=== PATIENT | male | born 1960 | race African-American/Black ===

== ENCOUNTER 2018-08-15 14:20 | Outpatient (RCR) | payer MEDICARE, OTHER ==
[~2018-08-15 14:20] MED LIST: ALLOPURINOL100 M1 ORAL; CLINDAMYCIN HC300 MG ORAL; DOXYCYCLINE HY100 M2 ORAL; FUROSEMIDE40 MG ORAL; LANTUS5 UNITS SUBQ; LASIX40 MG ORAL; LEVEMIR FL100 UNIT/1 SUBQ; METFORMIN HCL1000 M1 ORAL; Potassium Chloride ORAL; VASOTEC10 MG ORAL; XARELTO10 MG ORAL; ZAROXOLYN2.5 MG ORAL
== END 2018-08-31 | disposition home or self-care (01) ==
LOC: WCC 14:20
DX: I89.0 Lymphedema, not elsewhere classified (principal); I87.2 Venous insufficiency (chronic) (peripheral); L97.811 Non-pressure chronic ulcer of other part of right lower leg limited to breakdown of skin; E11.22 Type 2 diabetes mellitus with diabetic chronic kidney disease; Z79.899 Other long term (current) drug therapy; Z79.01 Long term (current) use of anticoagulants; Z95.0 Presence of cardiac pacemaker; E66.01 Morbid (severe) obesity due to excess calories; I13.0 Hypertensive heart and chronic kidney disease with heart failure and stage 1 through stage 4 chronic kidney disease, or unspecified chronic kidney disease; N18.9 Chronic kidney disease, unspecified; I50.9 Heart failure, unspecified; Z87.891 Personal history of nicotine dependence; Z91.018 Allergy to other foods
CPT/HCPCS: 29581; G0463

== ENCOUNTER 2018-08-20 10:49 | Outpatient (CLI) | payer MEDICARE, OTHER ==
--- NOTE | 2018-08-30 19:48 | Diagnostic Imaging Report ---
APPROVED REPORT CPT Code: 96840 Symptoms Comments: Right leg ulcer Edema Limited study due to patient status, body habitus (mid superficial and calf veins). BILATERAL LEG: Common femoral artery waveform analysis is within normal limits at rest. Color flow duplex sonography reveals calcification throughout the superficial femoral and popliteal arteries. There is no evidence of significant stenosis or occlusion within these segments. Doppler tibial artery waveform analysis is monophasic and vasodilated compatible with minimal ischemia at rest. Ankle-brachial indices were attempted, but unobtainable.
--- NOTE | 2018-08-30 19:49 | Diagnostic Imaging Report ---
APPROVED REPORT CPT Code: 28287 Present Symptoms Lower Extremity Edema: Bilateral Limited study due to patient status, body habitus (mid superficial and calf veins). BILATERAL: Imaging reveals a patent deep venous system bilaterally. There is no evidence of thrombus within the common femoral, superficial femoral, popliteal veins. The greater saphenous veins are within normal limits. Doppler indicates normal spontaneous flow within these segments. Venous reflux study: There is an evidence of venous reflux within the greater saphenous venous system. The reflux was lasted longer than 0.5 seconds in the both legs greater saphenous veins at the above thigh, knee, and calf area.
== END 2018-08-20 12:49 | disposition home or self-care (01) ==
LOC: VAS 10:49
DX: L97.919 Non-pressure chronic ulcer of unspecified part of right lower leg with unspecified severity (principal)
CPT/HCPCS: 93925; 93970; G0463

== ENCOUNTER 2018-09-03 08:45 | Outpatient (RCR) | payer MEDICARE, OTHER | END 2018-09-30 | disposition home or self-care (01) | LOC: WCC 08:45 | DX: L97.522 Non-pressure chronic ulcer of other part of left foot with fat layer exposed (principal); E11.621 Type 2 diabetes mellitus with foot ulcer; I89.0 Lymphedema, not elsewhere classified; Q82.0 Hereditary lymphedema; Z91.018 Allergy to other foods | CPT/HCPCS: 15275; 29580; G0463; Q4131 ==

== ENCOUNTER 2018-10-01 12:55 | Outpatient (RCR) | payer MEDICARE, OTHER | END 2018-10-31 | disposition home or self-care (01) | LOC: WCC 12:55 | DX: L97.522 Non-pressure chronic ulcer of other part of left foot with fat layer exposed (principal); E11.621 Type 2 diabetes mellitus with foot ulcer; Z87.891 Personal history of nicotine dependence; Z95.0 Presence of cardiac pacemaker | CPT/HCPCS: 15275; 29580; 82962; Q4131 ==

== ENCOUNTER → 2018-10-15 | Outpatient (CLI) | payer MEDICARE, OTHER ==
--- NOTE | 2018-10-17 18:42 | Diagnostic Imaging Report ---
APPROVED REPORT CPT Code: 74529 Present Symptoms Comments: Swelling Comments Hx of Bilateral leg venous reflux disease BILATERAL: Imaging reveals a patent deep venous system bilaterally. There is no evidence of thrombus within the common femoral, superficial femoral, popliteal or tibial segments. Doppler indicates normal spontaneous flow within these segments. VENOUS INSUFFICIENCY: SUPERFICIAL VENOUS SYSTEM: Imaging reveals venous insufficiency in the greater saphenous vein at the right and left proximal thigh, knee, and calf level. Reflux lasted longer than 0.5 seconds, bilaterally. Note: The proximal superficial femoral to distal superficial femoral and mid calf veins were not visualized, due to body habitus.
== END | disposition home or self-care (01) ==
LOC: VAS 09:30
DX: L97.329 Non-pressure chronic ulcer of left ankle with unspecified severity (principal)
CPT/HCPCS: 93922; 93970

== ENCOUNTER 2018-11-05 10:30 | Outpatient (RCR) | payer MEDICARE, OTHER | END 2018-12-01 | disposition home or self-care (01) | LOC: WCC 10:30 | DX: L97.522 Non-pressure chronic ulcer of other part of left foot with fat layer exposed (principal); E11.621 Type 2 diabetes mellitus with foot ulcer; E11.9 Type 2 diabetes mellitus without complications; I11.9 Hypertensive heart disease without heart failure; Z95.0 Presence of cardiac pacemaker | CPT/HCPCS: 29580; G0463 ==

== ENCOUNTER 2019-04-29 10:46 | Outpatient (RCR) | payer MEDICARE, OTHER | END 2019-05-03 | disposition home or self-care (01) | LOC: WCC 10:46 | DX: L97.812 Non-pressure chronic ulcer of other part of right lower leg with fat layer exposed (principal); I87.311 Chronic venous hypertension (idiopathic) with ulcer of right lower extremity; E11.9 Type 2 diabetes mellitus without complications; I11.9 Hypertensive heart disease without heart failure; E66.01 Morbid (severe) obesity due to excess calories; Z95.5 Presence of coronary angioplasty implant and graft; Z85.72 Personal history of non-Hodgkin lymphomas | CPT/HCPCS: 11042; 29580 ==

== ENCOUNTER 2019-05-06 08:48 | Outpatient (RCR) | payer MEDICARE, OTHER | END 2019-06-01 | disposition home or self-care (01) | LOC: WCC 08:48 | DX: L97.812 Non-pressure chronic ulcer of other part of right lower leg with fat layer exposed (principal); I87.311 Chronic venous hypertension (idiopathic) with ulcer of right lower extremity; Z95.0 Presence of cardiac pacemaker; E11.9 Type 2 diabetes mellitus without complications; I11.9 Hypertensive heart disease without heart failure; I25.10 Atherosclerotic heart disease of native coronary artery without angina pectoris | CPT/HCPCS: 11042; 11045; 29580; G0463 ==

== ENCOUNTER 2019-11-04 14:29 | Outpatient (RCR) | payer MEDICARE, OTHER | END 2019-12-02 | disposition home or self-care (01) | LOC: WCC 14:29 | DX: L97.811 Non-pressure chronic ulcer of other part of right lower leg limited to breakdown of skin (principal); I87.331 Chronic venous hypertension (idiopathic) with ulcer and inflammation of right lower extremity; Z79.01 Long term (current) use of anticoagulants; Z79.899 Other long term (current) drug therapy | CPT/HCPCS: 29580; G0463 ==

== ENCOUNTER 2020-01-06 12:42 | Outpatient (RCR) | payer MEDICARE, OTHER | END 2020-02-01 | disposition home or self-care (01) | LOC: WCC 12:42 | DX: L97.812 Non-pressure chronic ulcer of other part of right lower leg with fat layer exposed (principal); I89.0 Lymphedema, not elsewhere classified; L97.822 Non-pressure chronic ulcer of other part of left lower leg with fat layer exposed; Z95.0 Presence of cardiac pacemaker; I25.10 Atherosclerotic heart disease of native coronary artery without angina pectoris; I11.9 Hypertensive heart disease without heart failure; E11.9 Type 2 diabetes mellitus without complications | CPT/HCPCS: 11042; 11043; 29580; G0463 ==

== ENCOUNTER 2020-04-13 11:58 | Outpatient (RCR) | payer MEDICARE, OTHER | END 2020-05-03 | disposition home or self-care (01) | LOC: WCC 11:58 | DX: I87.2 Venous insufficiency (chronic) (peripheral) (principal); L97.811 Non-pressure chronic ulcer of other part of right lower leg limited to breakdown of skin; Z95.0 Presence of cardiac pacemaker; I11.9 Hypertensive heart disease without heart failure; I25.10 Atherosclerotic heart disease of native coronary artery without angina pectoris; E11.9 Type 2 diabetes mellitus without complications | CPT/HCPCS: 29580; 87070; 87181; 87205 ==

== ENCOUNTER 2020-05-08 13:29 | Outpatient (RCR) | payer MEDICARE, OTHER | END 2020-05-26 | disposition home or self-care (01) | LOC: WCC 13:29 | DX: I87.2 Venous insufficiency (chronic) (peripheral) (principal); L97.811 Non-pressure chronic ulcer of other part of right lower leg limited to breakdown of skin; Z95.0 Presence of cardiac pacemaker; I11.9 Hypertensive heart disease without heart failure; I25.10 Atherosclerotic heart disease of native coronary artery without angina pectoris; E11.9 Type 2 diabetes mellitus without complications | CPT/HCPCS: G0463 ==

== ENCOUNTER 2020-05-15 22:19 | Inpatient (IN) | payer MEDICARE, OTHER ==
[~2020-05-15] VITALS: Ht 180.3 cm; Wt 188.2 kg
[2020-05-15 22:45] VITALS: BP 103/62
--- NOTE | 2020-05-15 22:58 | Emergency Room Report ---
History of Present Illness General Chief Complaint: Generalized Weakness Source: EMS Present Illness HPI Disclaimer: Please note that this report is being documented using [employer] technology. This can lead to erroneous entry secondary to incorrect interpretation by the dictating instrument. HPI: 60-year-old male history of morbid obesity, hypertension, hyperlipidemia, diabetes, CHF presents for evaluation generalized weakness. Patient unable to provide significant history. He is falling asleep during exam and appears somewhat confused. EMS states they picked him up from home after a neighbor stated he was unable to move over the past 2 days. Is reportedly unusual for the patient. Also EMS reported that the patient desaturated to the mid 80s on room air on route. Improved with nasal oxygen. No reports of recent fever cough or URI symptoms. Reportedly he had a negative Covid test recently per EMS. PMH: Obesity, hypertension, hyperlipidemia, diabetes, CHF PSH: Unable to obtain from patient Allergies: Penicillin listed in chart Social Hx: Unable to obtain from patient Allergies: Coded Allergies: [place] (Verified Allergy, Mild, Rash, 10/29/14) per patient P[place] (Unverified Allergy, Unknown, 11/28/13) COVID-19 Screening Contact w/high risk pt: No Experienced COVID-19 symptoms?: No COVID-19 Testing performed HEAD OF GEOGRAPHY: No Nursing Documentation-PMH Hx Cardiac Problems: Yes - Pacemaker Hx Hypertension: Yes Hx Pacemaker: Yes Hx COPD: Yes - sleep apnea Hx Diabetes: Yes Hx Cancer: No Hx Gastrointestinal Problems: No Hx Neurological Problems: No Review of Systems All Other Systems: limited - Unable to obtain from patient due to clinical condition Physical Exam Vital Signs Date Time Temp Pulse Resp B/P (MAP) Pulse Ox O2 Delivery O2 Flow Rate FiO2 05/15/20 22:26 98.1 90 20 89/59 (69) 98 Room Air General: Somnolent, falling asleep during exam. Seems confused. HEENT: NC/AT. EOMI. Cardiovascular: RRR. S1 and S2 normal. No murmur appreciated Resp: 4 L nasal cannula. Breath sounds are distant but present bilaterally. Cannot make out obvious wheezing or crackles Abdomen: Abdomen is morbidly obese. Skin: Intact. Venous stasis changes lower extremities MSK: Normal tone and bulk. Moving all extremities. No obvious deformity. Neuro: Somnolent. Confused. Moving all extremities. Procedures Critical Care Time Critical Care Time Total critical care time: Approximately 45 minutes Due to a high probability of clinically significant, life threatening deterioration, the patient required the highest level of preparedness to intervene emergently and I personally spent this critical care time directly and personally managing the patient. This critical care time included obtaining a history, examining the patient, pulse oximetry, ordering and reviewing studies, ordering treatments, evaluating response to treatment and updating management plan as needed, frequent reassessment and discussion with other providers as well as arranging for ultimate disposition. This critical to care time was performed to assess and manage the high probability of life-threatening deterioration that could result in multiorgan failure. This critical care time is separate from the separately billable procedures and treating other patients. Medical Decision Making Diagnostic Impression: Primary Impression: Morbid obesity Additional Impressions: Acidosis Hyperkalemia Acute kidney failure Pacemaker UTI (urinary tract infection) ER Course 52-year-old male presents for evaluation of weakness. He is confused on arrival. Differential includes is not limited to DKA, sepsis, dehydration, generalized weakness, viral syndrome, pneumonia, COVID-19, ACS among others. EKG on arrival shows atrial fibrillation mild tachycardia. Patient has a history of atrial fibrillation. CT head does not show acute injury. Labs concerning for elevated potassium in the setting of renal failure. BUN and creatinine significantly elevated. Lactate within normal limits. Patient shows an acidosis on blood gas with retained CO2 but normal saturations. BiPAP ordered. Potassium treated with IV calcium, insulin/dextrose, Kayexalate, bicarbonate. Patient unable to go through scanner for CT scan of the chest/abdomen/pelvis because of the large size of his abdomen. Aaron in place approximately 50 cc output. D-dimer and troponin elevated. Patient's previous meds show he is on Xarelto. Unable to perform CTA. Urinalysis shows bacteria. Patient received ceftriaxone. Patient admitted in critical condition to Dr. Fan who is panel physician today Laboratory Tests Test 05/15/20 22:45 05/15/20 23:41 White Blood Count 9.9 K/UL (4.8-10.8) Red Blood Count 3.30 M/UL (4.70-6.10) L Hemoglobin 9.1 G/DL (14.2-18.0) L Hematocrit 30.8 % (42.0-52.0) L Mean Corpuscular Volume 93 FL (80-99) Mean Corpuscular Hemoglobin 27.6 PG (27.0-31.0) Mean Corpuscular Hemoglobin Concent 29.6 G/DL (32.0-36.0) L Red Cell Distribution Width 16.7 % (11.6-14.8) H Platelet Count 203 K/UL (150-450) Mean Platelet Volume 8.3 FL (6.5-10.1) Neutrophils (%) (Auto) 80.2 % (45.0-75.0) H Lymphocytes (%) (Auto) 11.0 % (20.0-45.0) L Monocytes (%) (Auto) 7.4 % (1.0-10.0) Eosinophils (%) (Auto) 0.2 % (0.0-3.0) Basophils (%) (Auto) 1.2 % (0.0-2.0) Prothrombin Time 12.6 SEC (9.30-11.50) H Prothrombin Time INR 1.2 (0.9-1.1) H Activated Partial Thromboplast Time 33 SEC (23-33) D-Dimer 2.87 mg/L FEU (0.00-0.49) H Sodium Level 145 MMOL/L (136-145) Potassium Level 7.9 MMOL/L (3.5-5.1) *H Chloride Level 111 MMOL/L (98-107) H Carbon Dioxide Level 19 MMOL/L (21-32) L Anion Gap 13 mmol/L (5-15) Blood Urea Nitrogen 115 mg/dL (7-18) H Creatinine 8.7 MG/DL (0.55-1.30) H Estimated Glomerular Filtration Rate 7.6 mL/min (>60) Glucose Level 100 MG/DL (74-106) Lactic Acid Level 1.30 mmol/L (0.4-2.0) Calcium Level 8.3 MG/DL (8.5-10.1) L Phosphorus Level 7.9 MG/DL (2.5-4.9) H Magnesium Level 2.1 MG/DL (1.8-2.4) Ferritin 268 NG/ML (8-388) Total Bilirubin 0.5 MG/DL (0.2-1.0) Aspartate Amino Transferase (AST) 41 U/L (15-37) H Alanine Aminotransferase (ALT) 45 U/L (12-78) Alkaline Phosphatase 109 U/L (46-116) Lactate Dehydrogenase 322 U/L (81-234) H Total Creatine Kinase 655 U/L (26-308) H Creatine Kinase MB 16.5 NG/ML (0.0-3.6) H Creatine Kinase MB Relative Index 2.5 Troponin I 0.146 ng/mL (0.000-0.056) C-Reactive Protein, Quantitative 5.0 mg/dL (0.00-0.90) H Pro-B-Type Natriuretic Peptide 84131 pg/mL (0-125) H Total Protein 9.1 G/DL (6.4-8.2) H Albumin 3.0 G/DL (3.4-5.0) L Globulin 6.1 g/dL Albumin/Globulin Ratio 0.5 (1.0-2.7) L Lipase 138 U/L (73-393) Acetone Level Positive-small (NEGATIVE) Arterial Blood pH 7.004 (7.350-7.450) Arterial Blood Partial Pressure CO2 64.0 mmHg (35.0-45.0) *H Arterial Blood Partial Pressure O2 107.4 mmHg (75.0-100.0) H Arterial Blood HCO3 15.6 mmol/L (22.0-26.0) *L Arterial Blood Oxygen Saturation 95.5 % (95-100) Arterial Blood Base Excess -15.4 (-2-2) *L Dany Test Positive EKG Diagnostic Results Troponin ordered: Yes When was troponin ordered?: May 15, 2020 EKG Time: 22:42 Rate: tachycardiac Other Impression Irregularly irregular rhythm consistent with atrial fibrillation rate 117 Rhythm Strip Diag. Results Rhythm Strip Time: 22:42 EP Interpretation: yes Rate: 117 Rhythm: other - Irregularly irregular rhythm Chest X-Ray Diagnostic Results Chest X-Ray Diagnostic Results : Chest X-Ray Ordered: Yes # of Views/Limited/Complete: 1 View Indication: Other - Weakness Interpretation: no pneumothorax, other - Bilateral pulmonary congestion. Cannot exclude infiltrates. Pacemaker wires appear in place Impression: Other - Bilateral pulmonary edema Electronically Signed by: Electronically signed by Dr. Victor Manuel Marc MD Last Vital Signs Date Time Temp Pulse Resp B/P (MAP) Pulse Ox O2 Delivery O2 Flow Rate FiO2 05/15/20 22:26 98.1 90 20 89/59 (69) 98 Room Air Disposition: ADMITTED INPATIENT Condition: Critical Referrals: NOT CHOSEN IPA/,REFERRING (PCP) Victor Manuel Marc MD May 15, 2020 22:58
[2020-05-15 23:21] LABS: BASOPHILS % (AUTO) 1.2 % (0.0-2.0); EOSINOPHILS % (AUTO) 0.2 % (0.0-3.0); HEMATOCRIT 30.8 % (42.0-52.0); HEMOGLOBIN 9.1 G/DL (14.2-18.0); MEAN CORPUSCULAR VOLUME 93 FL (80-99); MONOCYTES % (AUTO) 7.4 % (1.0-10.0); NEUTROPHILS % (AUTO) 80.2 % (45.0-75.0); PLATELET COUNT 203 K/UL (150-450); RED CELL DISTRIBUTION WIDTH 16.7 % (11.6-14.8); WHITE BLOOD COUNT 9.9 K/UL (4.8-10.8)
[2020-05-15 23:47] LABS: ALBUMIN/GLOBULIN RATIO 0.5 (1.0-2.7); BILIRUBIN,TOTAL 0.5 MG/DL (0.2-1.0); CALCIUM 8.3 MG/DL (8.5-10.1); CREATININE 8.7 MG/DL (0.55-1.30); PHOSPHORUS 7.9 MG/DL (2.5-4.9)
[2020-05-15 23:50] LABS: POTASSIUM 7.9 MMOL/L (3.5-5.1)
[2020-05-15 23:52] LABS: INR 1.2 (0.9-1.1)
[2020-05-16] VITALS (22 sets, daily range): BP systolic 96–127; BP diastolic 45–76
[2020-05-16] MEDS ORDERED: Insulin Human Regular 100units/ml 3ml IV ONE
[2020-05-16] MEDS ORDERED: Calcium Gluconate 1gm/10ml vial IVP ONE
[2020-05-16] MEDS ORDERED: Sodium Polystyrene Sulfonate 15gm Powder ORAL ONE
[2020-05-16] MEDS ORDERED: Sodium Bicarbonate 50ml Carp IV ONE
[2020-05-16] MEDS ORDERED: cefTRIAXone 1 GM in NS 55 ML IVPB ONE ×2
[2020-05-16 00:04] LABS: CKMB 16.5 NG/ML (0.0-3.6)
--- NOTE | 2020-05-16 00:09 | Diagnostic Imaging Report ---
EXAM: XR Chest, 1 View CLINICAL HISTORY: WEAK TECHNIQUE: Frontal view of the chest. COMPARISON: 10/29/2014 IMPRESSION: Increased interstitial opacities in the mid to lower lobes bilaterally. Correlate with edema. Cardiomegaly.
--- NOTE | 2020-05-16 00:42 | Diagnostic Imaging Report ---
EXAM: CT Head Without Intravenous Contrast CLINICAL HISTORY: AMS TECHNIQUE: Axial computed tomography images of the head/brain without intravenous contrast. CTDI is 53.4 mGy and DLP is 1179.1 mGy-cm. One or more of the following dose reduction techniques were used: automated exposure control, adjustment of the mA and/or kV according to patient size, use of iterative reconstruction technique. COMPARISON: No relevant prior studies available. FINDINGS: Brain: No hemorrhage or mass effect. Ventricles: No hydrocephalus. Bones/joints: Unremarkable. Soft tissues: Unremarkable. Sinuses: Unremarkable. Mastoid air cells: Clear. IMPRESSION: No acute hemorrhage, hydrocephalus, or mass effect.
[2020-05-16 01:00] LABS: APPEARANCE,URINE SLIGHTLY CLOUDY; BILIRUBIN, URINE NEGATIVE (NEGATIVE); GLUCOSE, URINE (UA) NEGATIVE (NEGATIVE); KETONES,URINE 1+ (NEGATIVE); LEUKOCYTE ESTERASE ,URINE 1+ (NEGATIVE); NITRITE,URINE NEGATIVE (NEGATIVE); PH,URINE 5 (4.5-8.0); PROTEIN,URINE 4+ (NEGATIVE); UROBILINOGEN,URINE NORMAL MG/DL (0.0-1.0)
[2020-05-16 01:03] LABS: COLOR,URINE PALE YELLOW
[2020-05-16 08:13] LABS: BASOPHILS % (AUTO) 1.4 % (0.0-2.0); EOSINOPHILS % (AUTO) 0.3 % (0.0-3.0); HEMATOCRIT 31.9 % (42.0-52.0); HEMOGLOBIN 9.1 G/DL (14.2-18.0); MEAN CORPUSCULAR VOLUME 96 FL (80-99); MONOCYTES % (AUTO) 8.3 % (1.0-10.0); PLATELET COUNT 200 K/UL (150-450); RED BLOOD COUNT 3.32 M/UL (4.70-6.10); RED CELL DISTRIBUTION WIDTH 17.1 % (11.6-14.8)
[2020-05-16 08:44] LABS: ALBUMIN 2.7 G/DL (3.4-5.0); ALBUMIN/GLOBULIN RATIO 0.5 (1.0-2.7); BILIRUBIN,TOTAL 0.4 MG/DL (0.2-1.0); CALCIUM 8.3 MG/DL (8.5-10.1); CREATININE 8.9 MG/DL (0.55-1.30)
[2020-05-16 08:55] LABS: POTASSIUM 7.9 MMOL/L (3.5-5.1)
--- NOTE | 2020-05-16 09:05 | Diagnostic Imaging Report ---
EXAM: US Duplex Bilateral Lower Extremities Veins CLINICAL HISTORY: WEAK TECHNIQUE: Real-time duplex ultrasound scan of the bilateral lower extremity veins integrating B-mode two-dimensional vascular structure, Doppler spectral analysis, color flow Doppler imaging and compression. COMPARISON: No relevant prior studies available. FINDINGS: Right deep veins: Unremarkable. No DVT in the right common femoral, femoral, proximal deep femoral or popliteal veins. The veins demonstrate normal color flow, are normally compressible, with normal phasic flow and/or augmentation response. Right superficial veins: Unremarkable. No thrombus in the visualized right great saphenous vein. Left deep veins: Unremarkable. No DVT in the left common femoral, femoral, proximal deep femoral or popliteal veins. The veins demonstrate normal color flow, are normally compressible, with normal phasic flow and/or augmentation response. Left superficial veins: Unremarkable. No thrombus in the visualized left great saphenous vein. Soft tissues: Moderate subcutaneous edema bilaterally. No popliteal cyst. IMPRESSION: No evidence of deep vein thrombosis in either lower extremity..
--- NOTE | 2020-05-16 09:46 | Diagnostic Imaging Report ---
EXAM: US Retroperitoneal Limited, Renal CLINICAL HISTORY: WEAK TECHNIQUE: Real-time limited ultrasound of the retroperitoneum with image documentation. COMPARISON: No relevant prior studies available. FINDINGS: Limitations: Study is limited due to patient body habitus. Right kidney: The right kidney measures 11.2 cm in length. There is increased echogenicity of the renal cortex consistent with medical renal disease. No hydronephrosis or mass identified. No stones. Left kidney: The left kidney is not visualized. Bladder: The bladder is decompressed with a Aaron catheter in place. IMPRESSION: The study due to patient body habitus. There is nonvisualization of the left kidney. The right kidney demonstrates increase echogenicity consistent with medical renal disease.
[2020-05-16] MEDS ORDERED: Sodium Bicarbonate 50ml Carp IV SCH (10:30)
[2020-05-16] MEDS ORDERED: Sodium Polystyrene Sulfonate 15gm Powder NG SCH (10:30)
[2020-05-16] MEDS: Dextrose 10% 1,000 ML IV SCH (11:06)
--- NOTE | 2020-05-16 11:15 | Consultation ---
Consult Note Consult Note I am asked to evaluate the patient at the request of Dr. Cates for renal failure and hyperkalemia Chief Complaint: Generalized Weakness HPI: 60-year-old male history of morbid obesity, hypertension, hyperlipidemia, diabetes, CHF presents for evaluation generalized weakness. Patient unable to provide significant history. He is falling asleep during exam and appears somewhat confused. EMS states they picked him up from home after a neighbor stated he was unable to move over the past 2 days. Is reportedly unusual for the patient. Also EMS reported that the patient desaturated to the mid 80s on room air on route. Improved with nasal oxygen. No reports of recent fever cough or URI symptoms. Reportedly he had a negative Covid test recently per EMS. PMH: Obesity, hypertension, hyperlipidemia, diabetes, CHF PSH: Unable to obtain from patient Allergies: Penicillin listed in chart Social Hx: Unable to obtain from patient Allergies: [place] (Verified Allergy, Mild, Rash, 10/29/14) per patient PENIC[place] (Unverified Allergy, Unknown, 11/28/13) COVID-19 Screening Contact w/high risk pt: No Experienced COVID-19 symptoms?: No COVID-19 Testing performed PARK GUARD: No Hx Cardiac Problems: Yes - Pacemaker Hx Hypertension: Yes Hx Pacemaker: Yes Hx COPD: Yes - sleep apnea Hx Diabetes: Yes Vital Signs Date Time Temp Pulse Resp B/P (MAP) Pulse Ox O2 Delivery O2 Flow Rate FiO2 05/15/20 22:26 98.1 90 20 89/59 (69) 98 Room Air PHYSICAL EXAMINATION: VITAL SIGNS: Show blood pressure 96/58, pulse is 120 in atrial fib, respirations 20, and temperature is 98. HEAD AND NECK: Shows positive JVD. LUNGS: Decreased breath sounds. CARDIOVASCULAR: Shows irregularly irregular S1 and S2 and tachycardic. ABDOMEN: Soft and morbidly obese. EXTREMITIES: A 2+ pitting edema. LABORATORY AND DIAGNOSTIC DATA: Labs show white count of 9, hemoglobin of 9.1, hematocrit of 32, and platelet count is 200,000. Sodium is 147, potassium initially was 7.9 and now is 4.2, BUN of 74, and creatinine of 5.8. Initial BUN was 121 and creatinine was 8.9. Troponin 0.109. BNP is 15,000. CK is 655. LDH 322. His D-dimer is 2.8. . Assessment/Plan Imp: Acute on chronic renal failure Hyperkalemia Metabolic acidosis Pacemaker UTI Morbid obesity Sugg: Stat ABG, stat kidney ultrasound: Results noted IV bicarb NG tube, Kayexalate Urgent dialysis Discussed with DANIEL Oliva Patient cannot give consent for insertion of dialysis catheter. Dialysis at this point is a lifesaving procedure in my opinion. Adria Gautam MD May 16, 2020 11:15
--- NOTE | 2020-05-16 11:58 | Operative Note - PDOC ---
Operative Note Operative Note Date of Operation/Procedure: May 16, 2020 Pre-op Diagnosis: Hyperkalemia, acute renal insufficiency, Covid positive person under interest pending labs micro Procedure: Right femoral temporary hemodialysis catheter insertion Post-op Diagnosis: same as pre-op Surgeon: Abhay Mccray MD Anesthesia: local Specimen: none Complications: none Condition: unstable Estimated Blood Loss: minimal Implant(s) used?: No Indications for Procedure 60-year-old male presents [facility] and acute renal insufficiency hyperkalemia emergency urgent hemodialysis indicated recommended as per nephrology and medical teams. Patient does not have dialysis access currently. Patient is unresponsive. Emergency dialysis catheter insertion performed at bedside with plans for urgent hemodialysis given patient's hemodynamic condition. Description of Procedure Patient was made comfortable the bedside in the supine position. The right groin is prepped and draped in the same surgical fashion. Local anesthetic was infiltrated. Anatomic landmarks identified. The right femoral vein was cannulated without complication. Good venous flow identified. Guidewire placed over needle needle removed. Small skin incision made around the guidewire. Dilators were used and the tract was dilated. Following this a temporary hemodialysis catheter was inserted over the guidewire guidewire was removed and discarded. Line was sutured in place all ports flushed and aspirated venous blood appropriately without complication. Dressings were applied patient to have dialysis urgently Abhay Mccray May 16, 2020 11:58
--- NOTE | 2020-05-16 12:25 | Cardiology Report ---
APPROVED REPORT EKG Measurement Heart [id number] <Conclusion> Suspect unspecified pacemaker failure Atrial fibrillation with rapid ventricular response with premature ventricular or aberrantly conducted complexes Left axis deviation Low voltage QRS Right bundle branch block Possible Anterolateral infarct, age undetermined Abnormal ECG
--- NOTE | 2020-05-16 12:49 | Cardiology Report ---
APPROVED REPORT EXAM: Two-dimensional and M-mode echocardiogram with Doppler and color Doppler. INDICATION Congestive Heart Failure M-Mode DIMENSIONS IVSd1.0 (0.7-1.1cm)Left Atrium (MM)3.6 (1.6-4.0cm) LVDd4.8 (3.5-5.6cm)Aortic Root3.6 (2.0-3.7cm) PWd1.0 (0.7-1.1cm)Aortic Cusp Exc.2.4 (1.5-2.0cm) IVSs1.7 cmEPSS0.5 (>1.0cm) LVDs3.0 (2.5-4.0cm) PWs1.7 cm Other Information Technically limited study due to body habitus. <Conclusion> Technically difficult study due to poor acoustical windows and patient body habitus. Normal left ventricular chamber size, systolic function to extent visualized. Left ventricular ejection fraction estimated to be 60-65 %. Study quality precludes accurate assessment of regional wall motion. Mild left ventricular hypertrophy. Anterior Echo-free space, may be due to pericardial fat or effusion. Left atrial size is within normal limits. Mild right atrial enlargement. Right ventricular chamber sizes is within normal limits. Focal aortic valve sclerosis with adequate cusp excursion. Thickened mitral valve leaflets with normal excursion. Mitral annulus and aortic root calcification. Normal pulmonic valve structure. Normal tricuspid valve structure. IVC view is not obtainable due to huge belly. Pacemaker wire present in the right side chambers. A color flow and spectral Doppler study was performed and revealed: Mild aortic regurgitation. Moderate mitral regurgitation. Can not determine left ventricular diastolic function by mitral diastolic velocities due to atrial fibrillation. Moderate to severe tricuspid regurgitation. Tricuspid systolic velocities suggests peak right ventricular systolic pressure of 51 mmHg, consistent with moderate pulmonary hypertension. Pulmonic regurgitation present.
--- NOTE | 2020-05-16 12:54 | Diagnostic Imaging Report ---
EXAM: XR Abdomen, 1 View CLINICAL HISTORY: NGT TECHNIQUE: Frontal supine view of the abdomen/pelvis. COMPARISON: No relevant prior studies available. FINDINGS: Gastrointestinal tract: Nonspecific bowel gas pattern Bones/joints: No acute fracture. Tubes, lines and devices: Enteric tube coiled in the esophagus. Right femoral vascular line. IMPRESSION: Enteric tube coiled in the esophagus. Remove. <MYCVCSECTION> Communications: 05/16/20 13:04 Verify Receipt with Nurse Verified receipt with 2 hilary Blount, given to Nurse Jones on 05/16 13:04 (-08:00)
--- NOTE | 2020-05-16 13:03 | Consultation ---
Consult Note Consult Note DATE OF CONSULTATION: 05/16/2020 CONSULTING PHYSICIAN: Juanito Amador MD. ATTENDING PHYSICIAN: Dr. Fan REASON FOR CONSULTATION: Hypoxemia, respiratory distress HISTORY OF PRESENT ILLNESS: This is a 60-year-old male with past medical history of morbid obesity, hypertension, hyperlipidemia, diabetes mellitus, and CHF, who presented to the ED for evaluation of generalized weakness. Patient was brought in by EMS from home after a neighbor stated he was unable to move over the past 2 days. Patient was unable to provide significant history on arrival as he was somewhat confused. Patient was hypoxic on room air in the mid 90s and is now on BiPAP. Patient is seen in SDU. COVID-19 swab was sent. EKG on arrival showed atrial fibrillation with mild tachycardia. Patient does have a history of atrial fibrillation. CT of head did not show any acute injury. Initial laboratory studies were notable for elevated potassium in the setting of renal failure, significantly elevated BUN and creatinine. Patient was acidotic on blood gas with retaining CO2. Patient was put on BiPAP. The ABG is notable for pH of 7.06, PCO2 of 53.9, PO2 of 111.9, bicarb of 15.0. Patient was given bicarb. Patient was also given NG tube for administration of medications including Kayexalate. Patient received right femoral temporary hemodialysis catheter and is undergoing hemodialysis at the moment. PAST MEDICAL HISTORY: Hypertension, morbid obesity, hyperlipidemia, diabetes mellitus, CHF, pacemaker implant, sleep apnea MEDICATIONS: Insulin, Xarelto, allopurinol, enalapril, furosemide, metolazone ALLERGIES: Yeoman, penicillin FAMILY HISTORY: Unknown PERSONAL/SOCIAL HISTORY: Patient is from home REVIEW OF SYSTEMS: Unreliable PHYSICAL EXAMINATION: VITAL SIGNS: Blood pressure 107/45, heart rate 111, respiratory rate 18, weight 188 kg, height 180 cm. General: Patient in bed with moderate respiratory distress on BiPAP HEENT: Head exam reveals that the head is normocephalic, atraumatic without deformity or unusual swelling. Pupils are PERRLA. CHEST AND LUNGS: No obvious wheezing or crackles, breath sounds are distant but present bilaterally CARDIOVASCULAR: Reveals normal S1, S2 without murmurs, rubs, or clicks. ABDOMEN: Morbidly obese RECTAL: Deferred. MUSCULOSKELETAL: There is no tenderness to palpation. Range of motion is normal. NEUROLOGICAL: Somnolent, confused LABORATORY DATA: Laboratory testing shows hemoglobin 9.1, otherwise unremarkable. Chemistries show potassium 7.9, chloride 114, carbon dioxide 19, BUN 121, creatinine 8.9, calcium 8.3, LDH 322, CK 655, CK-MB 16.5, troponin 0.109, albumin 2.7 Urinalysis shows 4+ protein, 1+ ketones, 1+ blood, 1+ leuk esterase, urine bacteria Assessment/Plan 1. Hx Sleep apnea - Pt unable to articulate whether he uses CPAP at home - Continue BiPAP for now 2. Acute on chronic renal failure; hyperkalemia - s/p Kayexalate - s/p Right femoral catheter for dialysis (05/15) -Undergoing urgent dialysis (05/15) 3. Bacteriuria - s/p Rocephin in ER - f/u UCx 4. Hypoxemic respiratory distress -Continue BiPAP -Check ABG 5. Elevated inflammatory markers -Venous duplex ultrasound of lower extremities negative for DVT -On SCD for DVT prophylaxis 6. pneumonia -Chest x-ray shows interstitial opacities bilaterally -COVID-19 PCR sent -Observe off antibiotics given no leukocytosis or fever -Continue isolation till COVID-19 test result available The care for this patient was discussed with my supervising physician. Time spent for this case was approximately 31 minutes. Juan Dunlap May 16, 2020 13:03
[2020-05-16 14:46] LABS: CALCIUM 7.5 MG/DL (8.5-10.1); CREATININE 5.8 MG/DL (0.55-1.30); POTASSIUM 4.2 MMOL/L (3.5-5.1)
[2020-05-16 14:49] LABS: ALBUMIN 2.5 G/DL (3.4-5.0); ALBUMIN/GLOBULIN RATIO 0.5 (1.0-2.7); BILIRUBIN,TOTAL 0.5 MG/DL (0.2-1.0)
--- NOTE | 2020-05-16 16:37 | Cardiac Electrophysiology PN ---
Subjective Subjective [id number] Objective Last 24 Hour Vital Signs Date Time Temp Pulse Resp B/P (MAP) Pulse Ox O2 Delivery O2 Flow Rate FiO2 05/16/20 16:00 60 05/16/20 16:00 Bi-pap 05/16/20 16:00 97.9 112 14 96/58 (71) 97 97 05/16/20 12:00 Bi-pap 05/16/20 12:00 111 05/16/20 12:00 60 05/16/20 12:00 97.2 99 18 107/45 (65) 97 100 05/16/20 10:55 106 19 99 60 05/16/20 08:27 102 05/16/20 08:01 60 05/16/20 08:00 97.1 101 17 107/63 (78) 97 101 05/16/20 07:48 Bi-pap 05/16/20 07:01 104 20 98 60 05/16/20 04:00 97.4 96 22 106/74 (85) 97 05/16/20 04:00 Bi-pap 60.0 05/16/20 03:54 95 05/16/20 02:32 60 05/16/20 02:10 112 16 100 60 05/16/20 02:10 112 16 100 Bi-Pap 60 05/16/20 01:56 97.2 110 26 116/63 (80) 95 05/16/20 01:55 Simple Mask 10.0 05/16/20 01:44 109 05/16/20 01:30 98.3 102 12 123/65 98 Simple Mask 10.0 05/15/20 22:45 124 20 Simple Mask 10.0 05/15/20 22:45 98.1 124 20 103/62 98 Simple Mask 10.0 05/15/20 22:26 98.1 90 20 89/59 (69) 98 Room Air Intake and Output 05/15/20 05/16/20 19:00 07:00 Intake Total 1115 ml Output Total 75 ml Balance 1040 ml Intake Oral 60 ml IV Total 1055 ml Output Urine Total 75 ml Laboratory Tests Test 05/15/20 22:45 05/15/20 23:41 05/16/20 00:51 05/16/20 07:02 White Blood Count 9.9 K/UL (4.8-10.8) 9.0 K/UL (4.8-10.8) Red Blood Count 3.30 M/UL (4.70-6.10) L 3.32 M/UL (4.70-6.10) L Hemoglobin 9.1 G/DL (14.2-18.0) L 9.1 G/DL (14.2-18.0) L Hematocrit 30.8 % (42.0-52.0) L 31.9 % (42.0-52.0) L Mean Corpuscular Volume 93 FL (80-99) 96 FL (80-99) Mean Corpuscular Hemoglobin 27.6 PG (27.0-31.0) 27.3 PG (27.0-31.0) Mean Corpuscular Hemoglobin Concent 29.6 G/DL (32.0-36.0) L 28.4 G/DL (32.0-36.0) L Red Cell Distribution Width 16.7 % (11.6-14.8) H 17.1 % (11.6-14.8) H Platelet Count 203 K/UL (150-450) 200 K/UL (150-450) Mean Platelet Volume 8.3 FL (6.5-10.1) 7.8 FL (6.5-10.1) Neutrophils (%) (Auto) 80.2 % (45.0-75.0) H 80.0 % (45.0-75.0) H Lymphocytes (%) (Auto) 11.0 % (20.0-45.0) L 10.0 % (20.0-45.0) L Monocytes (%) (Auto) 7.4 % (1.0-10.0) 8.3 % (1.0-10.0) Eosinophils (%) (Auto) 0.2 % (0.0-3.0) 0.3 % (0.0-3.0) Basophils (%) (Auto) 1.2 % (0.0-2.0) 1.4 % (0.0-2.0) Prothrombin Time 12.6 SEC (9.30-11.50) H Prothromb Time International Ratio 1.2 (0.9-1.1) H Activated Partial Thromboplast Time 33 SEC (23-33) D-Dimer 2.87 mg/L FEU (0.00-0.49) H Sodium Level 145 MMOL/L (136-145) 144 MMOL/L (136-145) Potassium Level 7.9 MMOL/L (3.5-5.1) *H 7.9 MMOL/L (3.5-5.1) *H Chloride Level 111 MMOL/L (98-107) H 114 MMOL/L (98-107) H Carbon Dioxide Level 19 MMOL/L (21-32) L 19 MMOL/L (21-32) L Anion Gap 13 mmol/L (5-15) 10 mmol/L (5-15) Blood Urea Nitrogen 115 mg/dL (7-18) H 121 mg/dL (7-18) H Creatinine 8.7 MG/DL (0.55-1.30) H 8.9 MG/DL (0.55-1.30) H Estimat Glomerular Filtration Rate 7.6 mL/min (>60) 7.5 mL/min (>60) Glucose Level 100 MG/DL (74-106) 88 MG/DL (74-106) Lactic Acid Level 1.30 mmol/L (0.4-2.0) Calcium Level 8.3 MG/DL (8.5-10.1) L 8.3 MG/DL (8.5-10.1) L Phosphorus Level 7.9 MG/DL (2.5-4.9) H Magnesium Level 2.1 MG/DL (1.8-2.4) Ferritin 268 NG/ML (8-388) Total Bilirubin 0.5 MG/DL (0.2-1.0) 0.4 MG/DL (0.2-1.0) Aspartate Amino Transf (AST/SGOT) 41 U/L (15-37) H 37 U/L (15-37) Alanine Aminotransferase (ALT/SGPT) 45 U/L (12-78) 39 U/L (12-78) Alkaline Phosphatase 109 U/L (46-116) 98 U/L (46-116) Lactate Dehydrogenase 322 U/L (81-234) H Total Creatine Kinase 655 U/L (26-308) H Creatine Kinase MB 16.5 NG/ML (0.0-3.6) H Creatine Kinase MB Relative Index 2.5 Troponin I 0.146 ng/mL (0.000-0.056) 0.109 ng/mL (0.000-0.056) C-Reactive Protein, Quantitative 5.0 mg/dL (0.00-0.90) H Pro-B-Type Natriuretic Peptide 21530 pg/mL (0-125) H Total Protein 9.1 G/DL (6.4-8.2) H 8.3 G/DL (6.4-8.2) H Albumin 3.0 G/DL (3.4-5.0) L 2.7 G/DL (3.4-5.0) L Globulin 6.1 g/dL 5.6 g/dL Albumin/Globulin Ratio 0.5 (1.0-2.7) L 0.5 (1.0-2.7) L Lipase 138 U/L (73-393) Acetone Level Positive-small (NEGATIVE) Arterial Blood pH 7.004 (7.350-7.450) Arterial Blood Partial Pressure CO2 64.0 mmHg (35.0-45.0) *H Arterial Blood Partial Pressure O2 107.4 mmHg (75.0-100.0) H Arterial Blood HCO3 15.6 mmol/L (22.0-26.0) *L Arterial Blood Oxygen Saturation 95.5 % (95-100) Arterial Blood Base Excess -15.4 (-2-2) *L Dany Test Positive Urine Color Pale yellow Urine Appearance Slightly cloudy Urine pH 5 (4.5-8.0) Urine Specific Nelson 1.025 (1.005-1.035) Urine Protein 4+ (NEGATIVE) H Urine Glucose (UA) Negative (NEGATIVE) Urine Ketones 1+ (NEGATIVE) H Urine Blood 1+ (NEGATIVE) H Urine Nitrite Negative (NEGATIVE) Urine Bilirubin Negative (NEGATIVE) Urine Urobilinogen Normal MG/DL (0.0-1.0) Urine Leukocyte Esterase 1+ (NEGATIVE) H Urine RBC 5-10 /HPF (0 - 0) H Urine WBC 10-15 /HPF (0 - 0) H Urine Squamous Epithelial Cells Few /LPF (NONE/OCC) Urine Amorphous Sediment Moderate /LPF (NONE) H Urine Bacteria Moderate /HPF (NONE) H Urine Other Casts 0-2 /LPF (NONE) H Urine Random Sodium 20 mmol/L (20-110) Urine Random Chloride 42 mmol/L (55-125) L Urine Potassium Timed 49 mmol/L (12-62) Test 05/16/20 10:01 05/16/20 14:10 Arterial Blood pH 7.063 (7.350-7.450) Arterial Blood Partial Pressure CO2 53.9 mmHg (35.0-45.0) H Arterial Blood Partial Pressure O2 111.9 mmHg (75.0-100.0) H Arterial Blood HCO3 15.0 mmol/L (22.0-26.0) *L Arterial Blood Oxygen Saturation 96.8 % (95-100) Arterial Blood Base Excess -14.7 (-2-2) *L Dany Test Positive Sodium Level 147 MMOL/L (136-145) H Potassium Level 4.2 MMOL/L (3.5-5.1) Chloride Level 112 MMOL/L (98-107) H Carbon Dioxide Level 26 MMOL/L (21-32) Anion Gap 9 mmol/L (5-15) Blood Urea Nitrogen 74 mg/dL (7-18) H Creatinine 5.8 MG/DL (0.55-1.30) H Estimat Glomerular Filtration Rate 12.2 mL/min (>60) Glucose Level 95 MG/DL (74-106) Calcium Level 7.5 MG/DL (8.5-10.1) L Total Bilirubin 0.5 MG/DL (0.2-1.0) Aspartate Amino Transf (AST/SGOT) 28 U/L (15-37) Alanine Aminotransferase (ALT/SGPT) 32 U/L (12-78) Alkaline Phosphatase 87 U/L (46-116) Total Protein 7.2 G/DL (6.4-8.2) Albumin 2.5 G/DL (3.4-5.0) L Globulin 4.7 g/dL Albumin/Globulin Ratio 0.5 (1.0-2.7) L Shai Champion MD May 16, 2020 16:37
[2020-05-16] MEDS ORDERED: Digoxin 0.5mg/2ml Inj IVP SCH (17:00)
[2020-05-16] MEDS: Norepinephrine 4mg/NS Premix 250 ML IV SCH (20:26)
[2020-05-16] MEDS: dilTIAZem Premix 125mg/125ml 125 ML IVPB SCH (20:27)
--- NOTE | 2020-05-16 20:44 | History and Physical Report ---
DATE OF ADMISSION: 05/15/2020 HISTORY OF PRESENT ILLNESS: The patient is on BiPAP. He came in initially with generalized weakness complaint only. The patient is morbidly obese, was found to have potassium of 7.9, is also being admitted for acute renal failure and hyperkalemia. The patient is also on BiPAP. The patient also has a history of hypertension. Chest x-ray shows possible edema. The patient also has some elevation in pCO2. Again, the patient is admitted for respiratory insufficiency, acute renal failure, hyperkalemia, and hypertension. Does have exertional shortness of breath. Denies cough. Denies headache. Denies nausea, vomiting, or diarrhea. PAST MEDICAL HISTORY: Significant for history of morbid obesity, leg edema, history of NIDDM, history of atrial flutter, history of congestive heart failure, morbid obesity, and arrhythmia. PAST SURGICAL HISTORY: Denies. FAMILY HISTORY: Noncontributory. SOCIAL HISTORY: Has history of alcohol abuse. Does have history of drug abuse. Does have history of smoking. ALLERGIES: Almonds and penicillin. MEDICATIONS: Vasotec, Lasix, insulin, and Xarelto. REVIEW OF SYSTEMS: HEENT: Denies headaches. RESPIRATORY: Reports shortness of breath. Denies cough. CARDIOVASCULAR: Denies chest pain. Denies orthopnea. GASTROINTESTINAL: Denies nausea, vomiting, or diarrhea. Denies abdominal pain. EXTREMITIES: Has leg edema. 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 PHYSICAL EXAMINATION: VITAL SIGNS: Temperature 97.1, pulse is 101, and blood pressure is 107/63. HEENT: PERRLA. CHEST: Bibasilar rhonchi. The patient has BiPAP. CARDIOVASCULAR: Irregularly irregular. GASTROINTESTINAL: Soft, distended. Positive bowel sounds. Abdomen is soft. No organomegaly. EXTREMITIES: 2+ edema. NEUROLOGIC: Generalized weakness. Reflexes on both sides. Oriented x2. LABORATORY DATA: WBC of 9.9, hemoglobin of 9.1, and platelets of 203. Sodium 144, potassium of 7.9, BUN of 121, creatinine of 8.5, glucose of 88, and troponin was 0.109. ASSESSMENT AND PLAN: 1. Acute renal failure. 2. Hyperkalemia. 3. BiPAP. 4. History of hypertension. 5. History of CHF and arrhythmia. 6. The patient is also being admitted for possible CHF exacerbation as well as renal failure, hyperkalemia, respiratory insufficiency, and hypertension. The patient is on BiPAP. Chest x-ray shows edema. I have consulted Dr. Champion, Dr. Gautam, Dr. Juanito Amador, Dr. Corona, Dr. Oswaldo Toro, Dr. Santiago to help with the management of this complex patient with management of the above-mentioned symptoms and above-mentioned abnormal imaging as well as abnormal labs. Antibiotics if any per Dr. Oswaldo Toro. We need to also rule out obstructive uropathy. Dr. Corona has been consulted to help with the management to rule out obstructive uropathy, and Dr. Santiago is also consulted to help with the management of the distended abdomen. Montserrat Fan M.D. DR: Trevin JOB#: [id number] CC:
--- NOTE | 2020-05-16 20:59 | Consultation ---
DATE OF CONSULTATION: 05/16/2020 CARDIOLOGY CONSULTATION CONSULTING PHYSICIAN: Shai Champion M.D. REFERRING PHYSICIAN: Montserrat Fan MD REASON FOR CONSULTATION: Atrial fibrillation, rapid ventricular response, as well as elevated troponin. HISTORY OF PRESENT ILLNESS: The patient is a 60-year-old morbidly obese gentleman with hypertension, diabetes, hyperlipidemia, and congestive heart failure, presented to hospital with generalized weakness. The patient is not able to provide any meaningful information and currently is on BiPAP and is confused. The patient was picked up from home after neighbor stated that he was unable to move over the last 2 days. Per paramedics, the patient's saturation was in the mid 80s en route. The patient reported he had a negative COVID test by paramedics. The patient was noted to have a potassium of 7.9 and underwent emergency hemodialysis catheter placement by Dr. Mccray and underwent hemodialysis today. At the time of my evaluation, the patient is still on BiPAP, was in atrial fibrillation with rapid ventricular response with heart rate of 120s. REVIEW OF SYSTEMS: Cannot be obtained. PAST MEDICAL HISTORY: As mentioned above. FAMILY HISTORY: Noncontributory. SOCIAL HISTORY: He lives at home. No further information is available. PHYSICAL EXAMINATION: VITAL SIGNS: Show blood pressure 96/58, pulse is 120 in atrial fib, respirations 20, and temperature is 98. HEAD AND NECK: Shows positive JVD. LUNGS: Decreased breath sounds. CARDIOVASCULAR: Shows irregularly irregular S1 and S2 and tachycardic. ABDOMEN: Soft and morbidly obese. EXTREMITIES: A 2+ pitting edema. LABORATORY AND DIAGNOSTIC DATA: Labs show white count of 9, hemoglobin of 9.1, hematocrit of 32, and platelet count is 200,000. Sodium is 147, potassium initially was 7.9 and now is 4.2, BUN of 74, and creatinine of 5.8. Initial BUN was 121 and creatinine was 8.9. Troponin 0.109. BNP is 15,000. CK is 655. LDH 322. His D-dimer is 2.8. ASSESSMENT AND PLAN: 1. Elevated troponin, likely due to the patient's renal failure and of respiratory failure, currently on BiPAP. We will repeat cardiac enzymes. His echocardiogram showed ejection fraction of 60%. His EKG showed atrial fibrillation with rapid ventricular response and nonspecific ST-T wave abnormalities. 2. Atrial fibrillation with rapid ventricular response with heart rate in 130s. The patient needs to be transferred to intensive care unit to be started on Cardizem drip. The patient however also is in need of Levophed as his blood pressure is low. The patient had single dose of 0.25 mg of IV digoxin. 3. Respiratory failure, currently on BiPAP, may need to be intubated. 4. Hyperkalemia due to renal failure. Potassium is now 4.2. The patient has already received dialysis by Dr. Gautam. 5. Morbid obesity. 6. Diabetes. 7. Also of note, the patient's chest x-ray show cardiomegaly with vascular congestion and right and left-sided pacemaker. Thank you very much for allowing me to participate in the care of this patient. Please do not hesitate to contact me for any questions regarding my evaluation. Shai Champion M.D. DR: NOEL JOB#: [id number] CC:
[2020-05-16] MEDS ORDERED: Dyna-Hex 2% Top Sol 2oz TOPIC SCH (21:00)
[2020-05-17] VITALS (86 sets, daily range): BP systolic 86–129; BP diastolic 47–90
[2020-05-17] MEDS: dilTIAZem Premix 125mg/125ml 125 ML IVPB SCH ×2 (04:56→18:56)
[2020-05-17] MEDS: Dextrose 10% 1,000 ML IV SCH (06:43)
[2020-05-17 07:01] LABS: BASOPHILS % (AUTO) 1.2 % (0.0-2.0); EOSINOPHILS % (AUTO) 0.3 % (0.0-3.0); HEMATOCRIT 27.5 % (42.0-52.0); HEMOGLOBIN 8.1 G/DL (14.2-18.0); MEAN CORPUSCULAR VOLUME 92 FL (80-99); MONOCYTES % (AUTO) 7.9 % (1.0-10.0); NEUTROPHILS % (AUTO) 81.6 % (45.0-75.0); PLATELET COUNT 193 K/UL (150-450); RED BLOOD COUNT 2.98 M/UL (4.70-6.10); RED CELL DISTRIBUTION WIDTH 16.5 % (11.6-14.8); WHITE BLOOD COUNT 9.1 K/UL (4.8-10.8)
[2020-05-17 07:36] LABS: CREATINE KINASE 298 U/L (26-140)
[2020-05-17 07:40] LABS: % IRON SATURATION 25 % (15-50); IRON 32 ug/dL (50-175); TOTAL IRON BINDING CAPACITY 126 ug/dL (250-450)
[2020-05-17 07:56] LABS: ALANINE AMINOTRANSFERASE 31 U/L (12-78); ALBUMIN 2.5 G/DL (3.4-5.0); ALBUMIN/GLOBULIN RATIO 0.6 (1.0-2.7); ALKALINE PHOSPHATASE 87 U/L (46-116); ANION GAP 12 mmol/L (5-15); ASPARTATE AMINO TRANSFERASE 28 U/L (15-37); BILIRUBIN,TOTAL 0.5 MG/DL (0.2-1.0); BLOOD UREA NITROGEN 84 mg/dL (7-18); CALCIUM 7.7 MG/DL (8.5-10.1); CARBON DIOXIDE 22 MMOL/L (21-32); CHLORIDE 112 MMOL/L (98-107); CHOLESTEROL 92 MG/DL (< 200); FERRITIN 228 NG/ML (8-388); GAMMA GLUTAMYL TRANSPEPTIDASE 55 U/L (5-85); HDL CHOLESTEROL 44 MG/DL (40-60); PHOSPHORUS 6.5 MG/DL (2.5-4.9); POTASSIUM 5.6 MMOL/L (3.5-5.1); SODIUM 146 MMOL/L (136-145); TRIGLYCERIDES 64 MG/DL (30-150)
--- NOTE | 2020-05-17 09:35 | Pulmonology Progress Note ---
Subjective ROS Limited/Unobtainable: Yes Interval Events: now seen in ICU Constitutional: Reports: no symptoms HEENT: Repors: no symptoms Respiratory: Reports: shortness of breath Cardiovascular: Reports: no symptoms Gastrointestinal/Abdominal: Reports: no symptoms Allergies: Coded Allergies: [place] (Verified Allergy, Mild, Rash, 10/29/14) per patient PENICILLINS (Unverified Allergy, Unknown, 11/28/13) Objective Last 24 Hour Vital Signs Date Time Temp Pulse Resp B/P (MAP) Pulse Ox O2 Delivery O2 Flow Rate FiO2 05/17/20 08:45 90 19 124/61 (82) 100 05/17/20 08:30 92 17 119/63 (81) 05/17/20 08:15 92 16 127/60 (82) 100 05/17/20 08:00 83 05/17/20 08:00 93 21 105/50 (68) 100 05/17/20 08:00 90 17 127/58 (81) 05/17/20 08:00 Bi-pap 60.0 05/17/20 08:00 50 05/17/20 07:45 88 17 129/60 (83) 05/17/20 07:30 88 16 126/62 (83) 98 05/17/20 07:17 90 19 98 40 05/17/20 07:15 91 19 123/65 (84) 100 05/17/20 07:00 90 17 127/58 (81) 05/17/20 07:00 90 17 127/58 (81) 05/17/20 06:45 88 15 124/57 (79) 93 05/17/20 06:30 90 19 121/57 (78) 98 05/17/20 06:15 89 15 118/57 (77) 99 05/17/20 06:15 89 15 118/57 (77) 99 05/17/20 06:00 87 17 125/54 (77) 94 05/17/20 05:45 87 17 122/56 (78) 99 05/17/20 05:30 87 19 122/57 (78) 98 05/17/20 05:15 88 17 121/90 (100) 99 05/17/20 05:00 85 17 120/54 (76) 98 05/17/20 04:45 88 18 116/62 (80) 99 05/17/20 04:30 91 19 112/55 (74) 100 05/17/20 04:15 90 18 104/64 (77) 99 05/17/20 04:15 90 18 104/64 (77) 99 05/17/20 04:00 83 05/17/20 04:00 60 05/17/20 04:00 Bi-pap 60.0 05/17/20 04:00 90 18 111/55 (73) 97 05/17/20 03:45 87 18 115/61 (79) 05/17/20 03:30 93 19 107/56 (73) 97 05/17/20 03:19 94 16 100 40 05/17/20 03:15 88 17 117/52 (73) 99 05/17/20 03:15 88 17 117/52 (73) 99 05/17/20 03:00 95 18 116/58 (77) 100 05/17/20 02:30 90 16 128/58 (81) 05/17/20 02:15 93 17 109/56 (73) 100 05/17/20 02:00 95 17 111/55 (73) 100 05/17/20 01:45 93 14 120/59 (79) 95 05/17/20 01:30 92 17 115/61 (79) 98 05/17/20 01:15 93 17 122/55 (77) 98 05/17/20 01:00 93 17 122/53 (76) 100 05/17/20 00:45 95 15 117/60 (79) 98 05/17/20 00:30 94 15 121/55 (77) 05/17/20 00:15 97.6 95 16 117/63 (81) 99 05/17/20 00:00 93 17 116/53 (74) 100 05/17/20 00:00 60 05/17/20 00:00 Bi-pap 60.0 05/17/20 00:00 103 05/16/20 23:45 97.7 101 17 111/62 (78) 99 05/16/20 23:30 99 15 114/55 (74) 05/16/20 23:15 96 15 127/66 (86) 94 05/16/20 23:14 94 18 100 50 05/16/20 23:00 102 15 108/59 (75) 99 2/13/21 22:45 100 17 127/59 (81) 100 05/16/20 22:30 101 17 114/66 (82) 95 05/16/20 22:15 100 17 118/56 (76) 99 05/16/20 22:00 105 15 113/59 (77) 100 05/16/20 22:00 105 15 113/59 (77) 100 05/16/20 21:45 103 17 126/64 (84) 99 05/16/20 21:30 105 18 122/63 (82) 96 05/16/20 21:15 104 17 122/64 (83) 100 05/16/20 21:00 106 15 126/63 (84) 97 05/16/20 20:30 108 17 116/70 (85) 100 05/16/20 20:26 99/62 05/16/20 20:19 111 15 99/62 (74) 100 05/16/20 20:16 111 15 111/61 (78) 100 05/16/20 20:15 114 17 100 05/16/20 20:00 114 18 97/59 (72) 05/16/20 20:00 Bi-pap 60.0 05/16/20 20:00 114 05/16/20 20:00 60 05/16/20 19:45 114 16 05/16/20 19:30 118 18 93 05/16/20 19:22 122 21 100 60 05/16/20 17:40 125 15 115/76 (89) 98 125 05/16/20 17:34 123 05/16/20 16:00 60 05/16/20 16:00 Bi-pap 05/16/20 16:00 97.9 112 14 96/58 (71) 97 97 05/16/20 16:00 128 05/16/20 15:15 122 21 100 45 05/16/20 12:00 Bi-pap 05/16/20 12:00 111 05/16/20 12:00 60 05/16/20 12:00 97.2 99 18 107/45 (65) 97 100 05/16/20 10:55 106 19 99 60 Intake and Output 05/16/20 05/17/20 19:00 07:00 Intake Total 737.3 ml Output Total 100 ml 550 ml Balance -100 ml 187.3 ml IV Total 737.3 ml Output Urine Total 100 ml 550 ml Hemodialysis UF 0 ml General Appearance: other Respiratory: chest wall non-tender, normal breath sounds Cardiovascular: normal rate, regular rhythm Abdomen: other - morbid obesity Laboratory Tests 05/16/20 10:01: Arterial Blood pH 7.063*L, Arterial Blood Partial Pressure CO2 53.9H, Arterial Blood Partial Pressure O2 111.9H, Arterial Blood HCO3 15.0*L, Arterial Blood Oxygen Saturation 96.8, Arterial Blood Base Excess -14.7*L, Dany Test Positive 05/16/20 14:10: Sodium Level 147H, Potassium Level 4.2, Chloride Level 112H, Carbon Dioxide Level 26, Anion Gap 9, Blood Urea Nitrogen 74H, Creatinine 5.8H, Estimat Glomerular Filtration Rate 12.2, Glucose Level 95, Calcium Level 7.5L, Total Bi lirubin 0.5, Aspartate Amino Transf (AST/SGOT) 28, Alanine Aminotransferase (ALT/SGPT) 32, Alkaline Phosphatase 87, Total Protein 7.2, Albumin 2.5L, Globulin 4.7, Albumin/Globulin Ratio 0.5L 05/17/20 05:00: Sodium Level 146H, Potassium Level 5.6H, Chloride Level 112H, Carbon Dioxide Level 22, Anion Gap 12, Blood Urea Nitrogen 84H, Creatinine 7.0H, Estimat Glomerular Filtration Rate 9.8, Glucose Level 133H, Calcium Level 7.7L, Total Bilirubin 0.5, Aspartate Amino Transf (AST/SGOT) 28, Alanine Aminotransferase (ALT/SGPT) 31, Alkaline Phosphatase 87, Total Protein 6.9, Albumin 2.5L, Globulin 4.4, Albumin/Globulin Ratio 0.6L, White Blood Count 9.1, Red Blood Count 2.98L, Hemoglobin 8.1L, Hematocrit 27.5L, Mean Corpuscular Volume 92, Mean Corpuscular Hemoglobin 27.3, Mean Corpuscular Hemoglobin Concent 29.5L, Red Cell Distribution Width 16.5H, Platelet Count 193, Mean Platelet Volume 7.7, Neutrophils (%) (Auto) 81.6H, Lymphocytes (%) (Auto) 9.0L, Monocytes (%) (Auto) 7.9, Eosinophils (%) (Auto) 0.3, Basophils (%) (Auto) 1.2, Hemoglobin A1c 5.7, Uric Acid 5.8, Phosphorus Level 6.5H, Magnesium Level 1.7L, Iron Level 32L, Total Iron Binding Capacity 126L, Percent Iron Saturation 25, Unsaturated Iron B inding 94L, Ferritin 228, Gamma Glutamyl Transpeptidase 55, Total Creatine Kinase 298H, Troponin I 0.131H, C-Reactive Protein, Quantitative 5.2H, Pro-B-Type Natriuretic Peptide [id number], Triglycerides Level 64, Cholesterol Level 92, LDL Cholesterol 34, HDL Cholesterol 44, Cholesterol/HDL Ratio 2.1L, Lipase 134, Vitamin B12 Level 1248H, Vitamin D 25-Hydroxy [Pending], 25-Hydroxy Vitamin D2 [Pending], 25-Hydroxy Vitamin D3 [Pending], Folate 4.0L, Thyroid Stimulating Hormone (TSH) 1.365, Free Thyroxine 1.05, Digoxin Level 1.8 05/17/20 08:01: Arterial Blood pH 7.280L, Arterial Blood Partial Pressure CO2 46.6H, Arterial Blood Partial Pressure O2 67.6L, Arterial Blood HCO3 21.4L, Arterial Blood Oxygen Saturation 91.4L, Arterial Blood Base Excess -5.1L, Dany Test Positive Current Medications Medications (Trade) Dose Ordered Sig/Albert Route PRN Reason Start Time Stop Time Status Last Admin Dose Admin Chlorhexidine Gluconate (Isamar-Hex 2%) 1 applic DAILY@2000 TOPIC 05/17/20 20:00 08/15/20 19:59 Dextrose 1,000 ml @ 50 mls/hr Q20H IV 05/16/20 11:00 06/15/20 10:59 05/17/20 06:43 Dextrose (Dextrose 50%) 25 ml Q30M PRN IV Hypoglycemia 05/16/20 03:45 08/14/20 03:44 05/16/20 06:23 Dextrose (Dextrose 50%) 50 ml Q30M PRN IV Hypoglycemia 05/16/20 03:45 08/14/20 03:44 Diltiazem HCl 125 ml @ 10 mls/hr Q24H IVPB 05/16/20 20:00 05/17/20 19:59 05/17/20 04:56 Norepinephrine Bitartrate 250 ml @ 37.5 mls/hr Q24H IV 05/16/20 20:00 05/19/20 19:59 05/16/20 20:26 Assessment/Plan Assessment/Plan 1. Hx Sleep apnea - Pt unable to articulate whether he uses CPAP at home - Continue BiPAP for now 2. Acute on chronic renal failure; hyperkalemia - s/p Kayexalate - s/p Right femoral catheter for dialysis (05/15) -Undergoing urgent dialysis (05/15) 3. Bacteriuria - s/p Rocephin in ER - f/u UCx 4. Hypoxemic respiratory distress -Continue BiPAP -> now saturating at 100% at 50% FiO2 -ABG better this AM 5. Elevated inflammatory markers -Venous duplex ultrasound of lower extremities negative for DVT -On SCD for DVT prophylaxis 6. pneumonia -Chest x-ray shows interstitial opacities bilaterally -COVID-19 PCR sent -Observe off antibiotics given no leukocytosis or fever -Continue isolation till COVID-19 test result available 7. A-fib with rvr - seen by cardio - now in ICU receiving Cardizem drip The care for this patient was discussed with my supervising physician. Time spent for this case was approximately 31 minutes. Juan Dunlap May 17, 2020 09:35
--- NOTE | 2020-05-17 11:02 | Consultation ---
History of Present Illness General Date patient seen: May 17, 2020 Reason for Hospitalization: Generalized Weakness Present Illness HPI 60-year-old male recently admitted renal insufficiency on 213 a right femoral dialysis catheter was placed during dialysis patient was hypotensive ill and critical transferred to intensive care unit abdominal distention surgery called to evaluate as potential abdominal source. Patient seen patient by chart reviewed. Patient states he feels better. He is more awake alert and responsive today. States he is doing well. ABG noted on BiPAP. Pulmonology input appreciated. Abdominal exam stable as compared to yesterday but today the patient is awake and alert and able to respond and denies any discomfort. States no abdominal pain. No nausea vomiting. Labs reviewed imaging reviewed Allergies: Coded Allergies: [place] (Verified Allergy, Mild, Rash, 10/29/14) per patient PENICILLINS (Unverified Allergy, Unknown, 11/28/13) COVID-19 Screening Contact w/high risk pt: Yes Experienced COVID-19 symptoms?: Yes Coronavirus symptoms experienc: Fatigue, Shortness of Breath Medication History Scheduled Allopurinol* (Allopurinol*), 300 MG ORAL DAILY Doxycycline Hyclate (Doxycycline Hyclate), 100 MG ORAL EVERY 12 HOURS Enalapril Maleate* (Vasotec*), 20 MG ORAL EVERY 12 HOURS Furosemide* (Lasix*), 80 MG ORAL TWICE A DAY Insulin Detemir (Levemir Flexpen), 60 SUBQ Q12HR, (Reported) Insulin Detemir (Levemir Flexpen), 60 SUBQ Q12HR, (Reported) Metolazone (Metolazone), 5 MG ORAL BID@0830,1730 Rivaroxaban (Xarelto*), 20 MG ORAL DAILY [Potassium Chloride], 20 MEQ ORAL TWICE A DAY Patient History History Provided By: Patient, Medical Record, PMD Healthcare decision maker Resuscitation status Advanced Directive on File Past Medical/Surgical History Past Medical/Surgical History: (1) Hyperglycemia (2) Hyponatremia (3) Dental abscess (4) Hyperglycemia (5) DM circ dis type I, uncontrolled (6) Atrial flutter (7) Infected traumatic leg ulcer (8) Chronic kidney disease (9) Proteinuria (10) Poorly controlled diabetes mellitus (11) Cellulitis of leg, left (12) 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, uncontrolled (13) Nephritis NOS in other disease (14) Sleep apnea (15) Sepsis (16) Chronic systolic heart failure (17) Morbid obesity (18) Pacemaker (19) Acute kidney failure (20) Hyperkalemia (21) Acidosis (22) UTI (urinary tract infection) Review of Systems Review of Symptoms General ROS: no weight loss or fever Psychological ROS: no depression or mood changes, no memory loss Ophthalmic ROS: no visual changes or eye irritation ENT ROS: no nasal congestion, hearing loss, dizziness Allergy and Immunology ROS: no allergic symptoms or urticaria Hematological and Lymphatic ROS: no swollen glands, unusual bleeding or bruising Endocrine ROS: no polyuria, polydipsia, weight changes, temperature intolerance Respiratory ROS: no cough, shortness of breath, or wheezing Cardiovascular ROS: no chest pain or dyspnea on exertion Gastrointestinal ROS: denies abdominal pain, bright red blood in stool. Musculoskeletal ROS: no myalgias or arthralgias Neurological ROS: no TIA or stroke symptoms Dermatological ROS: no new or changing skin lesions, rashes or pruritis Physical Exam Physical Exam General appearance: alert, cooperative, no distress, appears stated age Head: Normocephalic, without obvious abnormality, atraumatic Eyes: conjunctivae/corneas clear. PERRL, EOM's intact. Fundi benign Throat: Lips, mucosa, and tongue normal. Teeth and gums normal Neck: supple, symmetrical, trachea midline, no adenopathy, thyroid: not enlarged, symmetric, no tenderness/mass/nodules, no carotid bruit and no JVD Lungs: dec on bipap to auscultation bilaterally Heart: regular rate and rhythm, S1, S2 normal, no murmur, click, rub or gallop Abdomen: soft, non-tender. Bowel sounds decreased, distended No masses, no organomegaly Extremities: extremities normal, atraumatic, no cyanosis or edema Pulses: 2+ and symmetric Skin: Skin color, texture, turgor normal. No rashes or lesions Neurologic: Grossly normal Last 24 Hour Vital Signs Date Time Temp Pulse Resp B/P (MAP) Pulse Ox O2 Delivery O2 Flow Rate FiO2 05/17/20 08:45 90 19 124/61 (82) 100 05/17/20 08:30 92 17 119/63 (81) 05/17/20 08:15 92 16 127/60 (82) 100 05/17/20 08:00 83 05/17/20 08:00 93 21 105/50 (68) 100 05/17/20 08:00 90 17 127/58 (81) 05/17/20 08:00 Bi-pap 60.0 05/17/20 08:00 50 05/17/20 07:45 88 17 129/60 (83) 05/17/20 07:30 88 16 126/62 (83) 98 05/17/20 07:17 90 19 98 40 05/17/20 07:15 91 19 123/65 (84) 100 05/17/20 07:00 90 17 127/58 (81) 05/17/20 07:00 90 17 127/58 (81) 05/17/20 06:45 88 15 124/57 (79) 93 05/17/20 06:30 90 19 121/57 (78) 98 05/17/20 06:15 89 15 118/57 (77) 99 05/17/20 06:15 89 15 118/57 (77) 99 05/17/20 06:00 87 17 125/54 (77) 94 05/17/20 05:45 87 17 122/56 (78) 99 05/17/20 05:30 87 19 122/57 (78) 98 05/17/20 05:15 88 17 121/90 (100) 99 05/17/20 05:00 85 17 120/54 (76) 98 05/17/20 04:45 88 18 116/62 (80) 99 05/17/20 04:30 91 19 112/55 (74) 100 05/17/20 04:15 90 18 104/64 (77) 99 05/17/20 04:15 90 18 104/64 (77) 99 05/17/20 04:00 83 05/17/20 04:00 60 05/17/20 04:00 Bi-pap 60.0 05/17/20 04:00 90 18 111/55 (73) 97 05/17/20 03:45 87 18 115/61 (79) 05/17/20 03:30 93 19 107/56 (73) 97 05/17/20 03:19 94 16 100 40 05/17/20 03:15 88 17 117/52 (73) 99 05/17/20 03:15 88 17 117/52 (73) 99 05/17/20 03:00 95 18 116/58 (77) 100 05/17/20 02:30 90 16 128/58 (81) 05/17/20 02:15 93 17 109/56 (73) 100 05/17/20 02:00 95 17 111/55 (73) 100 05/17/20 01:45 93 14 120/59 (79) 95 05/17/20 01:30 92 17 115/61 (79) 98 05/17/20 01:15 93 17 122/55 (77) 98 05/17/20 01:00 93 17 122/53 (76) 100 05/17/20 00:45 95 15 117/60 (79) 98 05/17/20 00:30 94 15 121/55 (77) 05/17/20 00:15 97.6 95 16 117/63 (81) 99 05/17/20 00:00 93 17 116/53 (74) 100 05/17/20 00:00 60 05/17/20 00:00 Bi-pap 60.0 05/17/20 00:00 103 05/16/20 23:45 97.7 101 17 111/62 (78) 99 05/16/20 23:30 99 15 114/55 (74) 05/16/20 23:15 96 15 127/66 (86) 94 05/16/20 23:14 94 18 100 50 05/16/20 23:00 102 15 108/59 (75) 99 05/16/20 22:45 100 17 127/59 (81) 100 05/16/20 22:30 101 17 114/66 (82) 95 05/16/20 22:15 100 17 118/56 (76) 99 05/16/20 22:00 105 15 113/59 (77) 100 05/16/20 22:00 105 15 113/59 (77) 100 05/16/20 21:45 103 17 126/64 (84) 99 05/16/20 21:30 105 18 122/63 (82) 96 05/16/20 21:15 104 17 122/64 (83) 100 05/16/20 21:00 106 15 126/63 (84) 97 05/16/20 20:30 108 17 116/70 (85) 100 05/16/20 20:26 99/62 05/16/20 20:19 111 15 99/62 (74) 100 05/16/20 20:16 111 15 111/61 (78) 100 05/16/20 20:15 114 17 100 05/16/20 20:00 114 18 97/59 (72) 05/16/20 20:00 Bi-pap 60.0 05/16/20 20:00 114 05/16/20 20:00 60 05/16/20 19:45 114 16 05/16/20 19:30 118 18 93 05/16/20 19:22 122 21 100 60 05/16/20 17:40 125 15 115/76 (89) 98 125 05/16/20 17:34 123 05/16/20 16:00 60 05/16/20 16:00 Bi-pap 05/16/20 16:00 97.9 112 14 96/58 (71) 97 97 05/16/20 16:00 128 05/16/20 15:15 122 21 100 45 05/16/20 12:00 Bi-pap 05/16/20 12:00 111 05/16/20 12:00 60 05/16/20 12:00 97.2 99 18 107/45 (65) 97 100 Intake and Output 05/16/20 05/17/20 19:00 07:00 Intake Total 737.3 ml Output Total 100 ml 550 ml Balance -100 ml 187.3 ml IV Total 737.3 ml Output Urine Total 100 ml 550 ml Hemodialysis UF 0 ml Laboratory Tests Test 05/16/20 14:10 05/17/20 05:00 05/17/20 08:01 Sodium Level 147 MMOL/L (136-145) H 146 MMOL/L (136-145) H Potassium Level 4.2 MMOL/L (3.5-5.1) 5.6 MMOL/L (3.5-5.1) H Chloride Level 112 MMOL/L (98-107) H 112 MMOL/L (98-107) H Carbon Dioxide Level 26 MMOL/L (21-32) 22 MMOL/L (21-32) Anion Gap 9 mmol/L (5-15) 12 mmol/L (5-15) Blood Urea Nitrogen 74 mg/dL (7-18) H 84 mg/dL (7-18) H Creatinine 5.8 MG/DL (0.55-1.30) H 7.0 MG/DL (0.55-1.30) H Estimat Glomerular Filtration Rate 12.2 mL/min (>60) 9.8 mL/min (>60) Glucose Level 95 MG/DL (74-106) 133 MG/DL (74-106) H Calcium Level 7.5 MG/DL (8.5-10.1) L 7.7 MG/DL (8.5-10.1) L Total Bilirubin 0.5 MG/DL (0.2-1.0) 0.5 MG/DL (0.2-1.0) Aspartate Amino Transf (AST/SGOT) 28 U/L (15-37) 28 U/L (15-37) Alanine Aminotransferase (ALT/SGPT) 32 U/L (12-78) 31 U/L (12-78) Alkaline Phosphatase 87 U/L (46-116) 87 U/L (46-116) Total Protein 7.2 G/DL (6.4-8.2) 6.9 G/DL (6.4-8.2) Albumin 2.5 G/DL (3.4-5.0) L 2.5 G/DL (3.4-5.0) L Globulin 4.7 g/dL 4.4 g/dL Albumin/Globulin Ratio 0.5 (1.0-2.7) L 0.6 (1.0-2.7) L White Blood Count 9.1 K/UL (4.8-10.8) Red Blood Count 2.98 M/UL (4.70-6.10) L Hemoglobin 8.1 G/DL (14.2-18.0) L Hematocrit 27.5 % (42.0-52.0) L Mean Corpuscular Volume 92 FL (80-99) Mean Corpuscular Hemoglobin 27.3 PG (27.0-31.0) Mean Corpuscular Hemoglobin Concent 29.5 G/DL (32.0-36.0) L Red Cell Distribution Width 16.5 % (11.6-14.8) H Platelet Count 193 K/UL (150-450) Mean Platelet Volume 7.7 FL (6.5-10.1) Neutrophils (%) (Auto) 81.6 % (45.0-75.0) H Lymphocytes (%) (Auto) 9.0 % (20.0-45.0) L Monocytes (%) (Auto) 7.9 % (1.0-10.0) Eosinophils (%) (Auto) 0.3 % (0.0-3.0) Basophils (%) (Auto) 1.2 % (0.0-2.0) Hemoglobin A1c 5.7 % (4.3-6.0) Uric Acid 5.8 MG/DL (2.6-7.2) Phosphorus Level 6.5 MG/DL (2.5-4.9) H Magnesium Level 1.7 MG/DL (1.8-2.4) L Iron Level 32 ug/dL (50-175) L Total Iron Binding Capacity 126 ug/dL (250-450) L Percent Iron Saturation 25 % (15-50) Unsaturated Iron Binding 94 ug/dL (112-346) L Ferritin 228 NG/ML (8-388) Gamma Glutamyl Transpeptidase 55 U/L (5-85) Total Creatine Kinase 298 U/L (26-140) H Troponin I 0.131 ng/mL (0.000-0.056) C-Reactive Protein, Quantitative 5.2 mg/dL (0.00-0.90) H Pro-B-Type Natriuretic Peptide 98978 pg/mL (0-125) H Triglycerides Level 64 MG/DL (30-150) Cholesterol Level 92 MG/DL (< 200) LDL Cholesterol 34 mg/dL (<100) HDL Cholesterol 44 MG/DL (40-60) Cholesterol/HDL Ratio 2.1 (3.3-4.4) L Lipase 134 U/L (73-393) Vitamin B12 Level 1248 PG/ML (193-986) H Vitamin D 25-Hydroxy Pending 25-Hydroxy Vitamin D2 Pending 25-Hydroxy Vitamin D3 Pending Folate 4.0 NG/ML (8.6-58.9) L Thyroid Stimulating Hormone (TSH) 1.365 uiU/mL (0.358-3.740) Free Thyroxine 1.05 NG/DL (0.76-1.46) Digoxin Level 1.8 NG/ML (0.5-2.0) Arterial Blood pH 7.280 (7.350-7.450) Arterial Blood Partial Pressure CO2 46.6 mmHg (35.0-45.0) H Arterial Blood Partial Pressure O2 67.6 mmHg (75.0-100.0) L Arterial Blood HCO3 21.4 mmol/L (22.0-26.0) L Arterial Blood Oxygen Saturation 91.4 % (95-100) L Arterial Blood Base Excess -5.1 (-2-2) L Dany Test Positive Height (Feet): 5 Height (Inches): 11.00 Weight (Pounds): 415 Medications Current Medications Medications (Trade) Dose Ordered Sig/Albert Route PRN Reason Start Time Stop Time Status Last Admin Dose Admin Ceftriaxone Sodium 1 gm/ Dextrose 55 ml @ 110 mls/hr Q24H IVPB 05/17/20 21:00 05/24/20 20:59 Chlorhexidine Gluconate (Isamar-Hex 2%) 1 applic DAILY@2000 TOPIC 05/17/20 20:00 08/15/20 19:59 Dextrose 1,000 ml @ 50 mls/hr Q20H IV 05/16/20 11:00 06/15/20 10:59 05/17/20 06:43 Dextrose (Dextrose 50%) 25 ml Q30M PRN IV Hypoglycemia 05/16/20 03:45 08/14/20 03:44 05/16/20 06:23 Dextrose (Dextrose 50%) 50 ml Q30M PRN IV Hypoglycemia 05/16/20 03:45 08/14/20 03:44 Diltiazem HCl 125 ml @ 10 mls/hr Q24H IVPB 05/16/20 20:00 05/17/20 19:59 05/17/20 04:56 Norepinephrine Bitartrate 250 ml @ 37.5 mls/hr Q24H IV 05/16/20 20:00 05/19/20 19:59 05/16/20 20:26 Assessment/Plan Problem List: (1) Morbid obesity ICD Codes: E66.01 - Morbid (severe) obesity due to excess calories SNOMED: 420262578 (2) Pacemaker ICD Codes: Z95.0 - Pacemaker SNOMED: 058521969 (3) Nephritis NOS in other disease ICD Codes: N05.8 - Nephritis NOS in other disease SNOMED: 81222454 (4) DM circ dis type I, uncontrolled ICD Codes: E10.59 - DM circ dis type I, uncontrolled SNOMED: 84832936 (5) Atrial flutter ICD Codes: I48.92 - Atrial flutter SNOMED: 1803720 (6) Dental abscess ICD Codes: K04.7 - Periapical abscess without sinus SNOMED: 112728985 (7) Hyperkalemia ICD Codes: E87.5 - Hyperkalemia SNOMED: 32522325 (8) Acidosis ICD Codes: E87.2 - Acidosis SNOMED: 23012552 (9) Hyperglycemia ICD Codes: R73.9 - Hyperglycemia, unspecified SNOMED: 46214876 (10) Hyperglycemia ICD Codes: R73.9 - Hyperglycemia, unspecified SNOMED: 96971494 (11) Hyponatremia ICD Codes: E87.1 - Hypo-osmolality and hyponatremia SNOMED: 34627230 (12) Acute kidney failure Assessment & Plan: Status post hd catheter insertion right femoral. Temporary use. Line functional. Recent dialysis noted. 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, uncontrolled SNOMED: 311935550 (17) Sleep apnea ICD Codes: G47.30 - Sleep apnea SNOMED: 11891576 (18) Chronic systolic heart failure ICD Codes: I50.9 - Chronic systolic heart failure SNOMED: 486001458 (19) Chronic kidney disease ICD Codes: N18.9 - Chronic kidney disease, unspecified SNOMED: 996037662 (20) Poorly controlled diabetes mellitus ICD Codes: E11.65 - Type 2 diabetesmellitus with hyperglycemia SNOMED: 523617153 (21) Cellulitis of leg, left ICD Codes: L03.116 - Cellulitis of left lower limb SNOMED: 657803612 (22) Infected traumatic leg ulcer ICD Codes: L97.909 - Non-prs chronic ulc unsp prtof unsp low leg w unsp severity; L08.9 - Local infection of the skin and subcutaneoustissue, unspecified SNOMED: 003844518 (23) Abdominal distention Assessment & Plan: Patient is morbidly obese. His abdominal distention is his baseline large pannus. Skin folds and abnormalities in pannus identified from chronic distention. His KUB noted bowel gas pattern unremarkable. NG tube has been her removed since. No nausea vomiting fever chills. Labs noted. Improving with dialysis. Hyperkalemia improved. Mentation improved. Abdominal exam is fairly benign and consistent with what would be anticipated with the patient with a BMI of 57 with chronic condition. No acute abdominal source or etiology identified. Hypotension likely relative to patient's treatment renal and will monitor with dialysis. Okay for diet once stabilized but currently keep n.p.o. given his high BiPAP requirement. Thank you for letting participate patient's care will follow with recommendations ICD Codes: R14.0 - Abdominal distension (gaseous) SNOMED: 20089967 Abhay Mccray May 17, 2020 11:02
--- NOTE | 2020-05-17 13:55 | Nephrology Progress Note ---
Assessment/Plan Problem List: (1) MICHEAL (acute kidney injury) (2) Renal failure (ARF), acute on chronic (3) Morbid obesity (4) Pacemaker (5) Hyperkalemia (6) Acidosis Assessment Acute on chronic renal failure Hyperkalemia Metabolic acidosis Pacemaker UTI Morbid obesity Plan May 17: Patient seen in ICU. Full code. On BiPAP. Discussed with DANIEL Ponce. Labs reviewed. Renal parameters improved after patient was dialyzed yesterday. Patient off pressors. Will attempt dialysis again today for hyperkalemia. Continue per consultants. Oral folic acid ordered. Protonix IV ordered. Previously: Stat ABG, stat kidney ultrasound: Results noted IV bicarb NG tube, Kayexalate Urgent dialysis Discussed with DANIEL Oliva Patient cannot give consent for insertion of dialysis catheter. Dialysis at this point is a lifesaving procedure in my opinion. Subjective ROS Limited/Unobtainable: Yes Objective Objective Last 24 Hour Vital Signs Date Time Temp Pulse Resp B/P (MAP) Pulse Ox O2 Delivery O2 Flow Rate FiO2 05/17/20 12:30 90 16 104/56 (72) 100 05/17/20 12:15 90 16 112/56 (74) 05/17/20 12:00 50 05/17/20 12:00 Bi-pap 60.0 05/17/20 12:00 90 17 109/57 (74) 100 05/17/20 12:00 88 05/17/20 11:45 87 13 119/57 (77) 100 05/17/20 11:30 89 19 104/57 (73) 99 05/17/20 11:15 90 18 102/53 (69) 98 05/17/20 11:15 90 18 102/53 (69) 98 05/17/20 11:02 91 17 100 50 05/17/20 11:00 89 18 103/53 (70) 99 05/17/20 11:00 89 18 103/53 (70) 99 05/17/20 10:45 88 17 107/52 (70) 99 05/17/20 10:30 91 18 107/52 (70) 05/17/20 10:15 91 18 97/49 (65) 100 05/17/20 10:00 91 19 99/50 (66) 05/17/20 08:45 90 19 124/61 (82) 100 05/17/20 08:30 92 17 119/63 (81) 05/17/20 08:15 92 16 127/60 (82) 100 05/17/20 08:05 50 05/17/20 08:00 83 05/17/20 08:00 93 21 105/50 (68) 100 05/17/20 08:00 90 17 127/58 (81) 05/17/20 08:00 Bi-pap 60.0 05/17/20 08:00 50 05/17/20 07:45 88 17 129/60 (83) 05/17/20 07:30 88 16 126/62 (83) 98 05/17/20 07:17 90 19 98 40 05/17/20 07:15 91 19 123/65 (84) 100 05/17/20 07:00 90 17 127/58 (81) 05/17/20 07:00 90 17 127/58 (81) 05/17/20 06:45 88 15 124/57 (79) 93 05/17/20 06:30 90 19 121/57 (78) 98 05/17/20 06:15 89 15 118/57 (77) 99 05/17/20 06:15 89 15 118/57 (77) 99 05/17/20 06:00 87 17 125/54 (77) 94 05/17/20 05:45 87 17 122/56 (78) 99 05/17/20 05:30 87 19 122/57 (78) 98 05/17/20 05:15 88 17 121/90 (100) 99 05/17/20 05:00 85 17 120/54 (76) 98 05/17/20 04:45 88 18 116/62 (80) 99 05/17/20 04:30 91 19 112/55 (74) 100 05/17/20 04:15 90 18 104/64 (77) 99 05/17/20 04:15 90 18 104/64 (77) 99 05/17/20 04:00 83 05/17/20 04:00 60 05/17/20 04:00 Bi-pap 60.0 05/17/20 04:00 90 18 111/55 (73) 97 05/17/20 03:45 87 18 115/61 (79) 05/17/20 03:30 93 19 107/56 (73) 97 05/17/20 03:19 94 16 100 40 05/17/20 03:15 88 17 117/52 (73) 99 05/17/20 03:15 88 17 117/52 (73) 99 05/17/20 03:00 95 18 116/58 (77) 100 05/17/20 02:30 90 16 128/58 (81) 05/17/20 02:15 93 17 109/56 (73) 100 05/17/20 02:00 95 17 111/55 (73) 100 05/17/20 01:45 93 14 120/59 (79) 95 05/17/20 01:30 92 17 115/61 (79) 98 05/17/20 01:15 93 17 122/55 (77) 98 05/17/20 01:00 93 17 122/53 (76) 100 05/17/20 00:45 95 15 117/60 (79) 98 05/17/20 00:30 94 15 121/55 (77) 05/17/20 00:15 97.6 95 16 117/63 (81) 99 05/17/20 00:00 93 17 116/53 (74) 100 05/17/20 00:00 60 05/17/20 00:00 Bi-pap 60.0 05/17/20 00:00 103 05/16/20 23:45 97.7 101 17 111/62 (78) 99 05/16/20 23:30 99 15 114/55 (74) 05/16/20 23:15 96 15 127/66 (86) 94 05/16/20 23:14 94 18 100 50 05/16/20 23:00 102 15 108/59 (75) 99 05/16/20 22:45 100 17 127/59 (81) 100 05/16/20 22:30 101 17 114/66 (82) 95 05/16/20 22:15 100 17 118/56 (76) 99 05/16/20 22:00 105 15 113/59 (77) 100 05/16/20 22:00 105 15 113/59 (77) 100 05/16/20 21:45 103 17 126/64 (84) 99 05/16/20 21:30 105 18 122/63 (82) 96 05/16/20 21:15 104 17 122/64 (83) 100 05/16/20 21:00 106 15 126/63 (84) 97 05/16/20 20:30 108 17 116/70 (85) 100 05/16/20 20:26 99/62 05/16/20 20:19 111 15 99/62 (74) 100 05/16/20 20:16 111 15 111/61 (78) 100 05/16/20 20:15 114 17 100 05/16/20 20:00 114 18 97/59 (72) 05/16/20 20:00 Bi-pap 60.0 05/16/20 20:00 114 05/16/20 20:00 60 05/16/20 19:45 114 16 05/16/20 19:30 118 18 93 05/16/20 19:22 122 21 100 60 05/16/20 17:40 125 15 115/76 (89) 98 125 05/16/20 17:34 123 05/16/20 16:00 60 05/16/20 16:00 Bi-pap 05/16/20 16:00 97.9 112 14 96/58 (71) 97 97 05/16/20 16:00 128 05/16/20 15:15 122 21 100 45 Intake and Output 05/16/20 05/17/20 19:00 07:00 Intake Total 737.3 ml Output Total 100 ml 550 ml Balance -100 ml 187.3 ml IV Total 737.3 ml Output Urine Total 100 ml 550 ml Hemodialysis UF 0 ml Current Medications Medications (Trade) Dose Ordered Sig/Albert Route PRN Reason Start Time Stop Time Status Last Admin Dose Admin Ceftriaxone Sodium 1 gm/ Dextrose 55 ml @ 110 mls/hr Q24H IVPB 05/17/20 21:00 05/24/20 20:59 Chlorhexidine Gluconate (Isamar-Hex 2%) 1 applic DAILY@2000 TOPIC 05/17/20 20:00 08/15/20 19:59 Dextrose 1,000 ml @ 50 mls/hr Q20H IV 05/16/20 11:00 06/15/20 10:59 05/17/20 06:43 Dextrose (Dextrose 50%) 25 ml Q30M PRN IV Hypoglycemia 05/16/20 03:45 08/14/20 03:44 05/16/20 06:23 Dextrose (Dextrose 50%) 50 ml Q30M PRN IV Hypoglycemia 05/16/20 03:45 08/14/20 03:44 Diltiazem HCl 125 ml @ 10 mls/hr Q24H IVPB 05/16/20 20:00 05/17/20 19:59 05/17/20 04:56 Norepinephrine Bitartrate 250 ml @ 37.5 mls/hr Q24H IV 05/16/20 20:00 05/19/20 19:59 05/16/20 20:26 Laboratory Tests 05/16/20 14:10: Sodium Level 147H, Potassium Level 4.2, Chloride Level 112H, Carbon Dioxide Level 26, Anion Gap 9, Blood Urea Nitrogen 74H, Creatinine 5.8H, Estimat Odalys merular Filtration Rate 12.2, Glucose Level 95, Calcium Level 7.5L, Total Bilirubin 0.5, Aspartate Amino Transf (AST/SGOT) 28, Alanine Aminotransferase (ALT/SGPT) 32, Alkaline Phosphatase 87, Total Protein 7.2, Albumin 2.5L, Globulin 4.7, Albumin/Globulin Ratio 0.5L 05/17/20 05:00: Sodium Level 146H, Potassium Level 5.6H, Chloride Level 112H, Carbon Dioxide Level 22, Anion Gap 12, Blood Urea Nitrogen 84H, Creatinine 7.0H, Estimat Glomerular Filtration Rate 9.8, Glucose Level 133H, Calcium Level 7.7L, Total Bilirubin 0.5, Aspartate Amino Transf (AST/SGOT) 28, Alanine Aminotransferase (ALT/SGPT) 31, Alkaline Phosphatase 87, Total Protein 6.9, Albumin 2.5L, Globulin 4.4, Albumin/Globulin Ratio 0.6L, White Blood Count 9.1, Red Blood Count 2.98L, Hemoglobin 8.1L, Hematocrit 27.5L, Mean Corpuscular Volume 92, Mean Corpuscular Hemoglobin 27.3, Mean Corpuscular Hemoglobin Concent 29.5L, Red Cell Distribution Width 16.5H, Platelet Count 193, Mean Platelet Volume 7.7, Neutrophils (%) (Auto) 81.6H, Lymphocytes (%) (Auto) 9.0L, Monocytes (%) (Auto) 7.9, Eosinophils (%) (Auto) 0.3, Basophils (%) (Auto) 1.2, Hemoglobin A1c 5.7, Uric Acid 5.8, Phosphorus Level 6.5H, Magnesium Level 1.7L, Iron Level 32L, Tota l Iron Binding Capacity 126L, Percent Iron Saturation 25, Unsaturated Iron Binding 94L, Ferritin 228, Gamma Glutamyl Transpeptidase 55, Total Creatine Kinase 298H, Troponin I 0.131H, C-Reactive Protein, Quantitative 5.2H, Pro-B-Type Natriuretic Peptide 98214Q, Triglycerides Level 64, Cholesterol Level 92, LDL Cholesterol 34, HDL Cholesterol 44, Cholesterol/HDL Ratio 2.1L, Lipase 134, Vitamin B12 Level 1248H, Vitamin D 25-Hydroxy [Pending], 25-Hydroxy Vitamin D2 [Pending], 25-Hydroxy Vitamin D3 [Pending], Folate 4.0L, Thyroid Stimulating Hormone (TSH) 1.365, Free Thyroxine 1.05, Digoxin Level 1.8 05/17/20 08:01: Arterial Blood pH 7.280L, Arterial Blood Partial Pressure CO2 46.6H, Arterial Blood Partial Pressure O2 67.6L, Arterial Blood HCO3 21.4L, Arterial Blood Oxygen Saturation 91.4L, Arterial Blood Base Excess -5.1L, Dany Test Positive Height (Feet): 5 Height (Inches): 11.00 Weight (Pounds): 415 General Appearance: mild distress EENT: other - On BiPAP Cardiovascular: tachycardia, arrhythmia Respiratory/Chest: decreased breath sounds Abdomen: distended Adria Gautam MD May 17, 2020 13:55
[2020-05-17] MEDS: Pantoprazole Inj IVP SCH ×2 (14:00→20:53)
--- NOTE | 2020-05-17 15:33 | Cardiac Electrophysiology PN ---
Assessment/Plan Assessment/Plan 1. Elevated troponin, likely due to the patient's renal failure and respiratory failure, currently on BiPAP. His echocardiogram showed ejection fraction of 60%. His EKG showed atrial fibrillation with rapid ventricular response and nonspecific ST-T wave abnormalities. 2. Atrial fibrillation with rapid ventricular response with heart rate in 130s. On Cardizem drip 10 mg/hr. Dig 1.8 today 3. Respiratory failure, currently on BiPAP 4. Hyperkalemia due to renal failure. Potassium is now 4.2. The patient has already received dialysis by Dr. Gautam. 5. Morbid obesity. 6. Diabetes. 7. S/P left-sided pacemaker.WIll try to find the brand to interrogate Subjective Subjective Transferred to ICU for atrial fib with RVR. On Cardizem drip and BIPAP.Off Levophed Objective Last 24 Hour Vital Signs Date Time Temp Pulse Resp B/P (MAP) Pulse Ox O2 Delivery O2 Flow Rate FiO2 05/17/20 12:30 90 16 104/56 (72) 100 05/17/20 12:15 90 16 112/56 (74) 05/17/20 12:00 50 05/17/20 12:00 Bi-pap 60.0 05/17/20 12:00 90 17 109/57 (74) 100 05/17/20 12:00 88 05/17/20 11:45 87 13 119/57 (77) 100 05/17/20 11:30 89 19 104/57 (73) 99 05/17/20 11:15 90 18 102/53 (69) 98 05/17/20 11:15 90 18 102/53 (69) 98 05/17/20 11:02 91 17 100 50 05/17/20 11:00 89 18 103/53 (70) 99 05/17/20 11:00 89 18 103/53 (70) 99 05/17/20 10:45 88 17 107/52 (70) 99 05/17/20 10:30 91 18 107/52 (70) 05/17/20 10:15 91 18 97/49 (65) 100 05/17/20 10:00 91 19 99/50 (66) 05/17/20 08:45 90 19 124/61 (82) 100 05/17/20 08:30 92 17 119/63 (81) 05/17/20 08:15 92 16 127/60 (82) 100 05/17/20 08:05 50 05/17/20 08:00 83 05/17/20 08:00 93 21 105/50 (68) 100 05/17/20 08:00 90 17 127/58 (81) 05/17/20 08:00 Bi-pap 60.0 05/17/20 08:00 50 05/17/20 07:45 88 17 129/60 (83) 05/17/20 07:30 88 16 126/62 (83) 98 05/17/20 07:17 90 19 98 40 05/17/20 07:15 91 19 123/65 (84) 100 05/17/20 07:00 90 17 127/58 (81) 05/17/20 07:00 90 17 127/58 (81) 05/17/20 06:45 88 15 124/57 (79) 93 05/17/20 06:30 90 19 121/57 (78) 98 05/17/20 06:15 89 15 118/57 (77) 99 05/17/20 06:15 89 15 118/57 (77) 99 05/17/20 06:00 87 17 125/54 (77) 94 05/17/20 05:45 87 17 122/56 (78) 99 05/17/20 05:30 87 19 122/57 (78) 98 05/17/20 05:15 88 17 121/90 (100) 99 05/17/20 05:00 85 17 120/54 (76) 98 05/17/20 04:45 88 18 116/62 (80) 99 05/17/20 04:30 91 19 112/55 (74) 100 05/17/20 04:15 90 18 104/64 (77) 99 05/17/20 04:15 90 18 104/64 (77) 99 05/17/20 04:00 83 05/17/20 04:00 60 05/17/20 04:00 Bi-pap 60.0 05/17/20 04:00 90 18 111/55 (73) 97 05/17/20 03:45 87 18 115/61 (79) 05/17/20 03:30 93 19 107/56 (73) 97 05/17/20 03:19 94 16 100 40 05/17/20 03:15 88 17 117/52 (73) 99 05/17/20 03:15 88 17 117/52 (73) 99 05/17/20 03:00 95 18 116/58 (77) 100 05/17/20 02:30 90 16 128/58 (81) 05/17/20 02:15 93 17 109/56 (73) 100 05/17/20 02:00 95 17 111/55 (73) 100 05/17/20 01:45 93 14 120/59 (79) 95 05/17/20 01:30 92 17 115/61 (79) 98 05/17/20 01:15 93 17 122/55 (77) 98 05/17/20 01:00 93 17 122/53 (76) 100 05/17/20 00:45 95 15 117/60 (79) 98 05/17/20 00:30 94 15 121/55 (77) 05/17/20 00:15 97.6 95 16 117/63 (81) 99 05/17/20 00:00 93 17 116/53 (74) 100 05/17/20 00:00 60 05/17/20 00:00 Bi-pap 60.0 05/17/20 00:00 103 05/16/20 23:45 97.7 101 17 111/62 (78) 99 05/16/20 23:30 99 15 114/55 (74) 05/16/20 23:15 96 15 127/66 (86) 94 05/16/20 23:14 94 18 100 50 05/16/20 23:00 102 15 108/59 (75) 99 05/16/20 22:45 100 17 127/59 (81) 100 05/16/20 22:30 101 17 114/66 (82) 95 05/16/20 22:15 100 17 118/56 (76) 99 05/16/20 22:00 105 15 113/59 (77) 100 05/16/20 22:00 105 15 113/59 (77) 100 05/16/20 21:45 103 17 126/64 (84) 99 05/16/20 21:30 105 18 122/63 (82) 96 05/16/20 21:15 104 17 122/64 (83) 100 05/16/20 21:00 106 15 126/63 (84) 97 2/13/21 20:30 108 17 116/70 (85) 100 05/16/20 20:26 99/62 05/16/20 20:19 111 15 99/62 (74) 100 05/16/20 20:16 111 15 111/61 (78) 100 05/16/20 20:15 114 17 100 05/16/20 20:00 114 18 97/59 (72) 05/16/20 20:00 Bi-pap 60.0 05/16/20 20:00 114 05/16/20 20:00 60 05/16/20 19:45 114 16 05/16/20 19:30 118 18 93 05/16/20 19:22 122 21 100 60 05/16/20 17:40 125 15 115/76 (89) 98 125 05/16/20 17:34 123 05/16/20 16:00 60 05/16/20 16:00 Bi-pap 05/16/20 16:00 97.9 112 14 96/58 (71) 97 97 05/16/20 16:00 128 Intake and Output 05/16/20 05/17/20 19:00 07:00 Intake Total 737.3 ml Output Total 100 ml 550 ml Balance -100 ml 187.3 ml IV Total 737.3 ml Output Urine Total 100 ml 550 ml Hemodialysis UF 0 ml Laboratory Tests Test 05/17/20 05:00 05/17/20 08:01 White Blood Count 9.1 K/UL (4.8-10.8) Red Blood Count 2.98 M/UL (4.70-6.10) L Hemoglobin 8.1 G/DL (14.2-18.0) L Hematocrit 27.5 % (42.0-52.0) L Mean Corpuscular Volume 92 FL (80-99) Mean Corpuscular Hemoglobin 27.3 PG (27.0-31.0) Mean Corpuscular Hemoglobin Concent 29.5 G/DL (32.0-36.0) L Red Cell Distribution Width 16.5 % (11.6-14.8) H Platelet Count 193 K/UL (150-450) Mean Platelet Volume 7.7 FL (6.5-10.1) Neutrophils (%) (Auto) 81.6 % (45.0-75.0) H Lymphocytes (%) (Auto) 9.0 % (20.0-45.0) L Monocytes (%) (Auto) 7.9 % (1.0-10.0) Eosinophils (%) (Auto) 0.3 % (0.0-3.0) Basophils (%) (Auto) 1.2 % (0.0-2.0) Sodium Level 146 MMOL/L (136-145) H Potassium Level 5.6 MMOL/L (3.5-5.1) H Chloride Level 112 MMOL/L (98-107) H Carbon Dioxide Level 22 MMOL/L (21-32) Anion Gap 12 mmol/L (5-15) Blood Urea Nitrogen 84 mg/dL (7-18) H Creatinine 7.0 MG/DL (0.55-1.30) H Estimat Glomerular Filtration Rate 9.8 mL/min (>60) Glucose Level 133 MG/DL (74-106) H Hemoglobin A1c 5.7 % (4.3-6.0) Uric Acid 5.8 MG/DL (2.6-7.2) Calcium Level 7.7 MG/DL (8.5-10.1) L Phosphorus Level 6.5 MG/DL (2.5-4.9) H Magnesium Level 1.7 MG/DL (1.8-2.4) L Iron Level 32 ug/dL (50-175) L Total Iron Binding Capacity 126 ug/dL (250-450) L Percent Iron Saturation 25 % (15-50) Unsaturated Iron Binding 94 ug/dL (112-346) L Ferritin 228 NG/ML (8-388) Total Bilirubin 0.5 MG/DL (0.2-1.0) Gamma Glutamyl Transpeptidase 55 U/L (5-85) Aspartate Amino Transf (AST/SGOT) 28 U/L (15-37) Alanine Aminotransferase (ALT/SGPT) 31 U/L (12-78) Alkaline Phosphatase 87 U/L (46-116) Total Creatine Kinase 298 U/L (26-140) H Troponin I 0.131 ng/mL (0.000-0.056) C-Reactive Protein, Quantitative 5.2 mg/dL (0.00-0.90) H Pro-B-Type Natriuretic Peptide 38386 pg/mL (0-125) H Total Protein 6.9 G/DL (6.4-8.2) Albumin 2.5 G/DL (3.4-5.0) L Globulin 4.4 g/dL Albumin/Globulin Ratio 0.6 (1.0-2.7) L Triglycerides Level 64 MG/DL (30-150) Cholesterol Level 92 MG/DL (< 200) LDL Cholesterol 34 mg/dL (<100) HDL Cholesterol 44 MG/DL (40-60) Cholesterol/HDL Ratio 2.1 (3.3-4.4) L Lipase 134 U/L (73-393) Vitamin B12 Level 1248 PG/ML (193-986) H Vitamin D 25-Hydroxy Pending 25-Hydroxy Vitamin D2 Pending 25-Hydroxy Vitamin D3 Pending Folate 4.0 NG/ML (8.6-58.9) L Thyroid Stimulating Hormone (TSH) 1.365 uiU/mL (0.358-3.740) Free Thyroxine 1.05 NG/DL (0.76-1.46) Digoxin Level 1.8 NG/ML (0.5-2.0) Arterial Blood pH 7.280 (7.350-7.450) Arterial Blood Partial Pressure CO2 46.6 mmHg (35.0-45.0) H Arterial Blood Partial Pressure O2 67.6 mmHg (75.0-100.0) L Arterial Blood HCO3 21.4 mmol/L (22.0-26.0) L Arterial Blood Oxygen Saturation 91.4 % (95-100) L Arterial Blood Base Excess -5.1 (-2-2) L Dany Test Positive Objective HEAD AND NECK: Shows positive JVD.On BIPAP LUNGS: Decreased breath sounds. CARDIOVASCULAR: Shows irregularly irregular S1 and S2 ABDOMEN: Soft and morbidly obese. EXTREMITIES: A 2+ pitting edema. Shai Champion MD May 17, 2020 15:33
[2020-05-17] MEDS: Norepinephrine 4mg/NS Premix 250 ML IV SCH (19:42)
[2020-05-17] MEDS: Dyna-Hex 2% Top Sol 2oz TOPIC SCH (20:14)
--- NOTE | 2020-05-17 20:44 | Consultation ---
DATE OF CONSULTATION: 05/17/2020 GASTROENTEROLOGY CONSULTATION CHIEF COMPLAINT: I was asked to see this patient by Dr. Montserrat Fan today for evaluation of large abdomen. HISTORY OF PRESENT ILLNESS: Patient is a 60-year-old man with history of morbid obesity, hypertension, congestive heart failure, who comes into the hospital due to generalized weakness. He was brought into the hospital by paramedics since he was unable to move for the past few days. He appeared somewhat confused and hypoxic on admission. He is now on a BiPAP mask because of hypoxia. COVID-19 test has been obtained, but the result is not back yet. He does have a history of cardiac arrhythmias. The patient denies any abdominal pain or nausea or vomiting and in fact wants to eat; however, he is on a BiPAP mask at this time. PAST MEDICAL HISTORY: History of hypertension, morbid obesity, hyperlipidemia, diabetes, congestive heart failure status post pacemaker placement, obstructive sleep apnea. MEDICATIONS: As outpatient include insulin, Xarelto, allopurinol, enalapril, furosemide, metolazone. FAMILY HISTORY: Noncontributory. SOCIAL HISTORY: The patient lives at home. ALLERGIES: [place] and penicillin. REVIEW OF SYSTEMS: Otherwise negative. PHYSICAL EXAMINATION: GENERAL: Morbidly obese man, seen in the ICU with BiPAP mask. HEENT: Normocephalic and atraumatic. NECK: Supple. CHEST: Revealed coarse breath sounds. CARDIOVASCULAR: Regular rate. ABDOMEN: Markedly obese and firm. However, there is no tenderness. Evaluation for masses was difficult due to extensive obesity. There was also truncal edema and chronic venous stasis changes in the legs with leg edema. LABORATORY DATA: Reviewed. The patient does have anemia. He also has renal failure with a creatinine of 7.0. ASSESSMENT: This patient has multiple medical problems including morbid obesity and obstructive sleep apnea and edema and anasarca. I suspect his abdominal girth is mainly due to obesity, but a component of ascites cannot be ruled out. I will order an abdominal ultrasound to evaluate for this possibility. In addition, the patient has anasarca and should undergo slow diuresis. His swallow function is likely intact, but at this time he is not safe to feed given his respiratory compromise and BiPAP mask use. Once the oxygen saturation improves, then the patient is able to get off the mask and oral diet can be considered. In addition, the patient has anemia and he should undergo endoscopy and colonoscopy. RECOMMENDATIONS: Per above discussion and per orders written in the chart. Thank you for asking me to participate in the care of this patient. Steve Santiago M.D. DR: CORY JOB#: [id number] CC: ISIAH
[2020-05-17] MEDS ORDERED: cefTRIAXone 1 GM in D5W 55 ML IVPB SCH (21:00)
--- NOTE | 2020-05-17 23:33 | General Progress Note ---
Subjective ROS Limited/Unobtainable: Yes Allergies: Coded Allergies: [place] (Verified Allergy, Mild, Rash, 10/29/14) per patient PENICILLINS (Unverified Allergy, Unknown, 11/28/13) Objective Last 24 Hour Vital Signs Date Time Temp Pulse Resp B/P (MAP) Pulse Ox O2 Delivery O2 Flow Rate FiO2 05/17/20 21:45 90 19 102/49 (66) 93 05/17/20 21:30 88 18 105/55 (72) 93 05/17/20 21:15 93 24 96/58 (71) 95 05/17/20 21:00 89 20 92/49 (63) 93 05/17/20 20:45 91 20 102/54 (70) 93 05/17/20 20:30 91 20 117/59 (78) 93 05/17/20 20:15 93 22 116/58 (77) 94 05/17/20 20:00 92 19 104/53 (70) 94 05/17/20 20:00 92 19 104/53 (70) 94 05/17/20 20:00 Bi-pap 60.0 05/17/20 20:00 50 05/17/20 19:45 94 20 101/53 (69) 94 05/17/20 19:42 112/57 05/17/20 19:30 90 19 112/57 (75) 96 05/17/20 19:15 94 19 97/61 (73) 94 05/17/20 19:00 92 19 117/47 (70) 96 05/17/20 18:45 101 21 117/62 (80) 93 05/17/20 18:45 101 21 117/62 (80) 93 05/17/20 18:30 92 21 106/56 (73) 95 05/17/20 18:15 94 20 118/58 (78) 94 05/17/20 18:00 92 19 104/60 (75) 94 05/17/20 17:45 95 21 113/60 (77) 92 05/17/20 17:15 90 16 108/51 (70) 05/17/20 17:00 89 17 101/51 (68) 05/17/20 16:00 50 05/17/20 16:00 Bi-pap 60.0 05/17/20 16:00 88 2/14/21 15:45 92 18 107/48 (67) 05/17/20 15:30 93 16 109/61 (77) 05/17/20 15:15 92 17 111/62 (78) 05/17/20 15:00 93 17 108/55 (72) 05/17/20 14:45 93 16 112/65 (81) 05/17/20 14:30 94 18 98/51 (67) 05/17/20 14:15 101/51 (68) 100 05/17/20 14:00 90 17 102/83 (89) 05/17/20 13:45 88 19 108/56 (73) 100 05/17/20 13:30 93 18 115/49 (71) 100 05/17/20 13:15 95 16 115/60 (78) 100 05/17/20 13:00 89 18 109/62 (78) 100 05/17/20 12:45 88 15 109/57 (74) 100 05/17/20 12:30 90 16 104/56 (72) 100 05/17/20 12:30 90 16 104/56 (72) 100 05/17/20 12:15 90 16 112/56 (74) 05/17/20 12:15 90 16 112/56 (74) 05/17/20 12:00 50 05/17/20 12:00 Bi-pap 60.0 05/17/20 12:00 90 17 109/57 (74) 100 05/17/20 12:00 88 05/17/20 12:00 90 17 109/57 (74) 100 05/17/20 11:45 87 13 119/57 (77) 100 05/17/20 11:30 89 19 104/57 (73) 99 05/17/20 11:15 90 18 102/53 (69) 98 05/17/20 11:15 90 18 102/53 (69) 98 05/17/20 11:02 91 17 100 50 05/17/20 11:00 89 18 103/53 (70) 99 05/17/20 11:00 89 18 103/53 (70) 99 05/17/20 10:45 88 17 107/52 (70) 99 05/17/20 10:30 91 18 107/52 (70) 05/17/20 10:15 91 18 97/49 (65) 100 05/17/20 10:00 91 19 99/50 (66) 05/17/20 08:45 90 19 124/61 (82) 100 05/17/20 08:30 92 17 119/63 (81) 05/17/20 08:15 92 16 127/60 (82) 100 05/17/20 08:05 50 05/17/20 08:00 83 05/17/20 08:00 93 21 105/50 (68) 100 05/17/20 08:00 90 17 127/58 (81) 05/17/20 08:00 Bi-pap 60.0 05/17/20 08:00 50 05/17/20 07:45 88 17 129/60 (83) 05/17/20 07:30 88 16 126/62 (83) 98 05/17/20 07:17 90 19 98 40 05/17/20 07:15 91 19 123/65 (84) 100 05/17/20 07:00 90 17 127/58 (81) 05/17/20 07:00 90 17 127/58 (81) 05/17/20 06:45 88 15 124/57 (79) 93 05/17/20 06:30 90 19 121/57 (78) 98 05/17/20 06:15 89 15 118/57 (77) 99 05/17/20 06:15 89 15 118/57 (77) 99 05/17/20 06:00 87 17 125/54 (77) 94 05/17/20 05:45 87 17 122/56 (78) 99 05/17/20 05:30 87 19 122/57 (78) 98 05/17/20 05:15 88 17 121/90 (100) 99 05/17/20 05:00 85 17 120/54 (76) 98 05/17/20 04:45 88 18 116/62 (80) 99 05/17/20 04:30 91 19 112/55 (74) 100 05/17/20 04:15 90 18 104/64 (77) 99 05/17/20 04:15 90 18 104/64 (77) 99 05/17/20 04:00 83 05/17/20 04:00 60 05/17/20 04:00 Bi-pap 60.0 05/17/20 04:00 90 18 111/55 (73) 97 05/17/20 03:45 87 18 115/61 (79) 05/17/20 03:30 93 19 107/56 (73) 97 05/17/20 03:19 94 16 100 40 05/17/20 03:15 88 17 117/52 (73) 99 05/17/20 03:15 88 17 117/52 (73) 99 05/17/20 03:00 95 18 116/58 (77) 100 05/17/20 02:30 90 16 128/58 (81) 05/17/20 02:15 93 17 109/56 (73) 100 05/17/20 02:00 95 17 111/55 (73) 100 05/17/20 01:45 93 14 120/59 (79) 95 05/17/20 01:30 92 17 115/61 (79) 98 05/17/20 01:15 93 17 122/55 (77) 98 05/17/20 01:00 93 17 122/53 (76) 100 05/17/20 00:45 95 15 117/60 (79) 98 05/17/20 00:30 94 15 121/55 (77) 05/17/20 00:15 97.6 95 16 117/63 (81) 99 05/17/20 00:00 93 17 116/53 (74) 100 05/17/20 00:00 60 05/17/20 00:00 Bi-pap 60.0 05/17/20 00:00 103 05/16/20 23:45 97.7 101 17 111/62 (78) 99 Intake and Output 05/16/20 05/17/20 19:00 07:00 Intake Total 737.3 ml Output Total 100 ml 550 ml Balance -100 ml 187.3 ml IV Total 737.3 ml Output Urine Total 100 ml 550 ml Hemodialysis UF 0 ml Laboratory Tests 05/17/20 05:00: White Blood Count 9.1, Red Blood Count 2.98L, Hemoglobin 8.1L, Hematocrit 27.5L, Mean Corpuscular Volume 92, Mean Corpuscular Hemoglobin 27.3, Mean Corpuscular Hemoglobin Concent 29.5L, Red Cell Distribution Width 16.5H, Platelet Count 193, Mean Platelet Volume 7.7, Neutrophils (%) (Auto) 81.6H, Lymphocytes (%) (Auto) 9.0L, Monocytes (%) (Auto) 7.9, Eosinophils (%) (Auto) 0.3, Basophils (%) (Auto) 1.2, Sodium Level 146H, Potassium Level 5.6H, Chloride Level 112H, Carbon Dioxide Level 22, Anion Gap 12, Blood Urea Nitrogen 84H, Creatinine 7.0H, Estimat Glomerular Filtration Rate 9.8, Glucose Level 133H, Hemoglobin A1c 5.7, Uric Acid 5.8, Calcium Level 7.7L, Phosphorus Level 6.5H, Magnesium Level 1.7L, Iron Level 32L, Total Iron Binding Capacity 126L, Percent Iron Saturation 25, Unsaturated Iron Binding 94L, Ferritin 228, Total Bilirubin 0.5, Gamma Glutamyl Transpeptidase 55, Aspartate Amino Transf (AST/SGOT) 28, Alanine Aminotransferase (ALT/SGPT) 31, Alkaline Phosphatase 87, Total Creatine Kinase 298H, Troponin I 0.131H, C-Reactive Protein, Quantitative 5.2H, Pro-B-Type Natriuretic Peptide 97393F, Total Protein 6.9, Albumin 2.5L, Globulin 4.4, Albumin/Globulin Ratio 0.6L, Triglycerides Level 64, Cholesterol Level 92, LDL Cholesterol 34, HDL Cholesterol 44, Cholesterol/HDL Ratio 2.1L, Lipase 134, Vitamin B12 Level 1248H, Vitamin D 25-Hydroxy [Pending], 25-Hydroxy Vitamin D2 [Pending], 25-Hydroxy Vitamin D3 [Pending], Folate 4.0L, Thyroid Stimulating Hormone (TSH) 1.365, Free Thyroxine 1.05, Digoxin Level 1.8 05/17/20 08:01: Arterial Blood pH 7.280L, Arterial Blood Partial Pressure CO2 46.6H, Arterial Blood Partial Pressure O2 67.6L, Arterial Blood HCO3 21.4L, Arterial Blood Oxygen Saturation 91.4L, Arterial Blood Base Excess -5.1L, Dany Test Positive Height (Feet): 5 Height (Inches): 11.00 Weight (Pounds): 415 Assessment/Plan Problem List: (1) Hyperkalemia ICD Codes: E87.5 - Hyperkalemia SNOMED: 16962714 (2) Acidosis ICD Codes: E87.2 - Acidosis SNOMED: 77079337 (3) Hyperglycemia ICD Codes: R73.9 - Hyperglycemia, unspecified SNOMED: 34481060 (4) Acute kidney failure ICD Codes: N17.9 - Acute kidney failure, unspecified SNOMED: 37519065 (5) Sepsis ICD Codes: A41.9 - Sepsis SNOMED: 53089703 (6) UTI (urinary tract infection) ICD Codes: N39.0 - Urinary tract infection, site not specified SNOMED: 87711734 (7) Chronic systolic heart failure ICD Codes: I50.9 - Chronic systolic heart failure SNOMED: 086583502 (8) Morbid obesity ICD Codes: E66.01 - Morbid (severe) obesity due to excess calories SNOMED: 712811690 (9) Pacemaker ICD Codes: Z95.0 - Pacemaker SNOMED: 924668146 (10) DM circ dis type I, uncontrolled ICD Codes: E10.59 - DM circ dis type I, uncontrolled SNOMED: 38909247 (11) Atrial flutter ICD Codes: I48.92 - Atrial flutter SNOMED: 1173240 (12) Abdominal distention ICD Codes: R14.0 - Abdominal distension (gaseous) SNOMED: 03322767 (13) Renal failure (ARF), acute on chronic ICD Codes: N17.9 - Acute kidney failure, unspecified; N18.9 - Chronic kidney disease, unspecified SNOMED: 143900747 Assessment/Plan: a fib w rvr morbid obesity afebrile bipap distented abdomin pacemmaker chf resp insuff Montserrat Fan MD May 17, 2020 23:33
[2020-05-18] VITALS (81 sets, daily range): BP systolic 86–151; BP diastolic 43–107
[2020-05-18] MEDS: Dextrose 10% 1,000 ML IV SCH (01:41)
[2020-05-18] MEDS ORDERED: dilTIAZem Premix 125mg/125ml 125 ML IVPB SCH (01:45)
[2020-05-18] MEDS: Norepinephrine 4mg/NS Premix 250 ML IV SCH (02:00)
[2020-05-18 07:03] LABS: HEMATOCRIT 26.1 % (42.0-52.0); HEMOGLOBIN 7.8 G/DL (14.2-18.0); MEAN CORPUSCULAR VOLUME 90 FL (80-99); PLATELET COUNT 180 K/UL (150-450); RED BLOOD COUNT 2.89 M/UL (4.70-6.10); RED CELL DISTRIBUTION WIDTH 16.5 % (11.6-14.8); WHITE BLOOD COUNT 9.4 K/UL (4.8-10.8)
[2020-05-18 07:29] LABS: CREATINE KINASE 227 U/L (26-308)
[2020-05-18 07:31] LABS: ALBUMIN 2.2 G/DL (3.4-5.0); ALBUMIN/GLOBULIN RATIO 0.5 (1.0-2.7); BILIRUBIN,TOTAL 0.5 MG/DL (0.2-1.0); CALCIUM 7.1 MG/DL (8.5-10.1); CREATININE 7.6 MG/DL (0.55-1.30); POTASSIUM 4.9 MMOL/L (3.5-5.1)
[2020-05-18] MEDS: Pantoprazole Inj IVP SCH ×2 (09:00→20:58)
--- NOTE | 2020-05-18 10:48 | Pulmonology Progress Note ---
Subjective ROS Limited/Unobtainable: Yes Interval Events: now seen in ICU Constitutional: Reports: no symptoms HEENT: Repors: no symptoms Respiratory: Reports: shortness of breath Cardiovascular: Reports: no symptoms Gastrointestinal/Abdominal: Reports: no symptoms Allergies: Coded Allergies: [place] (Verified Allergy, Mild, Rash, 10/29/14) per patient PENICILLINS (Unverified Allergy, Unknown, 11/28/13) Objective Last 24 Hour Vital Signs Date Time Temp Pulse Resp B/P (MAP) Pulse Ox O2 Delivery O2 Flow Rate FiO2 05/18/20 10:00 97 18 127/64 (85) 93 05/18/20 09:45 98 18 151/65 (93) 95 05/18/20 09:30 96 22 147/65 (92) 94 05/18/20 09:15 96 17 132/66 (88) 94 05/18/20 09:00 92 18 135/69 (91) 94 05/18/20 08:45 94 18 134/70 (91) 94 05/18/20 08:30 93 18 130/70 (90) 95 05/18/20 08:15 93 18 151/60 (90) 95 05/18/20 08:15 93 18 151/60 (90) 95 05/18/20 08:00 96 05/18/20 08:00 91 20 125/67 (86) 96 05/18/20 08:00 Bi-pap 60.0 05/18/20 08:00 91 20 125/67 (86) 96 05/18/20 08:00 14.0 05/18/20 07:45 89 19 144/66 (92) 96 05/18/20 07:30 88 20 137/71 (93) 96 05/18/20 07:20 96 Venturi Mask 14.0 55 05/18/20 07:20 94 20 96 14.0 55 05/18/20 07:15 86 20 118/62 (80) 96 05/18/20 07:00 89 18 103/59 (74) 94 05/18/20 07:00 89 18 103/59 (74) 94 05/18/20 06:45 88 20 105/60 (75) 93 05/18/20 06:30 90 19 115/58 (77) 94 05/18/20 06:15 87 18 118/56 (76) 93 05/18/20 06:00 85 19 111/56 (74) 94 05/18/20 06:00 85 19 111/56 (74) 94 05/18/20 06:00 85 19 94 05/18/20 05:45 88 19 93/53 (66) 95 05/18/20 05:30 87 18 104/59 (74) 93 05/18/20 05:15 93 19 104/53 (70) 95 05/18/20 05:00 89 19 113/53 (73) 93 05/18/20 04:59 89 19 105/58 (74) 93 05/18/20 04:56 86 19 103/59 (74) 94 05/18/20 04:45 89 19 93/54 (67) 93 05/18/20 04:30 84 20 95/51 (66) 93 05/18/20 04:15 90 20 97/50 (66) 94 05/18/20 04:00 14.0 05/18/20 04:00 96 05/18/20 04:00 87 19 93/53 (66) 93 05/18/20 04:00 Bi-pap 60.0 05/18/20 03:45 88 19 95/52 (66) 93 05/18/20 03:30 88 19 107/51 (69) 93 05/18/20 03:15 89 20 90/51 (64) 94 05/18/20 03:00 88 19 99/59 (72) 93 05/18/20 02:45 90 21 99/51 (67) 92 05/18/20 02:30 91 22 108/58 (75) 92 05/18/20 02:15 87 17 101/54 (70) 93 05/18/20 02:00 86 18 105/56 (72) 94 05/18/20 02:00 88/53 05/18/20 01:45 88 19 92/51 (65) 95 05/18/20 01:30 88 19 97/50 (66) 94 05/18/20 01:15 91 19 97/53 (68) 94 05/18/20 01:00 93 19 88/50 (63) 92 05/18/20 00:45 88 17 89/56 (67) 92 05/18/20 00:30 89 19 90/52 (65) 92 05/18/20 00:15 87 20 91/48 (62) 93 05/18/20 00:00 92 05/18/20 00:00 Bi-pap 60.0 05/18/20 00:00 50 05/18/20 00:00 88 20 93/50 (64) 93 05/17/20 23:45 87 19 95/50 (65) 93 05/17/20 23:30 89 21 95/48 (64) 93 05/17/20 23:15 89 20 86/52 (63) 93 05/17/20 23:00 88 21 90/50 (63) 93 05/17/20 22:45 88 19 90/51 (64) 93 05/17/20 22:30 92 19 99/49 (66) 93 05/17/20 22:15 89 19 101/49 (66) 94 05/17/20 22:00 87 19 92/53 (66) 94 05/17/20 21:45 90 19 102/49 (66) 93 05/17/20 21:30 88 18 105/55 (72) 93 05/17/20 21:15 93 24 96/58 (71) 95 05/17/20 21:00 89 20 92/49 (63) 93 05/17/20 20:45 91 20 102/54 (70) 93 05/17/20 20:30 91 20 117/59 (78) 93 05/17/20 20:15 93 22 116/58 (77) 94 05/17/20 20:00 92 19 104/53 (70) 94 05/17/20 20:00 92 19 104/53 (70) 94 05/17/20 20:00 Bi-pap 60.0 05/17/20 20:00 50 05/17/20 20:00 94 05/17/20 19:45 94 20 101/53 (69) 94 05/17/20 19:42 112/57 05/17/20 19:30 90 19 112/57 (75) 96 05/17/20 19:15 94 19 97/61 (73) 94 05/17/20 19:00 92 19 117/47 (70) 96 05/17/20 18:45 101 21 117/62 (80) 93 05/17/20 18:45 101 21 117/62 (80) 93 05/17/20 18:30 92 21 106/56 (73) 95 05/17/20 18:15 94 20 118/58 (78) 94 05/17/20 18:00 92 19 104/60 (75) 94 05/17/20 17:45 95 21 113/60 (77) 92 05/17/20 17:15 90 16 108/51 (70) 05/17/20 17:00 89 17 101/51 (68) 05/17/20 16:00 50 05/17/20 16:00 Bi-pap 60.0 05/17/20 16:00 88 05/17/20 15:45 92 18 107/48 (67) 05/17/20 15:30 93 16 109/61 (77) 05/17/20 15:15 92 17 111/62 (78) 05/17/20 15:00 93 17 108/55 (72) 05/17/20 14:45 93 16 112/65 (81) 05/17/20 14:30 94 18 98/51 (67) 05/17/20 14:15 101/51 (68) 100 05/17/20 14:00 90 17 102/83 (89) 05/17/20 13:45 88 19 108/56 (73) 100 05/17/20 13:30 93 18 115/49 (71) 100 05/17/20 13:15 95 16 115/60 (78) 100 05/17/20 13:00 89 18 109/62 (78) 100 05/17/20 12:45 88 15 109/57 (74) 100 05/17/20 12:30 90 16 104/56 (72) 100 05/17/20 12:30 90 16 104/56 (72) 100 05/17/20 12:15 90 16 112/56 (74) 05/17/20 12:15 90 16 112/56 (74) 05/17/20 12:00 50 05/17/20 12:00 Bi-pap 60.0 05/17/20 12:00 90 17 109/57 (74) 100 05/17/20 12:00 88 05/17/20 12:00 90 17 109/57 (74) 100 05/17/20 11:45 87 13 119/57 (77) 100 05/17/20 11:30 89 19 104/57 (73) 99 05/17/20 11:15 90 18 102/53 (69) 98 05/17/20 11:15 90 18 102/53 (69) 98 05/17/20 11:02 91 17 100 50 05/17/20 11:00 89 18 103/53 (70) 99 05/17/20 11:00 89 18 103/53 (70) 99 Intake and Output 05/17/20 05/18/20 19:00 07:00 Intake Total 695.0 ml 378.75 ml Output Total 550 ml 300 ml Balance 145.0 ml 78.75 ml Intake Oral 260 ml IV Total 695.0 ml 118.75 ml Output Urine Total 550 ml 300 ml General Appearance: no acute distress, other Respiratory: chest wall non-tender, normal breath sounds Cardiovascular: normal rate, regular rhythm Abdomen: other - morbid obesity Microbiology Date/Time Source Procedure Growth Status 05/16/20 00:51 Urine,Clean Catch Urine Culture - Final NO GROWTH AFTER 48 HOURS Complete 05/15/20 22:45 Blood Blood Culture - Preliminary NO GROWTH AFTER 48 HOURS Resulted 05/15/20 22:36 Blood Blood Culture - Preliminary NO GROWTH AFTER 48 HOURS Resulted Laboratory Tests 05/18/20 06:00: White Blood Count 9.4, Red Blood Count 2.89L, Hemoglobin 7.8L, Hematocrit 26.1L, Mean Corpuscular Volume 90, Mean Corpuscular Hemoglobin 26.9L, Mean Corpuscular Hemoglobin Concent 29.7L, Red Cell Distribution Width 16.5H, Platelet Count 180, Mean Platelet Volume 7.9, Neutrophils (%) (Auto) , Lymphocytes (%) (Auto) , Monocytes (%) (Auto) , Eosinophils (%) (Auto) , Basophils (%) (Auto) , Di fferential Total Cells Counted 100, Neutrophils % (Manual) 77H, Lymphocytes % (Manual) 16L, Monocytes % (Manual) 7, Eosinophils % (Manual) 0, Basophils % (Manual) 0, Band Neutrophils 0, Platelet Estimate Adequate, Platelet Morphology Normal, Polychromasia 1+, Hypochromasia 2+, Anisocytosis 1+, Target Cells Occasional, Sodium Level 143, Potassium Level 4.9, Chloride Level 110H, Carbon Dioxide Level 24, Anion Gap 9, Blood Urea Nitrogen 84H, Creatinine 7.6H, Estimat Glomerular Filtration Rate 9.0, Glucose Level 158H, Uric Acid 5.9, Calcium Level 7.1L, Phosphorus Level 6.0H, Magnesium Level 1.8, Total Bilirubin 0.5, Aspartate Amino Transf (AST/SGOT) 21, Alanine Aminotransferase (ALT/SGPT) 25, Alkaline Phosphatase 75, Ammonia 40H, Total Creatine Kinase 227, Troponin I 0.094H, C- Reactive Protein, Quantitative 7.2H, Pro-B-Type Natriuretic Peptide 76471C, Total Protein 6.9, Albumin 2.2L, Globulin 4.7, Albumin/Globulin Ratio 0.5L 05/18/20 09:32: Arterial Blood pH 7.327L, Arterial Blood Partial Pressure CO2 52.0H, Arterial Blood Partial Pressure O2 68.7L, Arterial Blood HCO3 26.6H, Arterial Blood Oxygen Saturation 92.4L, Arterial Blood Base Excess 0.3, Dany Test Positive Current Medications Medications (Trade) Dose Ordered Sig/Albert Route PRN Reason Start Time Stop Time Status Last Admin Dose Admin Ceftriaxone Sodium 1 gm/ Dextrose 55 ml @ 110 mls/hr Q24H IVPB 05/17/20 21:00 05/24/20 20:59 05/17/20 20:53 Chlorhexidine Gluconate (Isamar-Hex 2%) 1 applic DAILY@2000 TOPIC 05/17/20 20:00 08/15/20 19:59 05/17/20 20:14 Dextrose 1,000 ml @ 30 mls/hr Q24H IV 05/16/20 11:00 06/15/20 10:59 05/18/20 01:41 Dextrose (Dextrose 50%) 25 ml Q30M PRN IV Hypoglycemia 05/16/20 03:45 08/14/20 03:44 05/16/20 06:23 Dextrose (Dextrose 50%) 50 ml Q30M PRN IV Hypoglycemia 05/16/20 03:45 08/14/20 03:44 Diltiazem HCl 125 ml @ 0 mls/hr Q24H IVPB 05/18/20 01:45 05/19/20 01:44 05/18/20 01:59 Folic Acid (Folate) 5 mg DAILY ORAL 05/17/20 14:00 06/16/20 13:59 05/18/20 09:00 Norepinephrine Bitartrate 250 ml @ 37.5 mls/hr Q24H IV 05/16/20 20:00 05/19/20 19:59 05/18/20 02:00 Pantoprazole (Protonix) 40 mg EVERY 12 HOURS IVP 05/17/20 14:00 06/16/20 13:59 05/18/20 09:00 Assessment/Plan Assessment/Plan 1. Hx Sleep apnea - Currently not on CPAP 2. Acute on chronic renal failure; hyperkalemia - s/p Kayexalate - s/p Right femoral catheter for dialysis (05/15) S/p dialysis 3. Bacteriuria - s/p Rocephin in ER - f/u UCx 4. Hypoxemic respiratory distress -Continue supplemental O2 -> now saturating at 100% on Ventimask 5. Elevated inflammatory markers -Venous duplex ultrasound of lower extremities negative for DVT -On SCD for DVT prophylaxis 6. pneumonia -Chest x-ray shows interstitial opacities bilaterally -COVID-19 PCR sent; results pending 7. A-fib with rvr - seen by cardio - now in ICU Juanito Amador MD May 18, 2020 10:48
--- NOTE | 2020-05-18 11:47 | Nephrology Progress Note ---
Assessment/Plan Problem List: (1) MICHEAL (acute kidney injury) (2) Renal failure (ARF), acute on chronic (3) Morbid obesity (4) Pacemaker (5) Hyperkalemia (6) Acidosis Assessment Acute on chronic renal failure Hyperkalemia Metabolic acidosis Pacemaker UTI Morbid obesity Plan May 18: Patient seen in ICU. Currently on dialysis. Dialysis orders yesterday was not carried out apparently due to lack of personal. Patient clinically doing better. Breathing easier. Continue per consultants. Medication list reviewed. Off pressors. Continue to dialyze as needed. May 17: Patient seen in ICU. Full code. On BiPAP. Discussed with DANIEL Ponce. Labs reviewed. Renal parameters improved after patient was dialyzed yesterday. Patient off pressors. Will attempt dialysis again today for hyperkalemia. Continue per consultants. Oral folic acid ordered. Protonix IV ordered. Previously: Stat ABG, stat kidney ultrasound: Results noted IV bicarb NG tube, Kayexalate Urgent dialysis Discussed with DANIEL Oliva Patient cannot give consent for insertion of dialysis catheter. Dialysis at this point is a lifesaving procedure in my opinion. Subjective ROS Limited/Unobtainable: Yes Objective Objective Last 24 Hour Vital Signs Date Time Temp Pulse Resp B/P (MAP) Pulse Ox O2 Delivery O2 Flow Rate FiO2 05/18/20 10:00 97 18 127/64 (85) 93 05/18/20 09:45 98 18 151/65 (93) 95 05/18/20 09:30 96 22 147/65 (92) 94 05/18/20 09:15 96 17 132/66 (88) 94 05/18/20 09:00 92 18 135/69 (91) 94 05/18/20 08:45 94 18 134/70 (91) 94 05/18/20 08:30 93 18 130/70 (90) 95 05/18/20 08:15 93 18 151/60 (90) 95 05/18/20 08:15 93 18 151/60 (90) 95 05/18/20 08:00 96 05/18/20 08:00 91 20 125/67 (86) 96 05/18/20 08:00 Bi-pap 60.0 05/18/20 08:00 91 20 125/67 (86) 96 05/18/20 08:00 14.0 05/18/20 07:45 89 19 144/66 (92) 96 05/18/20 07:30 88 20 137/71 (93) 96 05/18/20 07:20 96 Venturi Mask 14.0 55 05/18/20 07:20 94 20 96 14.0 55 05/18/20 07:15 86 20 118/62 (80) 96 05/18/20 07:00 89 18 103/59 (74) 94 05/18/20 07:00 89 18 103/59 (74) 94 05/18/20 06:45 88 20 105/60 (75) 93 05/18/20 06:30 90 19 115/58 (77) 94 05/18/20 06:15 87 18 118/56 (76) 93 05/18/20 06:00 85 19 111/56 (74) 94 05/18/20 06:00 85 19 111/56 (74) 94 05/18/20 06:00 85 19 94 05/18/20 05:45 88 19 93/53 (66) 95 05/18/20 05:30 87 18 104/59 (74) 93 05/18/20 05:15 93 19 104/53 (70) 95 05/18/20 05:00 89 19 113/53 (73) 93 05/18/20 04:59 89 19 105/58 (74) 93 05/18/20 04:56 86 19 103/59 (74) 94 05/18/20 04:45 89 19 93/54 (67) 93 05/18/20 04:30 84 20 95/51 (66) 93 05/18/20 04:15 90 20 97/50 (66) 94 05/18/20 04:00 14.0 05/18/20 04:00 96 05/18/20 04:00 87 19 93/53 (66) 93 05/18/20 04:00 Bi-pap 60.0 05/18/20 03:45 88 19 95/52 (66) 93 05/18/20 03:30 88 19 107/51 (69) 93 05/18/20 03:15 89 20 90/51 (64) 94 05/18/20 03:00 88 19 99/59 (72) 93 05/18/20 02:45 90 21 99/51 (67) 92 05/18/20 02:30 91 22 108/58 (75) 92 05/18/20 02:15 87 17 101/54 (70) 93 05/18/20 02:00 86 18 105/56 (72) 94 05/18/20 02:00 88/53 05/18/20 01:45 88 19 92/51 (65) 95 05/18/20 01:30 88 19 97/50 (66) 94 05/18/20 01:15 91 19 97/53 (68) 94 05/18/20 01:00 93 19 88/50 (63) 92 05/18/20 00:45 88 17 89/56 (67) 92 05/18/20 00:30 89 19 90/52 (65) 92 05/18/20 00:15 87 20 91/48 (62) 93 05/18/20 00:00 92 05/18/20 00:00 Bi-pap 60.0 05/18/20 00:00 50 05/18/20 00:00 88 20 93/50 (64) 93 05/17/20 23:45 87 19 95/50 (65) 93 05/17/20 23:30 89 21 95/48 (64) 93 05/17/20 23:15 89 20 86/52 (63) 93 05/17/20 23:00 88 21 90/50 (63) 93 05/17/20 22:45 88 19 90/51 (64) 93 05/17/20 22:30 92 19 99/49 (66) 93 05/17/20 22:15 89 19 101/49 (66) 94 05/17/20 22:00 87 19 92/53 (66) 94 05/17/20 21:45 90 19 102/49 (66) 93 05/17/20 21:30 88 18 105/55 (72) 93 05/17/20 21:15 93 24 96/58 (71) 95 05/17/20 21:00 89 20 92/49 (63) 93 05/17/20 20:45 91 20 102/54 (70) 93 05/17/20 20:30 91 20 117/59 (78) 93 05/17/20 20:15 93 22 116/58 (77) 94 05/17/20 20:00 92 19 104/53 (70) 94 05/17/20 20:00 92 19 104/53 (70) 94 05/17/20 20:00 Bi-pap 60.0 05/17/20 20:00 50 05/17/20 20:00 94 05/17/20 19:45 94 20 101/53 (69) 94 05/17/20 19:42 112/57 05/17/20 19:30 90 19 112/57 (75) 96 05/17/20 19:15 94 19 97/61 (73) 94 05/17/20 19:00 92 19 117/47 (70) 96 05/17/20 18:45 101 21 117/62 (80) 93 05/17/20 18:45 101 21 117/62 (80) 93 05/17/20 18:30 92 21 106/56 (73) 95 05/17/20 18:15 94 20 118/58 (78) 94 05/17/20 18:00 92 19 104/60 (75) 94 05/17/20 17:45 95 21 113/60 (77) 92 05/17/20 17:15 90 16 108/51 (70) 05/17/20 17:00 89 17 101/51 (68) 05/17/20 16:00 50 05/17/20 16:00 Bi-pap 60.0 05/17/20 16:00 88 05/17/20 15:45 92 18 107/48 (67) 05/17/20 15:30 93 16 109/61 (77) 05/17/20 15:15 92 17 111/62 (78) 05/17/20 15:00 93 17 108/55 (72) 05/17/20 14:45 93 16 112/65 (81) 05/17/20 14:30 94 18 98/51 (67) 05/17/20 14:15 101/51 (68) 100 05/17/20 14:00 90 17 102/83 (89) 05/17/20 13:45 88 19 108/56 (73) 100 05/17/20 13:30 93 18 115/49 (71) 100 05/17/20 13:15 95 16 115/60 (78) 100 05/17/20 13:00 89 18 109/62 (78) 100 05/17/20 12:45 88 15 109/57 (74) 100 05/17/20 12:30 90 16 104/56 (72) 100 05/17/20 12:30 90 16 104/56 (72) 100 05/17/20 12:15 90 16 112/56 (74) 05/17/20 12:15 90 16 112/56 (74) 05/17/20 12:00 50 05/17/20 12:00 Bi-pap 60.0 05/17/20 12:00 90 17 109/57 (74) 100 05/17/20 12:00 88 05/17/20 12:00 90 17 109/57 (74) 100 Intake and Output 05/17/20 05/18/20 19:00 07:00 Intake Total 695.0 ml 378.75 ml Output Total 550 ml 300 ml Balance 145.0 ml 78.75 ml Intake Oral 260 ml IV Total 695.0 ml 118.75 ml Output Urine Total 550 ml 300 ml Current Medications Medications (Trade) Dose Ordered Sig/Albert Route PRN Reason Start Time Stop Time Status Last Admin Dose Admin Ceftriaxone Sodium 1 gm/ Dextrose 55 ml @ 110 mls/hr Q24H IVPB 05/17/20 21:00 05/24/20 20:59 05/17/20 20:53 Chlorhexidine Gluconate (Isamar-Hex 2%) 1 applic DAILY@2000 TOPIC 05/17/20 20:00 08/15/20 19:59 05/17/20 20:14 Dextrose 1,000 ml @ 30 mls/hr Q24H IV 05/16/20 11:00 06/15/20 10:59 05/18/20 01:41 Dextrose (Dextrose 50%) 25 ml Q30M PRN IV Hypoglycemia 05/16/20 03:45 08/14/20 03:44 05/16/20 06:23 Dextrose (Dextrose 50%) 50 ml Q30M PRN IV Hypoglycemia 05/16/20 03:45 08/14/20 03:44 Diltiazem HCl 125 ml @ 0 mls/hr Q24H IVPB 05/18/20 01:45 05/19/20 01:44 05/18/20 01:59 Folic Acid (Folate) 5 mg DAILY ORAL 05/17/20 14:00 06/16/20 13:59 05/18/20 09:00 Norepinephrine Bitartrate 250 ml @ 37.5 mls/hr Q24H IV 05/16/20 20:00 05/19/20 19:59 05/18/20 02:00 Pantoprazole (Protonix) 40 mg EVERY 12 HOURS IVP 05/17/20 14:00 06/16/20 13:59 05/18/20 09:00 Laboratory Tests 05/18/20 06:00: White Blood Count 9.4, Red Blood Count 2.89L, Hemoglobin 7.8L, Hematocrit 26.1L, Mean Corpuscular Volume 90, Mean Corpuscular Hemoglobin 26.9L, Mean Corpuscular Hemoglobin Concent 29.7L, Red Cell Distribution Width 16.5H, Platelet Count 180, Mean Platelet Volume 7.9, Neutrophils (%) (Auto) , Lymphocytes (%) (Auto) , Monocytes (%) (Auto) , Eosinophils (%) (Auto) , Basophils (%) (Auto) , Differential Total Cells Counted 100, Neutrophils % (Manual) 77H, Lymphocytes % (Manual) 16L, Monocytes % (Manual) 7, Eosinophils % (Manual) 0, Basophils % (Manual) 0, Band Neutrophils 0, Platelet Estimate Adequate, Platelet Morphology Normal, Polychromasia 1+, Hypochromasia 2+, Anisocytosis 1+, Target Cells Occasional, Sodium Level 143, Potassium Level 4.9, Chloride Level 110H, Carbon Dioxide Level 24, Anion Gap 9, Blood Urea Nitrogen 84H, Creatinine 7.6H, Estimat Glomerular Filtration Rate 9.0, Glucose Level 158H, Uric Acid 5.9, Calcium Level 7.1L, Phosphorus Level 6.0H, Magnesium Level 1.8, Total Bilirubin 0.5, Aspartate Amino Transf (AST/SGOT) 21, Alanine Aminotransferase (ALT/SGPT) 25, Alkaline Phosphatase 75, Ammonia 40H, Total Creatine Kinase 227, Troponin I 0.094H, C- Reactive Protein, Quantitative 7.2H, Pro-B-Type Natriuretic Peptide 28953F, Total Protein 6.9, Albumin 2.2L, Globulin 4.7, Albumin/Globulin Ratio 0.5L 05/18/20 09:32: Arterial Blood pH 7.327L, Arterial Blood Partial Pressure CO2 52.0H, Arterial Blood Partial Pressure O2 68.7L, Arterial Blood HCO3 26.6H, Arterial Blood Oxygen Saturation 92.4L, Arterial Blood Base Excess 0.3, Dany Test Positive Height (Feet): 5 Height (Inches): 11.00 Weight (Pounds): 415 General Appearance: no apparent distress Cardiovascular: tachycardia Respiratory/Chest: decreased breath sounds Abdomen: distended Adria Gautam MD May 18, 2020 11:47
--- NOTE | 2020-05-18 12:29 | Consultation ---
DATE OF CONSULTATION: 05/18/2020 INFECTIOUS DISEASES CONSULTATION This consultation has been done on behalf of Dr. Oswadlo Toro. CONSULTING PHYSICIAN: Golden Rees MD. REFERRING PHYSICIAN: Montserrat Fan MD. REASON FOR CONSULTATION: Pneumonia. HISTORY OF PRESENT ILLNESS: This is a 60-year-old gentleman with history of obesity, diabetes, atrial flutter, congestive heart failure who comes in with a potassium of 7.9 and acute renal failure. He has been placed on a BiPAP. There was a concern for pneumonia and an Infectious Diseases consultation has been obtained for antibiotics. PAST MEDICAL HISTORY: 1. History of diabetes. 2. Obesity. 3. Hypertension. 4. Atrial flutter. 5. Congestive heart failure. SOCIAL HISTORY: He has a history of smoking, alcohol use, and drug use. FAMILY HISTORY: Unknown. REVIEW OF SYSTEMS: Unable to obtain currently. MEDICATIONS: As an inpatient, he is on docusate, diltiazem, ceftriaxone, chlorhexidine gluconate, Protonix, folic acid, Levophed. ALLERGIES: To penicillin and almond noted. PHYSICAL EXAMINATION: VITAL SIGNS: Temperature 97.6, T-max of 98.3, pulse of 97, respiratory rate 18, blood pressure 127/64, O2 saturation of 93% on 55% FiO2. Examination deferred due to possibility of COVID-19. LABORATORY AND DIAGNOSTIC DATA: White count 9.4, hemoglobin 7.8, hematocrit 26.1, MCV 90, platelet count 180 with neutrophils of 77%. Sodium 143, potassium 4.9, chloride 110, bicarb 24, BUN 84, creatinine 7.6, glucose of 158, calcium of 7.1. His potassium on admission was 7.9, total bilirubin 0.5, AST 21, ALT 25, alkaline phosphatase 75, ammonia of 40. CK of 227. Troponin 0.09. C-reactive protein 7.2. Beta-natriuretic peptide 42209. Total protein 6.9, albumin 2.2. UA is showing moderate bacteria. Urine cultures are negative. Blood cultures are negative. Chest x-ray is showing increased interstitial opacities in the mid to lower lobes bilaterally, edema noted. CT head showing no acute hemorrhage, hydrocephalus or mass effect. Ultrasound of legs showed no evidence of DVT. Renal ultrasound showing right kidney increased echogenicity consistent with medical renal disease. A 2D echo showing mild aortic regurgitation, moderate mitral regurgitation, moderate to severe tricuspid regurgitation. ASSESSMENT: This is a 60-year-old gentleman with history of diabetes, obesity, hypertension, congestive heart failure, who comes in with. 1. Possible pneumonia. 2. Hypertension. 3. Diabetes. 4. Congestive heart failure. 5. Obesity. 6. Respiratory failure. PLAN: 1. Discontinue ceftriaxone. 2. We will start the patient on cefepime. 3. We will follow up cultures and adjust antibiotics accordingly. 4. We will order COVID-19 test. I would like to thank, Dr. Fan, for this consultation. Golden Rees M.D. DR: Keke JOB#: [id number] CC: Montserrat Fan M.D.; Fax#: [phone]
[2020-05-18] MEDS ORDERED: Cefepime HCl 1 GM in D5W 55 ML IVPB ONE (13:00)
--- NOTE | 2020-05-18 13:18 | Surgery Progress Note ---
Surgery Progress Note Subjective Procedure Performed Right femoral temporary hemodialysis catheter insertion Symptoms: improved Additional Comments tolerated HD off pressors off bipap doing much better tolerating diet great nursing care! Objective Last 24 Hour Vital Signs Date Time Temp Pulse Resp B/P (MAP) Pulse Ox O2 Delivery O2 Flow Rate FiO2 05/18/20 12:15 95 20 110/50 (70) 92 05/18/20 12:00 95 19 117/53 (74) 91 05/18/20 12:00 96 05/18/20 12:00 Bi-pap 60.0 05/18/20 12:00 14.0 55 05/18/20 11:45 96 21 133/66 (88) 94 05/18/20 11:30 95 21 137/66 (89) 95 05/18/20 11:15 96 20 127/64 (85) 94 05/18/20 11:00 97 24 133/107 (116) 95 05/18/20 10:45 96 18 136/65 (88) 95 05/18/20 10:30 96 19 133/59 (83) 94 05/18/20 10:15 97 19 139/62 (87) 93 05/18/20 10:00 97 18 127/64 (85) 93 05/18/20 10:00 97 18 127/64 (85) 93 05/18/20 09:45 98 18 151/65 (93) 95 05/18/20 09:30 96 22 147/65 (92) 94 05/18/20 09:15 96 17 132/66 (88) 94 05/18/20 09:00 92 18 135/69 (91) 94 05/18/20 08:45 94 18 134/70 (91) 94 05/18/20 08:30 93 18 130/70 (90) 95 05/18/20 08:15 93 18 151/60 (90) 95 05/18/20 08:15 93 18 151/60 (90) 95 05/18/20 08:00 96 05/18/20 08:00 91 20 125/67 (86) 96 05/18/20 08:00 Bi-pap 60.0 05/18/20 08:00 91 20 125/67 (86) 96 05/18/20 08:00 14.0 05/18/20 07:45 89 19 144/66 (92) 96 05/18/20 07:30 88 20 137/71 (93) 96 05/18/20 07:20 96 Venturi Mask 14.0 55 05/18/20 07:20 94 20 96 14.0 55 05/18/20 07:15 86 20 118/62 (80) 96 05/18/20 07:00 89 18 103/59 (74) 94 05/18/20 07:00 89 18 103/59 (74) 94 05/18/20 06:45 88 20 105/60 (75) 93 05/18/20 06:30 90 19 115/58 (77) 94 05/18/20 06:15 87 18 118/56 (76) 93 05/18/20 06:00 85 19 111/56 (74) 94 05/18/20 06:00 85 19 111/56 (74) 94 05/18/20 06:00 85 19 94 05/18/20 05:45 88 19 93/53 (66) 95 05/18/20 05:30 87 18 104/59 (74) 93 05/18/20 05:15 93 19 104/53 (70) 95 05/18/20 05:00 89 19 113/53 (73) 93 05/18/20 04:59 89 19 105/58 (74) 93 05/18/20 04:56 86 19 103/59 (74) 94 05/18/20 04:45 89 19 93/54 (67) 93 05/18/20 04:30 84 20 95/51 (66) 93 05/18/20 04:15 90 20 97/50 (66) 94 05/18/20 04:00 14.0 05/18/20 04:00 96 05/18/20 04:00 87 19 93/53 (66) 93 05/18/20 04:00 Bi-pap 60.0 05/18/20 03:45 88 19 95/52 (66) 93 05/18/20 03:30 88 19 107/51 (69) 93 05/18/20 03:15 89 20 90/51 (64) 94 05/18/20 03:00 88 19 99/59 (72) 93 05/18/20 02:45 90 21 99/51 (67) 92 05/18/20 02:30 91 22 108/58 (75) 92 05/18/20 02:15 87 17 101/54 (70) 93 05/18/20 02:00 86 18 105/56 (72) 94 05/18/20 02:00 88/53 05/18/20 01:45 88 19 92/51 (65) 95 05/18/20 01:30 88 19 97/50 (66) 94 05/18/20 01:15 91 19 97/53 (68) 94 05/18/20 01:00 93 19 88/50 (63) 92 05/18/20 00:45 88 17 89/56 (67) 92 05/18/20 00:30 89 19 90/52 (65) 92 05/18/20 00:15 87 20 91/48 (62) 93 05/18/20 00:00 92 05/18/20 00:00 Bi-pap 60.0 05/18/20 00:00 50 05/18/20 00:00 88 20 93/50 (64) 93 05/17/20 23:45 87 19 95/50 (65) 93 05/17/20 23:30 89 21 95/48 (64) 93 05/17/20 23:15 89 20 86/52 (63) 93 05/17/20 23:00 88 21 90/50 (63) 93 05/17/20 22:45 88 19 90/51 (64) 93 05/17/20 22:30 92 19 99/49 (66) 93 05/17/20 22:15 89 19 101/49 (66) 94 05/17/20 22:00 87 19 92/53 (66) 94 05/17/20 21:45 90 19 102/49 (66) 93 05/17/20 21:30 88 18 105/55 (72) 93 05/17/20 21:15 93 24 96/58 (71) 95 05/17/20 21:00 89 20 92/49 (63) 93 05/17/20 20:45 91 20 102/54 (70) 93 05/17/20 20:30 91 20 117/59 (78) 93 05/17/20 20:15 93 22 116/58 (77) 94 05/17/20 20:00 92 19 104/53 (70) 94 05/17/20 20:00 92 19 104/53 (70) 94 05/17/20 20:00 Bi-pap 60.0 05/17/20 20:00 50 05/17/20 20:00 94 05/17/20 19:45 94 20 101/53 (69) 94 05/17/20 19:42 112/57 05/17/20 19:30 90 19 112/57 (75) 96 05/17/20 19:15 94 19 97/61 (73) 94 05/17/20 19:00 92 19 117/47 (70) 96 05/17/20 18:45 101 21 117/62 (80) 93 05/17/20 18:45 101 21 117/62 (80) 93 05/17/20 18:30 92 21 106/56 (73) 95 05/17/20 18:15 94 20 118/58 (78) 94 05/17/20 18:00 92 19 104/60 (75) 94 05/17/20 17:45 95 21 113/60 (77) 92 05/17/20 17:15 90 16 108/51 (70) 05/17/20 17:00 89 17 101/51 (68) 05/17/20 16:00 50 05/17/20 16:00 Bi-pap 60.0 05/17/20 16:00 88 05/17/20 15:45 92 18 107/48 (67) 05/17/20 15:30 93 16 109/61 (77) 05/17/20 15:15 92 17 111/62 (78) 05/17/20 15:00 93 17 108/55 (72) 05/17/20 14:45 93 16 112/65 (81) 05/17/20 14:30 94 18 98/51 (67) 05/17/20 14:15 101/51 (68) 100 05/17/20 14:00 90 17 102/83 (89) 05/17/20 13:45 88 19 108/56 (73) 100 05/17/20 13:30 93 18 115/49 (71) 100 I&O Intake and Output 05/17/20 05/18/20 19:00 07:00 Intake Total 695.0 ml 378.75 ml Output Total 550 ml 300 ml Balance 145.0 ml 78.75 ml Intake Oral 260 ml IV Total 695.0 ml 118.75 ml Output Urine Total 550 ml 300 ml Cardiovascular: RSR Respiratory: clear, decreased breath sounds Abdomen: soft, non-tender, present bowel sounds, non-distended Extremities: edema, no tenderness, no cyanosis Laboratory Tests Test 05/18/20 06:00 05/18/20 09:32 White Blood Count 9.4 K/UL (4.8-10.8) Red Blood Count 2.89 M/UL (4.70-6.10) L Hemoglobin 7.8 G/DL (14.2-18.0) L Hematocrit 26.1 % (42.0-52.0) L Mean Corpuscular Volume 90 FL (80-99) Mean Corpuscular Hemoglobin 26.9 PG (27.0-31.0) L Mean Corpuscular Hemoglobin Concent 29.7 G/DL (32.0-36.0) L Red Cell Distribution Width 16.5 % (11.6-14.8) H Platelet Count 180 K/UL (150-450) Mean Platelet Volume 7.9 FL (6.5-10.1) Neutrophils (%) (Auto) % (45.0-75.0) Lymphocytes (%) (Auto) % (20.0-45.0) Monocytes (%) (Auto) % (1.0-10.0) Eosinophils (%) (Auto) % (0.0-3.0) Basophils (%) (Auto) % (0.0-2.0) Differential Total Cells Counted 100 Neutrophils % (Manual) 77 % (45-75) H Lymphocytes % (Manual) 16 % (20-45) L Monocytes % (Manual) 7 % (1-10) Eosinophils % (Manual) 0 % (0-3) Basophils % (Manual) 0 % (0-2) Band Neutrophils 0 % (0-8) Platelet Estimate Adequate Platelet Morphology Normal Polychromasia 1+ Hypochromasia 2+ Anisocytosis 1+ Target Cells Occasional Sodium Level 143 MMOL/L (136-145) Potassium Level 4.9 MMOL/L (3.5-5.1) Chloride Level 110 MMOL/L (98-107) H Carbon Dioxide Level 24 MMOL/L (21-32) Anion Gap 9 mmol/L (5-15) Blood Urea Nitrogen 84 mg/dL (7-18) H Creatinine 7.6 MG/DL (0.55-1.30) H Estimat Glomerular Filtration Rate 9.0 mL/min (>60) Glucose Level 158 MG/DL (74-106) H Uric Acid 5.9 MG/DL (2.6-7.2) Calcium Level 7.1 MG/DL (8.5-10.1) L Phosphorus Level 6.0 MG/DL (2.5-4.9) H Magnesium Level 1.8 MG/DL (1.8-2.4) Total Bilirubin 0.5 MG/DL (0.2-1.0) Aspartate Amino Transf (AST/SGOT) 21 U/L (15-37) Alanine Aminotransferase (ALT/SGPT) 25 U/L (12-78) Alkaline Phosphatase 75 U/L (46-116) Ammonia 40 umol/L (11-32) H Total Creatine Kinase 227 U/L (26-308) Troponin I 0.094 ng/mL (0.000-0.056) C-Reactive Protein, Quantitative 7.2 mg/dL (0.00-0.90) H Pro-B-Type Natriuretic Peptide 40043 pg/mL (0-125) H Total Protein 6.9 G/DL (6.4-8.2) Albumin 2.2 G/DL (3.4-5.0) L Globulin 4.7 g/dL Albumin/Globulin Ratio 0.5 (1.0-2.7) L Arterial Blood pH 7.327 (7.350-7.450) Arterial Blood Partial Pressure CO2 52.0 mmHg (35.0-45.0) H Arterial Blood Partial Pressure O2 68.7 mmHg (75.0-100.0) L Arterial Blood HCO3 26.6 mmol/L (22.0-26.0) H Arterial Blood Oxygen Saturation 92.4 % (95-100) L Arterial Blood Base Excess 0.3 (-2-2) Dany Test Positive Plan Problems: (1) Morbid obesity (2) Pacemaker (3) 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 Temporary use. Line functional. Recent dialysis noted. 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 His abdominal distention is his baseline large pannus. Skin folds and abnormalities in pannus identified from chronic distention. His KUB noted bowel gas pattern unremarkable. NG tube has been her removed since. No nausea vomiting fever chills. Labs noted. Improving with dialysis. Hyperkalemia improved. Mentation improved. Abdominal exam is fairly benign and consistent with what would be anticipated with the patient with a BMI of 57 with chronic condition. No acute abdominal source or etiology identified. Hypotension likely relative to patient's treatment renal and will monitor with dialysis. Okay for diet once stabilized but currently keep n.p.o. given his high BiPAP requirement. Thank you for letting participate patient's care will follow with recommendations Abhay Mccray May 18, 2020 13:18
--- NOTE | 2020-05-18 13:22 | General Progress Note ---
Subjective ROS Limited/Unobtainable: Yes Allergies: Coded Allergies: Devers (Verified Allergy, Mild, Rash, 10/29/14) per patient PENICILLINS (Unverified Allergy, Unknown, 11/28/13) Objective Last 24 Hour Vital Signs Date Time Temp Pulse Resp B/P (MAP) Pulse Ox O2 Delivery O2 Flow Rate FiO2 05/18/20 12:15 95 20 110/50 (70) 92 05/18/20 12:00 95 19 117/53 (74) 91 05/18/20 12:00 96 05/18/20 12:00 Bi-pap 60.0 05/18/20 12:00 14.0 55 05/18/20 11:45 96 21 133/66 (88) 94 05/18/20 11:30 95 21 137/66 (89) 95 05/18/20 11:15 96 20 127/64 (85) 94 05/18/20 11:00 97 24 133/107 (116) 95 05/18/20 10:45 96 18 136/65 (88) 95 05/18/20 10:30 96 19 133/59 (83) 94 05/18/20 10:15 97 19 139/62 (87) 93 05/18/20 10:00 97 18 127/64 (85) 93 05/18/20 10:00 97 18 127/64 (85) 93 05/18/20 09:45 98 18 151/65 (93) 95 05/18/20 09:30 96 22 147/65 (92) 94 05/18/20 09:15 96 17 132/66 (88) 94 05/18/20 09:00 92 18 135/69 (91) 94 05/18/20 08:45 94 18 134/70 (91) 94 05/18/20 08:30 93 18 130/70 (90) 95 05/18/20 08:15 93 18 151/60 (90) 95 05/18/20 08:15 93 18 151/60 (90) 95 05/18/20 08:00 96 05/18/20 08:00 91 20 125/67 (86) 96 05/18/20 08:00 Bi-pap 60.0 05/18/20 08:00 91 20 125/67 (86) 96 05/18/20 08:00 14.0 05/18/20 07:45 89 19 144/66 (92) 96 05/18/20 07:30 88 20 137/71 (93) 96 05/18/20 07:20 96 Venturi Mask 14.0 55 05/18/20 07:20 94 20 96 14.0 55 05/18/20 07:15 86 20 118/62 (80) 96 05/18/20 07:00 89 18 103/59 (74) 94 05/18/20 07:00 89 18 103/59 (74) 94 05/18/20 06:45 88 20 105/60 (75) 93 05/18/20 06:30 90 19 115/58 (77) 94 05/18/20 06:15 87 18 118/56 (76) 93 05/18/20 06:00 85 19 111/56 (74) 94 05/18/20 06:00 85 19 111/56 (74) 94 05/18/20 06:00 85 19 94 05/18/20 05:45 88 19 93/53 (66) 95 05/18/20 05:30 87 18 104/59 (74) 93 05/18/20 05:15 93 19 104/53 (70) 95 05/18/20 05:00 89 19 113/53 (73) 93 05/18/20 04:59 89 19 105/58 (74) 93 05/18/20 04:56 86 19 103/59 (74) 94 05/18/20 04:45 89 19 93/54 (67) 93 05/18/20 04:30 84 20 95/51 (66) 93 05/18/20 04:15 90 20 97/50 (66) 94 05/18/20 04:00 14.0 05/18/20 04:00 96 05/18/20 04:00 87 19 93/53 (66) 93 05/18/20 04:00 Bi-pap 60.0 05/18/20 03:45 88 19 95/52 (66) 93 05/18/20 03:30 88 19 107/51 (69) 93 05/18/20 03:15 89 20 90/51 (64) 94 05/18/20 03:00 88 19 99/59 (72) 93 05/18/20 02:45 90 21 99/51 (67) 92 05/18/20 02:30 91 22 108/58 (75) 92 05/18/20 02:15 87 17 101/54 (70) 93 05/18/20 02:00 86 18 105/56 (72) 94 05/18/20 02:00 88/53 05/18/20 01:45 88 19 92/51 (65) 95 05/18/20 01:30 88 19 97/50 (66) 94 05/18/20 01:15 91 19 97/53 (68) 94 05/18/20 01:00 93 19 88/50 (63) 92 05/18/20 00:45 88 17 89/56 (67) 92 05/18/20 00:30 89 19 90/52 (65) 92 05/18/20 00:15 87 20 91/48 (62) 93 05/18/20 00:00 92 05/18/20 00:00 Bi-pap 60.0 05/18/20 00:00 50 05/18/20 00:00 88 20 93/50 (64) 93 05/17/20 23:45 87 19 95/50 (65) 93 05/17/20 23:30 89 21 95/48 (64) 93 05/17/20 23:15 89 20 86/52 (63) 93 05/17/20 23:00 88 21 90/50 (63) 93 05/17/20 22:45 88 19 90/51 (64) 93 05/17/20 22:30 92 19 99/49 (66) 93 05/17/20 22:15 89 19 101/49 (66) 94 05/17/20 22:00 87 19 92/53 (66) 94 05/17/20 21:45 90 19 102/49 (66) 93 05/17/20 21:30 88 18 105/55 (72) 93 05/17/20 21:15 93 24 96/58 (71) 95 05/17/20 21:00 89 20 92/49 (63) 93 05/17/20 20:45 91 20 102/54 (70) 93 05/17/20 20:30 91 20 117/59 (78) 93 05/17/20 20:15 93 22 116/58 (77) 94 05/17/20 20:00 92 19 104/53 (70) 94 05/17/20 20:00 92 19 104/53 (70) 94 05/17/20 20:00 Bi-pap 60.0 05/17/20 20:00 50 05/17/20 20:00 94 05/17/20 19:45 94 20 101/53 (69) 94 05/17/20 19:42 112/57 05/17/20 19:30 90 19 112/57 (75) 96 05/17/20 19:15 94 19 97/61 (73) 94 05/17/20 19:00 92 19 117/47 (70) 96 05/17/20 18:45 101 21 117/62 (80) 93 05/17/20 18:45 101 21 117/62 (80) 93 05/17/20 18:30 92 21 106/56 (73) 95 05/17/20 18:15 94 20 118/58 (78) 94 05/17/20 18:00 92 19 104/60 (75) 94 05/17/20 17:45 95 21 113/60 (77) 92 05/17/20 17:15 90 16 108/51 (70) 05/17/20 17:00 89 17 101/51 (68) 05/17/20 16:00 50 05/17/20 16:00 Bi-pap 60.0 05/17/20 16:00 88 05/17/20 15:45 92 18 107/48 (67) 05/17/20 15:30 93 16 109/61 (77) 05/17/20 15:15 92 17 111/62 (78) 05/17/20 15:00 93 17 108/55 (72) 05/17/20 14:45 93 16 112/65 (81) 05/17/20 14:30 94 18 98/51 (67) 05/17/20 14:15 101/51 (68) 100 05/17/20 14:00 90 17 102/83 (89) 05/17/20 13:45 88 19 108/56 (73) 100 05/17/20 13:30 93 18 115/49 (71) 100 05/17/20 13:15 95 16 115/60 (78) 100 Intake and Output 05/17/20 05/18/20 18:59 06:59 Intake Total 695.0 ml 378.75 ml Output Total 550 ml 300 ml Balance 145.0 ml 78.75 ml Intake Oral 260 ml IV Total 695.0 ml 118.75 ml Output Urine Total 550 ml 300 ml Laboratory Tests 05/18/20 06:00: White Blood Count 9.4, Red Blood Count 2.89L, Hemoglobin 7.8L, Hematocrit 26.1L, Mean Corpuscular Volume 90, Mean Corpuscular Hemoglobin 26.9L, Mean Corpuscular Hemoglobin Concent 29.7L, Red Cell Distribution Width 16.5H, Platelet Count 180, Mean Platelet Volume 7.9, Neutrophils (%) (Auto) , Lymphocytes (%) (Auto) , Monocytes (%) (Auto) , Eosinophils (%) (Auto) , Basophils (%) (Auto) , Differential Total Cells Counted 100, Neutrophils % (Manual) 77H, Lymphocytes % (Manual) 16L, Monocytes % (Manual) 7, Eosinophils % (Manual) 0, Basophils % (Manual) 0, Band Neutrophils 0, Platelet Estimate Adequate, Platelet Morphology Normal, Polychromasia 1+, Hypochromasia 2+, Anisocytosis 1+, Target Cells Occasional, Sodium Level 143, Potassium Level 4.9, Chloride Level 110H, Carbon Dioxide Level 24, Anion Gap 9, Blood Urea Nitrogen 84H, Creatinine 7.6H, Estimat Glomerular Filtration Rate 9.0, Glucose Level 158H, Uric Acid 5.9, Calcium Level 7.1L, Phosphorus Level 6.0H, Magnesium Level 1.8, Total Bilirubin 0.5, Aspartate Amino Transf (AST/SGOT) 21, Alanine Aminotransferase (ALT/SGPT) 25, Alkaline Phosphatase 75, Ammonia 40H, Total Creatine Kinase 227, Troponin I 0.094H, C- Reactive Protein, Quantitative 7.2H, Pro-B-Type Natriuretic Peptide 97190B, Total Protein 6.9, Albumin 2.2L, Globulin 4.7, Albumin/Globulin Ratio 0.5L 05/18/20 09:32: Arterial Blood pH 7.327L, Arterial Blood Partial Pressure CO2 52.0H, Arterial Blood Partial Pressure O2 68.7L, Arterial Blood HCO3 26.6H, Arterial Blood Oxygen Saturation 92.4L, Arterial Blood Base Excess 0.3, Dany Test Positive Height (Feet): 5 Height (Inches): 11.00 Weight (Pounds): 415 Assessment/Plan Problem List: (1) Hyperkalemia ICD Codes: E87.5 - Hyperkalemia SNOMED: 15886908 (2) Acidosis ICD Codes: E87.2 - Acidosis SNOMED: 15311244 (3) Hyperglycemia ICD Codes: R73.9 - Hyperglycemia, unspecified SNOMED: 56367044 (4) Acute kidney failure ICD Codes: N17.9 - Acute kidney failure, unspecified SNOMED: 26688066 (5) Sepsis ICD Codes: A41.9 - Sepsis SNOMED: 60381913 (6) UTI (urinary tract infection) ICD Codes: N39.0 - Urinary tract infection, site not specified SNOMED: 11449914 (7) Chronic systolic heart failure ICD Codes: I50.9 - Chronic systolic heart failure SNOMED: 394207507 (8) Morbid obesity ICD Codes: E66.01 - Morbid (severe) obesity due to excess calories SNOMED: 379674184 (9) Pacemaker ICD Codes: Z95.0 - Pacemaker SNOMED: 341805198 (10) DM circ dis type I, uncontrolled ICD Codes: E10.59 - DM circ dis type I, uncontrolled SNOMED: 34707045 (11) Atrial flutter ICD Codes: I48.92 - Atrial flutter SNOMED: 4730812 (12) Abdominal distention ICD Codes: R14.0 - Abdominal distension (gaseous) SNOMED: 94440124 (13) Renal failure (ARF), acute on chronic ICD Codes: N17.9 - Acute kidney failure, unspecified; N18.9 - Chronic kidney disease, unspecified SNOMED: 374287657 Assessment/Plan: a fib w rvr morbid obesity respiratory failure getting HD worsening hb of renal failure very critical condition distented abdomin pacemmaker chf dm Montserrat Fan MD May 18, 2020 13:21
[2020-05-18] MEDS ORDERED: dilTIAZem HCl 30mg tab ORAL SCH (14:15)
--- NOTE | 2020-05-18 14:51 | Cardiology Report ---
APPROVED REPORT EKG Measurement Heart [id number] <Conclusion> Atrial fibrillation with occasional ventricular-paced complexes Low voltage QRS Left anterior fascicular block Abnormal QRS-T angle, consider primary T wave abnormality Abnormal ECG
--- NOTE | 2020-05-18 15:15 | Cardiac Electrophysiology PN ---
Assessment/Plan Assessment/Plan 1. Elevated troponin due to renal failure and respiratory failure His echocardiogram showed ejection fraction of 60%. His EKG showed atrial fibrillation with rapid ventricular response and nonspecific ST-T wave abnormalities. 2. Atrial fibrillation with rapid ventricular response with heart rate in 130s. Taper off Cardizem drip and start Cardizem 90 po q 6 hr Already got iv Dig and level was 1.8 yesterday Repeat Dig level in am 3. Respiratory failure, currently off BiPAP 4. Hyperkalemia due to renal failure. Potassium is now 4.2. Patient has already received dialysis by Dr. Gautam. 5. Morbid obesity. 6. Diabetes. 7. S/P left-sided pacemaker. Will try to find the brand to interrogate DW RN and Mother Subjective Subjective In ICU for atrial fib with RVR. On Cardizem drip and now off BIPAP Back on 1 mcg Levophed Objective Last 24 Hour Vital Signs Date Time Temp Pulse Resp B/P (MAP) Pulse Ox O2 Delivery O2 Flow Rate FiO2 05/18/20 14:35 89 103/48 05/18/20 12:15 95 20 110/50 (70) 92 05/18/20 12:00 95 19 117/53 (74) 91 05/18/20 12:00 96 05/18/20 12:00 Bi-pap 60.0 05/18/20 12:00 14.0 55 05/18/20 11:45 96 21 133/66 (88) 94 05/18/20 11:30 95 21 137/66 (89) 95 05/18/20 11:15 96 20 127/64 (85) 94 05/18/20 11:00 97 24 133/107 (116) 95 05/18/20 10:45 96 18 136/65 (88) 95 05/18/20 10:30 96 19 133/59 (83) 94 05/18/20 10:15 97 19 139/62 (87) 93 05/18/20 10:00 97 18 127/64 (85) 93 05/18/20 10:00 97 18 127/64 (85) 93 05/18/20 09:45 98 18 151/65 (93) 95 05/18/20 09:30 96 22 147/65 (92) 94 05/18/20 09:15 96 17 132/66 (88) 94 05/18/20 09:00 92 18 135/69 (91) 94 05/18/20 08:45 94 18 134/70 (91) 94 05/18/20 08:30 93 18 130/70 (90) 95 05/18/20 08:15 93 18 151/60 (90) 95 05/18/20 08:15 93 18 151/60 (90) 95 05/18/20 08:00 96 05/18/20 08:00 91 20 125/67 (86) 96 05/18/20 08:00 Bi-pap 60.0 05/18/20 08:00 91 20 125/67 (86) 96 05/18/20 08:00 14.0 05/18/20 07:45 89 19 144/66 (92) 96 05/18/20 07:30 88 20 137/71 (93) 96 05/18/20 07:20 96 Venturi Mask 14.0 55 05/18/20 07:20 94 20 96 14.0 55 05/18/20 07:15 86 20 118/62 (80) 96 05/18/20 07:00 89 18 103/59 (74) 94 05/18/20 07:00 89 18 103/59 (74) 94 05/18/20 06:45 88 20 105/60 (75) 93 05/18/20 06:30 90 19 115/58 (77) 94 05/18/20 06:15 87 18 118/56 (76) 93 05/18/20 06:00 85 19 111/56 (74) 94 05/18/20 06:00 85 19 111/56 (74) 94 05/18/20 06:00 85 19 94 05/18/20 05:45 88 19 93/53 (66) 95 05/18/20 05:30 87 18 104/59 (74) 93 05/18/20 05:15 93 19 104/53 (70) 95 05/18/20 05:00 89 19 113/53 (73) 93 05/18/20 04:59 89 19 105/58 (74) 93 05/18/20 04:56 86 19 103/59 (74) 94 05/18/20 04:45 89 19 93/54 (67) 93 05/18/20 04:30 84 20 95/51 (66) 93 05/18/20 04:15 90 20 97/50 (66) 94 05/18/20 04:00 14.0 05/18/20 04:00 96 05/18/20 04:00 87 19 93/53 (66) 93 05/18/20 04:00 Bi-pap 60.0 05/18/20 03:45 88 19 95/52 (66) 93 05/18/20 03:30 88 19 107/51 (69) 93 05/18/20 03:15 89 20 90/51 (64) 94 05/18/20 03:00 88 19 99/59 (72) 93 05/18/20 02:45 90 21 99/51 (67) 92 05/18/20 02:30 91 22 108/58 (75) 92 05/18/20 02:15 87 17 101/54 (70) 93 05/18/20 02:00 86 18 105/56 (72) 94 05/18/20 02:00 88/53 05/18/20 01:45 88 19 92/51 (65) 95 05/18/20 01:30 88 19 97/50 (66) 94 05/18/20 01:15 91 19 97/53 (68) 94 05/18/20 01:00 93 19 88/50 (63) 92 05/18/20 00:45 88 17 89/56 (67) 92 05/18/20 00:30 89 19 90/52 (65) 92 05/18/20 00:15 87 20 91/48 (62) 93 05/18/20 00:00 92 05/18/20 00:00 Bi-pap 60.0 05/18/20 00:00 50 05/18/20 00:00 88 20 93/50 (64) 93 05/17/20 23:45 87 19 95/50 (65) 93 05/17/20 23:30 89 21 95/48 (64) 93 05/17/20 23:15 89 20 86/52 (63) 93 05/17/20 23:00 88 21 90/50 (63) 93 05/17/20 22:45 88 19 90/51 (64) 93 05/17/20 22:30 92 19 99/49 (66) 93 05/17/20 22:15 89 19 101/49 (66) 94 05/17/20 22:00 87 19 92/53 (66) 94 05/17/20 21:45 90 19 102/49 (66) 93 05/17/20 21:30 88 18 105/55 (72) 93 05/17/20 21:15 93 24 96/58 (71) 95 05/17/20 21:00 89 20 92/49 (63) 93 05/17/20 20:45 91 20 102/54 (70) 93 05/17/20 20:30 91 20 117/59 (78) 93 05/17/20 20:15 93 22 116/58 (77) 94 05/17/20 20:00 92 19 104/53 (70) 94 05/17/20 20:00 92 19 104/53 (70) 94 05/17/20 20:00 Bi-pap 60.0 05/17/20 20:00 50 05/17/20 20:00 94 05/17/20 19:45 94 20 101/53 (69) 94 05/17/20 19:42 112/57 05/17/20 19:30 90 19 112/57 (75) 96 05/17/20 19:15 94 19 97/61 (73) 94 05/17/20 19:00 92 19 117/47 (70) 96 05/17/20 18:45 101 21 117/62 (80) 93 05/17/20 18:45 101 21 117/62 (80) 93 05/17/20 18:30 92 21 106/56 (73) 95 05/17/20 18:15 94 20 118/58 (78) 94 05/17/20 18:00 92 19 104/60 (75) 94 05/17/20 17:45 95 21 113/60 (77) 92 05/17/20 17:15 90 16 108/51 (70) 05/17/20 17:00 89 17 101/51 (68) 05/17/20 16:00 50 05/17/20 16:00 Bi-pap 60.0 05/17/20 16:00 88 05/17/20 15:45 92 18 107/48 (67) 05/17/20 15:30 93 16 109/61 (77) 05/17/20 15:15 92 17 111/62 (78) Intake and Output 05/17/20 05/18/20 19:00 07:00 Intake Total 695.0 ml 378.75 ml Output Total 550 ml 300 ml Balance 145.0 ml 78.75 ml Intake Oral 260 ml IV Total 695.0 ml 118.75 ml Output Urine Total 550 ml 300 ml Laboratory Tests Test 05/18/20 06:00 05/18/20 09:32 White Blood Count 9.4 K/UL (4.8-10.8) Red Blood Count 2.89 M/UL (4.70-6.10) L Hemoglobin 7.8 G/DL (14.2-18.0) L Hematocrit 26.1 % (42.0-52.0) L Mean Corpuscular Volume 90 FL (80-99) Mean Corpuscular Hemoglobin 26.9 PG (27.0-31.0) L Mean Corpuscular Hemoglobin Concent 29.7 G/DL (32.0-36.0) L Red Cell Distribution Width 16.5 % (11.6-14.8) H Platelet Count 180 K/UL (150-450) Mean Platelet Volume 7.9 FL (6.5-10.1) Neutrophils (%) (Auto) % (45.0-75.0) Lymphocytes (%) (Auto) % (20.0-45.0) Monocytes (%) (Auto) % (1.0-10.0) Eosinophils (%) (Auto) % (0.0-3.0) Basophils (%) (Auto) % (0.0-2.0) Differential Total Cells Counted 100 Neutrophils % (Manual) 77 % (45-75) H Lymphocytes % (Manual) 16 % (20-45) L Monocytes % (Manual) 7 % (1-10) Eosinophils % (Manual) 0 % (0-3) Basophils % (Manual) 0 % (0-2) Band Neutrophils 0 % (0-8) Platelet Estimate Adequate Platelet Morphology Normal Polychromasia 1+ Hypochromasia 2+ Anisocytosis 1+ Target Cells Occasional Sodium Level 143 MMOL/L (136-145) Potassium Level 4.9 MMOL/L (3.5-5.1) Chloride Level 110 MMOL/L (98-107) H Carbon Dioxide Level 24 MMOL/L (21-32) Anion Gap 9 mmol/L (5-15) Blood Urea Nitrogen 84 mg/dL (7-18) H Creatinine 7.6 MG/DL (0.55-1.30) H Estimat Glomerular Filtration Rate 9.0 mL/min (>60) Glucose Level 158 MG/DL (74-106) H Uric Acid 5.9 MG/DL (2.6-7.2) Calcium Level 7.1 MG/DL (8.5-10.1) L Phosphorus Level 6.0 MG/DL (2.5-4.9) H Magnesium Level 1.8 MG/DL (1.8-2.4) Total Bilirubin 0.5 MG/DL (0.2-1.0) Aspartate Amino Transf (AST/SGOT) 21 U/L (15-37) Alanine Aminotransferase (ALT/SGPT) 25 U/L (12-78) Alkaline Phosphatase 75 U/L (46-116) Ammonia 40 umol/L (11-32) H Total Creatine Kinase 227 U/L (26-308) Troponin I 0.094 ng/mL (0.000-0.056) C-Reactive Protein, Quantitative 7.2 mg/dL (0.00-0.90) H Pro-B-Type Natriuretic Peptide 54795 pg/mL (0-125) H Total Protein 6.9 G/DL (6.4-8.2) Albumin 2.2 G/DL (3.4-5.0) L Globulin 4.7 g/dL Albumin/Globulin Ratio 0.5 (1.0-2.7) L Arterial Blood pH 7.327 (7.350-7.450) Arterial Blood Partial Pressure CO2 52.0 mmHg (35.0-45.0) H Arterial Blood Partial Pressure O2 68.7 mmHg (75.0-100.0) L Arterial Blood HCO3 26.6 mmol/L (22.0-26.0) H Arterial Blood Oxygen Saturation 92.4 % (95-100) L Arterial Blood Base Excess 0.3 (-2-2) Dany Test Positive Microbiology Date/Time Source Procedure Growth Status 05/16/20 00:51 Urine,Clean Catch Urine Culture - Final NO GROWTH AFTER 48 HOURS Complete 05/15/20 22:45 Blood Blood Culture - Preliminary NO GROWTH AFTER 48 HOURS Resulted 05/15/20 22:36 Blood Blood Culture - Preliminary NO GROWTH AFTER 48 HOURS Resulted Objective HEAD AND NECK: Shows positive JVD.Off BIPAP LUNGS: Decreased breath sounds. CARDIOVASCULAR: irregularly irregular S1 and S2 ABDOMEN: Soft and morbidly obese. EXTREMITIES: 2+ pitting edema. Shai Champion MD May 18, 2020 15:15
--- NOTE | 2020-05-18 16:51 | Diagnostic Imaging Report ---
Indication: Abnormal liver function tests abnormal renal function tests abdominal distention Technique: Limited grayscale and duplex images of the right upper quadrant. Spleen and left kidney could not be imaged due to bowel gas and patient body habitus Comparison: none Findings: The liver is demonstrates enlargement. No focal abnormality. Normal echogenicity. The pancreas is unremarkable. Unremarkable inferior vena cava. There is a small right pleural effusion. Patent portal and hepatic veins. Right kidney is echogenic, measures 10.9 cm length. It demonstrates a small cyst. There is no hydronephrosis. There is a small amount of perinephric fluid. The gallbladder demonstrates wall thickening but no gallstones. Common bile duct measures 4 mm in diameter. The spleen and left kidney are obscured by bowel gas. Impression: Hepatomegaly Negative for gallstones or dilated bile ducts Right pleural effusion Echogenic right kidney, likely medical renal disease. No hydronephrosis Thick-walled gallbladder, but no stones. Negative for dilated bile ducts Incidental finding small right renal cyst
[2020-05-18] MEDS: dilTIAZem HCl 30mg tab ORAL SCH ×2 (18:00→23:48)
[2020-05-18] MEDS: Docusate 100mg cap ORAL SCH (18:00)
[2020-05-18] MEDS: Dyna-Hex 2% Top Sol 2oz TOPIC SCH (20:58)
[2020-05-19] VITALS (56 sets, daily range): BP systolic 92–171; BP diastolic 47–109
[2020-05-19 04:44] LABS: HEMOGLOBIN 7.9 G/DL (14.2-18.0); MEAN CORPUSCULAR VOLUME 92 FL (80-99); PLATELET COUNT 147 K/UL (150-450); RED BLOOD COUNT 2.92 M/UL (4.70-6.10); RED CELL DISTRIBUTION WIDTH 16.5 % (11.6-14.8); WHITE BLOOD COUNT 7.4 K/UL (4.8-10.8)
[2020-05-19 05:11] LABS: ALANINE AMINOTRANSFERASE 20 U/L (12-78); ALBUMIN 2.1 G/DL (3.4-5.0); ALBUMIN/GLOBULIN RATIO 0.4 (1.0-2.7); ALKALINE PHOSPHATASE 76 U/L (46-116); ANION GAP 5 mmol/L (5-15); ASPARTATE AMINO TRANSFERASE 31 U/L (15-37); BILIRUBIN,TOTAL 0.5 MG/DL (0.2-1.0); BLOOD UREA NITROGEN 66 mg/dL (7-18); CALCIUM 7.4 MG/DL (8.5-10.1); CARBON DIOXIDE 28 MMOL/L (21-32); CHLORIDE 108 MMOL/L (98-107); CREATINE KINASE 755 U/L (26-308); CREATININE 6.5 MG/DL (0.55-1.30); PHOSPHORUS 5.8 MG/DL (2.5-4.9); POTASSIUM 4.5 MMOL/L (3.5-5.1); SODIUM 141 MMOL/L (136-145)
[2020-05-19] MEDS: dilTIAZem HCl 30mg tab ORAL SCH ×4 (05:46→23:15)
--- NOTE | 2020-05-19 06:46 | Consultation ---
History of Present Illness General Chief Complaint: Generalized Weakness Present Illness Allergies: Coded Allergies: [place] (Verified Allergy, Mild, Rash, 10/29/14) per patient PENICILLINS (Unverified Allergy, Unknown, 11/28/13) Medication History Scheduled Allopurinol* (Allopurinol*), 300 MG ORAL DAILY Doxycycline Hyclate (Doxycycline Hyclate), 100 MG ORAL EVERY 12 HOURS Enalapril Maleate* (Vasotec*), 20 MG ORAL EVERY 12 HOURS Furosemide* (Lasix*), 80 MG ORAL TWICE A DAY Insulin Detemir (Levemir Flexpen), 60 SUBQ Q12HR, (Reported) Insulin Detemir (Levemir Flexpen), 60 SUBQ Q12HR, (Reported) Metolazone (Metolazone), 5 MG ORAL BID@0830,1730 Rivaroxaban (Xarelto*), 20 MG ORAL DAILY [Potassium Chloride], 20 MEQ ORAL TWICE A DAY Patient History Healthcare decision maker Resuscitation status Advanced Directive on File Physical Exam Last 24 Hour Vital Signs Date Time Temp Pulse Resp B/P (MAP) Pulse Ox O2 Delivery O2 Flow Rate FiO2 05/19/20 05:46 90 126/74 05/19/20 04:00 87 05/19/20 04:00 14.0 55 05/19/20 04:00 Bi-pap 60.0 05/19/20 04:00 98.3 87 18 111/79 (90) 95 05/19/20 03:00 84 18 99/53 (68) 92 05/19/20 02:00 82 16 98/53 (68) 95 05/19/20 01:00 83 18 99/54 (69) 93 05/19/20 00:00 98.0 90 17 110/55 (73) 95 05/19/20 00:00 96 05/19/20 00:00 14.0 55 05/19/20 00:00 Bi-pap 60.0 05/18/20 23:48 89 102/65 05/18/20 23:00 91 20 104/54 (71) 93 05/18/20 22:00 83 19 105/58 (74) 93 05/18/20 21:00 87 20 120/63 (82) 95 05/18/20 20:12 95 Venturi Mask 14.0 55 05/18/20 20:00 14.0 55 05/18/20 20:00 Bi-pap 60.0 05/18/20 20:00 98.6 90 18 115/60 (78) 95 05/18/20 20:00 92 05/18/20 19:00 91 20 107/59 (75) 93 05/18/20 18:00 85 17 104/50 (68) 94 05/18/20 18:00 89 101/66 05/18/20 17:45 84 19 91/53 (66) 89 05/18/20 17:30 84 18 109/54 (72) 93 05/18/20 17:15 87 19 109/54 (72) 87 05/18/20 17:00 84 19 110/54 (72) 90 05/18/20 16:45 84 21 100/47 (64) 84 05/18/20 16:30 86 21 99/50 (66) 86 05/18/20 16:30 86 21 99/50 (66) 86 05/18/20 16:15 84 18 86/58 (67) 91 05/18/20 16:15 84 18 86/58 (67) 91 05/18/20 16:00 Bi-pap 60.0 05/18/20 16:00 14.0 55 05/18/20 16:00 85 19 100/49 (66) 92 05/18/20 16:00 85 19 100/49 (66) 92 05/18/20 16:00 96 05/18/20 15:45 92 18 111/50 (70) 92 05/18/20 15:45 92 18 111/50 (70) 92 05/18/20 15:30 86 19 99/53 (68) 91 05/18/20 15:30 86 19 99/53 (68) 91 05/18/20 15:15 91 20 95/50 (65) 90 05/18/20 15:15 91 20 95/50 (65) 90 05/18/20 15:00 91 19 101/54 (70) 91 05/18/20 15:00 91 19 101/54 (70) 91 05/18/20 14:45 94 20 104/51 (68) 92 05/18/20 14:35 89 103/48 05/18/20 14:30 91 17 103/48 (66) 93 05/18/20 14:15 88 17 116/60 (78) 94 05/18/20 14:00 89 18 99/55 (70) 92 05/18/20 13:45 94 21 96/51 (66) 93 05/18/20 13:30 96 22 101/43 (62) 93 05/18/20 13:15 90 15 88/47 (61) 92 05/18/20 13:14 91 18 96/49 (65) 93 05/18/20 13:02 93 Venturi Mask 12.0 50 05/18/20 13:02 94 20 93 12.0 50 05/18/20 13:00 92 19 86/51 (63) 92 05/18/20 12:45 97 20 101/44 (63) 93 05/18/20 12:30 93 19 99/49 (66) 92 05/18/20 12:15 95 20 110/50 (70) 92 05/18/20 12:15 95 20 110/50 (70) 92 05/18/20 12:00 95 19 117/53 (74) 91 05/18/20 12:00 96 05/18/20 12:00 Bi-pap 60.0 05/18/20 12:00 14.0 55 05/18/20 12:00 95 19 117/53 (74) 91 05/18/20 11:45 96 21 133/66 (88) 94 05/18/20 11:30 95 21 137/66 (89) 95 05/18/20 11:15 96 20 127/64 (85) 94 05/18/20 11:00 97 24 133/107 (116) 95 05/18/20 10:45 96 18 136/65 (88) 95 05/18/20 10:30 96 19 133/59 (83) 94 05/18/20 10:15 97 19 139/62 (87) 93 05/18/20 10:00 97 18 127/64 (85) 93 05/18/20 10:00 97 18 127/64 (85) 93 05/18/20 09:45 98 18 151/65 (93) 95 05/18/20 09:30 96 22 147/65 (92) 94 05/18/20 09:15 96 17 132/66 (88) 94 05/18/20 09:00 92 18 135/69 (91) 94 05/18/20 08:45 94 18 134/70 (91) 94 05/18/20 08:30 93 18 130/70 (90) 95 05/18/20 08:15 93 18 151/60 (90) 95 05/18/20 08:15 93 18 151/60 (90) 95 05/18/20 08:00 96 05/18/20 08:00 91 20 125/67 (86) 96 05/18/20 08:00 Bi-pap 60.0 05/18/20 08:00 91 20 125/67 (86) 96 05/18/20 08:00 14.0 05/18/20 07:45 89 19 144/66 (92) 96 05/18/20 07:30 88 20 137/71 (93) 96 05/18/20 07:20 96 Venturi Mask 14.0 55 05/18/20 07:20 94 20 96 14.0 55 05/18/20 07:15 86 20 118/62 (80) 96 05/18/20 07:00 89 18 103/59 (74) 94 05/18/20 07:00 89 18 103/59 (74) 94 Intake and Output 05/18/20 05/19/20 19:00 07:00 Intake Total 267.50 ml Output Total 600 ml 360 ml Balance -332.50 ml -360 ml Intake Oral 200 ml IV Total 67.50 ml Output Urine Total 600 ml 360 ml Laboratory Tests Test 05/18/20 09:32 05/19/20 03:40 Arterial Blood pH 7.327 (7.350-7.450) Arterial Blood Partial Pressure CO2 52.0 mmHg (35.0-45.0) H Arterial Blood Partial Pressure O2 68.7 mmHg (75.0-100.0) L Arterial Blood HCO3 26.6 mmol/L (22.0-26.0) H Arterial Blood Oxygen Saturation 92.4 % (95-100) L Arterial Blood Base Excess 0.3 (-2-2) Dany Test Positive White Blood Count 7.4 K/UL (4.8-10.8) Red Blood Count 2.92 M/UL (4.70-6.10) L Hemoglobin 7.9 G/DL (14.2-18.0) L Hematocrit 27.0 % (42.0-52.0) L Mean Corpuscular Volume 92 FL (80-99) Mean Corpuscular Hemoglobin 27.2 PG (27.0-31.0) Mean Corpuscular Hemoglobin Concent 29.4 G/DL (32.0-36.0) L Red Cell Distribution Width 16.5 % (11.6-14.8) H Platelet Count 147 K/UL (150-450) L Mean Platelet Volume 8.4 FL (6.5-10.1) Neutrophils (%) (Auto) % (45.0-75.0) Lymphocytes (%) (Auto) % (20.0-45.0) Monocytes (%) (Auto) % (1.0-10.0) Eosinophils (%) (Auto) % (0.0-3.0) Basophils (%) (Auto) % (0.0-2.0) Neutrophils % (Manual) Pending Lymphocytes % (Manual) Pending Platelet Estimate Pending Platelet Morphology Pending Sodium Level 141 MMOL/L (136-145) Potassium Level 4.5 MMOL/L (3.5-5.1) Chloride Level 108 MMOL/L (98-107) H Carbon Dioxide Level 28 MMOL/L (21-32) Anion Gap 5 mmol/L (5-15) Blood Urea Nitrogen 66 mg/dL (7-18) H Creatinine 6.5 MG/DL (0.55-1.30) H Estimat Glomerular Filtration Rate 10.8 mL/min (>60) Glucose Level 143 MG/DL (74-106) H Uric Acid 4.9 MG/DL (2.6-7.2) Calcium Level 7.4 MG/DL (8.5-10.1) L Phosphorus Level 5.8 MG/DL (2.5-4.9) H Magnesium Level 1.7 MG/DL (1.8-2.4) L Total Bilirubin 0.5 MG/DL (0.2-1.0) Aspartate Amino Transf (AST/SGOT) 31 U/L (15-37) Alanine Aminotransferase (ALT/SGPT) 20 U/L (12-78) Alkaline Phosphatase 76 U/L (46-116) Total Creatine Kinase 755 U/L (26-308) H C-Reactive Protein, Quantitative 8.3 mg/dL (0.00-0.90) H Pro-B-Type Natriuretic Peptide 98947 pg/mL (0-125) H Total Protein 6.9 G/DL (6.4-8.2) Albumin 2.1 G/DL (3.4-5.0) L Globulin 4.8 g/dL Albumin/Globulin Ratio 0.4 (1.0-2.7) L Height (Feet): 5 Height (Inches): 11.00 Weight (Pounds): 415 Medications Current Medications Medications (Trade) Dose Ordered Sig/Albert Route PRN Reason Start Time Stop Time Status Last Admin Dose Admin Cefepime HCl 500 mg/Dextrose 55 ml @ 110 mls/hr Q24H IV 05/19/20 13:00 05/26/20 12:59 Chlorhexidine Gluconate (Isamar-Hex 2%) 1 applic DAILY@2000 TOPIC 05/17/20 20:00 08/15/20 19:59 05/18/20 20:58 Dextrose (Dextrose 50%) 25 ml Q30M PRN IV Hypoglycemia 05/16/20 03:45 08/14/20 03:44 05/16/20 06:23 Dextrose (Dextrose 50%) 50 ml Q30M PRN IV Hypoglycemia 05/16/20 03:45 08/14/20 03:44 Diltiazem HCl (Cardizem Tab) 90 mg EVERY 6 HOURS ORAL 05/18/20 18:00 06/17/20 17:59 05/19/20 05:46 Docusate Sodium (Colace) 100 mg TWICE A DAY ORAL 05/18/20 18:00 06/17/20 17:59 05/18/20 18:00 Folic Acid (Folate) 5 mg DAILY ORAL 05/17/20 14:00 06/16/20 13:59 05/18/20 09:00 Norepinephrine Bitartrate 250 ml @ 37.5 mls/hr Q24H IV 05/16/20 20:00 05/19/20 19:59 05/18/20 02:00 Pantoprazole (Protonix) 40 mg EVERY 12 HOURS IVP 05/17/20 14:00 06/16/20 13:59 05/18/20 20:58 Assessment/Plan Assessment/Plan: Hematology Consultation REQ : Montserrat Cates RFC: Anemia eval, hypercoag disorder ID 60-year-old male history of morbid obesity, hypertension, hyperlipidemia, diabetes, CHF presents for evaluation generalized weakness. Patient unable to provide significant history. He is falling asleep during exam and appears somewhat confused. EMS states they picked him up from home after a neighbor stated he was unable to move over the past 2 days. Is reportedly unusual for the patient. Also EMS reported that the patient desaturated to the mid 80s on room air on route. Improved with nasal oxygen. No reports of recent fever cough or URI symptoms. Reportedly he had a negative Covid test recently per EMS. Currently is in the icu, did get hd, to get 1 unit prbc, on levo low dose PMH: Obesity, hypertension, hyperlipidemia, diabetes, CHF PSH: Unable to obtain from patient Allergies: Penicillin listed in chart Social Hx: Unable to obtain from patient Allergies: Coded Allergies: [place] (Verified Allergy, Mild, Rash, 10/29/14) per patient PENICILLINS (Unverified Allergy, Unknown, 11/28/13) COVID-19 Screening Contact w/high risk pt: No Experienced COVID-19 symptoms?: No COVID-19 Testing performed SAL[employer] MARKETING AGENT: No Nursing Documentation-PMH Hx Cardiac Problems: Yes - Pacemaker Hx Hypertension: Yes Hx Pacemaker: Yes Hx COPD: Yes - sleep apnea Hx Diabetes: Yes Hx Cancer: No Hx Gastrointestinal Problems: No Hx Neurological Problems: No Review of Systems All Other Systems: limited - Unable to obtain from patient due to clinical condition Physical Exam General: Somnolent, falling asleep during exam. alert HEENT: NC/AT. EOMI. Cardiovascular: RRR. S1 and S2 normal. No murmur appreciated Resp: 4 L nasal cannula. Breath sounds are distant but present bilaterally. Abdomen: Abdomen is morbidly obese. Skin: Intact. Venous stasis changes lower extremities MSK: Normal tone and bulk. Moving all extremities. No obvious deformity. Neuro: Somnolent. Confused. Moving all extremities. Labs: noted Imaging: reviewed Assessment and recs # Anemia due to kidney disease, has been getting hd, as per renal -> hgb 9-->7.9 --> anemia panel has been noted --> consider use of epo --> have started on iv iron # Hypercoagulable disorder with afib/also COVID19 in iCU --> will start low dose lovenox given elevated ddimer per ISABELLA guidelines --> no evidence of bleeding currently --> trend ddimer as needed, to see if risk of emboli # MICHEAL on ckd --> per renal # Morbid obesity --> rec weight loss # Acidosis --> off bipap --> on fm # Hyperkalemia # Pacemaker # UTI (urinary tract infection --> cefepime # Dvt ppx lovenox Appreciate consultation and dw Mio Duran MD May 19, 2020 06:46
[2020-05-19] MEDS: Docusate 100mg cap ORAL SCH ×3 (08:37→18:00)
[2020-05-19] MEDS: Pantoprazole Inj IVP SCH (08:37)
[2020-05-19] MEDS: Enoxaparin 30mg Inj SUBQ SCH (08:38)
--- NOTE | 2020-05-19 09:54 | Infectious Diseases Prog Note ---
Assessment/Plan Assessment/Plan A; 1. Possible pneumonia. 2. Hypertension. 3. Diabetes. 4. Congestive heart failure. 5. Morbid Obesity. 6. Respiratory failure, off of BIPAP 7. Acute renal failure 8. Anemia PLAN: 1. continue cefepime. 2. We will follow up cultures and adjust antibiotics accordingly. 3. We will f/u COVID-19 test. Subjective ROS Limited/Unobtainable: No Constitutional: Reports: no symptoms Respiratory: Reports: no symptoms Gastrointestinal/Abdominal: Reports: no symptoms Genitourinary: Reports: no symptoms Allergies: Coded Allergies: [place] (Verified Allergy, Mild, Rash, 10/29/14) per patient PENICILLINS (Unverified Allergy, Unknown, 11/28/13) Objective Last 24 Hour Vital Signs Date Time Temp Pulse Resp B/P (MAP) Pulse Ox O2 Delivery O2 Flow Rate FiO2 05/19/20 08:00 84 18 116/58 (77) 95 05/19/20 08:00 12.0 50 05/19/20 08:00 Bi-pap 60.0 05/19/20 07:45 81 19 113/55 (74) 92 05/19/20 07:30 82 20 109/59 (76) 88 05/19/20 07:15 80 18 114/58 (76) 95 05/19/20 07:00 81 19 114/52 (72) 91 05/19/20 07:00 81 19 91 05/19/20 06:45 85 17 110/60 (77) 94 05/19/20 06:30 83 20 109/53 (71) 96 05/19/20 06:15 88 23 108/62 (77) 93 05/19/20 06:00 88 21 112/61 (78) 95 05/19/20 06:00 88 21 112/61 (78) 95 05/19/20 05:46 90 126/74 05/19/20 05:00 84 18 97/48 (64) 93 05/19/20 04:00 87 05/19/20 04:00 14.0 55 05/19/20 04:00 Bi-pap 60.0 05/19/20 04:00 98.3 87 18 111/79 (90) 95 05/19/20 03:00 84 18 99/53 (68) 92 2/16/21 02:00 82 16 98/53 (68) 95 05/19/20 01:00 83 18 99/54 (69) 93 05/19/20 00:00 98.0 90 17 110/55 (73) 95 05/19/20 00:00 96 05/19/20 00:00 14.0 55 05/19/20 00:00 Bi-pap 60.0 05/18/20 23:48 89 102/65 05/18/20 23:00 91 20 104/54 (71) 93 05/18/20 22:00 83 19 105/58 (74) 93 05/18/20 21:00 87 20 120/63 (82) 95 05/18/20 20:12 95 Venturi Mask 14.0 55 05/18/20 20:00 14.0 55 05/18/20 20:00 Bi-pap 60.0 05/18/20 20:00 98.6 90 18 115/60 (78) 95 05/18/20 20:00 92 05/18/20 19:00 91 20 107/59 (75) 93 05/18/20 18:00 85 17 104/50 (68) 94 05/18/20 18:00 89 101/66 05/18/20 17:45 84 19 91/53 (66) 89 05/18/20 17:30 84 18 109/54 (72) 93 05/18/20 17:15 87 19 109/54 (72) 87 05/18/20 17:00 84 19 110/54 (72) 90 05/18/20 16:45 84 21 100/47 (64) 84 05/18/20 16:30 86 21 99/50 (66) 86 05/18/20 16:30 86 21 99/50 (66) 86 05/18/20 16:15 84 18 86/58 (67) 91 05/18/20 16:15 84 18 86/58 (67) 91 05/18/20 16:00 Bi-pap 60.0 05/18/20 16:00 14.0 55 05/18/20 16:00 85 19 100/49 (66) 92 05/18/20 16:00 85 19 100/49 (66) 92 05/18/20 16:00 96 05/18/20 15:45 92 18 111/50 (70) 92 05/18/20 15:45 92 18 111/50 (70) 92 05/18/20 15:30 86 19 99/53 (68) 91 05/18/20 15:30 86 19 99/53 (68) 91 05/18/20 15:15 91 20 95/50 (65) 90 05/18/20 15:15 91 20 95/50 (65) 90 05/18/20 15:00 91 19 101/54 (70) 91 05/18/20 15:00 91 19 101/54 (70) 91 05/18/20 14:45 94 20 104/51 (68) 92 05/18/20 14:35 89 103/48 05/18/20 14:30 91 17 103/48 (66) 93 05/18/20 14:15 88 17 116/60 (78) 94 05/18/20 14:00 89 18 99/55 (70) 92 05/18/20 13:45 94 21 96/51 (66) 93 05/18/20 13:30 96 22 101/43 (62) 93 05/18/20 13:15 90 15 88/47 (61) 92 05/18/20 13:14 91 18 96/49 (65) 93 05/18/20 13:02 93 Venturi Mask 12.0 50 05/18/20 13:02 94 20 93 12.0 50 05/18/20 13:00 92 19 86/51 (63) 92 05/18/20 12:45 97 20 101/44 (63) 93 05/18/20 12:30 93 19 99/49 (66) 92 05/18/20 12:15 95 20 110/50 (70) 92 05/18/20 12:15 95 20 110/50 (70) 92 05/18/20 12:00 95 19 117/53 (74) 91 05/18/20 12:00 96 05/18/20 12:00 Bi-pap 60.0 05/18/20 12:00 14.0 55 05/18/20 12:00 95 19 117/53 (74) 91 05/18/20 11:45 96 21 133/66 (88) 94 05/18/20 11:30 95 21 137/66 (89) 95 05/18/20 11:15 96 20 127/64 (85) 94 05/18/20 11:00 97 24 133/107 (116) 95 05/18/20 10:45 96 18 136/65 (88) 95 05/18/20 10:30 96 19 133/59 (83) 94 05/18/20 10:15 97 19 139/62 (87) 93 05/18/20 10:00 97 18 127/64 (85) 93 05/18/20 10:00 97 18 127/64 (85) 93 Height (Feet): 5 Height (Inches): 11.00 Weight (Pounds): 415 Respiratory/Chest: decreased breath sounds, other - on venturi mask Cardiovascular: normal rate Abdomen: distended Extremities: other - generalized edema Neurologic/Psychiatric: alert, oriented x 3, responsive Laboratory Tests Test 05/19/20 03:40 White Blood Count 7.4 K/UL (4.8-10.8) Red Blood Count 2.92 M/UL (4.70-6.10) L Hemoglobin 7.9 G/DL (14.2-18.0) L Hematocrit 27.0 % (42.0-52.0) L Mean Corpuscular Volume 92 FL (80-99) Mean Corpuscular Hemoglobin 27.2 PG (27.0-31.0) Mean Corpuscular Hemoglobin Concent 29.4 G/DL (32.0-36.0) L Red Cell Distribution Width 16.5 % (11.6-14.8) H Platelet Count 147 K/UL (150-450) L Mean Platelet Volume 8.4 FL (6.5-10.1) Neutrophils (%) (Auto) % (45.0-75.0) Lymphocytes (%) (Auto) % (20.0-45.0) Monocytes (%) (Auto) % (1.0-10.0) Eosinophils (%) (Auto) % (0.0-3.0) Basophils (%) (Auto) % (0.0-2.0) Differential Total Cells Counted 100 Neutrophils % (Manual) 78 % (45-75) H Lymphocytes % (Manual) 16 % (20-45) L Monocytes % (Manual) 5 % (1-10) Eosinophils % (Manual) 1 % (0-3) Basophils % (Manual) 0 % (0-2) Band Neutrophils 0 % (0-8) Platelet Estimate Decreased L Platelet Morphology Normal Hypochromasia 1+ Anisocytosis 1+ Sodium Level 141 MMOL/L (136-145) Potassium Level 4.5 MMOL/L (3.5-5.1) Chloride Level 108 MMOL/L (98-107) H Carbon Dioxide Level 28 MMOL/L (21-32) Anion Gap 5 mmol/L (5-15) Blood Urea Nitrogen 66 mg/dL (7-18) H Creatinine 6.5 MG/DL (0.55-1.30) H Estimat Glomerular Filtration Rate 10.8 mL/min (>60) Glucose Level 143 MG/DL (74-106) H Uric Acid 4.9 MG/DL (2.6-7.2) Calcium Level 7.4 MG/DL (8.5-10.1) L Phosphorus Level 5.8 MG/DL (2.5-4.9) H Magnesium Level 1.7 MG/DL (1.8-2.4) L Total Bilirubin 0.5 MG/DL (0.2-1.0) Aspartate Amino Transf (AST/SGOT) 31 U/L (15-37) Alanine Aminotransferase (ALT/SGPT) 20 U/L (12-78) Alkaline Phosphatase 76 U/L (46-116) Total Creatine Kinase 755 U/L (26-308) H C-Reactive Protein, Quantitative 8.3 mg/dL (0.00-0.90) H Pro-B-Type Natriuretic Peptide 56275 pg/mL (0-125) H Total Protein 6.9 G/DL (6.4-8.2) Albumin 2.1 G/DL (3.4-5.0) L Globulin 4.8 g/dL Albumin/Globulin Ratio 0.4 (1.0-2.7) L Current Medications Medications (Trade) Dose Ordered Sig/Albert Route PRN Reason Start Time Stop Time Status Last Admin Dose Admin Cefepime HCl 500 mg/Dextrose 55 ml @ 110 mls/hr Q24H IV 05/19/20 13:00 05/26/20 12:59 Chlorhexidine Gluconate (Isamar-Hex 2%) 1 applic DAILY@2000 TOPIC 05/17/20 20:00 08/15/20 19:59 05/18/20 20:58 Dextrose (Dextrose 50%) 25 ml Q30M PRN IV Hypoglycemia 05/16/20 03:45 08/14/20 03:44 05/16/20 06:23 Dextrose (Dextrose 50%) 50 ml Q30M PRN IV Hypoglycemia 05/16/20 03:45 08/14/20 03:44 Diltiazem HCl (Cardizem Tab) 90 mg EVERY 6 HOURS ORAL 05/18/20 18:00 06/17/20 17:59 05/19/20 05:46 Docusate Sodium (Colace) 100 mg TWICE A DAY ORAL 05/18/20 18:00 06/17/20 17:59 05/19/20 08:37 Enoxaparin Sodium (Lovenox) 30 mg DAILY SUBQ 05/19/20 09:00 08/17/20 08:59 05/19/20 08:38 Epoetin Vivek (Epoetin Vivek(ESRD on dialysis)) 10,000 unit MON- SUBQ 05/20/20 21:00 08/18/20 20:59 Folic Acid (Folate) 5 mg DAILY ORAL 05/17/20 14:00 06/16/20 13:59 05/19/20 08:37 Iron Sucrose 100 mg/Sodium Chloride 60 ml @ 240 mls/hr BEDTIME IVPB 05/19/20 21:00 05/23/20 21:14 Norepinephrine Bitartrate 250 ml @ 37.5 mls/hr Q24H IV 05/16/20 20:00 05/19/20 19:59 05/18/20 02:00 Pantoprazole (Protonix) 40 mg EVERY 12 HOURS IVP 05/17/20 14:00 06/16/20 13:59 05/19/20 08:37 Oswaldo Toro MD May 19, 2020 09:54
--- NOTE | 2020-05-19 10:17 | Nephrology Progress Note ---
Assessment/Plan Problem List: (1) MICHEAL (acute kidney injury) (2) Renal failure (ARF), acute on chronic (3) Morbid obesity (4) Pacemaker (5) Hyperkalemia (6) Acidosis Assessment Acute on chronic renal failure Hyperkalemia Metabolic acidosis Pacemaker UTI Morbid obesity Plan May 19: Seen in ICU. Awake alert responsive. Last dialyzed yesterday. Next dialysis tomorrow. Medication list reviewed. Hepatitis panel ordered. Patient requires long-term dialysis. Epogen added for anemia May 18: Patient seen in ICU. Currently on dialysis. Dialysis orders yesterday was not carried out apparently due to lack of personal. Patient clinically doing better. Breathing easier. Continue per consultants. Medication list reviewed. Off pressors. Continue to dialyze as needed. May 17: Patient seen in ICU. Full code. On BiPAP. Discussed with DANIEL Ponce. Labs reviewed. Renal parameters improved after patient was dialyzed yesterday. Patient off pressors. Will attempt dialysis again today for hyperkalemia. Continue per consultants. Oral folic acid ordered. Protonix IV ordered. Previously: Stat ABG, stat kidney ultrasound: Results noted IV bicarb NG tube, Kayexalate Urgent dialysis Discussed with DANIEL Oliva Patient cannot give consent for insertion of dialysis catheter. Dialysis at this point is a lifesaving procedure in my opinion. Subjective ROS Limited/Unobtainable: No Constitutional: Reports: malaise Objective Objective Last 24 Hour Vital Signs Date Time Temp Pulse Resp B/P (MAP) Pulse Ox O2 Delivery O2 Flow Rate FiO2 05/19/20 10:00 87 18 130/59 (82) 96 05/19/20 09:45 89 20 123/62 (82) 93 05/19/20 09:30 88 21 100/49 (66) 90 05/19/20 09:30 88 21 100/49 (66) 90 05/19/20 09:15 85 18 109/53 (71) 94 05/19/20 09:15 85 18 109/53 (71) 94 05/19/20 09:00 85 20 107/50 (69) 82 05/19/20 09:00 85 20 107/50 (69) 82 05/19/20 09:00 85 20 82 05/19/20 08:45 83 20 106/59 (75) 93 05/19/20 08:45 83 20 106/59 (75) 93 05/19/20 08:30 82 19 110/54 (72) 94 05/19/20 08:30 82 19 110/54 (72) 94 05/19/20 08:15 84 19 100/53 (69) 94 05/19/20 08:15 84 19 100/53 (69) 94 05/19/20 08:00 84 18 116/58 (77) 95 05/19/20 08:00 84 18 116/58 (77) 95 05/19/20 08:00 84 18 116/58 (77) 95 05/19/20 08:00 12.0 50 05/19/20 08:00 87 05/19/20 08:00 Bi-pap 60.0 05/19/20 07:45 81 19 113/55 (74) 92 05/19/20 07:45 81 19 113/55 (74) 92 05/19/20 07:45 81 19 113/55 (74) 92 05/19/20 07:30 82 20 109/59 (76) 88 05/19/20 07:30 82 20 109/59 (76) 88 05/19/20 07:30 82 20 109/59 (76) 88 05/19/20 07:15 80 18 114/58 (76) 95 05/19/20 07:15 80 18 114/58 (76) 95 05/19/20 07:15 80 18 114/58 (76) 95 05/19/20 07:00 81 19 114/52 (72) 91 05/19/20 07:00 81 19 114/52 (72) 91 05/19/20 07:00 81 19 114/52 (72) 91 05/19/20 07:00 81 19 91 05/19/20 06:45 85 17 110/60 (77) 94 05/19/20 06:30 83 20 109/53 (71) 96 05/19/20 06:15 88 23 108/62 (77) 93 05/19/20 06:00 88 21 112/61 (78) 95 05/19/20 06:00 88 21 112/61 (78) 95 05/19/20 05:46 90 126/74 05/19/20 05:00 84 18 97/48 (64) 93 05/19/20 04:00 87 05/19/20 04:00 14.0 55 05/19/20 04:00 Bi-pap 60.0 05/19/20 04:00 98.3 87 18 111/79 (90) 95 05/19/20 03:00 84 18 99/53 (68) 92 05/19/20 02:00 82 16 98/53 (68) 95 05/19/20 01:00 83 18 99/54 (69) 93 05/19/20 00:00 98.0 90 17 110/55 (73) 95 05/19/20 00:00 96 05/19/20 00:00 14.0 55 05/19/20 00:00 Bi-pap 60.0 05/18/20 23:48 89 102/65 05/18/20 23:00 91 20 104/54 (71) 93 05/18/20 22:00 83 19 105/58 (74) 93 05/18/20 21:00 87 20 120/63 (82) 95 05/18/20 20:12 95 Venturi Mask 14.0 55 05/18/20 20:00 14.0 55 05/18/20 20:00 Bi-pap 60.0 05/18/20 20:00 98.6 90 18 115/60 (78) 95 05/18/20 20:00 92 05/18/20 19:00 91 20 107/59 (75) 93 05/18/20 18:00 85 17 104/50 (68) 94 05/18/20 18:00 89 101/66 05/18/20 17:45 84 19 91/53 (66) 89 05/18/20 17:30 84 18 109/54 (72) 93 05/18/20 17:15 87 19 109/54 (72) 87 05/18/20 17:00 84 19 110/54 (72) 90 05/18/20 16:45 84 21 100/47 (64) 84 05/18/20 16:30 86 21 99/50 (66) 86 05/18/20 16:30 86 21 99/50 (66) 86 05/18/20 16:15 84 18 86/58 (67) 91 05/18/20 16:15 84 18 86/58 (67) 91 05/18/20 16:00 Bi-pap 60.0 05/18/20 16:00 14.0 55 05/18/20 16:00 85 19 100/49 (66) 92 05/18/20 16:00 85 19 100/49 (66) 92 05/18/20 16:00 96 05/18/20 15:45 92 18 111/50 (70) 92 05/18/20 15:45 92 18 111/50 (70) 92 05/18/20 15:30 86 19 99/53 (68) 91 05/18/20 15:30 86 19 99/53 (68) 91 05/18/20 15:15 91 20 95/50 (65) 90 05/18/20 15:15 91 20 95/50 (65) 90 05/18/20 15:00 91 19 101/54 (70) 91 05/18/20 15:00 91 19 101/54 (70) 91 05/18/20 14:45 94 20 104/51 (68) 92 05/18/20 14:35 89 103/48 05/18/20 14:30 91 17 103/48 (66) 93 05/18/20 14:15 88 17 116/60 (78) 94 05/18/20 14:00 89 18 99/55 (70) 92 05/18/20 13:45 94 21 96/51 (66) 93 05/18/20 13:30 96 22 101/43 (62) 93 05/18/20 13:15 90 15 88/47 (61) 92 05/18/20 13:14 91 18 96/49 (65) 93 05/18/20 13:02 93 Venturi Mask 12.0 50 05/18/20 13:02 94 20 93 12.0 50 05/18/20 13:00 92 19 86/51 (63) 92 05/18/20 12:45 97 20 101/44 (63) 93 05/18/20 12:30 93 19 99/49 (66) 92 05/18/20 12:15 95 20 110/50 (70) 92 05/18/20 12:15 95 20 110/50 (70) 92 05/18/20 12:00 95 19 117/53 (74) 91 05/18/20 12:00 96 05/18/20 12:00 Bi-pap 60.0 05/18/20 12:00 14.0 55 05/18/20 12:00 95 19 117/53 (74) 91 05/18/20 11:45 96 21 133/66 (88) 94 05/18/20 11:30 95 21 137/66 (89) 95 05/18/20 11:15 96 20 127/64 (85) 94 05/18/20 11:00 97 24 133/107 (116) 95 05/18/20 10:45 96 18 136/65 (88) 95 05/18/20 10:30 96 19 133/59 (83) 94 Intake and Output 05/18/20 05/19/20 19:00 07:00 Intake Total 267.50 ml Output Total 600 ml 480 ml Balance -332.50 ml -480 ml Intake Oral 200 ml IV Total 67.50 ml Output Urine Total 600 ml 480 ml Current Medications Medications (Trade) Dose Ordered Sig/Albert Route PRN Reason Start Time Stop Time Status Last Admin Dose Admin Cefepime HCl 500 mg/Dextrose 55 ml @ 110 mls/hr Q24H IV 05/19/20 13:00 05/26/20 12:59 Chlorhexidine Gluconate (Isamar-Hex 2%) 1 applic DAILY@2000 TOPIC 05/17/20 20:00 08/15/20 19:59 05/18/20 20:58 Dextrose (Dextrose 50%) 25 ml Q30M PRN IV Hypoglycemia 05/16/20 03:45 08/14/20 03:44 05/16/20 06:23 Dextrose (Dextrose 50%) 50 ml Q30M PRN IV Hypoglycemia 05/16/20 03:45 08/14/20 03:44 Diltiazem HCl (Cardizem Tab) 90 mg EVERY 6 HOURS ORAL 05/18/20 18:00 06/17/20 17:59 05/19/20 05:46 Docusate Sodium (Colace) 100 mg TWICE A DAY ORAL 05/18/20 18:00 06/17/20 17:59 05/19/20 08:37 Enoxaparin Sodium (Lovenox) 30 mg DAILY SUBQ 05/19/20 09:00 08/17/20 08:59 05/19/20 08:38 Epoetin Vivek (Epoetin Vivek(ESRD on dialysis)) 10,000 unit MON-MON-MON SUBQ 05/20/20 21:00 08/18/20 20:59 Folic Acid (Folate) 5 mg DAILY ORAL 05/17/20 14:00 06/16/20 13:59 05/19/20 08:37 Iron Sucrose 100 mg/Sodium Chloride 60 ml @ 240 mls/hr BEDTIME IVPB 05/19/20 21:00 05/23/20 21:14 Norepinephrine Bitartrate 250 ml @ 37.5 mls/hr Q24H IV 05/16/20 20:00 05/19/20 19:59 05/18/20 02:00 Pantoprazole (Protonix) 40 mg EVERY 12 HOURS IVP 05/17/20 14:00 06/16/20 13:59 05/19/20 08:37 Laboratory Tests 05/19/20 03:40: White Blood Count 7.4, Red Blood Count 2.92L, Hemoglobin 7.9L, Hematocrit 27.0L, Mean Corpuscular Volume 92, Mean Corpuscular Hemoglobin 27.2, Mean Corpuscular Hemoglobin Concent 29.4L, Red Cell Distribution Width 16.5H, Platelet Count 147L , Mean Platelet Volume 8.4, Neutrophils (%) (Auto) , Lymphocytes (%) (Auto) , Monocytes (%) (Auto) , Eosinophils (%) (Auto) , Basophils (%) (Auto) , Differential Total Cells Counted 100, Neutrophils % (Manual) 78H, Lymphocytes % (Manual) 16L, Monocytes % (Manual) 5, Eosinophils % (Manual) 1, Basophils % (Manual) 0, Band Neutrophils 0, Platelet Estimate DecreasedL, Platelet Morphology Normal, Hypochromasia 1+, Anisocytosis 1+, Sodium Level 141, Potassium Level 4.5, Chloride Level 108H, Carbon Dioxide Level 28, Anion Gap 5, Blood Urea Nitrogen 66H, Creatinine 6.5H, Estimat Glomerular Filtration Rate 10.8, Glucose Level 143H, Uric Acid 4.9, Calcium Level 7.4L, Phosphorus Level 5.8H, Magnesium Level 1.7L, Total Bilirubin 0.5, Aspartate Amino Transf (AST/SGOT) 31, Alanine Aminotransferase (ALT/SGPT) 20, Alkaline Phosphatase 76, Total Creatine Kinase 755H, C-Reactive Protein, Quantitative 8.3H, Pro-B-Type Natriuretic Peptide 25921C, Total Protein 6.9, Albumin 2.1L, Globulin 4.8, A lbumin/Globulin Ratio 0.4L, Digoxin Level 1.5, Hepatitis B Surface Antigen [Pending], Hepatitis B Surface Antibody, Quant [Pending], Hepatitis C Antibody [Pending] Height (Feet): 5 Height (Inches): 11.00 Weight (Pounds): 415 General Appearance: mild distress EENT: other - On BiPAP Cardiovascular: normal rate Respiratory/Chest: decreased breath sounds Abdomen: distended Adria Gautam MD May 19, 2020 10:17
--- NOTE | 2020-05-19 10:31 | Cardiac Electrophysiology PN ---
Assessment/Plan Assessment/Plan 1. Elevated troponin due to renal failure and respiratory failure His echocardiogram showed ejection fraction of 60%. His EKG showed atrial fibrillation with rapid ventricular response and nonspecific ST-T wave abnormalities. 2. Atrial fibrillation with rapid ventricular response with heart rate in 130s. Tapered off Cardizem drip and on Cardizem 90 po q 6 hr Already got iv Dig and level was 1.8 yesterday and 1.5 today Start Dig 0.125 po MWF 3. Respiratory failure, currently off BiPAP 4. Hyperkalemia due to renal failure. Potassium is now 4.2. On dialysis by Dr. Gautam. 5. Morbid obesity. 6. Diabetes. 7. S/P left-sided pacemaker. Will try to find the brand to interrogate 8. Anemia, Getting PRBC today DW RN, Dr Gautam and Mother Subjective Subjective In ICU for atrial fib with RVR. HR better on Cardizem 90 po q 6hr and Dig level today is 1.5 Objective Last 24 Hour Vital Signs Date Time Temp Pulse Resp B/P (MAP) Pulse Ox O2 Delivery O2 Flow Rate FiO2 05/19/20 10:00 87 18 130/59 (82) 96 05/19/20 09:45 89 20 123/62 (82) 93 05/19/20 09:30 88 21 100/49 (66) 90 05/19/20 09:30 88 21 100/49 (66) 90 05/19/20 09:15 85 18 109/53 (71) 94 05/19/20 09:15 85 18 109/53 (71) 94 05/19/20 09:00 85 20 107/50 (69) 82 05/19/20 09:00 85 20 107/50 (69) 82 05/19/20 09:00 85 20 82 05/19/20 08:45 83 20 106/59 (75) 93 05/19/20 08:45 83 20 106/59 (75) 93 05/19/20 08:30 82 19 110/54 (72) 94 05/19/20 08:30 82 19 110/54 (72) 94 05/19/20 08:15 84 19 100/53 (69) 94 05/19/20 08:15 84 19 100/53 (69) 94 05/19/20 08:00 84 18 116/58 (77) 95 05/19/20 08:00 84 18 116/58 (77) 95 05/19/20 08:00 84 18 116/58 (77) 95 05/19/20 08:00 12.0 50 05/19/20 08:00 87 05/19/20 08:00 Bi-pap 60.0 05/19/20 07:45 81 19 113/55 (74) 92 05/19/20 07:45 81 19 113/55 (74) 92 05/19/20 07:45 81 19 113/55 (74) 92 05/19/20 07:30 82 20 109/59 (76) 88 05/19/20 07:30 82 20 109/59 (76) 88 05/19/20 07:30 82 20 109/59 (76) 88 05/19/20 07:15 80 18 114/58 (76) 95 05/19/20 07:15 80 18 114/58 (76) 95 05/19/20 07:15 80 18 114/58 (76) 95 05/19/20 07:00 81 19 114/52 (72) 91 05/19/20 07:00 81 19 114/52 (72) 91 05/19/20 07:00 81 19 114/52 (72) 91 05/19/20 07:00 81 19 91 05/19/20 06:45 85 17 110/60 (77) 94 05/19/20 06:30 83 20 109/53 (71) 96 05/19/20 06:15 88 23 108/62 (77) 93 05/19/20 06:00 88 21 112/61 (78) 95 05/19/20 06:00 88 21 112/61 (78) 95 05/19/20 05:46 90 126/74 05/19/20 05:00 84 18 97/48 (64) 93 05/19/20 04:00 87 05/19/20 04:00 14.0 55 05/19/20 04:00 Bi-pap 60.0 05/19/20 04:00 98.3 87 18 111/79 (90) 95 05/19/20 03:00 84 18 99/53 (68) 92 05/19/20 02:00 82 16 98/53 (68) 95 05/19/20 01:00 83 18 99/54 (69) 93 05/19/20 00:00 98.0 90 17 110/55 (73) 95 05/19/20 00:00 96 05/19/20 00:00 14.0 55 05/19/20 00:00 Bi-pap 60.0 05/18/20 23:48 89 102/65 05/18/20 23:00 91 20 104/54 (71) 93 05/18/20 22:00 83 19 105/58 (74) 93 05/18/20 21:00 87 20 120/63 (82) 95 05/18/20 20:12 95 Venturi Mask 14.0 55 05/18/20 20:00 14.0 55 05/18/20 20:00 Bi-pap 60.0 05/18/20 20:00 98.6 90 18 115/60 (78) 95 05/18/20 20:00 92 05/18/20 19:00 91 20 107/59 (75) 93 05/18/20 18:00 85 17 104/50 (68) 94 05/18/20 18:00 89 101/66 05/18/20 17:45 84 19 91/53 (66) 89 05/18/20 17:30 84 18 109/54 (72) 93 05/18/20 17:15 87 19 109/54 (72) 87 05/18/20 17:00 84 19 110/54 (72) 90 05/18/20 16:45 84 21 100/47 (64) 84 05/18/20 16:30 86 21 99/50 (66) 86 05/18/20 16:30 86 21 99/50 (66) 86 05/18/20 16:15 84 18 86/58 (67) 91 05/18/20 16:15 84 18 86/58 (67) 91 05/18/20 16:00 Bi-pap 60.0 05/18/20 16:00 14.0 55 05/18/20 16:00 85 19 100/49 (66) 92 05/18/20 16:00 85 19 100/49 (66) 92 05/18/20 16:00 96 05/18/20 15:45 92 18 111/50 (70) 92 05/18/20 15:45 92 18 111/50 (70) 92 05/18/20 15:30 86 19 99/53 (68) 91 05/18/20 15:30 86 19 99/53 (68) 91 05/18/20 15:15 91 20 95/50 (65) 90 05/18/20 15:15 91 20 95/50 (65) 90 05/18/20 15:00 91 19 101/54 (70) 91 05/18/20 15:00 91 19 101/54 (70) 91 05/18/20 14:45 94 20 104/51 (68) 92 05/18/20 14:35 89 103/48 05/18/20 14:30 91 17 103/48 (66) 93 05/18/20 14:15 88 17 116/60 (78) 94 05/18/20 14:00 89 18 99/55 (70) 92 05/18/20 13:45 94 21 96/51 (66) 93 05/18/20 13:30 96 22 101/43 (62) 93 05/18/20 13:15 90 15 88/47 (61) 92 05/18/20 13:14 91 18 96/49 (65) 93 05/18/20 13:02 93 Venturi Mask 12.0 50 05/18/20 13:02 94 20 93 12.0 50 05/18/20 13:00 92 19 86/51 (63) 92 05/18/20 12:45 97 20 101/44 (63) 93 05/18/20 12:30 93 19 99/49 (66) 92 05/18/20 12:15 95 20 110/50 (70) 92 05/18/20 12:15 95 20 110/50 (70) 92 05/18/20 12:00 95 19 117/53 (74) 91 05/18/20 12:00 96 05/18/20 12:00 Bi-pap 60.0 05/18/20 12:00 14.0 55 05/18/20 12:00 95 19 117/53 (74) 91 05/18/20 11:45 96 21 133/66 (88) 94 05/18/20 11:30 95 21 137/66 (89) 95 05/18/20 11:15 96 20 127/64 (85) 94 05/18/20 11:00 97 24 133/107 (116) 95 05/18/20 10:45 96 18 136/65 (88) 95 05/18/20 10:30 96 19 133/59 (83) 94 Intake and Output 05/18/20 05/19/20 19:00 07:00 Intake Total 267.50 ml Output Total 600 ml 480 ml Balance -332.50 ml -480 ml Intake Oral 200 ml IV Total 67.50 ml Output Urine Total 600 ml 480 ml Laboratory Tests Test 05/19/20 03:40 White Blood Count 7.4 K/UL (4.8-10.8) Red Blood Count 2.92 M/UL (4.70-6.10) L Hemoglobin 7.9 G/DL (14.2-18.0) L Hematocrit 27.0 % (42.0-52.0) L Mean Corpuscular Volume 92 FL (80-99) Mean Corpuscular Hemoglobin 27.2 PG (27.0-31.0) Mean Corpuscular Hemoglobin Concent 29.4 G/DL (32.0-36.0) L Red Cell Distribution Width 16.5 % (11.6-14.8) H Platelet Count 147 K/UL (150-450) L Mean Platelet Volume 8.4 FL (6.5-10.1) Neutrophils (%) (Auto) % (45.0-75.0) Lymphocytes (%) (Auto) % (20.0-45.0) Monocytes (%) (Auto) % (1.0-10.0) Eosinophils (%) (Auto) % (0.0-3.0) Basophils (%) (Auto) % (0.0-2.0) Differential Total Cells Counted 100 Neutrophils % (Manual) 78 % (45-75) H Lymphocytes % (Manual) 16 % (20-45) L Monocytes % (Manual) 5 % (1-10) Eosinophils % (Manual) 1 % (0-3) Basophils % (Manual) 0 % (0-2) Band Neutrophils 0 % (0-8) Platelet Estimate Decreased L Platelet Morphology Normal Hypochromasia 1+ Anisocytosis 1+ Sodium Level 141 MMOL/L (136-145) Potassium Level 4.5 MMOL/L (3.5-5.1) Chloride Level 108 MMOL/L (98-107) H Carbon Dioxide Level 28 MMOL/L (21-32) Anion Gap 5 mmol/L (5-15) Blood Urea Nitrogen 66 mg/dL (7-18) H Creatinine 6.5 MG/DL (0.55-1.30) H Estimat Glomerular Filtration Rate 10.8 mL/min (>60) Glucose Level 143 MG/DL (74-106) H Uric Acid 4.9 MG/DL (2.6-7.2) Calcium Level 7.4 MG/DL (8.5-10.1) L Phosphorus Level 5.8 MG/DL (2.5-4.9) H Magnesium Level 1.7 MG/DL (1.8-2.4) L Total Bilirubin 0.5 MG/DL (0.2-1.0) Aspartate Amino Transf (AST/SGOT) 31 U/L (15-37) Alanine Aminotransferase (ALT/SGPT) 20 U/L (12-78) Alkaline Phosphatase 76 U/L (46-116) Total Creatine Kinase 755 U/L (26-308) H C-Reactive Protein, Quantitative 8.3 mg/dL (0.00-0.90) H Pro-B-Type Natriuretic Peptide 18778 pg/mL (0-125) H Total Protein 6.9 G/DL (6.4-8.2) Albumin 2.1 G/DL (3.4-5.0) L Globulin 4.8 g/dL Albumin/Globulin Ratio 0.4 (1.0-2.7) L Digoxin Level 1.5 NG/ML (0.5-2.0) Hepatitis B Surface Antigen Pending Hepatitis B Surface Antibody, Quant Pending Hepatitis C Antibody Pending Objective HEAD AND NECK: Shows positive JVD.Off BIPAP LUNGS: Decreased breath sounds. CARDIOVASCULAR: irregularly irregular S1 and S2 ABDOMEN: Soft and morbidly obese. EXTREMITIES: 2+ pitting edema. Shai Champion MD May 19, 2020 10:31
--- NOTE | 2020-05-19 11:36 | Pulmonology Progress Note ---
Subjective ROS Limited/Unobtainable: No Interval Events: seen in ICU Constitutional: Reports: no symptoms HEENT: Repors: no symptoms Respiratory: Reports: shortness of breath Cardiovascular: Reports: no symptoms Gastrointestinal/Abdominal: Reports: no symptoms Allergies: Coded Allergies: [place] (Verified Allergy, Mild, Rash, 10/29/14) per patient PENICILLINS (Unverified Allergy, Unknown, 11/28/13) Objective Last 24 Hour Vital Signs Date Time Temp Pulse Resp B/P (MAP) Pulse Ox O2 Delivery O2 Flow Rate FiO2 05/19/20 11:15 87 102/52 (69) 95 05/19/20 11:00 87 18 130/59 (82) 96 05/19/20 11:00 95 104/62 (76) 85 05/19/20 10:45 90 13 107/56 (73) 96 05/19/20 10:30 87 19 113/57 (75) 97 05/19/20 10:15 87 20 114/60 (78) 96 05/19/20 10:00 87 18 130/59 (82) 96 05/19/20 10:00 87 18 130/59 (82) 96 05/19/20 09:45 89 20 123/62 (82) 93 05/19/20 09:30 88 21 100/49 (66) 90 05/19/20 09:30 88 21 100/49 (66) 90 05/19/20 09:15 85 18 109/53 (71) 94 05/19/20 09:15 85 18 109/53 (71) 94 05/19/20 09:00 85 20 107/50 (69) 82 05/19/20 09:00 85 20 107/50 (69) 82 05/19/20 09:00 85 20 82 05/19/20 08:45 83 20 106/59 (75) 93 05/19/20 08:45 83 20 106/59 (75) 93 05/19/20 08:30 82 19 110/54 (72) 94 05/19/20 08:30 82 19 110/54 (72) 94 05/19/20 08:15 84 19 100/53 (69) 94 05/19/20 08:15 84 19 100/53 (69) 94 05/19/20 08:00 84 18 116/58 (77) 95 05/19/20 08:00 84 18 116/58 (77) 95 05/19/20 08:00 84 18 116/58 (77) 95 05/19/20 08:00 12.0 50 05/19/20 08:00 87 05/19/20 08:00 Bi-pap 60.0 05/19/20 07:45 81 19 113/55 (74) 92 05/19/20 07:45 81 19 113/55 (74) 92 05/19/20 07:45 81 19 113/55 (74) 92 05/19/20 07:30 82 20 109/59 (76) 88 05/19/20 07:30 82 20 109/59 (76) 88 05/19/20 07:30 82 20 109/59 (76) 88 05/19/20 07:15 80 18 114/58 (76) 95 05/19/20 07:15 80 18 114/58 (76) 95 05/19/20 07:15 80 18 114/58 (76) 95 05/19/20 07:00 81 19 114/52 (72) 91 05/19/20 07:00 81 19 114/52 (72) 91 05/19/20 07:00 81 19 114/52 (72) 91 05/19/20 07:00 81 19 91 05/19/20 06:45 85 17 110/60 (77) 94 05/19/20 06:30 83 20 109/53 (71) 96 05/19/20 06:15 88 23 108/62 (77) 93 05/19/20 06:00 88 21 112/61 (78) 95 05/19/20 06:00 88 21 112/61 (78) 95 05/19/20 05:46 90 126/74 05/19/20 05:00 84 18 97/48 (64) 93 05/19/20 04:00 87 05/19/20 04:00 14.0 55 05/19/20 04:00 Bi-pap 60.0 05/19/20 04:00 98.3 87 18 111/79 (90) 95 05/19/20 03:00 84 18 99/53 (68) 92 05/19/20 02:00 82 16 98/53 (68) 95 05/19/20 01:00 83 18 99/54 (69) 93 05/19/20 00:00 98.0 90 17 110/55 (73) 95 05/19/20 00:00 96 05/19/20 00:00 14.0 55 05/19/20 00:00 Bi-pap 60.0 05/18/20 23:48 89 102/65 05/18/20 23:00 91 20 104/54 (71) 93 05/18/20 22:00 83 19 105/58 (74) 93 05/18/20 21:00 87 20 120/63 (82) 95 05/18/20 20:12 95 Venturi Mask 14.0 55 05/18/20 20:00 14.0 55 05/18/20 20:00 Bi-pap 60.0 05/18/20 20:00 98.6 90 18 115/60 (78) 95 05/18/20 20:00 92 05/18/20 19:00 91 20 107/59 (75) 93 05/18/20 18:00 85 17 104/50 (68) 94 05/18/20 18:00 89 101/66 05/18/20 17:45 84 19 91/53 (66) 89 05/18/20 17:30 84 18 109/54 (72) 93 05/18/20 17:15 87 19 109/54 (72) 87 05/18/20 17:00 84 19 110/54 (72) 90 05/18/20 16:45 84 21 100/47 (64) 84 05/18/20 16:30 86 21 99/50 (66) 86 05/18/20 16:30 86 21 99/50 (66) 86 05/18/20 16:15 84 18 86/58 (67) 91 05/18/20 16:15 84 18 86/58 (67) 91 05/18/20 16:00 Bi-pap 60.0 05/18/20 16:00 14.0 55 05/18/20 16:00 85 19 100/49 (66) 92 05/18/20 16:00 85 19 100/49 (66) 92 05/18/20 16:00 96 05/18/20 15:45 92 18 111/50 (70) 92 05/18/20 15:45 92 18 111/50 (70) 92 2/15/21 15:30 86 19 99/53 (68) 91 05/18/20 15:30 86 19 99/53 (68) 91 05/18/20 15:15 91 20 95/50 (65) 90 05/18/20 15:15 91 20 95/50 (65) 90 05/18/20 15:00 91 19 101/54 (70) 91 05/18/20 15:00 91 19 101/54 (70) 91 05/18/20 14:45 94 20 104/51 (68) 92 05/18/20 14:35 89 103/48 05/18/20 14:30 91 17 103/48 (66) 93 05/18/20 14:15 88 17 116/60 (78) 94 05/18/20 14:00 89 18 99/55 (70) 92 05/18/20 13:45 94 21 96/51 (66) 93 05/18/20 13:30 96 22 101/43 (62) 93 05/18/20 13:15 90 15 88/47 (61) 92 05/18/20 13:14 91 18 96/49 (65) 93 05/18/20 13:02 93 Venturi Mask 12.0 50 05/18/20 13:02 94 20 93 12.0 50 05/18/20 13:00 92 19 86/51 (63) 92 05/18/20 12:45 97 20 101/44 (63) 93 05/18/20 12:30 93 19 99/49 (66) 92 05/18/20 12:15 95 20 110/50 (70) 92 05/18/20 12:15 95 20 110/50 (70) 92 05/18/20 12:00 95 19 117/53 (74) 91 05/18/20 12:00 96 05/18/20 12:00 Bi-pap 60.0 05/18/20 12:00 14.0 55 05/18/20 12:00 95 19 117/53 (74) 91 05/18/20 11:45 96 21 133/66 (88) 94 Intake and Output0 05/18/20 05/19/20 19:00 07:00 Intake Total 267.50 ml Output Total 600 ml 480 ml Balance -332.50 ml -480 ml Intake Oral 200 ml IV Total 67.50 ml Output Urine Total 600 ml 480 ml General Appearance: no acute distress, other Respiratory: chest wall non-tender, normal breath sounds Cardiovascular: normal rate, regular rhythm Abdomen: other - morbid obesity Laboratory Tests 05/19/20 03:40: White Blood Count 7.4, Red Blood Count 2.92L, Hemoglobin 7.9L, Hematocrit 27.0L, Mean Corpuscular Volume 92, Mean Corpuscular Hemoglobin 27.2, Mean Corpuscular Hemoglobin Concent 29.4L, Red Cell Distribution Width 16.5H, Platelet Count 147L , Mean Platelet Volume 8.4, Neutrophils (%) (Auto) , Lymphocytes (%) (Auto) , Monocytes (%) (Auto) , Eosinophils (%) (Auto) , Basophils (%) (Auto) , Differential Total Cells Counted 100, Neutrophils % (Manual) 78H, Lymphocytes % (Manual) 16L, Monocytes % (Manual) 5, Eosinophils % (Manual) 1, Basophils % (Manual) 0, Band Neutrophils 0, Platelet Estimate DecreasedL, Platelet Morphology Normal, Hypochromasia 1+, Anisocytosis 1+, Sodium Level 141, Potassium Level 4.5, Chloride Level 108H, Carbon Dioxide Level 28, Anion Gap 5, Blood Urea Nitrogen 66H, Creatinine 6.5H, Estimat Glomerular Filtration Rate 10.8, Glucose Level 143H, Uric Acid 4.9, Calcium Level 7.4L, Phosphorus Level 5.8H, Magnesium Level 1.7L, Total Bilirubin 0.5, Aspartate Amino Transf (AST/SGOT) 31, Alanine Aminotransferase (ALT/SGPT) 20, Alkaline Phosphatase 76, Total Creatine Kinase 755H, C-Reactive Protein, Quantitative 8.3H, Pro-B-Type Natriuretic Peptide 99737L, Total Protein 6.9, Albumin 2.1L, Globulin 4.8, Albumin/Globulin Ratio 0.4L, Digoxin Level 1.5, Hepatitis B Surface Antigen [Pending], Hepatitis B Surface Antibody, Quant [Pending], Hepatitis C Antibody [Pending] Current Medications Medications (Trade) Dose Ordered Sig/Albert Route PRN Reason Start Time Stop Time Status Last Admin Dose Admin Cefepime HCl 500 mg/Dextrose 55 ml @ 110 mls/hr Q24H IV 05/19/20 13:00 05/26/20 12:59 Chlorhexidine Gluconate (Isamar-Hex 2%) 1 applic DAILY@2000 TOPIC 05/17/20 20:00 08/15/20 19:59 05/18/20 20:58 Dextrose (Dextrose 50%) 25 ml Q30M PRN IV Hypoglycemia 05/16/20 03:45 08/14/20 03:44 05/16/20 06:23 Dextrose (Dextrose 50%) 50 ml Q30M PRN IV Hypoglycemia 05/16/20 03:45 08/14/20 03:44 Diltiazem HCl (Cardizem Tab) 90 mg EVERY 6 HOURS ORAL 05/18/20 18:00 06/17/20 17:59 05/19/20 05:46 Docusate Sodium (Colace) 100 mg THREE TIMES A DAY ORAL 05/19/20 13:00 06/18/20 12:59 Enoxaparin Sodium (Lovenox) 30 mg DAILY SUBQ 05/19/20 09:00 08/17/20 08:59 05/19/20 08:38 Epoetin Vivek (Epoetin Vivek(ESRD on dialysis)) 10,000 unit SUBQ 05/20/20 21:00 08/18/20 20:59 Folic Acid (Folate) 5 mg DAILY ORAL 05/17/20 14:00 06/16/20 13:59 05/19/20 08:37 Iron Sucrose 100 mg/Sodium Chloride 60 ml @ 240 mls/hr BEDTIME IVPB 05/19/20 21:00 05/23/20 21:14 Norepinephrine Bitartrate 250 ml @ 37.5 mls/hr Q24H IV 05/16/20 20:00 05/19/20 19:59 05/18/20 02:00 Pantoprazole (Protonix) 40 mg EVERY 12 HOURS ORAL 05/19/20 21:00 06/18/20 20:59 Assessment/Plan Assessment/Plan 1. Hx Sleep apnea - Currently not on CPAP 2. Acute on chronic renal failure; hyperkalemia - s/p Kayexalate - s/p Right femoral catheter for dialysis (05/15) S/p dialysis 3. Bacteriuria - s/p Rocephin in ER - f/u UCx 4. Hypoxemic respiratory distress -Continue supplemental O2 -> now saturating at 100% on Ventimask 5. Elevated inflammatory markers -Venous duplex ultrasound of lower extremities negative for DVT -On SCD for DVT prophylaxis 6. pneumonia -Chest x-ray shows interstitial opacities bilaterally -COVID-19 PCR sent; results pending 7. A-fib with rvr - seen by cardio - now in ICU - stable to transfer out of ICU Juanito Amador MD May 19, 2020 11:36
--- NOTE | 2020-05-19 17:21 | Surgery Progress Note ---
Surgery Progress Note Subjective Procedure Performed Right femoral temporary hemodialysis catheter insertion Symptoms: improved, tolerating diet, passing flatus Additional Comments off bipap removes face mask Objective Last 24 Hour Vital Signs Date Time Temp Pulse Resp B/P (MAP) Pulse Ox O2 Delivery O2 Flow Rate FiO2 05/19/20 16:00 100 05/19/20 16:00 89 18 151/71 (97) 81 05/19/20 15:00 84 17 137/95 (109) 93 05/19/20 14:00 84 18 111/56 (74) 93 05/19/20 13:00 97.5 91 106/50 (68) 89 05/19/20 12:32 93 92/48 (63) 93 05/19/20 12:15 97 95/50 (65) 93 05/19/20 12:00 Bi-pap 60.0 05/19/20 12:00 12.0 50 05/19/20 12:00 98 05/19/20 12:00 89 97/47 (64) 94 05/19/20 12:00 87 102/52 (69) 95 05/19/20 11:45 95/51 (66) 96 05/19/20 11:30 90 105/53 (70) 94 05/19/20 11:15 87 102/52 (69) 95 05/19/20 11:15 87 102/52 (69) 95 05/19/20 11:00 95 104/62 (76) 85 05/19/20 11:00 87 18 130/59 (82) 96 05/19/20 11:00 95 104/62 (76) 85 05/19/20 10:45 90 13 107/56 (73) 96 05/19/20 10:30 87 19 113/57 (75) 97 05/19/20 10:15 87 20 114/60 (78) 96 05/19/20 10:00 87 18 130/59 (82) 96 05/19/20 10:00 87 18 130/59 (82) 96 05/19/20 09:45 89 20 123/62 (82) 93 05/19/20 09:30 88 21 100/49 (66) 90 05/19/20 09:30 88 21 100/49 (66) 90 05/19/20 09:15 85 18 109/53 (71) 94 05/19/20 09:15 85 18 109/53 (71) 94 05/19/20 09:00 85 20 107/50 (69) 82 05/19/20 09:00 85 20 107/50 (69) 82 05/19/20 09:00 85 20 82 05/19/20 08:45 83 20 106/59 (75) 93 05/19/20 08:45 83 20 106/59 (75) 93 05/19/20 08:30 82 19 110/54 (72) 94 05/19/20 08:30 82 19 110/54 (72) 94 05/19/20 08:15 84 19 100/53 (69) 94 05/19/20 08:15 84 19 100/53 (69) 94 05/19/20 08:00 84 18 116/58 (77) 95 05/19/20 08:00 84 18 116/58 (77) 95 05/19/20 08:00 84 18 116/58 (77) 95 05/19/20 08:00 12.0 50 05/19/20 08:00 87 05/19/20 08:00 Bi-pap 60.0 05/19/20 07:56 95 Venturi Mask 12.0 50 05/19/20 07:45 81 19 113/55 (74) 92 05/19/20 07:45 81 19 113/55 (74) 92 05/19/20 07:45 81 19 113/55 (74) 92 05/19/20 07:30 82 20 109/59 (76) 88 05/19/20 07:30 82 20 109/59 (76) 88 05/19/20 07:30 82 20 109/59 (76) 88 05/19/20 07:15 80 18 114/58 (76) 95 05/19/20 07:15 80 18 114/58 (76) 95 05/19/20 07:15 80 18 114/58 (76) 95 05/19/20 07:00 81 19 114/52 (72) 91 05/19/20 07:00 81 19 114/52 (72) 91 05/19/20 07:00 81 19 114/52 (72) 91 05/19/20 07:00 81 19 91 05/19/20 06:45 85 17 110/60 (77) 94 05/19/20 06:30 83 20 109/53 (71) 96 05/19/20 06:15 88 23 108/62 (77) 93 05/19/20 06:00 88 21 112/61 (78) 95 05/19/20 06:00 88 21 112/61 (78) 95 05/19/20 05:46 90 126/74 05/19/20 05:00 84 18 97/48 (64) 93 05/19/20 04:00 87 05/19/20 04:00 14.0 55 05/19/20 04:00 Bi-pap 60.0 05/19/20 04:00 98.3 87 18 111/79 (90) 95 05/19/20 03:00 84 18 99/53 (68) 92 05/19/20 02:00 82 16 98/53 (68) 95 05/19/20 01:00 83 18 99/54 (69) 93 05/19/20 00:00 98.0 90 17 110/55 (73) 95 05/19/20 00:00 96 05/19/20 00:00 14.0 55 05/19/20 00:00 Bi-pap 60.0 05/18/20 23:48 89 102/65 05/18/20 23:00 91 20 104/54 (71) 93 05/18/20 22:00 83 19 105/58 (74) 93 05/18/20 21:00 87 20 120/63 (82) 95 05/18/20 20:12 95 Venturi Mask 14.0 55 05/18/20 20:00 14.0 55 05/18/20 20:00 Bi-pap 60.0 05/18/20 20:00 98.6 90 18 115/60 (78) 95 05/18/20 20:00 92 05/18/20 19:00 91 20 107/59 (75) 93 05/18/20 18:00 85 17 104/50 (68) 94 05/18/20 18:00 89 101/66 05/18/20 17:45 84 19 91/53 (66) 89 05/18/20 17:30 84 18 109/54 (72) 93 I&O Intake and Output0 05/18/20 05/19/20 19:00 07:00 Intake Total 267.50 ml Output Total 600 ml 480 ml Balance -332.50 ml -480 ml Intake Oral 200 ml IV Total 67.50 ml Output Urine Total 600 ml 480 ml Dressing: saturated Cardiovascular: RSR Respiratory: clear, decreased breath sounds Abdomen: soft, non-tender, present bowel sounds Extremities: edema, no tenderness, no cyanosis Laboratory Tests Test 05/19/20 03:40 White Blood Count 7.4 K/UL (4.8-10.8) Red Blood Count 2.92 M/UL (4.70-6.10) L Hemoglobin 7.9 G/DL (14.2-18.0) L Hematocrit 27.0 % (42.0-52.0) L Mean Corpuscular Volume 92 FL (80-99) Mean Corpuscular Hemoglobin 27.2 PG (27.0-31.0) Mean Corpuscular Hemoglobin Concent 29.4 G/DL (32.0-36.0) L Red Cell Distribution Width 16.5 % (11.6-14.8) H Platelet Count 147 K/UL (150-450) L Mean Platelet Volume 8.4 FL (6.5-10.1) Neutrophils (%) (Auto) % (45.0-75.0) Lymphocytes (%) (Auto) % (20.0-45.0) Monocytes (%) (Auto) % (1.0-10.0) Eosinophils (%) (Auto) % (0.0-3.0) Basophils (%) (Auto) % (0.0-2.0) Differential Total Cells Counted 100 Neutrophils % (Manual) 78 % (45-75) H Lymphocytes % (Manual) 16 % (20-45) L Monocytes % (Manual) 5 % (1-10) Eosinophils % (Manual) 1 % (0-3) Basophils % (Manual) 0 % (0-2) Band Neutrophils 0 % (0-8) Platelet Estimate Decreased L Platelet Morphology Normal Hypochromasia 1+ Anisocytosis 1+ Sodium Level 141 MMOL/L (136-145) Potassium Level 4.5 MMOL/L (3.5-5.1) Chloride Level 108 MMOL/L (98-107) H Carbon Dioxide Level 28 MMOL/L (21-32) Anion Gap 5 mmol/L (5-15) Blood Urea Nitrogen 66 mg/dL (7-18) H Creatinine 6.5 MG/DL (0.55-1.30) H Estimat Glomerular Filtration Rate 10.8 mL/min (>60) Glucose Level 143 MG/DL (74-106) H Uric Acid 4.9 MG/DL (2.6-7.2) Calcium Level 7.4 MG/DL (8.5-10.1) L Phosphorus Level 5.8 MG/DL (2.5-4.9) H Magnesium Level 1.7 MG/DL (1.8-2.4) L Total Bilirubin 0.5 MG/DL (0.2-1.0) Aspartate Amino Transf (AST/SGOT) 31 U/L (15-37) Alanine Aminotransferase (ALT/SGPT) 20 U/L (12-78) Alkaline Phosphatase 76 U/L (46-116) Total Creatine Kinase 755 U/L (26-308) H C-Reactive Protein, Quantitative 8.3 mg/dL (0.00-0.90) H Pro-B-Type Natriuretic Peptide 72556 pg/mL (0-125) H Total Protein 6.9 G/DL (6.4-8.2) Albumin 2.1 G/DL (3.4-5.0) L Globulin 4.8 g/dL Albumin/Globulin Ratio 0.4 (1.0-2.7) L Digoxin Level 1.5 NG/ML (0.5-2.0) Hepatitis B Surface Antigen Pending Hepatitis B Surface Antibody, Quant Pending Hepatitis C Antibody Pending Plan Problems: (1) Morbid obesity (2) Pacemaker (3) 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 Temporary use. Line functional. Recent dialysis noted. 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 His abdominal distention is his baseline large pannus. Skin folds and abnormalities in pannus identified from chronic distention. His KUB noted bowel gas pattern unremarkable. NG tube has been her removed since. No nausea vomiting fever chills. Labs noted. Improving with dialysis. Hyperkalemia improved. Mentation improved. Abdominal exam is fairly benign and consistent with what would be anticipated with the patient with a BMI of 57 with chronic condition. No acute abdominal source or etiology identified. Hypotension likely relative to patient's treatment renal and will monitor with dialysis. Okay for diet once stabilized but currently keep n.p.o. given his high BiPAP requirement. Thank you for letting participate patient's care will follow with recommendations Abhay Mccray May 19, 2020 17:21
--- NOTE | 2020-05-19 20:29 | General Progress Note ---
Subjective ROS Limited/Unobtainable: Yes Allergies: Coded Allergies: [place] (Verified Allergy, Mild, Rash, 10/29/14) per patient PENICILLINS (Unverified Allergy, Unknown, 11/28/13) Objective Last 24 Hour Vital Signs Date Time Temp Pulse Resp B/P (MAP) Pulse Ox O2 Delivery O2 Flow Rate FiO2 05/19/20 19:25 96 Venturi Mask 12.0 50 05/19/20 19:15 100 20 158/67 (97) 98 05/19/20 19:12 105 21 152/76 (101) 97 05/19/20 19:00 105 22 93 05/19/20 18:55 105 21 149/109 (122) 95 05/19/20 18:51 108 23 138/74 (95) 93 05/19/20 18:30 99 21 161/74 (103) 80 05/19/20 18:15 108 24 171/68 (102) 82 05/19/20 18:00 81 146/89 05/19/20 18:00 96 19 150/54 (86) 97 05/19/20 17:45 97 21 160/75 (103) 98 05/19/20 17:30 96 21 161/80 (107) 97 05/19/20 17:15 97 25 142/68 (92) 74 05/19/20 17:12 96 21 171/66 (101) 73 05/19/20 17:00 89 18 151/71 (97) 81 05/19/20 17:00 100 23 151/71 (97) 82 05/19/20 16:45 99 18 133/79 (97) 77 05/19/20 16:30 98 19 149/65 (93) 81 05/19/20 16:08 96 20 130/66 (87) 96 05/19/20 16:00 12.0 50 05/19/20 16:00 Bi-pap 60.0 05/19/20 16:00 100 05/19/20 16:00 97 18 95 05/19/20 16:00 89 18 151/71 (97) 81 05/19/20 15:00 84 17 137/95 (109) 93 05/19/20 14:00 84 18 111/56 (74) 93 05/19/20 13:00 97.5 91 106/50 (68) 89 05/19/20 12:32 93 92/48 (63) 93 05/19/20 12:15 97 95/50 (65) 93 05/19/20 12:00 Bi-pap 60.0 05/19/20 12:00 12.0 50 05/19/20 12:00 98 05/19/20 12:00 89 97/47 (64) 94 05/19/20 12:00 89 167/81 05/19/20 12:00 87 102/52 (69) 95 05/19/20 11:45 95/51 (66) 96 05/19/20 11:30 90 105/53 (70) 94 05/19/20 11:15 87 102/52 (69) 95 05/19/20 11:15 87 102/52 (69) 95 05/19/20 11:00 95 104/62 (76) 85 05/19/20 11:00 87 18 130/59 (82) 96 05/19/20 11:00 95 104/62 (76) 85 05/19/20 10:45 90 13 107/56 (73) 96 05/19/20 10:30 87 19 113/57 (75) 97 05/19/20 10:15 87 20 114/60 (78) 96 05/19/20 10:00 87 18 130/59 (82) 96 05/19/20 10:00 87 18 130/59 (82) 96 05/19/20 09:45 89 20 123/62 (82) 93 05/19/20 09:30 88 21 100/49 (66) 90 05/19/20 09:30 88 21 100/49 (66) 90 05/19/20 09:15 85 18 109/53 (71) 94 05/19/20 09:15 85 18 109/53 (71) 94 05/19/20 09:00 85 20 107/50 (69) 82 05/19/20 09:00 85 20 107/50 (69) 82 05/19/20 09:00 85 20 82 05/19/20 08:45 83 20 106/59 (75) 93 05/19/20 08:45 83 20 106/59 (75) 93 05/19/20 08:30 82 19 110/54 (72) 94 05/19/20 08:30 82 19 110/54 (72) 94 05/19/20 08:15 84 19 100/53 (69) 94 05/19/20 08:15 84 19 100/53 (69) 94 05/19/20 08:00 84 18 116/58 (77) 95 05/19/20 08:00 84 18 116/58 (77) 95 05/19/20 08:00 84 18 116/58 (77) 95 05/19/20 08:00 12.0 50 05/19/20 08:00 87 05/19/20 08:00 Bi-pap 60.0 05/19/20 07:56 95 Venturi Mask 12.0 50 05/19/20 07:45 81 19 113/55 (74) 92 05/19/20 07:45 81 19 113/55 (74) 92 05/19/20 07:45 81 19 113/55 (74) 92 05/19/20 07:30 82 20 109/59 (76) 88 05/19/20 07:30 82 20 109/59 (76) 88 05/19/20 07:30 82 20 109/59 (76) 88 05/19/20 07:15 80 18 114/58 (76) 95 05/19/20 07:15 80 18 114/58 (76) 95 05/19/20 07:15 80 18 114/58 (76) 95 05/19/20 07:00 81 19 114/52 (72) 91 05/19/20 07:00 81 19 114/52 (72) 91 05/19/20 07:00 81 19 114/52 (72) 91 05/19/20 07:00 81 19 91 05/19/20 06:45 85 17 110/60 (77) 94 05/19/20 06:30 83 20 109/53 (71) 96 05/19/20 06:15 88 23 108/62 (77) 93 05/19/20 06:00 88 21 112/61 (78) 95 05/19/20 06:00 88 21 112/61 (78) 95 05/19/20 05:46 90 126/74 05/19/20 05:00 84 18 97/48 (64) 93 05/19/20 04:00 87 05/19/20 04:00 14.0 55 05/19/20 04:00 Bi-pap 60.0 05/19/20 04:00 98.3 87 18 111/79 (90) 95 05/19/20 03:00 84 18 99/53 (68) 92 05/19/20 02:00 82 16 98/53 (68) 95 05/19/20 01:00 83 18 99/54 (69) 93 05/19/20 00:00 98.0 90 17 110/55 (73) 95 05/19/20 00:00 96 05/19/20 00:00 14.0 55 05/19/20 00:00 Bi-pap 60.0 05/18/20 23:48 89 102/65 05/18/20 23:00 91 20 104/54 (71) 93 05/18/20 22:00 83 19 105/58 (74) 93 05/18/20 21:00 87 20 120/63 (82) 95 Intake and Output 05/18/20 05/19/20 19:00 07:00 Intake Total 267.50 ml Output Total 600 ml 480 ml Balance -332.50 ml -480 ml Intake Oral 200 ml IV Total 67.50 ml Output Urine Total 600 ml 480 ml Laboratory Tests 05/19/20 03:40: White Blood Count 7.4, Red Blood Count 2.92L, Hemoglobin 7.9L, Hematocrit 27.0L, Mean Corpuscular Volume 92, Mean Corpuscular Hemoglobin 27.2, Mean Corpuscular Hemoglobin Concent 29.4L, Red Cell Distribution Width 16.5H, Platelet Count 147L , Mean Platelet Volume 8.4, Neutrophils (%) (Auto) , Lymphocytes (%) (Auto) , Monocytes (%) (Auto) , Eosinophils (%) (Auto) , Basophils (%) (Auto) , Differential Total Cells Counted 100, Neutrophils % (Manual) 78H, Lymphocytes % (Manual) 16L, Monocytes % (Manual) 5, Eosinophils % (Manual) 1, Basophils % (Manual) 0, Band Neutrophils 0, Platelet Estimate DecreasedL, Platelet Morphology Normal, Hypochromasia 1+, Anisocytosis 1+, Sodium Level 141, Potassium Level 4.5, Chloride Level 108H, Carbon Dioxide Level 28, Anion Gap 5, Blood Urea Nitrogen 66H, Creatinine 6.5H, Estimat Glomerular Filtration Rate 10.8, Glucose Level 143H, Uric Acid 4.9, Calcium Level 7.4L, Phosphorus Level 5.8H, Magnesium Level 1.7L, Total Bilirubin 0.5, Aspartate Amino Transf (AST/SGOT) 31, Alanine Aminotransferase (ALT/SGPT) 20, Alkaline Phosphatase 76, Total Creatine Kinase 755H, C-Reactive Protein, Quantitative 8.3H, Pro-B-Type Natriuretic Peptide [id number], Total Protein 6.9, Albumin 2.1L, Globulin 4.8, Albumin/Globulin Ratio 0.4L, Digoxin Level 1.5, Hepatitis B Surface Antigen [Pending], Hepatitis B Surface Antibody, Quant [Pending], Hepatitis C Antibody [Pending] Height (Feet): 5 Height (Inches): 11.00 Weight (Pounds): 415 Assessment/Plan Problem List: (1) Hyperkalemia ICD Codes: E87.5 - Hyperkalemia SNOMED: 29498377 (2) Acidosis ICD Codes: E87.2 - Acidosis SNOMED: 03100374 (3) Hyperglycemia ICD Codes: R73.9 - Hyperglycemia, unspecified SNOMED: 48749771 (4) Acute kidney failure ICD Codes: N17.9 - Acute kidney failure, unspecified SNOMED: 39596465 (5) Sepsis ICD Codes: A41.9 - Sepsis SNOMED: 60335342 (6) UTI (urinary tract infection) ICD Codes: N39.0 - Urinary tract infection, site not specified SNOMED: 86506220 (7) Chronic systolic heart failure ICD Codes: I50.9 - Chronic systolic heart failure SNOMED: 986498932 (8) Morbid obesity ICD Codes: E66.01 - Morbid (severe) obesity due to excess calories SNOMED: 906151363 (9) Pacemaker ICD Codes: Z95.0 - Pacemaker SNOMED: 696975186 (10) DM circ dis type I, uncontrolled ICD Codes: E10.59 - DM circ dis type I, uncontrolled SNOMED: 64200439 (11) Atrial flutter ICD Codes: I48.92 - Atrial flutter SNOMED: 7044641 (12) Abdominal distention ICD Codes: R14.0 - Abdominal distension (gaseous) SNOMED: 33766583 (13) Renal failure (ARF), acute on chronic ICD Codes: N17.9 - Acute kidney failure, unspecified; N18.9 - Chronic kidney disease, unspecified SNOMED: 854896945 Assessment/Plan: a fib w rvr morbid obesity respiratory failure getting HD worsening hb of renal failure resp insuff not improving needs support check lytes and h/h chf Montserrat Marin MD May 19, 2020 20:29
[2020-05-19] MEDS: Iron Sucrose 100 MG in NS 55 ML IVPB SCH (20:49)
[2020-05-19] MEDS: Dyna-Hex 2% Top Sol 2oz TOPIC SCH (20:49)
[2020-05-19] MEDS: Cefepime 500mg/D5W 55ml IV SCH ×2 (21:21)
[2020-05-19] MEDS ORDERED: 1/2 NS 1000ml IV ONE (21:49)
[2020-05-20] VITALS: BP 137/57
[2020-05-20 04:00] VITALS: BP 158/78
[2020-05-20 05:31] LABS: BASOPHILS % (AUTO) 1.8 % (0.0-2.0); EOSINOPHILS % (AUTO) 0.7 % (0.0-3.0); HEMATOCRIT 27.1 % (42.0-52.0); LYMPHOCYTES % (AUTO) 11.9 % (20.0-45.0); MEAN CORPUSCULAR VOLUME 92 FL (80-99); MONOCYTES % (AUTO) 9.5 % (1.0-10.0); NEUTROPHILS % (AUTO) 76.2 % (45.0-75.0); PLATELET COUNT 130 K/UL (150-450); RED BLOOD COUNT 2.95 M/UL (4.70-6.10); RED CELL DISTRIBUTION WIDTH 16.7 % (11.6-14.8); WHITE BLOOD COUNT 6.3 K/UL (4.8-10.8)
[2020-05-20 05:50] LABS: INR 1.1 (0.9-1.1)
[2020-05-20 06:05] LABS: ALBUMIN 1.9 G/DL (3.4-5.0); ALBUMIN/GLOBULIN RATIO 0.4 (1.0-2.7); BILIRUBIN,TOTAL 0.6 MG/DL (0.2-1.0); CALCIUM 7.5 MG/DL (8.5-10.1); CREATININE 7.3 MG/DL (0.55-1.30); POTASSIUM 4.7 MMOL/L (3.5-5.1)
[2020-05-20] MEDS: dilTIAZem HCl 30mg tab ORAL SCH ×4 (06:09→23:34)
--- NOTE | 2020-05-20 06:48 | Hematology/Onc Progress Note ---
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, has been getting hd, as per renal -> hgb 9-->7.9-->8 --> anemia panel has been noted --> consider use of epo --> have started on iv iron # Hypercoagulable disorder with afib/also COVID19 in iCU --> will start low dose lovenox given elevated ddimer per ISABELLA guidelines --> no evidence of bleeding currently --> trend ddimer as needed, to see if risk of emboli # Thrombocytopenia likely due to infection --> plt 130 --> smear is reviewed # MICHEAL on ckd --> per renal # Morbid obesity --> rec weight loss # Acidosis --> off bipap --> on fm # Hyperkalemia # Pacemaker # UTI (urinary tract infection --> cefepime # Dvt ppx lovenox Appreciate consultation and goyo Rn Subjective Constitutional: Denies: no symptoms, chills, fever, malaise, weakness, other HEENT: Denies: no symptoms, eye pain, blurred vision, tearing, double vision, ear pain, ear discharge, nose pain, nose congestion, throat pain, throat swelling, mouth pain, mouth swelling, other Cardiovascular: Denies: no symptoms, chest pain, edema, irregular heart rate, lightheadedness, palpitations, syncope, other Genitourinary: Denies: no symptoms, burning, discharge, frequency, flank pain, hematuria, incontinence, pain, urgency, other Neurologic/Psychiatric: Denies: no symptoms, anxiety, depressed, emotional problems, headache, numbness, paresthesia, pre-existing deficit, seizure, tingling, tremors, weakness, other Endocrine: Denies: no symptoms, excessive sweating, flushing, intolerance to cold, intolerance to heat, increased hunger, increased thirst, increased urine, unexplained weight gain, unexplained weight loss, other Hematologic/Lymphatic: Denies: no symptoms, anemia, easy bleeding, easy bruising, adenopathy, other Allergies: Coded Allergies: [place] (Verified Allergy, Mild, Rash, 10/29/14) per patient PENICILL[place] (Unverified Allergy, Unknown, 11/28/13) Subjective 05/20 transferred out of icu, doing better, hgb 8, plt 130, smear is reviewed Objective Objective Current Medications Medications (Trade) Dose Ordered Sig/Albert Route PRN Reason Start Time Stop Time Status Last Admin Dose Admin Cefepime HCl 500 mg/Dextrose 55 ml @ 110 mls/hr Q24H IV 05/19/20 13:00 05/26/20 12:59 05/19/20 21:21 Chlorhexidine Gluconate (Isamar-Hex 2%) 1 applic DAILY@2000 TOPIC 05/17/20 20:00 08/15/20 19:59 05/19/20 20:49 Dextrose (Dextrose 50%) 25 ml Q30M PRN IV Hypoglycemia 05/16/20 03:45 08/14/20 03:44 05/16/20 06:23 Dextrose (Dextrose 50%) 50 ml Q30M PRN IV Hypoglycemia 05/16/20 03:45 08/14/20 03:44 Diltiazem HCl (Cardizem Tab) 90 mg EVERY 6 HOURS ORAL 05/18/20 18:00 06/17/20 17:59 05/20/20 06:09 Docusate Sodium (Colace) 100 mg THREE TIMES A DAY ORAL 05/19/20 13:00 06/18/20 12:59 05/19/20 18:00 Enoxaparin Sodium (Lovenox) 30 mg DAILY SUBQ 05/19/20 09:00 08/17/20 08:59 05/19/20 08:38 Epoetin Vivek (Epoetin Vivek(ESRD on dialysis)) 10,000 unit MON-MON-MON SUBQ 05/20/20 21:00 08/18/20 20:59 Folic Acid (Folate) 5 mg DAILY ORAL 05/17/20 14:00 06/16/20 13:59 05/19/20 08:37 Iron Sucrose 100 mg/Sodium Chloride 60 ml @ 240 mls/hr BEDTIME IVPB 05/19/20 21:00 05/23/20 21:14 05/19/20 20:49 Pantoprazole (Protonix) 40 mg EVERY 12 HOURS ORAL 05/19/20 21:00 06/18/20 20:59 05/19/20 20:49 Last 24 Hour Vital Signs Date Time Temp Pulse Resp B/P (MAP) Pulse Ox O2 Delivery O2 Flow Rate FiO2 05/20/20 06:09 89 124/54 05/20/20 04:00 89 05/20/20 04:00 99.4 89 32 158/78 (104) 92 05/20/20 04:00 Bi-pap 60.0 05/20/20 04:00 12.0 50 05/20/20 00:00 Bi-pap 60.0 05/20/20 00:00 98.6 85 32 137/57 (83) 90 05/19/20 23:15 91 136/60 05/19/20 23:00 93 15 136/60 (85) 94 05/19/20 22:00 96 21 137/71 (93) 87 05/19/20 21:00 97 20 149/68 (95) 97 05/19/20 20:00 Bi-pap 60.0 05/19/20 20:00 12.0 50 05/19/20 20:00 97.9 97 20 141/71 (94) 97 05/19/20 20:00 98 05/19/20 19:25 96 Venturi Mask 12.0 50 05/19/20 19:15 100 20 158/67 (97) 98 05/19/20 19:12 105 21 152/76 (101) 97 05/19/20 19:00 105 22 93 05/19/20 18:55 105 21 149/109 (122) 95 05/19/20 18:51 108 23 138/74 (95) 93 05/19/20 18:30 99 21 161/74 (103) 80 05/19/20 18:15 108 24 171/68 (102) 82 05/19/20 18:00 81 146/89 05/19/20 18:00 96 19 150/54 (86) 97 05/19/20 17:45 97 21 160/75 (103) 98 05/19/20 17:30 96 21 161/80 (107) 97 05/19/20 17:15 97 25 142/68 (92) 74 05/19/20 17:12 96 21 171/66 (101) 73 05/19/20 17:00 89 18 151/71 (97) 81 05/19/20 17:00 100 23 151/71 (97) 82 05/19/20 16:45 99 18 133/79 (97) 77 05/19/20 16:30 98 19 149/65 (93) 81 05/19/20 16:08 96 20 130/66 (87) 96 2/16/21 16:00 12.0 50 05/19/20 16:00 Bi-pap 60.0 05/19/20 16:00 100 05/19/20 16:00 97 18 95 05/19/20 16:00 89 18 151/71 (97) 81 05/19/20 15:00 84 17 137/95 (109) 93 05/19/20 14:00 84 18 111/56 (74) 93 05/19/20 13:00 97.5 91 106/50 (68) 89 05/19/20 12:32 93 92/48 (63) 93 05/19/20 12:15 97 95/50 (65) 93 05/19/20 12:00 Bi-pap 60.0 05/19/20 12:00 12.0 50 05/19/20 12:00 98 05/19/20 12:00 89 97/47 (64) 94 05/19/20 12:00 89 167/81 05/19/20 12:00 87 102/52 (69) 95 05/19/20 11:45 95/51 (66) 96 05/19/20 11:30 90 105/53 (70) 94 05/19/20 11:15 87 102/52 (69) 95 05/19/20 11:15 87 102/52 (69) 95 05/19/20 11:00 95 104/62 (76) 85 05/19/20 11:00 87 18 130/59 (82) 96 05/19/20 11:00 95 104/62 (76) 85 05/19/20 10:45 90 13 107/56 (73) 96 05/19/20 10:30 87 19 113/57 (75) 97 05/19/20 10:15 87 20 114/60 (78) 96 05/19/20 10:00 87 18 130/59 (82) 96 05/19/20 10:00 87 18 130/59 (82) 96 05/19/20 09:45 89 20 123/62 (82) 93 05/19/20 09:30 88 21 100/49 (66) 90 05/19/20 09:30 88 21 100/49 (66) 90 05/19/20 09:15 85 18 109/53 (71) 94 05/19/20 09:15 85 18 109/53 (71) 94 05/19/20 09:00 85 20 107/50 (69) 82 05/19/20 09:00 85 20 107/50 (69) 82 05/19/20 09:00 85 20 82 05/19/20 08:45 83 20 106/59 (75) 93 05/19/20 08:45 83 20 106/59 (75) 93 05/19/20 08:30 82 19 110/54 (72) 94 05/19/20 08:30 82 19 110/54 (72) 94 05/19/20 08:15 84 19 100/53 (69) 94 05/19/20 08:15 84 19 100/53 (69) 94 05/19/20 08:00 84 18 116/58 (77) 95 05/19/20 08:00 84 18 116/58 (77) 95 05/19/20 08:00 84 18 116/58 (77) 95 05/19/20 08:00 12.0 50 05/19/20 08:00 87 05/19/20 08:00 Bi-pap 60.0 05/19/20 07:56 95 Venturi Mask 12.0 50 05/19/20 07:45 81 19 113/55 (74) 92 05/19/20 07:45 81 19 113/55 (74) 92 05/19/20 07:45 81 19 113/55 (74) 92 05/19/20 07:30 82 20 109/59 (76) 88 05/19/20 07:30 82 20 109/59 (76) 88 05/19/20 07:30 82 20 109/59 (76) 88 05/19/20 07:15 80 18 114/58 (76) 95 05/19/20 07:15 80 18 114/58 (76) 95 05/19/20 07:15 80 18 114/58 (76) 95 05/19/20 07:00 81 19 114/52 (72) 91 05/19/20 07:00 81 19 114/52 (72) 91 05/19/20 07:00 81 19 114/52 (72) 91 05/19/20 07:00 81 19 91 05/19/20 06:45 85 17 110/60 (77) 94 05/19/20 06:30 83 20 109/53 (71) 96 05/19/20 06:15 88 23 108/62 (77) 93 05/19/20 06:00 88 21 112/61 (78) 95 05/19/20 06:00 88 21 112/61 (78) 95 05/19/20 05:46 90 126/74 05/19/20 05:00 84 18 97/48 (64) 93 05/19/20 04:00 87 05/19/20 04:00 14.0 55 05/19/20 04:00 Bi-pap 60.0 05/19/20 04:00 98.3 87 18 111/79 (90) 95 05/19/20 03:00 84 18 99/53 (68) 92 05/19/20 02:00 82 16 98/53 (68) 95 05/19/20 01:00 83 18 99/54 (69) 93 05/19/20 00:00 98.0 90 17 110/55 (73) 95 05/19/20 00:00 96 05/19/20 00:00 14.0 55 05/19/20 00:00 Bi-pap 60.0 05/18/20 23:48 89 102/65 05/18/20 23:00 91 20 104/54 (71) 93 05/18/20 22:00 83 19 105/58 (74) 93 05/18/20 21:00 87 20 120/63 (82) 95 05/18/20 20:12 95 Venturi Mask 14.0 55 05/18/20 20:00 14.0 55 05/18/20 20:00 Bi-pap 60.0 05/18/20 20:00 98.6 90 18 115/60 (78) 95 05/18/20 20:00 92 05/18/20 19:00 91 20 107/59 (75) 93 05/18/20 18:00 85 17 104/50 (68) 94 05/18/20 18:00 89 101/66 05/18/20 17:45 84 19 91/53 (66) 89 05/18/20 17:30 84 18 109/54 (72) 93 05/18/20 17:15 87 19 109/54 (72) 87 05/18/20 17:00 84 19 110/54 (72) 90 05/18/20 16:45 84 21 100/47 (64) 84 05/18/20 16:30 86 21 99/50 (66) 86 05/18/20 16:30 86 21 99/50 (66) 86 05/18/20 16:15 84 18 86/58 (67) 91 05/18/20 16:15 84 18 86/58 (67) 91 05/18/20 16:00 Bi-pap 60.0 05/18/20 16:00 14.0 55 05/18/20 16:00 85 19 100/49 (66) 92 05/18/20 16:00 85 19 100/49 (66) 92 05/18/20 16:00 96 05/18/20 15:45 92 18 111/50 (70) 92 05/18/20 15:45 92 18 111/50 (70) 92 05/18/20 15:30 86 19 99/53 (68) 91 05/18/20 15:30 86 19 99/53 (68) 91 05/18/20 15:15 91 20 95/50 (65) 90 05/18/20 15:15 91 20 95/50 (65) 90 05/18/20 15:00 91 19 101/54 (70) 91 05/18/20 15:00 91 19 101/54 (70) 91 05/18/20 14:45 94 20 104/51 (68) 92 05/18/20 14:35 89 103/48 05/18/20 14:30 91 17 103/48 (66) 93 05/18/20 14:15 88 17 116/60 (78) 94 05/18/20 14:00 89 18 99/55 (70) 92 05/18/20 13:45 94 21 96/51 (66) 93 05/18/20 13:30 96 22 101/43 (62) 93 05/18/20 13:15 90 15 88/47 (61) 92 05/18/20 13:14 91 18 96/49 (65) 93 05/18/20 13:02 93 Venturi Mask 12.0 50 05/18/20 13:02 94 20 93 12.0 50 05/18/20 13:00 92 19 86/51 (63) 92 05/18/20 12:45 97 20 101/44 (63) 93 05/18/20 12:30 93 19 99/49 (66) 92 05/18/20 12:15 95 20 110/50 (70) 92 05/18/20 12:15 95 20 110/50 (70) 92 05/18/20 12:00 95 19 117/53 (74) 91 05/18/20 12:00 96 05/18/20 12:00 Bi-pap 60.0 05/18/20 12:00 14.0 55 05/18/20 12:00 95 19 117/53 (74) 91 05/18/20 11:45 96 21 133/66 (88) 94 05/18/20 11:30 95 21 137/66 (89) 95 05/18/20 11:15 96 20 127/64 (85) 94 05/18/20 11:00 97 24 133/107 (116) 95 05/18/20 10:45 96 18 136/65 (88) 95 05/18/20 10:30 96 19 133/59 (83) 94 05/18/20 10:15 97 19 139/62 (87) 93 05/18/20 10:00 97 18 127/64 (85) 93 05/18/20 10:00 97 18 127/64 (85) 93 05/18/20 09:45 98 18 151/65 (93) 95 05/18/20 09:30 96 22 147/65 (92) 94 05/18/20 09:15 96 17 132/66 (88) 94 05/18/20 09:00 92 18 135/69 (91) 94 05/18/20 08:45 94 18 134/70 (91) 94 05/18/20 08:30 93 18 130/70 (90) 95 05/18/20 08:15 93 18 151/60 (90) 95 05/18/20 08:15 93 18 151/60 (90) 95 05/18/20 08:00 96 05/18/20 08:00 91 20 125/67 (86) 96 05/18/20 08:00 Bi-pap 60.0 05/18/20 08:00 91 20 125/67 (86) 96 05/18/20 08:00 14.0 05/18/20 07:45 89 19 144/66 (92) 96 05/18/20 07:30 88 20 137/71 (93) 96 05/18/20 07:20 96 Venturi Mask 14.0 55 05/18/20 07:20 94 20 96 14.0 55 05/18/20 07:15 86 20 118/62 (80) 96 05/18/20 07:00 89 18 103/59 (74) 94 05/18/20 07:00 89 18 103/59 (74) 94 Intake and Output 05/19/20 05/20/20 19:00 07:00 Intake Total 355 ml Output Total 690 ml 520 ml Balance -690 ml -165 ml Intake Oral 240 ml IV Total 115 ml Output Urine Total 690 ml 520 ml # Bowel Movements 1 Labs Test 05/17/20 08:01 05/18/20 06:00 05/18/20 09:32 05/19/20 03:40 Arterial Blood pH 7.280 (7.350-7.450) 7.327 (7.350-7.450) Arterial Blood Partial Pressure CO2 46.6 mmHg (35.0-45.0) 52.0 mmHg (35.0-45.0) Arterial Blood Partial Pressure O2 67.6 mmHg (75.0-100.0) 68.7 mmHg (75.0-100.0) Arterial Blood HCO3 21.4 mmol/L (22.0-26.0) 26.6 mmol/L (22.0-26.0) Arterial Blood Oxygen Saturation 91.4 % (95-100) 92.4 % (95-100) Arterial Blood Base Excess -5.1 (-2-2) 0.3 (-2-2) Dany Test Positive Positive White Blood Count 9.4 K/UL (4.8-10.8) 7.4 K/UL (4.8-10.8) Red Blood Count 2.89 M/UL (4.70-6.10) 2.92 M/UL (4.70-6.10) Hemoglobin 7.8 G/DL (14.2-18.0) 7.9 G/DL (14.2-18.0) Hematocrit 26.1 % (42.0-52.0) 27.0 % (42.0-52.0) Mean Corpuscular Volume 90 FL (80-99) 92 FL (80-99) Mean Corpuscular Hemoglobin 26.9 PG (27.0-31.0) 27.2 PG (27.0-31.0) Mean Corpuscular Hemoglobin Concent 29.7 G/DL (32.0-36.0) 29.4 G/DL (32.0-36.0) Red Cell Distribution Width 16.5 % (11.6-14.8) 16.5 % (11.6-14.8) Platelet Count 180 K/UL (150-450) 147 K/UL (150-450) Mean Platelet Volume 7.9 FL (6.5-10.1) 8.4 FL (6.5-10.1) Neutrophils (%) (Auto) % (45.0-75.0) % (45.0-75.0) Lymphocytes (%) (Auto) % (20.0-45.0) % (20.0-45.0) Monocytes (%) (Auto) % (1.0-10.0) % (1.0-10.0) Eosinophils (%) (Auto) % (0.0-3.0) % (0.0-3.0) Basophils (%) (Auto) % (0.0-2.0) % (0.0-2.0) Differential Total Cells Counted 100 100 Neutrophils % (Manual) 77 % (45-75) 78 % (45-75) Lymphocytes % (Manual) 16 % (20-45) 16 % (20-45) Monocytes % (Manual) 7 % (1-10) 5 % (1-10) Eosinophils % (Manual) 0 % (0-3) 1 % (0-3) Basophils % (Manual) 0 % (0-2) 0 % (0-2) Band Neutrophils 0 % (0-8) 0 % (0-8) Platelet Estimate Adequate Decreased Platelet Morphology Normal Normal Polychromasia 1+ Hypochromasia 2+ 1+ Anisocytosis 1+ 1+ Target Cells Occasional Sodium Level 143 MMOL/L (136-145) 141 MMOL/L (136-145) Potassium Level 4.9 MMOL/L (3.5-5.1) 4.5 MMOL/L (3.5-5.1) Chloride Level 110 MMOL/L (98-107) 108 MMOL/L (98-107) Carbon Dioxide Level 24 MMOL/L (21-32) 28 MMOL/L (21-32) Anion Gap 9 mmol/L (5-15) 5 mmol/L (5-15) Blood Urea Nitrogen 84 mg/dL (7-18) 66 mg/dL (7-18) Creatinine 7.6 MG/DL (0.55-1.30) 6.5 MG/DL (0.55-1.30) Estimat Glomerular Filtration Rate 9.0 mL/min (>60) 10.8 mL/min (>60) Glucose Level 158 MG/DL (74-106) 143 MG/DL (74-106) Uric Acid 5.9 MG/DL (2.6-7.2) 4.9 MG/DL (2.6-7.2) Calcium Level 7.1 MG/DL (8.5-10.1) 7.4 MG/DL (8.5-10.1) Phosphorus Level 6.0 MG/DL (2.5-4.9) 5.8 MG/DL (2.5-4.9) Magnesium Level 1.8 MG/DL (1.8-2.4) 1.7 MG/DL (1.8-2.4) Total Bilirubin 0.5 MG/DL (0.2-1.0) 0.5 MG/DL (0.2-1.0) Aspartate Amino Transf (AST/SGOT) 21 U/L (15-37) 31 U/L (15-37) Alanine Aminotransferase (ALT/SGPT) 25 U/L (12-78) 20 U/L (12-78) Alkaline Phosphatase 75 U/L (46-116) 76 U/L (46-116) Ammonia 40 umol/L (11-32) Total Creatine Kinase 227 U/L (26-308) 755 U/L (26-308) Troponin I 0.094 ng/mL (0.000-0.056) C-Reactive Protein, Quantitative 7.2 mg/dL (0.00-0.90) 8.3 mg/dL (0.00-0.90) Pro-B-Type Natriuretic Peptide 60096 pg/mL (0-125) 55214 pg/mL (0-125) Total Protein 6.9 G/DL (6.4-8.2) 6.9 G/DL (6.4-8.2) Albumin 2.2 G/DL (3.4-5.0) 2.1 G/DL (3.4-5.0) Globulin 4.7 g/dL 4.8 g/dL Albumin/Globulin Ratio 0.5 (1.0-2.7) 0.4 (1.0-2.7) Digoxin Level 1.5 NG/ML (0.5-2.0) Test 05/20/20 04:50 White Blood Count 6.3 K/UL (4.8-10.8) Red Blood Count 2.95 M/UL (4.70-6.10) Hemoglobin 8.0 G/DL (14.2-18.0) Hematocrit 27.1 % (42.0-52.0) Mean Corpuscular Volume 92 FL (80-99) Mean Corpuscular Hemoglobin 27.2 PG (27.0-31.0) Mean Corpuscular Hemoglobin Concent 29.6 G/DL (32.0-36.0) Red Cell Distribution Width 16.7 % (11.6-14.8) Platelet Count 130 K/UL (150-450) Mean Platelet Volume 8.0 FL (6.5-10.1) Neutrophils (%) (Auto) 76.2 % (45.0-75.0) Lymphocytes (%) (Auto) 11.9 % (20.0-45.0) Monocytes (%) (Auto) 9.5 % (1.0-10.0) Eosinophils (%) (Auto) 0.7 % (0.0-3.0) Basophils (%) (Auto) 1.8 % (0.0-2.0) Prothrombin Time 12.3 SEC (9.30-11.50) Prothromb Time International Ratio 1.1 (0.9-1.1) Activated Partial Thromboplast Time 34 SEC (23-33) Sodium Level 143 MMOL/L (136-145) Potassium Level 4.7 MMOL/L (3.5-5.1) Chloride Level 109 MMOL/L (98-107) Carbon Dioxide Level 27 MMOL/L (21-32) Anion Gap 7 mmol/L (5-15) Blood Urea Nitrogen 69 mg/dL (7-18) Creatinine 7.3 MG/DL (0.55-1.30) Estimat Glomerular Filtration Rate 9.3 mL/min (>60) Glucose Level 115 MG/DL (74-106) Uric Acid 5.2 MG/DL (2.6-7.2) Calcium Level 7.5 MG/DL (8.5-10.1) Phosphorus Level 6.0 MG/DL (2.5-4.9) Magnesium Level 1.8 MG/DL (1.8-2.4) Total Bilirubin 0.6 MG/DL (0.2-1.0) Aspartate Amino Transf (AST/SGOT) 43 U/L (15-37) Alanine Aminotransferase (ALT/SGPT) 23 U/L (12-78) Alkaline Phosphatase 74 U/L (46-116) C-Reactive Protein, Quantitative 9.7 mg/dL (0.00-0.90) Pro-B-Type Natriuretic Peptide 24422 pg/mL (0-125) Total Protein 6.8 G/DL (6.4-8.2) Albumin 1.9 G/DL (3.4-5.0) Globulin 4.9 g/dL Albumin/Globulin Ratio 0.4 (1.0-2.7) Digoxin Level 1.4 NG/ML (0.5-2.0) Height (Feet): 5 Height (Inches): 11.00 Weight (Pounds): 415 Objective Physical Exam General: Somnolent, falling asleep during exam. alert HEENT: NC/AT. EOMI. Cardiovascular: RRR. S1 and S2 normal. No murmur appreciated Resp: 4 L nasal cannula. Breath sounds are distant but present bilaterally. Abdomen: Abdomen is morbidly obese. Skin: Intact. Venous stasis changes lower extremities MSK: Normal tone and bulk. Moving all extremities. No obvious deformity. Neuro: Somnolent. Confused. Moving all extremities. Mio Ashton MD May 20, 2020 06:47
[2020-05-20 08:00] VITALS: BP 116/63
[2020-05-20] MEDS: Enoxaparin 30mg Inj SUBQ SCH (09:00)
[2020-05-20] MEDS: Docusate 100mg cap ORAL SCH ×4 (09:00→18:15)
--- NOTE | 2020-05-20 10:19 | Cardiac Electrophysiology PN ---
Assessment/Plan Assessment/Plan 1. Elevated troponin due to renal failure and respiratory failure His echocardiogram showed ejection fraction of 60%. His EKG showed atrial fibrillation with rapid ventricular response and nonspecific ST-T wave abnormalities. 2. Atrial fibrillation with rapid ventricular response with heart rate in 130s. Tapered off Cardizem drip and on Cardizem 90 po q 6 hr Already got iv Dig and level was 1.5 yesterday Add Dig 0.125 po MWF 3. Respiratory failure, currently off BiPAP on VM 4. Hyperkalemia due to renal failure. Potassium is now 4.2. On dialysis by Dr. Gautam. 5. Morbid obesity. 6. Diabetes. 7. S/P left-sided [facility] Zhang pacemaker. Interrogated and showed Nl fx but frequent atrial fib with RVR 8. Anemia, S/P PRBC 05/19 DW RN, Dr Gautam and pharmacist Subjective Subjective Transferred out of ICU as atrial fib rate is better on Cardizem 90 po q 6hr Still Hypoxic on 12 liter VM 50% Objective Last 24 Hour Vital Signs Date Time Temp Pulse Resp B/P (MAP) Pulse Ox O2 Delivery O2 Flow Rate FiO2 05/20/20 08:00 12.0 50 05/20/20 08:00 98.2 83 23 116/63 (80) 89 05/20/20 08:00 Bi-pap 60.0 05/20/20 08:00 89 05/20/20 06:09 89 124/54 05/20/20 04:00 89 05/20/20 04:00 99.4 89 32 158/78 (104) 92 05/20/20 04:00 Bi-pap 60.0 05/20/20 04:00 12.0 50 05/20/20 00:00 Bi-pap 60.0 05/20/20 00:00 98.6 85 32 137/57 (83) 90 05/19/20 23:15 91 136/60 05/19/20 23:00 93 15 136/60 (85) 94 05/19/20 22:00 96 21 137/71 (93) 87 05/19/20 21:00 97 20 149/68 (95) 97 05/19/20 20:00 Bi-pap 60.0 05/19/20 20:00 12.0 50 05/19/20 20:00 97.9 97 20 141/71 (94) 97 05/19/20 20:00 98 05/19/20 19:25 96 Venturi Mask 12.0 50 05/19/20 19:15 100 20 158/67 (97) 98 05/19/20 19:12 105 21 152/76 (101) 97 05/19/20 19:00 105 22 93 05/19/20 18:55 105 21 149/109 (122) 95 05/19/20 18:51 108 23 138/74 (95) 93 05/19/20 18:30 99 21 161/74 (103) 80 05/19/20 18:15 108 24 171/68 (102) 82 05/19/20 18:00 81 146/89 05/19/20 18:00 96 19 150/54 (86) 97 05/19/20 17:45 97 21 160/75 (103) 98 05/19/20 17:30 96 21 161/80 (107) 97 05/19/20 17:15 97 25 142/68 (92) 74 05/19/20 17:12 96 21 171/66 (101) 73 05/19/20 17:00 89 18 151/71 (97) 81 05/19/20 17:00 100 23 151/71 (97) 82 05/19/20 16:45 99 18 133/79 (97) 77 05/19/20 16:30 98 19 149/65 (93) 81 05/19/20 16:08 96 20 130/66 (87) 96 05/19/20 16:00 12.0 50 05/19/20 16:00 Bi-pap 60.0 05/19/20 16:00 100 05/19/20 16:00 97 18 95 05/19/20 16:00 89 18 151/71 (97) 81 05/19/20 15:00 84 17 137/95 (109) 93 05/19/20 14:00 84 18 111/56 (74) 93 05/19/20 13:00 97.5 91 106/50 (68) 89 05/19/20 12:32 93 92/48 (63) 93 05/19/20 12:15 97 95/50 (65) 93 05/19/20 12:00 Bi-pap 60.0 05/19/20 12:00 12.0 50 05/19/20 12:00 98 05/19/20 12:00 89 97/47 (64) 94 05/19/20 12:00 89 167/81 05/19/20 12:00 87 102/52 (69) 95 05/19/20 11:45 95/51 (66) 96 05/19/20 11:30 90 105/53 (70) 94 05/19/20 11:15 87 102/52 (69) 95 05/19/20 11:15 87 102/52 (69) 95 05/19/20 11:00 95 104/62 (76) 85 05/19/20 11:00 87 18 130/59 (82) 96 05/19/20 11:00 95 104/62 (76) 85 05/19/20 10:45 90 13 107/56 (73) 96 05/19/20 10:30 87 19 113/57 (75) 97 05/19/20 10:15 87 20 114/60 (78) 96 Intake and Output 05/19/20 05/20/20 19:00 07:00 Intake Total 355 ml Output Total 690 ml 520 ml Balance -690 ml -165 ml Intake Oral 240 ml IV Total 115 ml Output Urine Total 690 ml 520 ml # Bowel Movements 1 Laboratory Tests Test 05/20/20 04:50 White Blood Count 6.3 K/UL (4.8-10.8) Red Blood Count 2.95 M/UL (4.70-6.10) L Hemoglobin 8.0 G/DL (14.2-18.0) L Hematocrit 27.1 % (42.0-52.0) L Mean Corpuscular Volume 92 FL (80-99) Mean Corpuscular Hemoglobin 27.2 PG (27.0-31.0) Mean Corpuscular Hemoglobin Concent 29.6 G/DL (32.0-36.0) L Red Cell Distribution Width 16.7 % (11.6-14.8) H Platelet Count 130 K/UL (150-450) L Mean Platelet Volume 8.0 FL (6.5-10.1) Neutrophils (%) (Auto) 76.2 % (45.0-75.0) H Lymphocytes (%) (Auto) 11.9 % (20.0-45.0) L Monocytes (%) (Auto) 9.5 % (1.0-10.0) Eosinophils (%) (Auto) 0.7 % (0.0-3.0) Basophils (%) (Auto) 1.8 % (0.0-2.0) Prothrombin Time 12.3 SEC (9.30-11.50) H Prothromb Time International Ratio 1.1 (0.9-1.1) Activated Partial Thromboplast Time 34 SEC (23-33) H Sodium Level 143 MMOL/L (136-145) Potassium Level 4.7 MMOL/L (3.5-5.1) Chloride Level 109 MMOL/L (98-107) H Carbon Dioxide Level 27 MMOL/L (21-32) Anion Gap 7 mmol/L (5-15) Blood Urea Nitrogen 69 mg/dL (7-18) H Creatinine 7.3 MG/DL (0.55-1.30) H Estimat Glomerular Filtration Rate 9.3 mL/min (>60) Glucose Level 115 MG/DL (74-106) H Uric Acid 5.2 MG/DL (2.6-7.2) Calcium Level 7.5 MG/DL (8.5-10.1) L Phosphorus Level 6.0 MG/DL (2.5-4.9) H Magnesium Level 1.8 MG/DL (1.8-2.4) Total Bilirubin 0.6 MG/DL (0.2-1.0) Aspartate Amino Transf (AST/SGOT) 43 U/L (15-37) H Alanine Aminotransferase (ALT/SGPT) 23 U/L (12-78) Alkaline Phosphatase 74 U/L (46-116) C-Reactive Protein, Quantitative 9.7 mg/dL (0.00-0.90) H Pro-B-Type Natriuretic Peptide 62247 pg/mL (0-125) H Total Protein 6.8 G/DL (6.4-8.2) Albumin 1.9 G/DL (3.4-5.0) L Globulin 4.9 g/dL Albumin/Globulin Ratio 0.4 (1.0-2.7) L Digoxin Level 1.4 NG/ML (0.5-2.0) Objective HEAD AND NECK: Positive JVD. On [employer] LUNGS: Decreased breath sounds. CARDIOVASCULAR: irregularly irregular S1 and S2 ABDOMEN: Soft and morbidly obese. EXTREMITIES: 2+ pitting edema. Shai Champion MD May 20, 2020 10:19
--- NOTE | 2020-05-20 10:47 | Infectious Diseases Prog Note ---
Assessment/Plan Assessment/Plan A; 1. Possible pneumonia. 2. Hypertension. 3. Diabetes. 4. Congestive heart failure. 5. Morbid Obesity. 6. Respiratory failure, off of BIPAP 7. Acute renal failure 8. Anemia 9. Atrial fibrillation PLAN: 1. continue cefepime. 2. We will follow up cultures and adjust antibiotics accordingly. 3. Negative COVID-19 test. Subjective ROS Limited/Unobtainable: Yes Allergies: Coded Allergies: [place] (Verified Allergy, Mild, Rash, 10/29/14) per patient PENICILLINS (Unverified Allergy, Unknown, 11/28/13) Objective Last 24 Hour Vital Signs Date Time Temp Pulse Resp B/P (MAP) Pulse Ox O2 Delivery O2 Flow Rate FiO2 05/20/20 08:00 12.0 50 05/20/20 08:00 98.2 83 23 116/63 (80) 89 05/20/20 08:00 Bi-pap 60.0 05/20/20 08:00 89 05/20/20 06:09 89 124/54 05/20/20 04:00 89 05/20/20 04:00 99.4 89 32 158/78 (104) 92 05/20/20 04:00 Bi-pap 60.0 05/20/20 04:00 12.0 50 05/20/20 00:00 Bi-pap 60.0 05/20/20 00:00 98.6 85 32 137/57 (83) 90 05/19/20 23:15 91 136/60 05/19/20 23:00 93 15 136/60 (85) 94 05/19/20 22:00 96 21 137/71 (93) 87 05/19/20 21:00 97 20 149/68 (95) 97 05/19/20 20:00 Bi-pap 60.0 05/19/20 20:00 12.0 50 05/19/20 20:00 97.9 97 20 141/71 (94) 97 05/19/20 20:00 98 05/19/20 19:25 96 Venturi Mask 12.0 50 05/19/20 19:15 100 20 158/67 (97) 98 05/19/20 19:12 105 21 152/76 (101) 97 05/19/20 19:00 105 22 93 05/19/20 18:55 105 21 149/109 (122) 95 05/19/20 18:51 108 23 138/74 (95) 93 05/19/20 18:30 99 21 161/74 (103) 80 05/19/20 18:15 108 24 171/68 (102) 82 05/19/20 18:00 81 146/89 05/19/20 18:00 96 19 150/54 (86) 97 05/19/20 17:45 97 21 160/75 (103) 98 05/19/20 17:30 96 21 161/80 (107) 97 05/19/20 17:15 97 25 142/68 (92) 74 05/19/20 17:12 96 21 171/66 (101) 73 05/19/20 17:00 89 18 151/71 (97) 81 05/19/20 17:00 100 23 151/71 (97) 82 05/19/20 16:45 99 18 133/79 (97) 77 05/19/20 16:30 98 19 149/65 (93) 81 05/19/20 16:08 96 20 130/66 (87) 96 05/19/20 16:00 12.0 50 05/19/20 16:00 Bi-pap 60.0 05/19/20 16:00 100 05/19/20 16:00 97 18 95 05/19/20 16:00 89 18 151/71 (97) 81 05/19/20 15:00 84 17 137/95 (109) 93 05/19/20 14:00 84 18 111/56 (74) 93 05/19/20 13:00 97.5 91 106/50 (68) 89 05/19/20 12:32 93 92/48 (63) 93 05/19/20 12:15 97 95/50 (65) 93 05/19/20 12:00 Bi-pap 60.0 05/19/20 12:00 12.0 50 05/19/20 12:00 98 05/19/20 12:00 89 97/47 (64) 94 05/19/20 12:00 89 167/81 05/19/20 12:00 87 102/52 (69) 95 05/19/20 11:45 95/51 (66) 96 05/19/20 11:30 90 105/53 (70) 94 05/19/20 11:15 87 102/52 (69) 95 05/19/20 11:15 87 102/52 (69) 95 05/19/20 11:00 95 104/62 (76) 85 05/19/20 11:00 87 18 130/59 (82) 96 05/19/20 11:00 95 104/62 (76) 85 Height (Feet): 5 Height (Inches): 11.00 Weight (Pounds): 415 HEENT: mucous membranes moist Respiratory/Chest: lungs clear, other - O2 by venturi mask Cardiovascular: normal rate Abdomen: soft, non tender Extremities: other - legs edema Neurologic/Psychiatric: other - sleeping Laboratory Tests Test 05/20/20 04:50 White Blood Count 6.3 K/UL (4.8-10.8) Red Blood Count 2.95 M/UL (4.70-6.10) L Hemoglobin 8.0 G/DL (14.2-18.0) L Hematocrit 27.1 % (42.0-52.0) L Mean Corpuscular Volume 92 FL (80-99) Mean Corpuscular Hemoglobin 27.2 PG (27.0-31.0) Mean Corpuscular Hemoglobin Concent 29.6 G/DL (32.0-36.0) L Red Cell Distribution Width 16.7 % (11.6-14.8) H Platelet Count 130 K/UL (150-450) L Mean Platelet Volume 8.0 FL (6.5-10.1) Neutrophils (%) (Auto) 76.2 % (45.0-75.0) H Lymphocytes (%) (Auto) 11.9 % (20.0-45.0) L Monocytes (%) (Auto) 9.5 % (1.0-10.0) Eosinophils (%) (Auto) 0.7 % (0.0-3.0) Basophils (%) (Auto) 1.8 % (0.0-2.0) Prothrombin Time 12.3 SEC (9.30-11.50) H Prothromb Time International Ratio 1.1 (0.9-1.1) Activated Partial Thromboplast Time 34 SEC (23-33) H Sodium Level 143 MMOL/L (136-145) Potassium Level 4.7 MMOL/L (3.5-5.1) Chloride Level 109 MMOL/L (98-107) H Carbon Dioxide Level 27 MMOL/L (21-32) Anion Gap 7 mmol/L (5-15) Blood Urea Nitrogen 69 mg/dL (7-18) H Creatinine 7.3 MG/DL (0.55-1.30) H Estimat Glomerular Filtration Rate 9.3 mL/min (>60) Glucose Level 115 MG/DL (74-106) H Uric Acid 5.2 MG/DL (2.6-7.2) Calcium Level 7.5 MG/DL (8.5-10.1) L Phosphorus Level 6.0 MG/DL (2.5-4.9) H Magnesium Level 1.8 MG/DL (1.8-2.4) Total Bilirubin 0.6 MG/DL (0.2-1.0) Aspartate Amino Transf (AST/SGOT) 43 U/L (15-37) H Alanine Aminotransferase (ALT/SGPT) 23 U/L (12-78) Alkaline Phosphatase 74 U/L (46-116) C-Reactive Protein, Quantitative 9.7 mg/dL (0.00-0.90) H Pro-B-Type Natriuretic Peptide 18924 pg/mL (0-125) H Total Protein 6.8 G/DL (6.4-8.2) Albumin 1.9 G/DL (3.4-5.0) L Globulin 4.9 g/dL Albumin/Globulin Ratio 0.4 (1.0-2.7) L Digoxin Level 1.4 NG/ML (0.5-2.0) Current Medications Medications (Trade) Dose Ordered Sig/Albert Route PRN Reason Start Time Stop Time Status Last Admin Dose Admin Cefepime HCl 500 mg/Dextrose 55 ml @ 110 mls/hr Q24H IV 05/19/20 13:00 05/26/20 12:59 05/19/20 21:21 Chlorhexidine Gluconate (Isamar-Hex 2%) 1 applic DAILY@2000 TOPIC 05/17/20 20:00 08/15/20 19:59 05/19/20 20:49 Dextrose (Dextrose 50%) 25 ml Q30M PRN IV Hypoglycemia 05/16/20 03:45 08/14/20 03:44 05/16/20 06:23 Dextrose (Dextrose 50%) 50 ml Q30M PRN IV Hypoglycemia 05/16/20 03:45 08/14/20 03:44 Digoxin (Lanoxin) 0.125 mg THREE TIMES A WEEK ORAL 05/20/20 11:00 08/18/20 10:59 Diltiazem HCl (Cardizem Tab) 90 mg EVERY 6 HOURS ORAL 05/18/20 18:00 06/17/20 17:59 05/20/20 06:09 Docusate Sodium (Colace) 100 mg THREE TIMES A DAY ORAL 05/19/20 13:00 06/18/20 12:59 05/19/20 18:00 Enoxaparin Sodium (Lovenox) 30 mg DAILY SUBQ 05/19/20 09:00 08/17/20 08:59 05/19/20 08:38 Epoetin Vivek (Epoetin Vivek(ESRD on dialysis)) 10,000 unit MON-MON-MON SUBQ 05/20/20 21:00 08/18/20 20:59 Folic Acid (Folate) 5 mg DAILY ORAL 05/17/20 14:00 06/16/20 13:59 05/19/20 08:37 Iron Sucrose 100 mg/Sodium Chloride 60 ml @ 240 mls/hr BEDTIME IVPB 05/19/20 21:00 05/23/20 21:14 05/19/20 20:49 Pantoprazole (Protonix) 40 mg EVERY 12 HOURS ORAL 05/19/20 21:00 06/18/20 20:59 05/19/20 20:49 Oswaldo Toro MD May 20, 2020 10:47
[2020-05-20] MEDS: Digoxin 0.125mg tab ORAL SCH (11:08)
[2020-05-20 12:00] VITALS: BP 104/59
--- NOTE | 2020-05-20 12:30 | Surgery Progress Note ---
Surgery Progress Note Subjective Procedure Performed Right femoral temporary hemodialysis catheter insertion Symptoms: improved, pain absent, tolerating diet, passing flatus, BM Objective Last 24 Hour Vital Signs Date Time Temp Pulse Resp B/P (MAP) Pulse Ox O2 Delivery O2 Flow Rate FiO2 05/20/20 11:08 89 05/20/20 11:00 89 116/63 05/20/20 08:00 12.0 50 05/20/20 08:00 98.2 83 23 116/63 (80) 89 05/20/20 08:00 Bi-pap 60.0 05/20/20 08:00 89 05/20/20 06:09 89 124/54 05/20/20 04:00 89 05/20/20 04:00 99.4 89 32 158/78 (104) 92 05/20/20 04:00 Bi-pap 60.0 05/20/20 04:00 12.0 50 05/20/20 00:00 Bi-pap 60.0 05/20/20 00:00 98.6 85 32 137/57 (83) 90 05/19/20 23:15 91 136/60 05/19/20 23:00 93 15 136/60 (85) 94 05/19/20 22:00 96 21 137/71 (93) 87 05/19/20 21:00 97 20 149/68 (95) 97 05/19/20 20:00 Bi-pap 60.0 05/19/20 20:00 12.0 50 05/19/20 20:00 97.9 97 20 141/71 (94) 97 05/19/20 20:00 98 05/19/20 19:25 96 Venturi Mask 12.0 50 05/19/20 19:15 100 20 158/67 (97) 98 05/19/20 19:12 105 21 152/76 (101) 97 05/19/20 19:00 105 22 93 05/19/20 18:55 105 21 149/109 (122) 95 05/19/20 18:51 108 23 138/74 (95) 93 05/19/20 18:30 99 21 161/74 (103) 80 05/19/20 18:15 108 24 171/68 (102) 82 05/19/20 18:00 81 146/89 05/19/20 18:00 96 19 150/54 (86) 97 05/19/20 17:45 97 21 160/75 (103) 98 05/19/20 17:30 96 21 161/80 (107) 97 05/19/20 17:15 97 25 142/68 (92) 74 05/19/20 17:12 96 21 171/66 (101) 73 05/19/20 17:00 89 18 151/71 (97) 81 05/19/20 17:00 100 23 151/71 (97) 82 05/19/20 16:45 99 18 133/79 (97) 77 05/19/20 16:30 98 19 149/65 (93) 81 05/19/20 16:08 96 20 130/66 (87) 96 05/19/20 16:00 12.0 50 05/19/20 16:00 Bi-pap 60.0 05/19/20 16:00 100 05/19/20 16:00 97 18 95 05/19/20 16:00 89 18 151/71 (97) 81 05/19/20 15:00 84 17 137/95 (109) 93 05/19/20 14:00 84 18 111/56 (74) 93 05/19/20 13:00 97.5 91 106/50 (68) 89 05/19/20 12:32 93 92/48 (63) 93 I&O Intake and Output 05/19/20 05/20/20 19:00 07:00 Intake Total 355 ml Output Total 690 ml 520 ml Balance -690 ml -165 ml Intake Oral 240 ml IV Total 115 ml Output Urine Total 690 ml 520 ml # Bowel Movements 1 Dressing: dry Wound: clean Cardiovascular: RSR Respiratory: clear Abdomen: soft, flat, non-tender, present bowel sounds, non-distended Extremities: edema, no tenderness, no cyanosis Laboratory Tests Test 05/20/20 04:50 White Blood Count 6.3 K/UL (4.8-10.8) Red Blood Count 2.95 M/UL (4.70-6.10) L Hemoglobin 8.0 G/DL (14.2-18.0) L Hematocrit 27.1 % (42.0-52.0) L Mean Corpuscular Volume 92 FL (80-99) Mean Corpuscular Hemoglobin 27.2 PG (27.0-31.0) Mean Corpuscular Hemoglobin Concent 29.6 G/DL (32.0-36.0) L Red Cell Distribution Width 16.7 % (11.6-14.8) H Platelet Count 130 K/UL (150-450) L Mean Platelet Volume 8.0 FL (6.5-10.1) Neutrophils (%) (Auto) 76.2 % (45.0-75.0) H Lymphocytes (%) (Auto) 11.9 % (20.0-45.0) L Monocytes (%) (Auto) 9.5 % (1.0-10.0) Eosinophils (%) (Auto) 0.7 % (0.0-3.0) Basophils (%) (Auto) 1.8 % (0.0-2.0) Prothrombin Time 12.3 SEC (9.30-11.50) H Prothromb Time International Ratio 1.1 (0.9-1.1) Activated Partial Thromboplast Time 34 SEC (23-33) H Sodium Level 143 MMOL/L (136-145) Potassium Level 4.7 MMOL/L (3.5-5.1) Chloride Level 109 MMOL/L (98-107) H Carbon Dioxide Level 27 MMOL/L (21-32) Anion Gap 7 mmol/L (5-15) Blood Urea Nitrogen 69 mg/dL (7-18) H Creatinine 7.3 MG/DL (0.55-1.30) H Estimat Glomerular Filtration Rate 9.3 mL/min (>60) Glucose Level 115 MG/DL (74-106) H Uric Acid 5.2 MG/DL (2.6-7.2) Calcium Level 7.5 MG/DL (8.5-10.1) L Phosphorus Level 6.0 MG/DL (2.5-4.9) H Magnesium Level 1.8 MG/DL (1.8-2.4) Total Bilirubin 0.6 MG/DL (0.2-1.0) Aspartate Amino Transf (AST/SGOT) 43 U/L (15-37) H Alanine Aminotransferase (ALT/SGPT) 23 U/L (12-78) Alkaline Phosphatase 74 U/L (46-116) C-Reactive Protein, Quantitative 9.7 mg/dL (0.00-0.90) H Pro-B-Type Natriuretic Peptide 74476 pg/mL (0-125) H Total Protein 6.8 G/DL (6.4-8.2) Albumin 1.9 G/DL (3.4-5.0) L Globulin 4.9 g/dL Albumin/Globulin Ratio 0.4 (1.0-2.7) L Digoxin Level 1.4 NG/ML (0.5-2.0) Plan Problems: (1) Morbid obesity (2) Pacemaker (3) 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 Temporary use. Line functional. Recent dialysis noted. 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 His abdominal distention is his baseline large pannus. Skin folds and abnormalities in pannus identified from chronic distention. His KUB noted bowel gas pattern unremarkable. NG tube has been her removed since. No nausea vomiting fever chills. Labs noted. Improving with dialysis. Hyperkalemia improved. Mentation improved. Abdominal exam is fairly benign and consistent with what would be anticipated with the patient with a BMI of 57 with chronic condition. No acute abdominal source or etiology identified. Hypotension likely relative to patient's treatment renal and will monitor with dialysis. Okay for diet once stabilized but currently keep n.p.o. given his high BiPAP requirement. Thank you for letting participate patient's care will follow with recommendations diet as tolerated Abhay Mccray May 20, 2020 12:30
[2020-05-20] MEDS ORDERED: Heparin1,000 units/500ml Premix(Conc:2 units/ml) INJ PRN (13:15)
[2020-05-20] MEDS ORDERED: Lidocaine 2% 20mg/ml/Epi 0.005mg/ml 20ml vial INJ PRN (13:15)
--- NOTE | 2020-05-20 13:38 | General Progress Note ---
Subjective ROS Limited/Unobtainable: Yes Allergies: Coded Allergies: [place] (Verified Allergy, Mild, Rash, 10/29/14) per patient PENICILLINS (Unverified Allergy, Unknown, 11/28/13) Objective Last 24 Hour Vital Signs Date Time Temp Pulse Resp B/P (MAP) Pulse Ox O2 Delivery O2 Flow Rate FiO2 05/20/20 12:00 98.1 87 24 104/59 (74) 93 05/20/20 11:51 95 05/20/20 11:08 89 05/20/20 11:00 89 116/63 05/20/20 08:00 12.0 50 05/20/20 08:00 98.2 83 23 116/63 (80) 89 05/20/20 08:00 Bi-pap 60.0 05/20/20 08:00 89 05/20/20 06:09 89 124/54 05/20/20 04:00 89 05/20/20 04:00 99.4 89 32 158/78 (104) 92 05/20/20 04:00 Bi-pap 60.0 05/20/20 04:00 12.0 50 05/20/20 00:00 Bi-pap 60.0 05/20/20 00:00 98.6 85 32 137/57 (83) 90 05/19/20 23:15 91 136/60 05/19/20 23:00 93 15 136/60 (85) 94 05/19/20 22:00 96 21 137/71 (93) 87 05/19/20 21:00 97 20 149/68 (95) 97 05/19/20 20:00 Bi-pap 60.0 05/19/20 20:00 12.0 50 05/19/20 20:00 97.9 97 20 141/71 (94) 97 05/19/20 20:00 98 05/19/20 19:25 96 Venturi Mask 12.0 50 05/19/20 19:15 100 20 158/67 (97) 98 05/19/20 19:12 105 21 152/76 (101) 97 05/19/20 19:00 105 22 93 05/19/20 18:55 105 21 149/109 (122) 95 05/19/20 18:51 108 23 138/74 (95) 93 05/19/20 18:30 99 21 161/74 (103) 80 05/19/20 18:15 108 24 171/68 (102) 82 05/19/20 18:00 81 146/89 05/19/20 18:00 96 19 150/54 (86) 97 05/19/20 17:45 97 21 160/75 (103) 98 05/19/20 17:30 96 21 161/80 (107) 97 05/19/20 17:15 97 25 142/68 (92) 74 05/19/20 17:12 96 21 171/66 (101) 73 05/19/20 17:00 89 18 151/71 (97) 81 05/19/20 17:00 100 23 151/71 (97) 82 05/19/20 16:45 99 18 133/79 (97) 77 05/19/20 16:30 98 19 149/65 (93) 81 05/19/20 16:08 96 20 130/66 (87) 96 05/19/20 16:00 12.0 50 05/19/20 16:00 Bi-pap 60.0 05/19/20 16:00 100 05/19/20 16:00 97 18 95 05/19/20 16:00 89 18 151/71 (97) 81 05/19/20 15:00 84 17 137/95 (109) 93 05/19/20 14:00 84 18 111/56 (74) 93 Intake and Output 05/19/20 05/20/20 19:00 07:00 Intake Total 355 ml Output Total 690 ml 520 ml Balance -690 ml -165 ml Intake Oral 240 ml IV Total 115 ml Output Urine Total 690 ml 520 ml # Bowel Movements 1 Laboratory Tests 05/20/20 04:50: White Blood Count 6.3, Red Blood Count 2.95L, Hemoglobin 8.0L, Hematocrit 27.1L, Mean Corpuscular Volume 92, Mean Corpuscular Hemoglobin 27.2, Mean Corpuscular Hemoglobin Concent 29.6L, Red Cell Distribution Width 16.7H, Platelet Count 130L , Mean Platelet Volume 8.0, Neutrophils (%) (Auto) 76.2H, Lymphocytes (%) (Auto) 11.9L, Monocytes (%) (Auto) 9.5, Eosinophils (%) (Auto) 0.7, Basophils (%) (Auto) 1.8, Prothrombin Time 12.3H, Prothromb Time International Ratio 1.1, Activated Partial Thromboplast Time 34H, Sodium Level 143, Potassium Level 4.7, Chloride Level 109H, Carbon Dioxide Level 27, Anion Gap 7, Blood Urea Nitrogen 69H, Creatinine 7.3H, Estimat Glomerular Filtration Rate 9.3, Glucose Level 115H , Uric Acid 5.2, Calcium Level 7.5L, Phosphorus Level 6.0H, Magnesium Level 1.8, Total Bilirubin 0.6, Aspartate Amino Transf (AST/SGOT) 43H, Alanine Aminotransferase (ALT/SGPT) 23, Alkaline Phosphatase 74, C-Reactive Protein, Quantitative 9.7H, Pro-B-Type Natriuretic Peptide 22060E, Total Protein 6.8, Albumin 1.9L, Globulin 4.9, Albumin/Globulin Ratio 0.4L, Digoxin Level 1.4 Height (Feet): 5 Height (Inches): 11.00 Weight (Pounds): 415 Assessment/Plan Problem List: (1) Hyperkalemia ICD Codes: E87.5 - Hyperkalemia SNOMED: 13755911 (2) Acidosis ICD Codes: E87.2 - Acidosis SNOMED: 61606588 (3) Hyperglycemia ICD Codes: R73.9 - Hyperglycemia, unspecified SNOMED: 97787771 (4) Acute kidney failure ICD Codes: N17.9 - Acute kidney failure, unspecified SNOMED: 39371325 (5) Sepsis ICD Codes: A41.9 - Sepsis SNOMED: 16591290 (6) UTI (urinary tract infection) ICD Codes: N39.0 - Urinary tract infection, site not specified SNOMED: 92087474 (7) Chronic systolic heart failure ICD Codes: I50.9 - Chronic systolic heart failure SNOMED: 245153305 (8) Morbid obesity ICD Codes: E66.01 - Morbid (severe) obesity due to excess calories SNOMED: 089693249 (9) Pacemaker ICD Codes: Z95.0 - Pacemaker SNOMED: 424428202 (10) DM circ dis type I, uncontrolled ICD Codes: E10.59 - DM circ dis type I, uncontrolled SNOMED: 45403070 (11) Atrial flutter ICD Codes: I48.92 - Atrial flutter SNOMED: 7518681 (12) Abdominal distention ICD Codes: R14.0 - Abdominal distension (gaseous) SNOMED: 44602837 (13) Renal failure (ARF), acute on chronic ICD Codes: N17.9 - Acute kidney failure, unspecified; N18.9 - Chronic kidney disease, unspecified SNOMED: 269841647 Assessment/Plan: a fib on bipap prn afebrile morbid obesity respiratory failure getting HD anemia of renal failure check lytes and h/h chf dm check lytes and sugar Montserrat Fan MD May 20, 2020 13:38
[2020-05-20] MEDS ORDERED: ceFAZolin 2gm/50ml Premix 50 ML IV ONE (14:00)
[2020-05-20] MEDS: Cefepime 500mg/D5W 55ml IV SCH ×2 (14:13)
--- NOTE | 2020-05-20 14:40 | Nephrology Progress Note ---
Assessment/Plan Problem List: (1) MICHEAL (acute kidney injury) (2) Renal failure (ARF), acute on chronic (3) Morbid obesity (4) Pacemaker (5) Hyperkalemia (6) Acidosis Assessment Acute on chronic renal failure Hyperkalemia Metabolic acidosis Pacemaker UTI Morbid obesity Plan May 20: Downgraded to stepdown. Due for dialysis today. Blood pressure somewhat low. Will decrease Cardizem dose. Continue to monitor renal parameters and dialyze as needed. Per orders. May 19: Seen in ICU. Awake alert responsive. Last dialyzed yesterday. Next dialysis tomorrow. Medication list reviewed. Hepatitis panel ordered. Patient requires long-term dialysis. Epogen added for anemia May 18: Patient seen in ICU. Currently on dialysis. Dialysis orders yesterday was not carried out apparently due to lack of personal. Patient clinically doing better. Breathing easier. Continue per consultants. Medication list reviewed. Off pressors. Continue to dialyze as needed. May 17: Patient seen in ICU. Full code. On BiPAP. Discussed with DANIEL Ponce. Labs reviewed. Renal parameters improved after patient was dialyzed yesterday. Patient off pressors. Will attempt dialysis again today for hyperkalemia. Continue per consultants. Oral folic acid ordered. Protonix IV ordered. Previously: Stat ABG, stat kidney ultrasound: Results noted IV bicarb NG tube, Kayexalate Urgent dialysis Discussed with DANIEL Oliva Patient cannot give consent for insertion of dialysis catheter. Dialysis at this point is a lifesaving procedure in my opinion. Subjective ROS Limited/Unobtainable: No Constitutional: Reports: malaise, weakness Objective Objective Last 24 Hour Vital Signs Date Time Temp Pulse Resp B/P (MAP) Pulse Ox O2 Delivery O2 Flow Rate FiO2 05/20/20 12:00 98.1 87 24 104/59 (74) 93 05/20/20 11:51 95 05/20/20 11:08 89 05/20/20 11:00 89 116/63 05/20/20 08:00 12.0 50 05/20/20 08:00 98.2 83 23 116/63 (80) 89 05/20/20 08:00 Bi-pap 60.0 05/20/20 08:00 89 05/20/20 06:09 89 124/54 05/20/20 04:00 89 05/20/20 04:00 99.4 89 32 158/78 (104) 92 05/20/20 04:00 Bi-pap 60.0 05/20/20 04:00 12.0 50 05/20/20 00:00 Bi-pap 60.0 05/20/20 00:00 98.6 85 32 137/57 (83) 90 05/19/20 23:15 91 136/60 05/19/20 23:00 93 15 136/60 (85) 94 05/19/20 22:00 96 21 137/71 (93) 87 05/19/20 21:00 97 20 149/68 (95) 97 05/19/20 20:00 Bi-pap 60.0 05/19/20 20:00 12.0 50 05/19/20 20:00 97.9 97 20 141/71 (94) 97 05/19/20 20:00 98 05/19/20 19:25 96 Venturi Mask 12.0 50 05/19/20 19:15 100 20 158/67 (97) 98 05/19/20 19:12 105 21 152/76 (101) 97 05/19/20 19:00 105 22 93 05/19/20 18:55 105 21 149/109 (122) 95 05/19/20 18:51 108 23 138/74 (95) 93 05/19/20 18:30 99 21 161/74 (103) 80 05/19/20 18:15 108 24 171/68 (102) 82 05/19/20 18:00 81 146/89 05/19/20 18:00 96 19 150/54 (86) 97 05/19/20 17:45 97 21 160/75 (103) 98 05/19/20 17:30 96 21 161/80 (107) 97 05/19/20 17:15 97 25 142/68 (92) 74 05/19/20 17:12 96 21 171/66 (101) 73 05/19/20 17:00 89 18 151/71 (97) 81 05/19/20 17:00 100 23 151/71 (97) 82 05/19/20 16:45 99 18 133/79 (97) 77 05/19/20 16:30 98 19 149/65 (93) 81 05/19/20 16:08 96 20 130/66 (87) 96 05/19/20 16:00 12.0 50 05/19/20 16:00 Bi-pap 60.0 05/19/20 16:00 100 05/19/20 16:00 97 18 95 05/19/20 16:00 89 18 151/71 (97) 81 05/19/20 15:00 84 17 137/95 (109) 93 Intake and Output 05/19/20 05/20/20 19:00 07:00 Intake Total 355 ml Output Total 690 ml 520 ml Balance -690 ml -165 ml Intake Oral 240 ml IV Total 115 ml Output Urine Total 690 ml 520 ml # Bowel Movements 1 Current Medications Medications (Trade) Dose Ordered Sig/Albert Route PRN Reason Start Time Stop Time Status Last Admin Dose Admin Albumin Human 50 ml @ 50 mls/hr ONCE PRN IV hypotension during HD 05/20/20 12:15 05/20/20 23:59 05/20/20 13:17 Albumin Human 200 ml @ 200 mls/hr ONCE PRN IV hypotension during HD 05/20/20 12:00 05/20/20 23:59 05/20/20 13:17 Cefepime HCl 500 mg/Dextrose 55 ml @ 110 mls/hr Q24H IV 05/19/20 13:00 05/26/20 12:59 05/20/20 14:13 Chlorhexidine Gluconate (Isamar-Hex 2%) 1 applic DAILY@2000 TOPIC 05/17/20 20:00 08/15/20 19:59 05/19/20 20:49 Dextrose (Dextrose 50%) 25 ml Q30M PRN IV Hypoglycemia 05/16/20 03:45 08/14/20 03:44 05/16/20 06:23 Dextrose (Dextrose 50%) 50 ml Q30M PRN IV Hypoglycemia 05/16/20 03:45 08/14/20 03:44 Digoxin (Lanoxin) 0.125 mg THREE TIMES A WEEK ORAL 05/20/20 11:00 08/18/20 10:59 05/20/20 11:08 Diltiazem HCl (Cardizem Tab) 90 mg EVERY 6 HOURS ORAL 05/18/20 18:00 06/17/20 17:59 05/20/20 11:00 Docusate Sodium (Colace) 100 mg THREE TIMES A DAY ORAL 05/19/20 13:00 06/18/20 12:59 05/20/20 09:00 Enoxaparin Sodium (Lovenox) 30 mg DAILY SUBQ 05/19/20 09:00 08/17/20 08:59 05/20/20 09:00 Epoetin Vivek (Epoetin Vivek(ESRD on dialysis)) 10,000 unit MON-MON-MON SUBQ 05/20/20 21:00 08/18/20 20:59 Folic Acid (Folate) 5 mg DAILY ORAL 05/17/20 14:00 06/16/20 13:59 05/20/20 09:00 Heparin Sodium/ Sodium Chloride (Heparin 1000 units/500ml Premix) 1,000 unit ONCE PRN INJ 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 05/20/20 13:15 05/22/20 13:14 Iron Sucrose 100 mg/Sodium Chloride 60 ml @ 240 mls/hr BEDTIME IVPB 05/19/20 21:00 05/23/20 21:14 05/19/20 20:49 Lidocaine/ Epinephrine (Lidocaine 2%/ Epi 20ml) 40 ml ONCE PRN INJ 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 05/20/20 13:15 05/22/20 23:59 Pantoprazole (Protonix) 40 mg EVERY 12 HOURS ORAL 05/19/20 21:00 06/18/20 20:59 05/20/20 09:00 Laboratory Tests 05/20/20 04:50: White Blood Count 6.3, Red Blood Count 2.95L, Hemoglobin 8.0L, Hematocrit 27.1L, Mean Corpuscular Volume 92, Mean Corpuscular Hemoglobin 27.2, Mean Corpuscular Hemoglobin Concent 29.6L, Red Cell Distribution Width 16.7H, Platelet Count 130L , Mean Platelet Volume 8.0, Neutrophils (%) (Auto) 76.2H, Lymphocytes (%) (Auto) 11.9L, Monocytes (%) (Auto) 9.5, Eosinophils (%) (Auto) 0.7, Basophils (%) (Auto) 1.8, Prothrombin Time 12.3H, Prothromb Time International Ratio 1.1, Activated Partial Thromboplast Time 34H, Sodium Level 143, Potassium Level 4.7, Chloride Level 109H, Carbon Dioxide Level 27, Anion Gap 7, Blood Urea Nitrogen 69H, Creatinine 7.3H, Estimat Glomerular Filtration Rate 9.3, Glucose Level 115H , Uric Acid 5.2, Calcium Level 7.5L, Phosphorus Level 6.0H, Magnesium Level 1.8, Total Bilirubin 0.6, Aspartate Amino Transf (AST/SGOT) 43H, Alanine Aminotransferase (ALT/SGPT) 23, Alkaline Phosphatase 74, C-Reactive Protein, Quantitative 9.7H, Pro-B-Type Natriuretic Peptide 30923M, Total Protein 6.8, Albumin 1.9L, Globulin 4.9, Albumin/Globulin Ratio 0.4L, Digoxin Level 1.4 Height (Feet): 5 Height (Inches): 11.00 Weight (Pounds): 415 General Appearance: no apparent distress Cardiovascular: tachycardia Respiratory/Chest: decreased breath sounds Abdomen: distended Adria Gautam MD May 20, 2020 14:40
--- NOTE | 2020-05-20 15:13 | Pulmonology Progress Note ---
Subjective ROS Limited/Unobtainable: No Interval Events: seen in SDU Constitutional: Reports: no symptoms HEENT: Repors: no symptoms Respiratory: Reports: shortness of breath Cardiovascular: Reports: no symptoms Gastrointestinal/Abdominal: Reports: no symptoms Allergies: Coded Allergies: [place] (Verified Allergy, Mild, Rash, 10/29/14) per patient PENIC[place]INS (Unverified Allergy, Unknown, 11/28/13) Objective Last 24 Hour Vital Signs Date Time Temp Pulse Resp B/P (MAP) Pulse Ox O2 Delivery O2 Flow Rate FiO2 05/20/20 12:00 98.1 87 24 104/59 (74) 93 05/20/20 11:51 95 05/20/20 11:08 89 05/20/20 11:00 89 116/63 05/20/20 08:00 12.0 50 05/20/20 08:00 98.2 83 23 116/63 (80) 89 05/20/20 08:00 Bi-pap 60.0 05/20/20 08:00 89 05/20/20 06:09 89 124/54 05/20/20 04:00 89 05/20/20 04:00 99.4 89 32 158/78 (104) 92 05/20/20 04:00 Bi-pap 60.0 05/20/20 04:00 12.0 50 05/20/20 00:00 Bi-pap 60.0 05/20/20 00:00 98.6 85 32 137/57 (83) 90 05/19/20 23:15 91 136/60 05/19/20 23:00 93 15 136/60 (85) 94 05/19/20 22:00 96 21 137/71 (93) 87 05/19/20 21:00 97 20 149/68 (95) 97 05/19/20 20:00 Bi-pap 60.0 05/19/20 20:00 12.0 50 05/19/20 20:00 97.9 97 20 141/71 (94) 97 05/19/20 20:00 98 05/19/20 19:25 96 Venturi Mask 12.0 50 05/19/20 19:15 100 20 158/67 (97) 98 05/19/20 19:12 105 21 152/76 (101) 97 05/19/20 19:00 105 22 93 05/19/20 18:55 105 21 149/109 (122) 95 05/19/20 18:51 108 23 138/74 (95) 93 05/19/20 18:30 99 21 161/74 (103) 80 05/19/20 18:15 108 24 171/68 (102) 82 05/19/20 18:00 81 146/89 05/19/20 18:00 96 19 150/54 (86) 97 05/19/20 17:45 97 21 160/75 (103) 98 05/19/20 17:30 96 21 161/80 (107) 97 05/19/20 17:15 97 25 142/68 (92) 74 05/19/20 17:12 96 21 171/66 (101) 73 05/19/20 17:00 89 18 151/71 (97) 81 05/19/20 17:00 100 23 151/71 (97) 82 05/19/20 16:45 99 18 133/79 (97) 77 05/19/20 16:30 98 19 149/65 (93) 81 05/19/20 16:08 96 20 130/66 (87) 96 05/19/20 16:00 12.0 50 05/19/20 16:00 Bi-pap 60.0 05/19/20 16:00 100 05/19/20 16:00 97 18 95 05/19/20 16:00 89 18 151/71 (97) 81 Intake and Output 05/19/20 05/20/20 19:00 07:00 Intake Total 355 ml Output Total 690 ml 520 ml Balance -690 ml -165 ml Intake Oral 240 ml IV Total 115 ml Output Urine Total 690 ml 520 ml # Bowel Movements 1 General Appearance: no acute distress Respiratory: chest wall non-tender, normal breath sounds Cardiovascular: normal rate, regular rhythm Abdomen: other - morbid obesity Laboratory Tests 05/20/20 04:50: White Blood Count 6.3, Red Blood Count 2.95L, Hemoglobin 8.0L, Hematocrit 27.1L, Mean Corpuscular Volume 92, Mean Corpuscular Hemoglobin 27.2, Mean Corpuscular Hemoglobin Concent 29.6L, Red Cell Distribution Width 16.7H, Platelet Count 130L , Mean Platelet Volume 8.0, Neutrophils (%) (Auto) 76.2H, Lymphocytes (%) (Auto) 11.9L, Monocytes (%) (Auto) 9.5, Eosinophils (%) (Auto) 0.7, Basophils (%) (Auto) 1.8, Prothrombin Time 12.3H, Prothromb Time International Ratio 1.1, Activated Partial Thromboplast Time 34H, Sodium Level 143, Potassium Level 4.7, Chloride Level 109H, Carbon Dioxide Level 27, Anion Gap 7, Blood Urea Nitrogen 69H, Creatinine 7.3H, Estimat Glomerular Filtration Rate 9.3, Glucose Level 115H , Uric Acid 5.2, Calcium Level 7.5L, Phosphorus Level 6.0H, Magnesium Level 1.8, Total Bilirubin 0.6, Aspartate Amino Transf (AST/SGOT) 43H, Alanine Aminotransferase (ALT/SGPT) 23, Alkaline Phosphatase 74, C-Reactive Protein, Quantitative 9.7H, Pro-B-Type Natriuretic Peptide 20112H, Total Protein 6.8, Albumin 1.9L, Globulin 4.9, Albumin/Globulin Ratio 0.4L, Digoxin Level 1.4 Current Medications Medications (Trade) Dose Ordered Sig/Albert Route PRN Reason Start Time Stop Time Status Last Admin Dose Admin Albumin Human 50 ml @ 50 mls/hr ONCE PRN IV hypotension during HD 05/20/20 12:15 05/20/20 23:59 05/20/20 13:17 Albumin Human 200 ml @ 200 mls/hr ONCE PRN IV hypotension during HD 05/20/20 12:00 05/20/20 23:59 05/20/20 13:17 Cefepime HCl 500 mg/Dextrose 55 ml @ 110 mls/hr Q24H IV 05/19/20 13:00 05/26/20 12:59 05/20/20 14:13 Chlorhexidine Gluconate (Isamar-Hex 2%) 1 applic DAILY@2000 TOPIC 05/17/20 20:00 08/15/20 19:59 05/19/20 20:49 Dextrose (Dextrose 50%) 25 ml Q30M PRN IV Hypoglycemia 05/16/20 03:45 08/14/20 03:44 05/16/20 06:23 Dextrose (Dextrose 50%) 50 ml Q30M PRN IV Hypoglycemia 05/16/20 03:45 08/14/20 03:44 Digoxin (Lanoxin) 0.125 mg THREE TIMES A WEEK ORAL 05/20/20 11:00 08/18/20 10:59 05/20/20 11:08 Diltiazem HCl (Cardizem Tab) 60 mg EVERY 6 HOURS ORAL 05/20/20 18:00 06/17/20 17:59 Docusate Sodium (Colace) 100 mg THREE TIMES A DAY ORAL 05/19/20 13:00 06/18/20 12:59 05/20/20 09:00 Enoxaparin Sodium (Lovenox) 30 mg DAILY SUBQ 05/19/20 09:00 08/17/20 08:59 05/20/20 09:00 Epoetin Vivek (Epoetin Vivek(ESRD on dialysis)) 10,000 unit MON-MON-MON SUBQ 05/20/20 21:00 08/18/20 20:59 Folic Acid (Folate) 5 mg DAILY ORAL 05/17/20 14:00 06/16/20 13:59 05/20/20 09:00 Heparin Sodium/ Sodium Chloride (Heparin 1000 units/500ml Premix) 1,000 unit ONCE PRN INJ data governance consultant to radiology 05/20/20 13:15 05/22/20 13:14 Iron Sucrose 100 mg/Sodium Chloride 60 ml @ 240 mls/hr BEDTIME IVPB 05/19/20 21:00 05/23/20 21:14 05/19/20 20:49 Lidocaine/ Epinephrine (Lidocaine 2%/ Epi 20ml) 40 ml ONCE PRN INJ data governance consultant to radiology 05/20/20 13:15 05/22/20 23:59 Pantoprazole (Protonix) 40 mg EVERY 12 HOURS ORAL 05/19/20 21:00 06/18/20 20:59 05/20/20 09:00 Assessment/Plan Assessment/Plan 1. Hx Sleep apnea - Currently not on CPAP 2. Acute on chronic renal failure; hyperkalemia - s/p Kayexalate - s/p dialysis (05/15) - s/p permacath 3. Bacteriuria - s/p Rocephin in ER - f/u UCx negative 4. Hypoxemic respiratory distress -Continue supplemental O2 -> now saturating at 100% on Ventimask 12L - continue to wean as tolerated 5. Elevated inflammatory markers -Venous duplex ultrasound of lower extremities negative for DVT -On SCD for DVT prophylaxis 6. pneumonia -Chest x-ray shows interstitial opacities bilaterally -COVID-19 PCR negative -Observe off antibiotics given no leukocytosis or fever 7. A-fib with rvr - seen by cardio - now out of ICU and in SDU The care for this patient was discussed with my supervising physician. Time spent for this case was approximately 31 minutes. Juan Dunlap May 20, 2020 15:13
--- NOTE | 2020-05-20 15:55 | Pre-Procedure Note/Attestation ---
Pre-Procedure Note/Attestation Complete Prior to Procedure Planned Procedure: not applicable Procedure Narrative: permacath Indications for Procedure Pre-Operative Diagnosis: renal failure Attestation I attest that I discussed the nature of the procedure; its benefits; risks and complications; and alternatives (and the risks and benefits of such alternatives), prior to the procedure, with the patient (or the patient's legal off premise service representative). I attest that, if there was a reasonable possibility of needing a blood t ransfusion, the patient (or the patient's legal off premise service representative) was given the [facility] standardized written summary, pursuant to the [place] Blood Safety Act ([place] Health and Safety Code # 1645, as amended). I attest that I re-evaluated the patient just prior to the surgery and that there has been no change in the patient's H&P, except as documented below: Paul Witt MD May 20, 2020 15:55
--- NOTE | 2020-05-20 15:56 | Brief Operative Note ---
Immediate Post Operative Note Operative Note Pre-op Diagnosis: renal failure Procedure: permacath Post-op Diagnosis: same as pre-op Surgeon: Marcio Jon Anesthesia: local Specimen: none Complications: none Fluids: none Implant(s) used?: No Paul Jon MD May 20, 2020 15:56
[2020-05-20 16:00] VITALS: BP 118/66
--- NOTE | 2020-05-20 16:50 | Diagnostic Imaging Report ---
Indications: Needs long-term dialysis access Technique: Patient already on antibiotics. Total sterile technique, including sterile probe cover and sterile gel, sterile gloves, hand hygiene, hat, mask,, sterile gown, large sterile drape, and preparation with 2% chlorhexidine utilized. Local anesthesia with 1% lidocaine. Ultrasound demonstrated patent compressible right internal jugular vein. Under real-time ultrasound guidance and with real-time visualization of the needle entering the vein lumen, puncture right internal jugular vein using 21-gauge micropuncture needle, passage 0.018 guidewire, exchange for 4 [place]ian micropuncture introducer. The guidewire was used to measure the appropriate catheter length, and was removed. The sheath was left in place. The subcutaneous tract was then anesthetized with 1% lidocaine. A chest dermatotomy was made . The tunneling device was used to pull a 14.5 [place]ian 27 cm BioFlo catheter through the subcutaneous tunnel to the neck dermatotomy. A guidewire was passed through the neck introducer into the inferior vena cava, and serial dilators were passed over it, followed by the introduction of a 14.5 [place] AirGuard peel-away sheath. The catheter was then introduced into the sheath, the peel-away sheath was removed. Digital radiograph documents satisfactory catheter tip position in the high right atrium, no kinking at the insertion site. Both catheter ports aspirated and flushed. Catheter was fixed to the skin. Patient tolerated procedure well without immediate complication. Total fluoroscopy time 83.5 minutes. Total dose area product 1.04 mGym2 Total number of images-1 Comparison: None. Findings: Completion radiograph documents satisfactory position and course of the catheter, catheter tip at the high right atrium. Impression: Successful placement of right transjugular tunneled dialysis catheter, as described above
[2020-05-20] MEDS ORDERED: Varibar Thin Liquid powder 148gm MC PRN (18:00)
[2020-05-20] MEDS ORDERED: Varibar Pudding 230ml MC PRN (18:00)
[2020-05-20] MEDS ORDERED: Varibar Nectar 240ml MC PRN (18:00)
[2020-05-20] MEDS ORDERED: Varibar Honey 250ml MC PRN (18:00)
[2020-05-20] MEDS: Acetaminophen 500mg (ES) tab ORAL PRN ×2 (18:50→23:34)
[2020-05-20 20:00] VITALS: BP 109/59
[2020-05-20] MEDS: Iron Sucrose 100 MG in NS 55 ML IVPB SCH (20:22)
[2020-05-20] MEDS: Epoetin Alfa-EPBX(ESRD on dialysis)10,000 unit/ml vial SUBQ SCH (20:22)
[2020-05-20] MEDS: Dyna-Hex 2% Top Sol 2oz TOPIC SCH (20:22)
[2020-05-21] VITALS: BP 111/62
[2020-05-21 04:00] VITALS: BP 111/62
[2020-05-21 04:17] LABS: BASOPHILS % (AUTO) 1.3 % (0.0-2.0); HEMATOCRIT 27.1 % (42.0-52.0); LYMPHOCYTES % (AUTO) 12.9 % (20.0-45.0); MEAN CORPUSCULAR VOLUME 93 FL (80-99); MONOCYTES % (AUTO) 8.4 % (1.0-10.0); NEUTROPHILS % (AUTO) 77.4 % (45.0-75.0); PLATELET COUNT 123 K/UL (150-450); RED BLOOD COUNT 2.92 M/UL (4.70-6.10); WHITE BLOOD COUNT 6.1 K/UL (4.8-10.8)
[2020-05-21 04:48] LABS: ALBUMIN/GLOBULIN RATIO 0.4 (1.0-2.7); BILIRUBIN,TOTAL 0.5 MG/DL (0.2-1.0); CALCIUM 8.4 MG/DL (8.5-10.1); CREATININE 6.4 MG/DL (0.55-1.30); PHOSPHORUS 5.7 MG/DL (2.5-4.9); POTASSIUM 4.7 MMOL/L (3.5-5.1)
[2020-05-21] MEDS: dilTIAZem HCl 30mg tab ORAL SCH ×4 (05:14→23:18)
[2020-05-21] MEDS: Acetaminophen 500mg (ES) tab ORAL PRN ×2 (05:15→09:49)
--- NOTE | 2020-05-21 06:42 | Hematology/Onc Progress Note ---
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, has been getting hd, as per renal -> hgb 9-->7.9-->8 --> anemia panel has been noted --> consider use of epo --> have started on iv iron # Hypercoagulable disorder with afib/also COVID19 in iCU --> will start low dose lovenox given elevated ddimer per ISABELLA guidelines --> no evidence of bleeding currently --> trend ddimer as needed, to see if risk of emboli # Thrombocytopenia likely due to infection --> plt 130 --> smear is reviewed # MICHEAL on ckd --> per renal # Morbid obesity --> rec weight loss # Acidosis --> off bipap --> on fm # Hyperkalemia # Pacemaker # UTI (urinary tract infection --> cefepime # Dvt ppx lovenox Appreciate consultation and goyo Rn Subjective HEENT: Denies: no symptoms, eye pain, blurred vision, tearing, double vision, ear pain, ear discharge, nose pain, nose congestion, throat pain, throat swelling, mouth pain, mouth swelling, other Cardiovascular: Denies: no symptoms, chest pain, edema, irregular heart rate, lightheadedness, palpitations, syncope, other Respiratory: Denies: no symptoms, cough, shortness of breath, SOB with exc ertion, SOB at rest, sputum, wheezing, other Gastrointestinal/Abdominal: Denies: no symptoms, abdomen distended, abdominal pain, black stools, tarry stools, blood in stool, constipated, diarrhea, difficulty swallowing, nausea, poor appetite, poor fluid intake, rectal bleeding, vomiting, other Genitourinary: Denies: no symptoms, burning, discharge, frequency, flank pain, hematuria, incontinence, pain, urgency, other Neurologic/Psychiatric: Denies: no symptoms, anxiety, depressed, emotional problems, headache, numbness, paresthesia, pre-existing deficit, seizure, tingli ng, tremors, weakness, other Endocrine: Denies: no symptoms, excessive sweating, flushing, intolerance to cold, intolerance to heat, increased hunger, increased thirst, increased urine, unexplained weight gain, unexplained weight loss, other Allergies: Coded Allergies: [place] (Verified Allergy, Mild, Rash, 10/29/14) per patient PENICILLINS (Unverified Allergy, Unknown, 11/28/13) Subjective 05/20 transferred out of icu, doing better, hgb 8, plt 130, smear is reviewed 05/21 hgb 8, plt 123, meds reviewed, with right chest permacath Objective Objective Current Medications Medications (Trade) Dose Ordered Sig/Albert Route PRN Reason Start Time Stop Time Status Last Admin Dose Admin Acetaminophen (Tylenol) 500 mg Q4H PRN ORAL Severe Pain (Pain Scale 7-10) 05/20/20 18:45 06/19/20 18:44 05/21/20 05:15 Barium Sulfate (Varibar Honey) 250 ml NOW PRN MC RAD 05/20/20 18:00 05/23/20 17:53 Barium Sulfate (Varibar [place]) 240 ml NOW PRN MC RAD 05/20/20 18:00 05/23/20 17:53 Barium Sulfate (Varibar Pudding) 230 ml NOW PRN MC RAD 05/20/20 18:00 05/23/20 17:53 Barium Sulfate (Varibar Thin Liquid powder) 148 gm NOW PRN MC RAD 05/20/20 18:00 05/23/20 17:53 Cefepime HCl 500 mg/Dextrose 55 ml @ 110 mls/hr Q24H IV 05/19/20 13:00 05/26/20 12:59 05/20/20 14:13 Chlorhexidine Gluconate (Isamar-Hex 2%) 1 applic DAILY@2000 TOPIC 05/17/20 20:00 08/15/20 19:59 05/20/20 20:22 Dextrose (Dextrose 50%) 25 ml Q30M PRN IV Hypoglycemia 05/16/20 03:45 08/14/20 03:44 05/16/20 06:23 Dextrose (Dextrose 50%) 50 ml Q30M PRN IV Hypoglycemia 05/16/20 03:45 08/14/20 03:44 Digoxin (Lanoxin) 0.125 mg THREE TIMES A WEEK ORAL 05/20/20 11:00 08/18/20 10:59 05/20/20 11:08 Diltiazem HCl (Cardizem Tab) 60 mg EVERY 6 HOURS ORAL 05/20/20 18:00 06/17/20 17:59 05/21/20 05:14 Docusate Sodium (Colace) 100 mg THREE TIMES A DAY ORAL 05/19/20 13:00 06/18/20 12:59 05/20/20 18:15 Enoxaparin Sodium (Lovenox) 30 mg DAILY SUBQ 05/19/20 09:00 08/17/20 08:59 05/20/20 09:00 Epoetin Vivek (Epoetin Vivek(ESRD on dialysis)) 10,000 unit MON-MON-MON SUBQ 05/20/20 21:00 08/18/20 20:59 05/20/20 20:22 Folic Acid (Folate) 5 mg DAILY ORAL 05/17/20 14:00 06/16/20 13:59 05/20/20 09:00 Heparin Sodium/ Sodium Chloride (Heparin 1000 units/500ml Premix) 1,000 unit ONCE PRN INJ monitor worker to radiology 05/20/20 13:15 05/22/20 13:14 Iron Sucrose 100 mg/Sodium Chloride 60 ml @ 240 mls/hr BEDTIME IVPB 05/19/20 21:00 05/23/20 21:14 05/20/20 20:22 Lidocaine/ Epinephrine (Lidocaine 2%/ Epi 20ml) 40 ml ONCE PRN INJ monitor worker to radiology 05/20/20 13:15 05/22/20 23:59 Pantoprazole (Protonix) 40 mg EVERY 12 HOURS ORAL 05/19/20 21:00 06/18/20 20:59 05/20/20 20:22 Last 24 Hour Vital Signs Date Time Temp Pulse Resp B/P (MAP) Pulse Ox O2 Delivery O2 Flow Rate FiO2 05/21/20 05:14 93 111/62 05/21/20 04:00 12.0 50 05/21/20 04:00 99.1 106 22 111/62 (78) 92 05/21/20 04:00 Venturi Mask 12.0 05/21/20 04:00 93 05/21/20 03:55 104 18 92 Venturi Mask 12.0 55 05/21/20 00:00 99.1 106 22 111/62 (78) 92 05/21/20 00:00 100 05/21/20 00:00 12.0 50 05/21/20 00:00 Venturi Mask 12.0 05/20/20 23:34 105 109/59 05/20/20 20:00 Venturi Mask 12.0 05/20/20 20:00 98.9 108 20 109/59 (76) 93 05/20/20 20:00 12.0 50 05/20/20 20:00 105 05/20/20 19:44 92 Venturi Mask 12.0 50 05/20/20 18:15 103 118/66 05/20/20 16:36 103 05/20/20 16:00 98.4 104 22 118/66 (83) 93 05/20/20 16:00 12.0 50 05/20/20 16:00 Bi-pap 50.0 05/20/20 12:00 98.1 87 24 104/59 (74) 93 05/20/20 12:00 12.0 50 05/20/20 12:00 Bi-pap 50.0 05/20/20 11:51 95 05/20/20 11:08 89 05/20/20 11:00 89 116/63 05/20/20 08:00 12.0 50 05/20/20 08:00 98.2 83 23 116/63 (80) 89 05/20/20 08:00 Bi-pap 60.0 05/20/20 08:00 89 05/20/20 06:09 89 124/54 05/20/20 04:00 89 05/20/20 04:00 99.4 89 32 158/78 (104) 92 05/20/20 04:00 Bi-pap 60.0 05/20/20 04:00 12.0 50 05/20/20 00:00 Bi-pap 60.0 05/20/20 00:00 98.6 85 32 137/57 (83) 90 05/19/20 23:15 91 136/60 05/19/20 23:00 93 15 136/60 (85) 94 05/19/20 22:00 96 21 137/71 (93) 87 05/19/20 21:00 97 20 149/68 (95) 97 05/19/20 20:00 Bi-pap 60.0 05/19/20 20:00 12.0 50 05/19/20 20:00 97.9 97 20 141/71 (94) 97 05/19/20 20:00 98 05/19/20 19:25 96 Venturi Mask 12.0 50 05/19/20 19:15 100 20 158/67 (97) 98 05/19/20 19:12 105 21 152/76 (101) 97 05/19/20 19:00 105 22 93 05/19/20 18:55 105 21 149/109 (122) 95 05/19/20 18:51 108 23 138/74 (95) 93 05/19/20 18:30 99 21 161/74 (103) 80 05/19/20 18:15 108 24 171/68 (102) 82 05/19/20 18:00 81 146/89 05/19/20 18:00 96 19 150/54 (86) 97 05/19/20 17:45 97 21 160/75 (103) 98 05/19/20 17:30 96 21 161/80 (107) 97 05/19/20 17:15 97 25 142/68 (92) 74 05/19/20 17:12 96 21 171/66 (101) 73 05/19/20 17:00 89 18 151/71 (97) 81 05/19/20 17:00 100 23 151/71 (97) 82 05/19/20 16:45 99 18 133/79 (97) 77 05/19/20 16:30 98 19 149/65 (93) 81 05/19/20 16:08 96 20 130/66 (87) 96 05/19/20 16:00 12.0 50 05/19/20 16:00 Bi-pap 60.0 05/19/20 16:00 100 05/19/20 16:00 97 18 95 05/19/20 16:00 89 18 151/71 (97) 81 05/19/20 15:00 84 17 137/95 (109) 93 05/19/20 14:00 84 18 111/56 (74) 93 05/19/20 13:00 97.5 91 106/50 (68) 89 05/19/20 12:32 93 92/48 (63) 93 05/19/20 12:15 97 95/50 (65) 93 05/19/20 12:00 Bi-pap 60.0 05/19/20 12:00 12.0 50 05/19/20 12:00 98 05/19/20 12:00 89 97/47 (64) 94 05/19/20 12:00 89 167/81 05/19/20 12:00 87 102/52 (69) 95 05/19/20 11:45 95/51 (66) 96 05/19/20 11:30 90 105/53 (70) 94 05/19/20 11:15 87 102/52 (69) 95 05/19/20 11:15 87 102/52 (69) 95 05/19/20 11:00 95 104/62 (76) 85 05/19/20 11:00 87 18 130/59 (82) 96 05/19/20 11:00 95 104/62 (76) 85 05/19/20 10:45 90 13 107/56 (73) 96 05/19/20 10:30 87 19 113/57 (75) 97 05/19/20 10:15 87 20 114/60 (78) 96 05/19/20 10:00 87 18 130/59 (82) 96 05/19/20 10:00 87 18 130/59 (82) 96 05/19/20 09:45 89 20 123/62 (82) 93 05/19/20 09:30 88 21 100/49 (66) 90 05/19/20 09:30 88 21 100/49 (66) 90 05/19/20 09:15 85 18 109/53 (71) 94 05/19/20 09:15 85 18 109/53 (71) 94 05/19/20 09:00 85 20 107/50 (69) 82 05/19/20 09:00 85 20 107/50 (69) 82 05/19/20 09:00 85 20 82 05/19/20 08:45 83 20 106/59 (75) 93 05/19/20 08:45 83 20 106/59 (75) 93 05/19/20 08:30 82 19 110/54 (72) 94 05/19/20 08:30 82 19 110/54 (72) 94 05/19/20 08:15 84 19 100/53 (69) 94 05/19/20 08:15 84 19 100/53 (69) 94 05/19/20 08:00 84 18 116/58 (77) 95 05/19/20 08:00 84 18 116/58 (77) 95 05/19/20 08:00 84 18 116/58 (77) 95 05/19/20 08:00 12.0 50 05/19/20 08:00 87 05/19/20 08:00 Bi-pap 60.0 05/19/20 07:56 95 Venturi Mask 12.0 50 05/19/20 07:45 81 19 113/55 (74) 92 05/19/20 07:45 81 19 113/55 (74) 92 05/19/20 07:45 81 19 113/55 (74) 92 05/19/20 07:30 82 20 109/59 (76) 88 05/19/20 07:30 82 20 109/59 (76) 88 05/19/20 07:30 82 20 109/59 (76) 88 05/19/20 07:15 80 18 114/58 (76) 95 05/19/20 07:15 80 18 114/58 (76) 95 05/19/20 07:15 80 18 114/58 (76) 95 05/19/20 07:00 81 19 114/52 (72) 91 05/19/20 07:00 81 19 114/52 (72) 91 05/19/20 07:00 81 19 114/52 (72) 91 05/19/20 07:00 81 19 91 05/19/20 06:45 85 17 110/60 (77) 94 Intake and Output 05/20/20 05/21/20 19:00 07:00 Intake Total 1020 ml Output Total 300 ml 450 ml Balance -300 ml 570 ml Intake Oral 1020 ml Output Urine Total 300 ml 450 ml Labs Test 05/18/20 09:32 05/19/20 03:40 05/20/20 04:50 05/21/20 03:28 Arterial Blood pH 7.327 (7.350-7.450) Arterial Blood Partial Pressure CO2 52.0 mmHg (35.0-45.0) Arterial Blood Partial Pressure O2 68.7 mmHg (75.0-100.0) Arterial Blood HCO3 26.6 mmol/L (22.0-26.0) Arterial Blood Oxygen Saturation 92.4 % (95-100) Arterial Blood Base Excess 0.3 (-2-2) Dany Test Positive White Blood Count 7.4 K/UL (4.8-10.8) 6.3 K/UL (4.8-10.8) 6.1 K/UL (4.8-10.8) Red Blood Count 2.92 M/UL (4.70-6.10) 2.95 M/UL (4.70-6.10) 2.92 M/UL (4.70-6.10) Hemoglobin 7.9 G/DL (14.2-18.0) 8.0 G/DL (14.2-18.0) 8.0 G/DL (14.2-18.0) Hematocrit 27.0 % (42.0-52.0) 27.1 % (42.0-52.0) 27.1 % (42.0-52.0) Mean Corpuscular Volume 92 FL (80-99) 92 FL (80-99) 93 FL (80-99) Mean Corpuscular Hemoglobin 27.2 PG (27.0-31.0) 27.2 PG (27.0-31.0) 27.4 PG (27.0-31.0) Mean Corpuscular Hemoglobin Concent 29.4 G/DL (32.0-36.0) 29.6 G/DL (32.0-36.0) 29.4 G/DL (32.0-36.0) Red Cell Distribution Width 16.5 % (11.6-14.8) 16.7 % (11.6-14.8) 16.0 % (11.6-14.8) Platelet Count 147 K/UL (150-450) 130 K/UL (150-450) 123 K/UL (150-450) Mean Platelet Volume 8.4 FL (6.5-10.1) 8.0 FL (6.5-10.1) 7.5 FL (6.5-10.1) Neutrophils (%) (Auto) % (45.0-75.0) 76.2 % (45.0-75.0) 77.4 % (45.0-75.0) Lymphocytes (%) (Auto) % (20.0-45.0) 11.9 % (20.0-45.0) 12.9 % (20.0-45.0) Monocytes (%) (Auto) % (1.0-10.0) 9.5 % (1.0-10.0) 8.4 % (1.0-10.0) Eosinophils (%) (Auto) % (0.0-3.0) 0.7 % (0.0-3.0) 0.0 % (0.0-3.0) Basophils (%) (Auto) % (0.0-2.0) 1.8 % (0.0-2.0) 1.3 % (0.0-2.0) Differential Total Cells Counted 100 Neutrophils % (Manual) 78 % (45-75) Lymphocytes % (Manual) 16 % (20-45) Monocytes % (Manual) 5 % (1-10) Eosinophils % (Manual) 1 % (0-3) Basophils % (Manual) 0 % (0-2) Band Neutrophils 0 % (0-8) Platelet Estimate Decreased Platelet Morphology Normal Hypochromasia 1+ Anisocytosis 1+ Sodium Level 141 MMOL/L (136-145) 143 MMOL/L (136-145) 141 MMOL/L (136-145) Potassium Level 4.5 MMOL/L (3.5-5.1) 4.7 MMOL/L (3.5-5.1) 4.7 MMOL/L (3.5-5.1) Chloride Level 108 MMOL/L (98-107) 109 MMOL/L (98-107) 107 MMOL/L (98-107) Carbon Dioxide Level 28 MMOL/L (21-32) 27 MMOL/L (21-32) 29 MMOL/L (21-32) Anion Gap 5 mmol/L (5-15) 7 mmol/L (5-15) 5 mmol/L (5-15) Blood Urea Nitrogen 66 mg/dL (7-18) 69 mg/dL (7-18) 60 mg/dL (7-18) Creatinine 6.5 MG/DL (0.55-1.30) 7.3 MG/DL (0.55-1.30) 6.4 MG/DL (0.55-1.30) Estimat Glomerular Filtration Rate 10.8 mL/min (>60) 9.3 mL/min (>60) 10.9 mL/min (>60) Glucose Level 143 MG/DL (74-106) 115 MG/DL (74-106) 117 MG/DL (74-106) Uric Acid 4.9 MG/DL (2.6-7.2) 5.2 MG/DL (2.6-7.2) 4.7 MG/DL (2.6-7.2) Calcium Level 7.4 MG/DL (8.5-10.1) 7.5 MG/DL (8.5-10.1) 8.4 MG/DL (8.5-10.1) Phosphorus Level 5.8 MG/DL (2.5-4.9) 6.0 MG/DL (2.5-4.9) 5.7 MG/DL (2.5-4.9) Magnesium Level 1.7 MG/DL (1.8-2.4) 1.8 MG/DL (1.8-2.4) 1.9 MG/DL (1.8-2.4) Total Bilirubin 0.5 MG/DL (0.2-1.0) 0.6 MG/DL (0.2-1.0) 0.5 MG/DL (0.2-1.0) Aspartate Amino Transf (AST/SGOT) 31 U/L (15-37) 43 U/L (15-37) 46 U/L (15-37) Alanine Aminotransferase (ALT/SGPT) 20 U/L (12-78) 23 U/L (12-78) 22 U/L (12-78) Alkaline Phosphatase 76 U/L (46-116) 74 U/L (46-116) 74 U/L (46-116) Total Creatine Kinase 755 U/L (26-308) C-Reactive Protein, Quantitative 8.3 mg/dL (0.00-0.90) 9.7 mg/dL (0.00-0.90) 12.9 mg/dL (0.00-0.90) Pro-B-Type Natriuretic Peptide 91702 pg/mL (0-125) 75143 pg/mL (0-125) 18985 pg/mL (0-125) Total Protein 6.9 G/DL (6.4-8.2) 6.8 G/DL (6.4-8.2) 7.1 G/DL (6.4-8.2) Albumin 2.1 G/DL (3.4-5.0) 1.9 G/DL (3.4-5.0) 2.0 G/DL (3.4-5.0) Globulin 4.8 g/dL 4.9 g/dL 5.1 g/dL Albumin/Globulin Ratio 0.4 (1.0-2.7) 0.4 (1.0-2.7) 0.4 (1.0-2.7) Digoxin Level 1.5 NG/ML (0.5-2.0) 1.4 NG/ML (0.5-2.0) Prothrombin Time 12.3 SEC (9.30-11.50) Prothromb Time International Ratio 1.1 (0.9-1.1) Activated Partial Thromboplast Time 34 SEC (23-33) Height (Feet): 5 Height (Inches): 11.00 Weight (Pounds): 415 Objective Physical Exam General: Somnolent, falling asleep during exam. alert HEENT: NC/AT. EOMI. Cardiovascular: RRR. S1 and S2 normal. No murmur appreciated Resp: 4 L nasal cannula. + right chest permacath Abdomen: Abdomen is morbidly obese. Skin: Intact. Venous stasis changes lower extremities MSK: Normal tone and bulk. Moving all extremities. No obvious deformity. Neuro: Somnolent. Confused. Moving all extremities. Mio Ashton MD May 21, 2020 06:42
[2020-05-21 08:00] VITALS: BP 110/59
--- NOTE | 2020-05-21 08:24 | Consultation ---
History of Present Illness General Date patient seen: May 21, 2020 Chief Complaint: Present Illness Allergies: Coded Allergies: [place] (Verified Allergy, Mild, Rash, 10/29/14) per patient PENICILLINS (Unverified Allergy, Unknown, 11/28/13) Medication History Scheduled Allopurinol* (Allopurinol*), 300 MG ORAL DAILY Doxycycline Hyclate (Doxycycline Hyclate), 100 MG ORAL EVERY 12 HOURS Enalapril Maleate* (Vasotec*), 20 MG ORAL EVERY 12 HOURS Furosemide* (Lasix*), 80 MG ORAL TWICE A DAY Insulin Detemir (Levemir Flexpen), 60 SUBQ Q12HR, (Reported) Insulin Detemir (Levemir Flexpen), 60 SUBQ Q12HR, (Reported) Metolazone (Metolazone), 5 MG ORAL BID@0830,1730 Rivaroxaban (Xarelto*), 20 MG ORAL DAILY [Potassium Chloride], 20 MEQ ORAL TWICE A DAY Patient History Healthcare decision maker Resuscitation status Advanced Directive on File Physical Exam Last 24 Hour Vital Signs Date Time Temp Pulse Resp B/P (MAP) Pulse Ox O2 Delivery O2 Flow Rate FiO2 05/21/20 05:14 93 111/62 05/21/20 04:00 12.0 50 05/21/20 04:00 99.1 106 22 111/62 (78) 92 05/21/20 04:00 Venturi Mask 12.0 05/21/20 04:00 93 05/21/20 03:55 104 18 92 Venturi Mask 12.0 55 05/21/20 00:00 99.1 106 22 111/62 (78) 92 05/21/20 00:00 100 05/21/20 00:00 12.0 50 05/21/20 00:00 Venturi Mask 12.0 05/20/20 23:34 105 109/59 05/20/20 20:00 Venturi Mask 12.0 05/20/20 20:00 98.9 108 20 109/59 (76) 93 05/20/20 20:00 12.0 50 05/20/20 20:00 105 05/20/20 19:44 92 Venturi Mask 12.0 50 05/20/20 18:15 103 118/66 05/20/20 16:36 103 05/20/20 16:00 98.4 104 22 118/66 (83) 93 05/20/20 16:00 12.0 50 05/20/20 16:00 Bi-pap 50.0 05/20/20 12:00 98.1 87 24 104/59 (74) 93 05/20/20 12:00 12.0 50 05/20/20 12:00 Bi-pap 50.0 05/20/20 11:51 95 05/20/20 11:08 89 05/20/20 11:00 89 116/63 Intake and Output 05/20/20 05/21/20 19:00 07:00 Intake Total 1020 ml Output Total 300 ml 450 ml Balance -300 ml 570 ml Intake Oral 1020 ml Output Urine Total 300 ml 450 ml Laboratory Tests Test 05/21/20 03:28 White Blood Count 6.1 K/UL (4.8-10.8) Red Blood Count 2.92 M/UL (4.70-6.10) L Hemoglobin 8.0 G/DL (14.2-18.0) L Hematocrit 27.1 % (42.0-52.0) L Mean Corpuscular Volume 93 FL (80-99) Mean Corpuscular Hemoglobin 27.4 PG (27.0-31.0) Mean Corpuscular Hemoglobin Concent 29.4 G/DL (32.0-36.0) L Red Cell Distribution Width 16.0 % (11.6-14.8) H Platelet Count 123 K/UL (150-450) L Mean Platelet Volume 7.5 FL (6.5-10.1) Neutrophils (%) (Auto) 77.4 % (45.0-75.0) H Lymphocytes (%) (Auto) 12.9 % (20.0-45.0) L Monocytes (%) (Auto) 8.4 % (1.0-10.0) Eosinophils (%) (Auto) 0.0 % (0.0-3.0) Basophils (%) (Auto) 1.3 % (0.0-2.0) Sodium Level 141 MMOL/L (136-145) Potassium Level 4.7 MMOL/L (3.5-5.1) Chloride Level 107 MMOL/L (98-107) Carbon Dioxide Level 29 MMOL/L (21-32) Anion Gap 5 mmol/L (5-15) Blood Urea Nitrogen 60 mg/dL (7-18) H Creatinine 6.4 MG/DL (0.55-1.30) H Estimat Glomerular Filtration Rate 10.9 mL/min (>60) Glucose Level 117 MG/DL (74-106) H Uric Acid 4.7 MG/DL (2.6-7.2) Calcium Level 8.4 MG/DL (8.5-10.1) L Phosphorus Level 5.7 MG/DL (2.5-4.9) H Magnesium Level 1.9 MG/DL (1.8-2.4) Total Bilirubin 0.5 MG/DL (0.2-1.0) Aspartate Amino Transf (AST/SGOT) 46 U/L (15-37) H Alanine Aminotransferase (ALT/SGPT) 22 U/L (12-78) Alkaline Phosphatase 74 U/L (46-116) C-Reactive Protein, Quantitative 12.9 mg/dL (0.00-0.90) H Pro-B-Type Natriuretic Peptide 33875 pg/mL (0-125) H Total Protein 7.1 G/DL (6.4-8.2) Albumin 2.0 G/DL (3.4-5.0) L Globulin 5.1 g/dL Albumin/Globulin Ratio 0.4 (1.0-2.7) L Height (Feet): 5 Height (Inches): 11.00 Weight (Pounds): 415 Medications Current Medications Medications (Trade) Dose Ordered Sig/Albert Route PRN Reason Start Time Stop Time Status Last Admin Dose Admin Acetaminophen (Tylenol) 500 mg Q4H PRN ORAL Severe Pain (Pain Scale 7-10) 05/20/20 18:45 06/19/20 18:44 05/21/20 05:15 Barium Sulfate (Varibar Honey) 250 ml NOW PRN MC RAD 05/20/20 18:00 05/23/20 17:53 Barium Sulfate (Varibar [place]) 240 ml NOW PRN MC RAD 05/20/20 18:00 05/23/20 17:53 Barium Sulfate (Varibar Pudding) 230 ml NOW PRN MC RAD 05/20/20 18:00 05/23/20 17:53 Barium Sulfate (Varibar Thin Liquid powder) 148 gm NOW PRN MC RAD 05/20/20 18:00 05/23/20 17:53 Cefepime HCl 500 mg/Dextrose 55 ml @ 110 mls/hr Q24H IV 05/19/20 13:00 05/26/20 12:59 05/20/20 14:13 Chlorhexidine Gluconate (Isamar-Hex 2%) 1 applic DAILY@2000 TOPIC 05/17/20 20:00 08/15/20 19:59 05/20/20 20:22 Dextrose (Dextrose 50%) 25 ml Q30M PRN IV Hypoglycemia 05/16/20 03:45 08/14/20 03:44 05/16/20 06:23 Dextrose (Dextrose 50%) 50 ml Q30M PRN IV Hypoglycemia 05/16/20 03:45 08/14/20 03:44 Digoxin (Lanoxin) 0.125 mg THREE TIMES A WEEK ORAL 05/20/20 11:00 08/18/20 10:59 05/20/20 11:08 Diltiazem HCl (Cardizem Tab) 60 mg EVERY 6 HOURS ORAL 05/20/20 18:00 06/17/20 17:59 05/21/20 05:14 Docusate Sodium (Colace) 100 mg THREE TIMES A DAY ORAL 05/19/20 13:00 06/18/20 12:59 05/20/20 18:15 Enoxaparin Sodium (Lovenox) 30 mg DAILY SUBQ 05/19/20 09:00 08/17/20 08:59 05/20/20 09:00 Epoetin Vivek (Epoetin Vivek(ESRD on dialysis)) 10,000 unit MON-MON-MON SUBQ 05/20/20 21:00 08/18/20 20:59 05/20/20 20:22 Folic Acid (Folate) 5 mg DAILY ORAL 05/17/20 14:00 06/16/20 13:59 05/20/20 09:00 Heparin Sodium/ Sodium Chloride (Heparin 1000 units/500ml Premix) 1,000 unit ONCE PRN INJ senior production manager 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
[2020-05-21] MEDS: Docusate 100mg cap ORAL SCH ×3 (09:50→18:07)
[2020-05-21] MEDS: Enoxaparin 30mg Inj SUBQ SCH (09:55)
--- NOTE | 2020-05-21 10:04 | Cardiac Electrophysiology PN ---
Assessment/Plan Assessment/Plan 1. Elevated troponin due to renal failure and respiratory failure His echocardiogram showed ejection fraction of 60%. His EKG showed atrial fibrillation with rapid ventricular response and nonspecific ST-T wave abnormalities. 2. Atrial fibrillation with rapid ventricular response with heart rate in 130s. Tapered off Cardizem drip and on Cardizem 60 po q 6 hr and Dig 0.125 po MWF Dig level 1.4 3. S/P left-sided [facility] [employer] pacemaker. Interrogated and showed Nl fx but frequent atrial fib with RVR 4. Hyperkalemia due to renal failure. On dialysis by Dr. Gautam. 5. Morbid obesity. 6. Diabetes. 7. Respiratory failure, currently on VM 8. Anemia, S/P PRBC 05/19 DW RN, Dr Gautam Subjective Subjective Atrial fib rate is better on Cardizem 90 po q 6hr Still Hypoxic on 12 liter VM 50%. Asking for pain meds Had HD yesterday Ruled out for Covid Objective Last 24 Hour Vital Signs Date Time Temp Pulse Resp B/P (MAP) Pulse Ox O2 Delivery O2 Flow Rate FiO2 05/21/20 05:14 93 111/62 05/21/20 04:00 12.0 50 05/21/20 04:00 99.1 106 22 111/62 (78) 92 05/21/20 04:00 Venturi Mask 12.0 05/21/20 04:00 93 05/21/20 03:55 104 18 92 Venturi Mask 12.0 55 05/21/20 00:00 99.1 106 22 111/62 (78) 92 05/21/20 00:00 100 05/21/20 00:00 12.0 50 05/21/20 00:00 Venturi Mask 12.0 05/20/20 23:34 105 109/59 05/20/20 20:00 Venturi Mask 12.0 05/20/20 20:00 98.9 108 20 109/59 (76) 93 05/20/20 20:00 12.0 50 05/20/20 20:00 105 05/20/20 19:44 92 Venturi Mask 12.0 50 05/20/20 18:15 103 118/66 05/20/20 16:36 103 05/20/20 16:00 98.4 104 22 118/66 (83) 93 05/20/20 16:00 12.0 50 05/20/20 16:00 Bi-pap 50.0 05/20/20 12:00 98.1 87 24 104/59 (74) 93 05/20/20 12:00 12.0 50 05/20/20 12:00 Bi-pap 50.0 05/20/20 11:51 95 05/20/20 11:08 89 05/20/20 11:00 89 116/63 Intake and Output 05/20/20 05/21/20 19:00 07:00 Intake Total 1020 ml Output Total 300 ml 450 ml Balance -300 ml 570 ml Intake Oral 1020 ml Output Urine Total 300 ml 450 ml Laboratory Tests Test 05/20/20 13:21 05/20/20 18:01 05/21/20 03:28 POC Whole Blood Glucose Pending 114 MG/DL (74-106) H White Blood Count 6.1 K/UL (4.8-10.8) Red Blood Count 2.92 M/UL (4.70-6.10) L Hemoglobin 8.0 G/DL (14.2-18.0) L Hematocrit 27.1 % (42.0-52.0) L Mean Corpuscular Volume 93 FL (80-99) Mean Corpuscular Hemoglobin 27.4 PG (27.0-31.0) Mean Corpuscular Hemoglobin Concent 29.4 G/DL (32.0-36.0) L Red Cell Distribution Width 16.0 % (11.6-14.8) H Platelet Count 123 K/UL (150-450) L Mean Platelet Volume 7.5 FL (6.5-10.1) Neutrophils (%) (Auto) 77.4 % (45.0-75.0) H Lymphocytes (%) (Auto) 12.9 % (20.0-45.0) L Monocytes (%) (Auto) 8.4 % (1.0-10.0) Eosinophils (%) (Auto) 0.0 % (0.0-3.0) Basophils (%) (Auto) 1.3 % (0.0-2.0) Sodium Level 141 MMOL/L (136-145) Potassium Level 4.7 MMOL/L (3.5-5.1) Chloride Level 107 MMOL/L (98-107) Carbon Dioxide Level 29 MMOL/L (21-32) Anion Gap 5 mmol/L (5-15) Blood Urea Nitrogen 60 mg/dL (7-18) H Creatinine 6.4 MG/DL (0.55-1.30) H Estimat Glomerular Filtration Rate 10.9 mL/min (>60) Glucose Level 117 MG/DL (74-106) H Uric Acid 4.7 MG/DL (2.6-7.2) Calcium Level 8.4 MG/DL (8.5-10.1) L Phosphorus Level 5.7 MG/DL (2.5-4.9) H Magnesium Level 1.9 MG/DL (1.8-2.4) Total Bilirubin 0.5 MG/DL (0.2-1.0) Aspartate Amino Transf (AST/SGOT) 46 U/L (15-37) H Alanine Aminotransferase (ALT/SGPT) 22 U/L (12-78) Alkaline Phosphatase 74 U/L (46-116) C-Reactive Protein, Quantitative 12.9 mg/dL (0.00-0.90) H Pro-B-Type Natriuretic Peptide 39969 pg/mL (0-125) H Total Protein 7.1 G/DL (6.4-8.2) Albumin 2.0 G/DL (3.4-5.0) L Globulin 5.1 g/dL Albumin/Globulin Ratio 0.4 (1.0-2.7) L Objective HEAD AND NECK: Positive JVD. On VentiMAsk LUNGS: Decreased breath sounds. CARDIOVASCULAR: irregularly irregular S1 and S2 ABDOMEN: Soft and morbidly obese. EXTREMITIES: 2+ pitting edema. Shai Champion MD May 21, 2020 10:04
--- NOTE | 2020-05-21 10:12 | Surgery Progress Note ---
Surgery Progress Note Subjective Procedure Performed Right femoral temporary hemodialysis catheter insertion Symptoms: tolerating diet, passing flatus Additional Comments Patient seen examined bedside. Doing well. Wants more pain medication. Right permacath placed yesterday will anticipate use. Once identified is functional appropriate and ready will plan to remove right femoral temporary Amor. Objective Last 24 Hour Vital Signs Date Time Temp Pulse Resp B/P (MAP) Pulse Ox O2 Delivery O2 Flow Rate FiO2 05/21/20 05:14 93 111/62 05/21/20 04:00 12.0 50 05/21/20 04:00 99.1 106 22 111/62 (78) 92 05/21/20 04:00 Venturi Mask 12.0 05/21/20 04:00 93 05/21/20 03:55 104 18 92 Venturi Mask 12.0 55 05/21/20 00:00 99.1 106 22 111/62 (78) 92 05/21/20 00:00 100 05/21/20 00:00 12.0 50 05/21/20 00:00 Venturi Mask 12.0 05/20/20 23:34 105 109/59 05/20/20 20:00 Venturi Mask 12.0 05/20/20 20:00 98.9 108 20 109/59 (76) 93 05/20/20 20:00 12.0 50 05/20/20 20:00 105 05/20/20 19:44 92 Venturi Mask 12.0 50 05/20/20 18:15 103 118/66 05/20/20 16:36 103 05/20/20 16:00 98.4 104 22 118/66 (83) 93 05/20/20 16:00 12.0 50 05/20/20 16:00 Bi-pap 50.0 05/20/20 12:00 98.1 87 24 104/59 (74) 93 05/20/20 12:00 12.0 50 05/20/20 12:00 Bi-pap 50.0 05/20/20 11:51 95 05/20/20 11:08 89 05/20/20 11:00 89 116/63 I&O Intake and Output 0 05/20/20 05/21/20 19:00 07:00 Intake Total 1020 ml Output Total 300 ml 450 ml Balance -300 ml 570 ml Intake Oral 1020 ml Output Urine Total 300 ml 450 ml Dressing: dry Wound: clean, dry Cardiovascular: RSR Respiratory: clear Abdomen: soft, non-tender, present bowel sounds, non-distended Extremities: no edema, no tenderness, no cyanosis Laboratory Tests Test 05/20/20 13:21 05/20/20 18:01 05/21/20 03:28 POC Whole Blood Glucose Pending 114 MG/DL (74-106) H White Blood Count 6.1 K/UL (4.8-10.8) Red Blood Count 2.92 M/UL (4.70-6.10) L Hemoglobin 8.0 G/DL (14.2-18.0) L Hematocrit 27.1 % (42.0-52.0) L Mean Corpuscular Volume 93 FL (80-99) Mean Corpuscular Hemoglobin 27.4 PG (27.0-31.0) Mean Corpuscular Hemoglobin Concent 29.4 G/DL (32.0-36.0) L Red Cell Distribution Width 16.0 % (11.6-14.8) H Platelet Count 123 K/UL (150-450) L Mean Platelet Volume 7.5 FL (6.5-10.1) Neutrophils (%) (Auto) 77.4 % (45.0-75.0) H Lymphocytes (%) (Auto) 12.9 % (20.0-45.0) L Monocytes (%) (Auto) 8.4 % (1.0-10.0) Eosinophils (%) (Auto) 0.0 % (0.0-3.0) Basophils (%) (Auto) 1.3 % (0.0-2.0) Sodium Level 141 MMOL/L (136-145) Potassium Level 4.7 MMOL/L (3.5-5.1) Chloride Level 107 MMOL/L (98-107) Carbon Dioxide Level 29 MMOL/L (21-32) Anion Gap 5 mmol/L (5-15) Blood Urea Nitrogen 60 mg/dL (7-18) H Creatinine 6.4 MG/DL (0.55-1.30) H Estimat Glomerular Filtration Rate 10.9 mL/min (>60) Glucose Level 117 MG/DL (74-106) H Uric Acid 4.7 MG/DL (2.6-7.2) Calcium Level 8.4 MG/DL (8.5-10.1) L Phosphorus Level 5.7 MG/DL (2.5-4.9) H Magnesium Level 1.9 MG/DL (1.8-2.4) Total Bilirubin 0.5 MG/DL (0.2-1.0) Aspartate Amino Transf (AST/SGOT) 46 U/L (15-37) H Alanine Aminotransferase (ALT/SGPT) 22 U/L (12-78) Alkaline Phosphatase 74 U/L (46-116) C-Reactive Protein, Quantitative 12.9 mg/dL (0.00-0.90) H Pro-B-Type Natriuretic Peptide 79622 pg/mL (0-125) H Total Protein 7.1 G/DL (6.4-8.2) Albumin 2.0 G/DL (3.4-5.0) L Globulin 5.1 g/dL Albumin/Globulin Ratio 0.4 (1.0-2.7) L Plan Problems: (1) Morbid obesity (2) Pacemaker (3) 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 Temporary use. Line functional. Recent dialysis noted. 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 His abdominal distention is his baseline large pannus. Skin folds and abnormalities in pannus identified from chronic distention. His KUB noted bowel gas pattern unremarkable. NG tube has been her removed since. No nausea vomiting fever chills. Labs noted. Improving with dialysis. Hyperkalemia improved. Mentation improved. Abdominal exam is fairly benign and consistent with what would be anticipated with the patient with a BMI of 57 with chronic condition. No acute abdominal source or etiology identified. Hypotension likely relative to patient's treatment renal and will monitor with dialysis. Okay for diet once stabilized but currently keep n.p.o. given his high BiPAP requirement. Thank you for letting participate patient's care will follow with recommendations diet as tolerated Abhay Mccray May 21, 2020 10:12
--- NOTE | 2020-05-21 10:52 | Pulmonology Progress Note ---
Subjective ROS Limited/Unobtainable: No Interval Events: seen in SDU Constitutional: Reports: no symptoms HEENT: Repors: no symptoms Respiratory: Reports: shortness of breath Cardiovascular: Reports: no symptoms Gastrointestinal/Abdominal: Reports: no symptoms Allergies: Coded Allergies: [place] (Verified Allergy, Mild, Rash, 10/29/14) per patient [place] (Unverified Allergy, Unknown, 11/28/13) Objective Last 24 Hour Vital Signs Date Time Temp Pulse Resp B/P (MAP) Pulse Ox O2 Delivery O2 Flow Rate FiO2 05/21/20 05:14 93 111/62 05/21/20 04:00 12.0 50 05/21/20 04:00 99.1 106 22 111/62 (78) 92 05/21/20 04:00 Venturi Mask 12.0 05/21/20 04:00 93 05/21/20 03:55 104 18 92 Venturi Mask 12.0 55 05/21/20 00:00 99.1 106 22 111/62 (78) 92 05/21/20 00:00 100 05/21/20 00:00 12.0 50 05/21/20 00:00 Venturi Mask 12.0 05/20/20 23:34 105 109/59 05/20/20 20:00 Venturi Mask 12.0 05/20/20 20:00 98.9 108 20 109/59 (76) 93 05/20/20 20:00 12.0 50 05/20/20 20:00 105 05/20/20 19:44 92 Venturi Mask 12.0 50 05/20/20 18:15 103 118/66 05/20/20 16:36 103 05/20/20 16:00 98.4 104 22 118/66 (83) 93 05/20/20 16:00 12.0 50 05/20/20 16:00 Bi-pap 50.0 05/20/20 12:00 98.1 87 24 104/59 (74) 93 05/20/20 12:00 12.0 50 05/20/20 12:00 Bi-pap 50.0 05/20/20 11:51 95 05/20/20 11:08 89 05/20/20 11:00 89 116/63 Intake and Output 05/20/20 05/21/20 19:00 07:00 Intake Total 1020 ml Output Total 300 ml 450 ml Balance -300 ml 570 ml Intake Oral 1020 ml Output Urine Total 300 ml 450 ml General Appearance: no acute distress Respiratory: chest wall non-tender, normal breath sounds Cardiovascular: normal rate, regular rhythm Abdomen: other - morbid obesity Laboratory Tests 05/20/20 13:21: POC Whole Blood Glucose [Pending] 05/20/20 18:01: POC Whole Blood Glucose 114H 05/21/20 03:28: White Blood Count 6.1, Red Blood Count 2.92L, Hemoglobin 8.0L, Hematocrit 27.1L, Mean Corpuscular Volume 93, Mean Corpuscular Hemoglobin 27.4, Mean Corpuscular Hemoglobin Concent 29.4L, Red Cell Distribution Width 16.0H, Platelet Count 123L , Mean Platelet Volume 7.5, Neutrophils (%) (Auto) 77.4H, Lymphocytes (%) (Auto) 12.9L, Monocytes (%) (Auto) 8.4, Eosinophils (%) (Auto) 0.0, Basophils (%) (Auto) 1.3, Sodium Level 141, Potassium Level 4.7, Chloride Level 107, Carbon Dioxide Level 29, Anion Gap 5, Blood Urea Nitrogen 60H, Creatinine 6.4H, Estimat Glomerular Filtration Rate 10.9, Glucose Level 117H, Uric Acid 4.7, Calcium Level 8.4L, Phosphorus Level 5.7H, Magnesium Level 1.9, Total Bilirubin 0.5, Aspartate Amino Transf (AST/SGOT) 46H, Alanine Aminotransferase (ALT/SGPT) 22, Alkaline Phosphatase 74, C-Reactive Protein, Quantitative 12.9H, Pro-B-Type Natriuretic Peptide 08683E, Total Protein 7.1, Albumin 2.0L, Globulin 5.1, Albumin/Globulin Ratio 0.4L Current Medications Medications (Trade) Dose Ordered Sig/Albert Route PRN Reason Start Time Stop Time Status Last Admin Dose Admin Acetaminophen (Tylenol) 500 mg Q4H PRN ORAL Severe Pain (Pain Scale 7-10) 05/20/20 18:45 06/19/20 18:44 05/21/20 09:49 Barium Sulfate (Varibar Honey) 250 ml NOW PRN MC RAD 05/20/20 18:00 05/23/20 17:53 Barium Sulfate (Varibar [place]) 240 ml NOW PRN MC RAD 05/20/20 18:00 05/23/20 17:53 Barium Sulfate (Varibar Pudding) 230 ml NOW PRN MC RAD 05/20/20 18:00 05/23/20 17:53 Barium Sulfate (Varibar Thin Liquid powder) 148 gm NOW PRN MC RAD 05/20/20 18:00 05/23/20 17:53 Cefepime HCl 500 mg/Dextrose 55 ml @ 110 mls/hr Q24H IV 05/19/20 13:00 05/26/20 12:59 05/20/20 14:13 Chlorhexidine Gluconate (Isamar-Hex 2%) 1 applic DAILY@2000 TOPIC 05/17/20 20:00 08/15/20 19:59 05/20/20 20:22 Dextrose (Dextrose 50%) 25 ml Q30M PRN IV Hypoglycemia 05/16/20 03:45 08/14/20 03:44 05/16/20 06:23 Dextrose (Dextrose 50%) 50 ml Q30M PRN IV Hypoglycemia 05/16/20 03:45 08/14/20 03:44 Digoxin (Lanoxin) 0.125 mg THREE TIMES A WEEK ORAL 05/20/20 11:00 08/18/20 10:59 05/20/20 11:08 Diltiazem HCl (Cardizem Tab) 60 mg EVERY 6 HOURS ORAL 05/20/20 18:00 06/17/20 17:59 05/21/20 05:14 Docusate Sodium (Colace) 100 mg THREE TIMES A DAY ORAL 05/19/20 13:00 06/18/20 12:59 05/21/20 09:50 Enoxaparin Sodium (Lovenox) 30 mg DAILY SUBQ 05/19/20 09:00 08/17/20 08:59 05/21/20 09:55 Epoetin Vivek (Epoetin Vivek(ESRD on dialysis)) 10,000 unit MON-WED-MON SUBQ 05/20/20 21:00 08/18/20 20:59 05/20/20 20:22 Folic Acid (Folate) 5 mg DAILY ORAL 05/17/20 14:00 06/16/20 13:59 05/21/20 09:50 Heparin Sodium/ Sodium Chloride (Heparin 1000 units/500ml Premix) 1,000 unit ONCE PRN INJ evp operations to radiology 05/20/20 13:15 05/22/20 13:14 Iron Sucrose 100 mg/Sodium Chloride 60 ml @ 240 mls/hr BEDTIME IVPB 05/19/20 21:00 05/23/20 21:14 05/20/20 20:22 Lidocaine/ Epinephrine (Lidocaine 2%/ Epi 20ml) 40 ml ONCE PRN INJ evp operations to radiology 05/20/20 13:15 05/22/20 23:59 Pantoprazole (Protonix) 40 mg EVERY 12 HOURS ORAL 05/19/20 21:00 06/18/20 20:59 05/21/20 09:50 Assessment/Plan Assessment/Plan 1. Hx Sleep apnea - Currently not on CPAP 2. Acute on chronic renal failure; hyperkalemia - s/p Kayexalate - s/p dialysis (05/15) - s/p permacath 3. Bacteriuria - s/p Rocephin in ER - f/u UCx negative 4. Hypoxemic respiratory distress -Continue supplemental O2 -> now saturating at 100% on Ventimask 12L - continue to wean as tolerated 5. Elevated inflammatory markers -Venous duplex ultrasound of lower extremities negative for DVT -On SCD for DVT prophylaxis 6. pneumonia -Chest x-ray shows interstitial opacities bilaterally -COVID-19 PCR negative -Observe off antibiotics given no leukocytosis or fever 7. A-fib with rvr - seen by cardio - now out of ICU and in SDU - s/p chandler whitmore The care for this patient was discussed with my supervising physician. Time spent for this case was approximately 31 minutes. Juan Dunlap May 21, 2020 10:52
[2020-05-21 12:00] VITALS: BP 130/80
--- NOTE | 2020-05-21 12:21 | Infectious Diseases Prog Note ---
Assessment/Plan Assessment/Plan A; 1. Possible pneumonia. 2. Hypertension. 3. Diabetes. 4. Congestive heart failure. 5. Morbid Obesity. 6. Respiratory failure, 7. Acute renal failure, ESRD 8. Anemia 9. Atrial fibrillation PLAN: 1. continue cefepime. 2. Negative COVID-19 test. Subjective ROS Limited/Unobtainable: No Constitutional: Reports: no symptoms Respiratory: Reports: no symptoms Gastrointestinal/Abdominal: Reports: no symptoms Genitourinary: Reports: no symptoms Allergies: Coded Allergies: [place] (Verified Allergy, Mild, Rash, 10/29/14) per patient PENICILLINS (Unverified Allergy, Unknown, 11/28/13) Objective Last 24 Hour Vital Signs Date Time Temp Pulse Resp B/P (MAP) Pulse Ox O2 Delivery O2 Flow Rate FiO2 05/21/20 05:14 93 111/62 05/21/20 04:00 12.0 50 05/21/20 04:00 99.1 106 22 111/62 (78) 92 05/21/20 04:00 Venturi Mask 12.0 05/21/20 04:00 93 05/21/20 03:55 104 18 92 Venturi Mask 12.0 55 05/21/20 00:00 99.1 106 22 111/62 (78) 92 05/21/20 00:00 100 05/21/20 00:00 12.0 50 05/21/20 00:00 Venturi Mask 12.0 05/20/20 23:34 105 109/59 05/20/20 20:00 Venturi Mask 12.0 05/20/20 20:00 98.9 108 20 109/59 (76) 93 05/20/20 20:00 12.0 50 05/20/20 20:00 105 05/20/20 19:44 92 Venturi Mask 12.0 50 05/20/20 18:15 103 118/66 05/20/20 16:36 103 05/20/20 16:00 98.4 104 22 118/66 (83) 93 05/20/20 16:00 12.0 50 05/20/20 16:00 Bi-pap 50.0 Height (Feet): 5 Height (Inches): 11.00 Weight (Pounds): 415 HEENT: mucous membranes moist Respiratory/Chest: decreased breath sounds, other - O2 by venturi mask Cardiovascular: normal rate, other - RIJ permacath, femoral HD line Abdomen: soft, non tender Extremities: other - generalized edema Neurologic/Psychiatric: alert, responsive Laboratory Tests Test 05/20/20 13:21 05/20/20 18:01 05/21/20 03:28 POC Whole Blood Glucose Pending 114 MG/DL (74-106) H White Blood Count 6.1 K/UL (4.8-10.8) Red Blood Count 2.92 M/UL (4.70-6.10) L Hemoglobin 8.0 G/DL (14.2-18.0) L Hematocrit 27.1 % (42.0-52.0) L Mean Corpuscular Volume 93 FL (80-99) Mean Corpuscular Hemoglobin 27.4 PG (27.0-31.0) Mean Corpuscular Hemoglobin Concent 29.4 G/DL (32.0-36.0) L Red Cell Distribution Width 16.0 % (11.6-14.8) H Platelet Count 123 K/UL (150-450) L Mean Platelet Volume 7.5 FL (6.5-10.1) Neutrophils (%) (Auto) 77.4 % (45.0-75.0) H Lymphocytes (%) (Auto) 12.9 % (20.0-45.0) L Monocytes (%) (Auto) 8.4 % (1.0-10.0) Eosinophils (%) (Auto) 0.0 % (0.0-3.0) Basophils (%) (Auto) 1.3 % (0.0-2.0) Sodium Level 141 MMOL/L (136-145) Potassium Level 4.7 MMOL/L (3.5-5.1) Chloride Level 107 MMOL/L (98-107) Carbon Dioxide Level 29 MMOL/L (21-32) Anion Gap 5 mmol/L (5-15) Blood Urea Nitrogen 60 mg/dL (7-18) H Creatinine 6.4 MG/DL (0.55-1.30) H Estimat Glomerular Filtration Rate 10.9 mL/min (>60) Glucose Level 117 MG/DL (74-106) H Uric Acid 4.7 MG/DL (2.6-7.2) Calcium Level 8.4 MG/DL (8.5-10.1) L Phosphorus Level 5.7 MG/DL (2.5-4.9) H Magnesium Level 1.9 MG/DL (1.8-2.4) Total Bilirubin 0.5 MG/DL (0.2-1.0) Aspartate Amino Transf (AST/SGOT) 46 U/L (15-37) H Alanine Aminotransferase (ALT/SGPT) 22 U/L (12-78) Alkaline Phosphatase 74 U/L (46-116) C-Reactive Protein, Quantitative 12.9 mg/dL (0.00-0.90) H Pro-B-Type Natriuretic Peptide 59069 pg/mL (0-125) H Total Protein 7.1 G/DL (6.4-8.2) Albumin 2.0 G/DL (3.4-5.0) L Globulin 5.1 g/dL Albumin/Globulin Ratio 0.4 (1.0-2.7) L Current Medications Medications (Trade) Dose Ordered Sig/Albert Route PRN Reason Start Time Stop Time Status Last Admin Dose Admin Acetaminophen (Tylenol) 500 mg Q4H PRN ORAL Severe Pain (Pain Scale 7-10) 05/20/20 18:45 06/19/20 18:44 05/21/20 09:49 Barium Sulfate (Varibar Honey) 250 ml NOW PRN MC RAD 05/20/20 18:00 05/23/20 17:53 Barium Sulfate (Varibar [place]) 240 ml NOW PRN MC RAD 05/20/20 18:00 05/23/20 17:53 Barium Sulfate (Varibar Pudding) 230 ml NOW PRN MC RAD 05/20/20 18:00 05/23/20 17:53 Barium Sulfate (Varibar Thin Liquid powder) 148 gm NOW PRN MC RAD 05/20/20 18:00 05/23/20 17:53 Cefepime HCl 500 mg/Dextrose 55 ml @ 110 mls/hr Q24H IV 05/19/20 13:00 05/26/20 12:59 05/20/20 14:13 Chlorhexidine Gluconate (Isamar-Hex 2%) 1 applic DAILY@2000 TOPIC 05/17/20 20:00 08/15/20 19:59 05/20/20 20:22 Dextrose (Dextrose 50%) 25 ml Q30M PRN IV Hypoglycemia 05/16/20 03:45 08/14/20 03:44 05/16/20 06:23 Dextrose (Dextrose 50%) 50 ml Q30M PRN IV Hypoglycemia 05/16/20 03:45 08/14/20 03:44 Digoxin (Lanoxin) 0.125 mg THREE TIMES A WEEK ORAL 05/20/20 11:00 08/18/20 10:59 05/20/20 11:08 Diltiazem HCl (Cardizem Tab) 60 mg EVERY 6 HOURS ORAL 05/20/20 18:00 06/17/20 17:59 05/21/20 05:14 Docusate Sodium (Colace) 100 mg THREE TIMES A DAY ORAL 05/19/20 13:00 06/18/20 12:59 05/21/20 09:50 Enoxaparin Sodium (Lovenox) 30 mg DAILY SUBQ 05/19/20 09:00 08/17/20 08:59 05/21/20 09:55 Epoetin Vivek (Epoetin Vivek(ESRD on dialysis)) 10,000 unit MON-MON-MON SUBQ 05/20/20 21:00 08/18/20 20:59 05/20/20 20:22 Folic Acid (Folate) 5 mg DAILY ORAL 05/17/20 14:00 06/16/20 13:59 05/21/20 09:50 Heparin Sodium/ Sodium Chloride (Heparin 1000 units/500ml Premix) 1,000 unit ONCE PRN INJ plumbing engineering draftsperson to radiology 05/20/20 13:15 05/22/20 13:14 Iron Sucrose 100 mg/Sodium Chloride 60 ml @ 240 mls/hr BEDTIME IVPB 05/19/20 21:00 05/23/20 21:14 05/20/20 20:22 Lidocaine/ Epinephrine (Lidocaine 2%/ Epi 20ml) 40 ml ONCE PRN INJ plumbing engineering draftsperson to radiology 05/20/20 13:15 05/22/20 23:59 Pantoprazole (Protonix) 40 mg EVERY 12 HOURS ORAL 05/19/20 21:00 06/18/20 20:59 05/21/20 09:50 Oswaldo Toro MD May 21, 2020 12:21
--- NOTE | 2020-05-21 13:32 | Nephrology Progress Note ---
Assessment/Plan Problem List: (1) MICHEAL (acute kidney injury) (2) Renal failure (ARF), acute on chronic (3) Morbid obesity (4) Pacemaker (5) Hyperkalemia (6) Acidosis Assessment Acute on chronic renal failure Hyperkalemia Metabolic acidosis Pacemaker UTI Morbid obesity Plan May 21: Dialyzed yesterday. Due for dialysis tomorrow. Low-dose Lopressor added. Check digoxin level tomorrow. Phosphorus binders ordered. Continue as is. May 20: Downgraded to stepdown. Due for dialysis today. Blood pressure somewhat low. Will decrease Cardizem dose. Continue to monitor renal parameters and dialyze as needed. Per orders. May 19: Seen in ICU. Awake alert responsive. Last dialyzed yesterday. Next dialysis tomorrow. Medication list reviewed. Hepatitis panel ordered. P atient requires long-term dialysis. Epogen added for anemia May 18: Patient seen in ICU. Currently on dialysis. Dialysis orders yesterday was not carried out apparently due to lack of personal. Patient clinically doing better. Breathing easier. Continue per consultants. Medication list reviewed. Off pressors. Continue to dialyze as needed. May 17: Patient seen in ICU. Full code. On BiPAP. Discussed with DANIEL Ponce. Labs reviewed. Renal parameters improved after patient was dialyzed y esterday. Patient off pressors. Will attempt dialysis again today for hyperkalemia. Continue per consultants. Oral folic acid ordered. Protonix IV ordered. Previously: Stat ABG, stat kidney ultrasound: Results noted IV bicarb NG tube, Kayexalate Urgent dialysis Discussed with DANIEL Oliva Patient cannot give consent for insertion of dialysis catheter. Dialysis at thi s point is a lifesaving procedure in my opinion. Subjective ROS Limited/Unobtainable: No Constitutional: Reports: malaise Objective Objective Last 24 Hour Vital Signs Date Time Temp Pulse Resp B/P (MAP) Pulse Ox O2 Delivery O2 Flow Rate FiO2 05/21/20 12:49 104 136/90 05/21/20 05:14 93 111/62 05/21/20 04:00 12.0 50 05/21/20 04:00 99.1 106 22 111/62 (78) 92 05/21/20 04:00 Venturi Mask 12.0 05/21/20 04:00 93 05/21/20 03:55 104 18 92 Venturi Mask 12.0 55 05/21/20 00:00 99.1 106 22 111/62 (78) 92 05/21/20 00:00 100 05/21/20 00:00 12.0 50 05/21/20 00:00 Venturi Mask 12.0 05/20/20 23:34 105 109/59 05/20/20 20:00 Venturi Mask 12.0 05/20/20 20:00 98.9 108 20 109/59 (76) 93 05/20/20 20:00 12.0 50 05/20/20 20:00 105 05/20/20 19:44 92 Venturi Mask 12.0 50 05/20/20 18:15 103 118/66 05/20/20 16:36 103 05/20/20 16:00 98.4 104 22 118/66 (83) 93 05/20/20 16:00 12.0 50 05/20/20 16:00 Bi-pap 50.0 Current Medications Medications (Trade) Dose Ordered Sig/Albert Route PRN Reason Start Time Stop Time Status Last Admin Dose Admin Acetaminophen (Tylenol) 500 mg Q4H PRN ORAL Severe Pain (Pain Scale 7-10) 05/20/20 18:45 06/19/20 18:44 05/21/20 09:49 Barium Sulfate (Varibar Honey) 250 ml NOW PRN MC RAD 05/20/20 18:00 05/23/20 17:53 Barium Sulfate (Varibar [place]) 240 ml NOW PRN MC RAD 05/20/20 18:00 05/23/20 17:53 Barium Sulfate (Varibar Pudding) 230 ml NOW PRN MC RAD 05/20/20 18:00 05/23/20 17:53 Barium Sulfate (Varibar Thin Liquid powder) 148 gm NOW PRN MC RAD 05/20/20 18:00 05/23/20 17:53 Cefepime HCl 500 mg/Dextrose 55 ml @ 110 mls/hr Q24H IV 05/19/20 13:00 05/26/20 12:59 05/20/20 14:13 Chlorhexidine Gluconate (Isamar-Hex 2%) 1 applic DAILY@2000 TOPIC 05/17/20 20:00 08/15/20 19:59 05/20/20 20:22 Dextrose (Dextrose 50%) 25 ml Q30M PRN IV Hypoglycemia 05/16/20 03:45 08/14/20 03:44 05/16/20 06:23 Dextrose (Dextrose 50%) 50 ml Q30M PRN IV Hypoglycemia 05/16/20 03:45 08/14/20 03:44 Digoxin (Lanoxin) 0.125 mg THREE TIMES A WEEK ORAL 05/20/20 11:00 08/18/20 10:59 05/20/20 11:08 Diltiazem HCl (Cardizem Tab) 60 mg EVERY 6 HOURS ORAL 05/20/20 18:00 06/17/20 17:59 05/21/20 12:49 Docusate Sodium (Colace) 100 mg THREE TIMES A DAY ORAL 05/19/20 13:00 06/18/20 12:59 05/21/20 09:50 Enoxaparin Sodium (Lovenox) 30 mg DAILY SUBQ 05/19/20 09:00 08/17/20 08:59 05/21/20 09:55 Epoetin Vivek (Epoetin Vivek(ESRD on dialysis)) 10,000 unit MON-MON-MON SUBQ 05/20/20 21:00 08/18/20 20:59 05/20/20 20:22 Folic Acid (Folate) 5 mg DAILY ORAL 05/17/20 14:00 06/16/20 13:59 05/21/20 09:50 Heparin Sodium/ Sodium Chloride (Heparin 1000 units/500ml Premix) 1,000 unit ONCE PRN INJ organizational effectiveness consultant to radiology 05/20/20 13:15 05/22/20 13:14 Iron Sucrose 100 mg/Sodium Chloride 60 ml @ 240 mls/hr BEDTIME IVPB 05/19/20 21:00 05/23/20 21:14 05/20/20 20:22 Lidocaine/ Epinephrine (Lidocaine 2%/ Epi 20ml) 40 ml ONCE PRN INJ organizational effectiveness consultant to radiology 05/20/20 13:15 05/22/20 23:59 Pantoprazole (Protonix) 40 mg EVERY 12 HOURS ORAL 05/19/20 21:00 06/18/20 20:59 05/21/20 09:50 Laboratory Tests Test 05/20/20 18:01 05/21/20 03:28 POC Whole Blood Glucose 114 MG/DL (74-106) H White Blood Count 6.1 K/UL (4.8-10.8) Red Blood Count 2.92 M/UL (4.70-6.10) L Hemoglobin 8.0 G/DL (14.2-18.0) L Hematocrit 27.1 % (42.0-52.0) L Mean Corpuscular Volume 93 FL (80-99) Mean Corpuscular Hemoglobin 27.4 PG (27.0-31.0) Mean Corpuscular Hemoglobin Concent 29.4 G/DL (32.0-36.0) L Red Cell Distribution Width 16.0 % (11.6-14.8) H Platelet Count 123 K/UL (150-450) L Mean Platelet Volume 7.5 FL (6.5-10.1) Neutrophils (%) (Auto) 77.4 % (45.0-75.0) H Lymphocytes (%) (Auto) 12.9 % (20.0-45.0) L Monocytes (%) (Auto) 8.4 % (1.0-10.0) Eosinophils (%) (Auto) 0.0 % (0.0-3.0) Basophils (%) (Auto) 1.3 % (0.0-2.0) Sodium Level 141 MMOL/L (136-145) Potassium Level 4.7 MMOL/L (3.5-5.1) Chloride Level 107 MMOL/L (98-107) Carbon Dioxide Level 29 MMOL/L (21-32) Anion Gap 5 mmol/L (5-15) Blood Urea Nitrogen 60 mg/dL (7-18) H Creatinine 6.4 MG/DL (0.55-1.30) H Estimat Glomerular Filtration Rate 10.9 mL/min (>60) Glucose Level 117 MG/DL (74-106) H Uric Acid 4.7 MG/DL (2.6-7.2) Calcium Level 8.4 MG/DL (8.5-10.1) L Phosphorus Level 5.7 MG/DL (2.5-4.9) H Magnesium Level 1.9 MG/DL (1.8-2.4) Total Bilirubin 0.5 MG/DL (0.2-1.0) Aspartate Amino Transf (AST/SGOT) 46 U/L (15-37) H Alanine Aminotransferase (ALT/SGPT) 22 U/L (12-78) Alkaline Phosphatase 74 U/L (46-116) C-Reactive Protein, Quantitative 12.9 mg/dL (0.00-0.90) H Pro-B-Type Natriuretic Peptide 13501 pg/mL (0-125) H Total Protein 7.1 G/DL (6.4-8.2) Albumin 2.0 G/DL (3.4-5.0) L Globulin 5.1 g/dL Albumin/Globulin Ratio 0.4 (1.0-2.7) L Intake and Output 05/20/20 05/21/20 19:00 07:00 Intake Total 1020 ml Output Total 300 ml 450 ml Balance -300 ml 570 ml Intake Oral 1020 ml Output Urine Total 300 ml 450 ml Laboratory Tests 05/20/20 18:01: POC Whole Blood Glucose 114H 05/21/20 03:28: White Blood Count 6.1, Red Blood Count 2.92L, Hemoglobin 8.0L, Hematocrit 27.1L, Mean Corpuscular Volume 93, Mean Corpuscular Hemoglobin 27.4, Mean Corpuscular Hemoglobin Concent 29.4L, Red Cell Distribution Width 16.0H, Platelet Count 123L , Mean Platelet Volume 7.5, Neutrophils (%) (Auto) 77.4H, Lymphocytes (%) (Auto) 12.9L, Monocytes (%) (Auto) 8.4, Eosinophils (%) (Auto) 0.0, Basophils (%) (Auto) 1.3, Sodium Level 141, Potassium Level 4.7, Chloride Level 107, Carbon Dioxide Level 29, Anion Gap 5, Blood Urea Nitrogen 60H, Creatinine 6.4H, Estimat Glomerular Filtration Rate 10.9, Glucose Level 117H, Uric Acid 4.7, Calcium Level 8.4L, Phosphorus Level 5.7H, Magnesium Level 1.9, Total Bilirubin 0.5, Aspartate Amino Transf (AST/SGOT) 46H, Alanine Aminotransferase (ALT/SGPT) 22, Alkaline Phosphatase 74, C-Reactive Protein, Quantitative 12.9H, Pro-B-Type Natriuretic Peptide 55151H, Total Protein 7.1, Albumin 2.0L, Globulin 5.1, Albumin/Globulin Ratio 0.4L Height (Feet): 5 Height (Inches): 11.00 Weight (Pounds): 415 Cardiovascular: tachycardia Respiratory/Chest: decreased breath sounds Abdomen: distended Adria Gautam MD May 21, 2020 13:32
[2020-05-21] MEDS: Cefepime 500mg/D5W 55ml IV SCH ×2 (13:44)
--- NOTE | 2020-05-21 13:44 | Consultation ---
DATE OF CONSULTATION: 05/21/2020 PAIN MANAGEMENT CONSULTATION CONSULTING PHYSICIAN: Abhijeet Choi MD. REFERRING PHYSICIAN: Montserrat Fan MD. PHYSICIAN BINDERY MACHINE OPERATOR: MELLO Acosta. CHIEF COMPLAINT: Neck pain. HISTORY OF PRESENT ILLNESS: This is a 60-year-old male who is being seen on the stepdown unit of [facility] for initial pain management consultation. The patient was admitted under the care of Dr. Fan due to kidney failure, hyperkalemia, and acidosis. He is morbidly obese with history of hypertension, diabetes mellitus, hyperlipidemia, CHF, underwent tunneled cath placement yesterday complaining of neck pain, was started on Tylenol 500 mg one tablet every four hours as needed for pain. The patient reports Tylenol has reduced his pain from 9 to 4/10. He is comfortable at this time. We were consulted so the patient will have adequate pain control while here in the hospital. PAST MEDICAL HISTORY: Hypertension, CHF, diabetes, and hyperlipidemia. PAST SURGICAL HISTORY: Denies. SOCIAL HISTORY: No history of smoking tobacco, drinking alcohol, and IV drug abuse. ALLERGIES: Penicillin. MEDICATIONS: Allopurinol, docusate, Vasotec, Lasix, Levemir, metolazone, and Xarelto. REVIEW OF SYSTEMS: Denies rash, fever, chills, sweating, dizziness, drowsiness, blurred vision, sore throat, or change in weight. No nausea, vomiting, diarrhea, or blood in the stool or urine. No dysuria. PHYSICAL EXAMINATION: GENERAL: Alert, awake, and oriented. VITAL SIGNS: Blood pressure 111/62, heart rate 93, oxygen saturation 98%, respiratory rate 18, and temperature 99.1 degrees Fahrenheit. HEENT: PERRLA. NECK: Range of motion is decreased due to the patient's condition. LUNGS: Decreased breath sounds bilaterally. HEART: S1 and S2, regular. ABDOMEN: Obese. BACK: Range of motion is decreased in flexion and extension. EXTREMITIES: Upper and lower extremity range of motion is decreased due to the patient' condition. No cyanosis. No clubbing. Sensory is reduced. Reflexes are not obtainable. No adenopathy. ASSESSMENT AND PLAN: This is a 60-year-old male with morbid obesity, degenerative joint disease, and neck pain, status post tunneled catheter placement. The patient will be continued on Tylenol as needed. The patient was discussed with Dr. Choi, and Dr. Choi concurred. We will follow the patient. Thank you very much for the courtesy of this consultation. bAhijeet Choi M.D. MELLO Acosta DR: Darius JOB#: [id number] CC:
[2020-05-21 16:00] VITALS: BP 115/68
[2020-05-21] MEDS ORDERED: Tubing IV Secondary IV ONE (18:32)
[2020-05-21 20:00] VITALS: BP 132/70
[2020-05-21] MEDS: Dyna-Hex 2% Top Sol 2oz TOPIC SCH (20:00)
--- NOTE | 2020-05-21 20:49 | General Progress Note ---
Subjective ROS Limited/Unobtainable: Yes Allergies: Coded Allergies: [place] (Verified Allergy, Mild, Rash, 10/29/14) per patient P[place] (Unverified Allergy, Unknown, 11/28/13) Objective Last 24 Hour Vital Signs Date Time Temp Pulse Resp B/P (MAP) Pulse Ox O2 Delivery O2 Flow Rate FiO2 05/21/20 19:54 91 Venturi Mask 12.0 50 05/21/20 18:07 83 115/68 05/21/20 16:00 Venturi Mask 14.0 05/21/20 16:00 14.0 50 05/21/20 16:00 98.1 83 20 115/68 (84) 92 05/21/20 16:00 90 05/21/20 15:36 90 05/21/20 13:47 101 130/80 05/21/20 12:49 104 136/90 05/21/20 12:00 12.0 50 05/21/20 12:00 Venturi Mask 12.0 05/21/20 12:00 98.2 101 20 130/80 (97) 90 05/21/20 11:32 104 05/21/20 08:00 98.2 85 20 110/59 (76) 90 05/21/20 08:00 12.0 50 05/21/20 08:00 Venturi Mask 12.0 05/21/20 07:25 95 05/21/20 05:14 93 111/62 05/21/20 04:00 12.0 50 05/21/20 04:00 99.1 106 22 111/62 (78) 92 05/21/20 04:00 Venturi Mask 12.0 05/21/20 04:00 93 05/21/20 03:55 104 18 92 Venturi Mask 12.0 55 05/21/20 00:00 99.1 106 22 111/62 (78) 92 05/21/20 00:00 100 05/21/20 00:00 12.0 50 05/21/20 00:00 Venturi Mask 12.0 05/20/20 23:34 105 109/59 l Intake and Output 05/20/20 05/21/20 19:00 07:00 Intake Total 1020 ml Output Total 300 ml 450 ml Balance -300 ml 570 ml Intake Oral 1020 ml Output Urine Total 300 ml 450 ml Laboratory Tests 05/21/20 03:28: White Blood Count 6.1, Red Blood Count 2.92L, Hemoglobin 8.0L, Hematocrit 27.1L, Mean Corpuscular Volume 93, Mean Corpuscular Hemoglobin 27.4, Mean Corpuscular H emoglobin Concent 29.4L, Red Cell Distribution Width 16.0H, Platelet Count 123L, Mean Platelet Volume 7.5, Neutrophils (%) (Auto) 77.4H, Lymphocytes (%) (Auto) 12.9L, Monocytes (%) (Auto) 8.4, Eosinophils (%) (Auto) 0.0, Basophils (%) (Auto) 1.3, Sodium Level 141, Potassium Level 4.7, Chloride Level 107, Carbon Dioxide Level 29, Anion Gap 5, Blood Urea Nitrogen 60H, Creatinine 6.4H, Estimat Glomerular Filtration Rate 10.9, Glucose Level 117H, Uric Acid 4.7, Calcium [place] 8.4L, Phosphorus Level 5.7H, Magnesium Level 1.9, Total Bilirubin 0.5, Aspartate Amino Transf (AST/SGOT) 46H, Alanine Aminotransferase (ALT/SGPT) 22, Alkaline Phosphatase 74, C-Reactive Protein, Quantitative 12.9H, Pro-B-Type Natriuretic Peptide 90679G, Total Protein 7.1, Albumin 2.0L, Globulin 5.1, Albumin/Globulin Ratio 0.4L Height (Feet): 5 Height (Inches): 11.00 Weight (Pounds): 415 Assessment/Plan Problem List: (1) Hyperkalemia ICD Codes: E87.5 - Hyperkalemia SNOMED: 09927601 (2) Acidosis ICD Codes: E87.2 - Acidosis SNOMED: 40497343 (3) Hyperglycemia ICD Codes: R73.9 - Hyperglycemia, unspecified SNOMED: 76866733 (4) Acute kidney failure ICD Codes: N17.9 - Acute kidney failure, unspecified SNOMED: 32603620 (5) Sepsis ICD Codes: A41.9 - Sepsis SNOMED: 40955483 (6) UTI (urinary tract infection) ICD Codes: N39.0 - Urinary tract infection, site not specified SNOMED: 48770910 (7) Chronic systolic heart failure ICD Codes: I50.9 - Chronic systolic heart failure SNOMED: 074735227 (8) Morbid obesity ICD Codes: E66.01 - Morbid (severe) obesity due to excess calories SNOMED: 342115597 (9) Pacemaker ICD Codes: Z95.0 - Pacemaker SNOMED: 870926736 (10) DM circ dis type I, uncontrolled ICD Codes: E10.59 - DM circ dis type I, uncontrolled SNOMED: 20395869 (11) Atrial flutter ICD Codes: I48.92 - Atrial flutter SNOMED: 5391689 (12) Abdominal distention ICD Codes: R14.0 - Abdominal distension (gaseous) SNOMED: 74455495 (13) Renal failure (ARF), acute on chronic ICD Codes: N17.9 - Acute kidney failure, unspecified; N18.9 - Chronic kidney disease, unspecified SNOMED: 744939399 Status: progressing Assessment/Plan: a fib sob afebrile pacer rate controlled no acute events respiratory failure getting HD anemia of renal failure chf dm check lytes and sugar Montserrat Fan MD May 21, 2020 20:49
[2020-05-21] MEDS: Iron Sucrose 100 MG in NS 55 ML IVPB SCH (20:57)
[2020-05-22] VITALS: BP 140/78
[2020-05-22 04:00] VITALS: BP 126/70
[2020-05-22 06:01] LABS: ALBUMIN/GLOBULIN RATIO 0.4 (1.0-2.7); BILIRUBIN,TOTAL 0.5 MG/DL (0.2-1.0); CALCIUM 8.3 MG/DL (8.5-10.1); CREATININE 7.2 MG/DL (0.55-1.30)
[2020-05-22 06:02] LABS: PHOSPHORUS 6.7 MG/DL (2.5-4.9)
[2020-05-22] MEDS: dilTIAZem HCl 30mg tab ORAL SCH ×4 (06:09→23:34)
[2020-05-22 08:00] VITALS: BP 129/73
--- NOTE | 2020-05-22 08:09 | General Progress Note ---
Subjective Date patient seen: May 22, 2020 Time patient seen: 07:30 - am Allergies: Coded Allergies: [place] (Verified Allergy, Mild, Rash, 10/29/14) per patient PENICILLINS (Unverified Allergy, Unknown, 11/28/13) Subjective HISTORY OF PRESENT ILLNESS: This is a 60-year-old male who is being seen on the stepdown unit of [facility]. Patient sitting up in bed and denies pain at this time. With no new complaints at this time. REVIEW OF SYSTEMS: Denies rash, fever, chills, sweating, dizziness, drowsiness, blurred vision, sore throat, or change in weight. No nausea, vomiting, diarrhea, or blood in the stool or urine. No dysuria. Objective Last 24 Hour Vital Signs Date Time Temp Pulse Resp B/P (MAP) Pulse Ox O2 Delivery O2 Flow Rate FiO2 05/22/20 06:09 94 126/70 05/22/20 04:00 97.9 94 20 126/70 (88) 94 05/22/20 04:00 14.0 50 05/22/20 04:00 Venturi Mask 14.0 05/22/20 04:00 95 05/22/20 03:47 94 14.0 55 05/22/20 02:50 98 15.0 100 05/22/20 00:00 14.0 50 05/22/20 00:00 Venturi Mask 14.0 05/22/20 00:00 85 05/22/20 00:00 98.1 89 20 140/78 (98) 91 05/21/20 23:20 104 21 96 60 05/21/20 23:18 89 122/68 05/21/20 21:13 93 25 91 60 05/21/20 21:12 91 Bi-Pap 60 05/21/20 20:58 89 132/70 05/21/20 20:00 Venturi Mask 14.0 05/21/20 20:00 94 05/21/20 20:00 14.0 50 05/21/20 20:00 97.9 89 20 132/70 (90) 91 05/21/20 19:54 91 Venturi Mask 12.0 50 05/21/20 18:07 83 115/68 05/21/20 16:00 Venturi Mask 14.0 05/21/20 16:00 14.0 50 05/21/20 16:00 98.1 83 20 115/68 (84) 92 05/21/20 16:00 90 05/21/20 15:36 90 05/21/20 13:47 101 130/80 05/21/20 12:49 104 136/90 05/21/20 12:00 12.0 50 05/21/20 12:00 Venturi Mask 12.0 05/21/20 12:00 98.2 101 20 130/80 (97) 90 05/21/20 11:32 104 Intake and Output 05/21/20 05/22/20 19:00 07:00 Intake Total 440 ml 200 ml Output Total 600 ml Balance 440 ml -400 ml Intake Oral 440 ml 200 ml Output Urine Total 600 ml Laboratory Tests 05/21/20 20:39: POC Whole Blood Glucose [Pending] 05/22/20 04:35: Sodium Level 140, Potassium Level 5.0, Chloride Level 105, Carbon Dioxide Level 25, Anion Gap 10, Blood Urea Nitrogen 71H, Creatinine 7.2H, Estimat Glomerular Filtration Rate 9.6, Glucose Level 121H, Calcium Level 8.3L, Phosphorus Level 6.7H, Magnesium Level 2.1, Total Bilirubin 0.5, Aspartate Amino Transf (AST/SGOT) 42H, Alanine Aminotransferase (ALT/SGPT) 24, Alkaline Phosphatase 75, Total Protein 7.4, Albumin 2.0L, Globulin 5.4, Albumin/Globulin Ratio 0.4L, Digoxin Level 1.1 Height (Feet): 5 Height (Inches): 11.00 Weight (Pounds): 415 Objective PHYSICAL EXAMINATION: GENERAL: Alert, awake, and oriented. LUNGS: Decreased breath sounds bilaterally. HEART: S1 and S2, regular. ABDOMEN: Obese. EXTREMITIES: No cyanosis. No clubbing. NEURO: No changes. Assessment/Plan Assessment/Plan: (1) Neck pain s/p tunnel cath placement (2) Morbid obesity (3) Degenerative joint disease Patient to be continued on Tylenol D/w Dr. Choi and he concurred. Bassem Hickey May 22, 2020 08:09
--- NOTE | 2020-05-22 09:11 | Hematology/Onc Progress Note ---
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, has been getting hd, as per renal -> hgb 9-->7.9-->8 --> anemia panel has been noted --> consider use of epo --> have started on iv iron # Hypercoagulable disorder with afib/also COVID19 in iCU --> will start low dose lovenox given elevated ddimer per ISABELLA guidelines --> no evidence of bleeding currently --> trend ddimer as needed, to see if risk of emboli # Thrombocytopenia likely due to infection --> plt 130 --> smear is reviewed # MICHEAL on ckd --> per renal # Morbid obesity --> rec weight loss # Acidosis --> off bipap --> on fm # Hyperkalemia # Pacemaker # UTI (urinary tract infection --> cefepime # Dvt ppx lovenox Appreciate consultation and goyo Rn Subjective Constitutional: Denies: no symptoms, chills, fever, malaise, weakness, other Cardiovascular: Denies: no symptoms, chest pain, edema, irregular heart rate, lightheadedness, palpitations, syncope, other Gastrointestinal/Abdominal: Denies: no symptoms, abdomen distended, abdominal pain, black stools, tarry stools, blood in stool, constipated, diarrhea, difficulty swallowing, nausea, poor appetite, poor fluid intake, rectal bleeding, vomiting, other Genitourinary: Denies: no symptoms, burning, discharge, frequency, flank pain, hematuria, incontinence, pain, urgency, other Neurologic/Psychiatric: Denies: no symptoms, anxiety, depressed, emotional problems, headache, numbness, paresthesia, pre-existing deficit, seizure, tingling, tremors, weakness, other Allergies: Coded Allergies: [place] (Verified Allergy, Mild, Rash, 10/29/14) per patient PENICILLINS (Unverified Allergy, Unknown, 11/28/13) Subjective 05/20 transferred out of icu, doing better, hgb 8, plt 130, smear is reviewed 05/21 hgb 8, plt 123, meds reviewed, with right chest permacath 05/22 meds noted, no bleeding, cbc is pending this am Objective Objective Current Medications Medications (Trade) Dose Ordered Sig/Albert Route PRN Reason Start Time Stop Time Status Last Admin Dose Admin Acetaminophen (Tylenol) 500 mg Q4H PRN ORAL Severe Pain (Pain Scale 7-10) 05/20/20 18:45 06/19/20 18:44 05/21/20 09:49 Barium Sulfate (Varibar Honey) 250 ml NOW PRN MC RAD 05/20/20 18:00 05/23/20 17:53 Barium Sulfate (Varibar [place]) 240 ml NOW PRN MC RAD 05/20/20 18:00 05/23/20 17:53 Barium Sulfate (Varibar Pudding) 230 ml NOW PRN MC RAD 05/20/20 18:00 05/23/20 17:53 Barium Sulfate (Varibar Thin Liquid powder) 148 gm NOW PRN MC RAD 05/20/20 18:00 05/23/20 17:53 Cefepime HCl 500 mg/Dextrose 55 ml @ 110 mls/hr Q24H IV 05/19/20 13:00 05/26/20 12:59 05/21/20 13:44 Chlorhexidine Gluconate (Isamar-Hex 2%) 1 applic DAILY@2000 TOPIC 05/17/20 20:00 08/15/20 19:59 05/21/20 20:00 Dextrose (Dextrose 50%) 25 ml Q30M PRN IV Hypoglycemia 05/16/20 03:45 08/14/20 03:44 05/16/20 06:23 Dextrose (Dextrose 50%) 50 ml Q30M PRN IV Hypoglycemia 05/16/20 03:45 08/14/20 03:44 Digoxin (Lanoxin) 0.125 mg THREE TIMES A WEEK ORAL 05/20/20 11:00 08/18/20 10:59 05/20/20 11:08 Diltiazem HCl (Cardizem Tab) 60 mg EVERY 6 HOURS ORAL 05/20/20 18:00 06/17/20 17:59 05/22/20 06:09 Docusate Sodium (Colace) 100 mg THREE TIMES A DAY ORAL 05/19/20 13:00 06/18/20 12:59 05/21/20 18:07 Enoxaparin Sodium (Lovenox) 30 mg DAILY SUBQ 05/19/20 09:00 08/17/20 08:59 05/21/20 09:55 Epoetin Vivek (Epoetin Vivek(ESRD on dialysis)) 10,000 unit MON-MON-MON SUBQ 05/20/20 21:00 08/18/20 20:59 05/20/20 20:22 Folic Acid (Folate) 5 mg DAILY ORAL 05/17/20 14:00 06/16/20 13:59 05/21/20 09:50 Heparin Sodium/ Sodium Chloride (Heparin 1000 units/500ml Premix) 1,000 unit ONCE PRN INJ health promotion manager to radiology 05/20/20 13:15 05/22/20 13:14 Iron Sucrose 100 mg/Sodium Chloride 60 ml @ 240 mls/hr BEDTIME IVPB 05/19/20 21:00 05/23/20 21:14 05/21/20 20:57 Lidocaine/ Epinephrine (Lidocaine 2%/ Epi 20ml) 40 ml ONCE PRN INJ health promotion manager to radiology 05/20/20 13:15 05/22/20 23:59 Metoprolol Tartrate (Lopressor) 12.5 mg Q12HR ORAL 05/21/20 21:00 08/19/20 20:59 05/21/20 20:58 Pantoprazole (Protonix) 40 mg EVERY 12 HOURS ORAL 05/19/20 21:00 06/18/20 20:59 05/21/20 20:58 Sevelamer Carbonate (Renvela) 800 mg THREE TIMES A DAY ORAL 05/21/20 18:00 08/19/20 17:59 05/21/20 18:07 Last 24 Hour Vital Signs Date Time Temp Pulse Resp B/P (MAP) Pulse Ox O2 Delivery O2 Flow Rate FiO2 05/22/20 06:09 94 126/70 05/22/20 04:00 97.9 94 20 126/70 (88) 94 05/22/20 04:00 14.0 50 05/22/20 04:00 Venturi Mask 14.0 05/22/20 04:00 95 05/22/20 03:47 94 14.0 55 05/22/20 02:50 98 15.0 100 05/22/20 00:00 14.0 50 05/22/20 00:00 Venturi Mask 14.0 05/22/20 00:00 85 05/22/20 00:00 98.1 89 20 140/78 (98) 91 05/21/20 23:20 104 21 96 60 05/21/20 23:18 89 122/68 05/21/20 21:13 93 25 91 60 05/21/20 21:12 91 Bi-Pap 60 05/21/20 20:58 89 132/70 05/21/20 20:00 Venturi Mask 14.0 05/21/20 20:00 94 05/21/20 20:00 14.0 50 05/21/20 20:00 97.9 89 20 132/70 (90) 91 05/21/20 19:54 91 Venturi Mask 12.0 50 05/21/20 18:07 83 115/68 05/21/20 16:00 Venturi Mask 14.0 05/21/20 16:00 14.0 50 05/21/20 16:00 98.1 83 20 115/68 (84) 92 05/21/20 16:00 90 05/21/20 15:36 90 05/21/20 13:47 101 130/80 05/21/20 12:49 104 136/90 05/21/20 12:00 12.0 50 05/21/20 12:00 Venturi Mask 12.0 05/21/20 12:00 98.2 101 20 130/80 (97) 90 05/21/20 11:32 104 05/21/20 08:00 98.2 85 20 110/59 (76) 90 05/21/20 08:00 12.0 50 05/21/20 08:00 Venturi Mask 12.0 05/21/20 07:25 95 05/21/20 05:14 93 111/62 05/21/20 04:00 12.0 50 05/21/20 04:00 99.1 106 22 111/62 (78) 92 05/21/20 04:00 Venturi Mask 12.0 05/21/20 04:00 93 05/21/20 03:55 104 18 92 Venturi Mask 12.0 55 05/21/20 00:00 99.1 106 22 111/62 (78) 92 05/21/20 00:00 100 05/21/20 00:00 12.0 50 05/21/20 00:00 Venturi Mask 12.0 05/20/20 23:34 105 109/59 05/20/20 20:00 Venturi Mask 12.0 05/20/20 20:00 98.9 108 20 109/59 (76) 93 05/20/20 20:00 12.0 50 05/20/20 20:00 105 05/20/20 19:44 92 Venturi Mask 12.0 50 05/20/20 18:15 103 118/66 05/20/20 16:36 103 05/20/20 16:00 98.4 104 22 118/66 (83) 93 05/20/20 16:00 12.0 50 05/20/20 16:00 Bi-pap 50.0 05/20/20 12:00 98.1 87 24 104/59 (74) 93 05/20/20 12:00 12.0 50 05/20/20 12:00 Bi-pap 50.0 05/20/20 11:51 95 05/20/20 11:08 89 05/20/20 11:00 89 116/63 Intake and Output 05/21/20 05/22/20 19:00 07:00 Intake Total 440 ml 200 ml Output Total 600 ml Balance 440 ml -400 ml Intake Oral 440 ml 200 ml Output Urine Total 600 ml Labs Test 05/19/20 17:28 05/20/20 04:50 05/20/20 13:21 05/20/20 18:01 POC Whole Blood Glucose 108 MG/DL (74-106) 114 MG/DL (74-106) White Blood Count 6.3 K/UL (4.8-10.8) Red Blood Count 2.95 M/UL (4.70-6.10) Hemoglobin 8.0 G/DL (14.2-18.0) Hematocrit 27.1 % (42.0-52.0) Mean Corpuscular Volume 92 FL (80-99) Mean Corpuscular Hemoglobin 27.2 PG (27.0-31.0) Mean Corpuscular Hemoglobin Concent 29.6 G/DL (32.0-36.0) Red Cell Distribution Width 16.7 % (11.6-14.8) Platelet Count 130 K/UL (150-450) Mean Platelet Volume 8.0 FL (6.5-10.1) Neutrophils (%) (Auto) 76.2 % (45.0-75.0) Lymphocytes (%) (Auto) 11.9 % (20.0-45.0) Monocytes (%) (Auto) 9.5 % (1.0-10.0) Eosinophils (%) (Auto) 0.7 % (0.0-3.0) Basophils (%) (Auto) 1.8 % (0.0-2.0) Prothrombin Time 12.3 SEC (9.30-11.50) Prothromb Time International Ratio 1.1 (0.9-1.1) Activated Partial Thromboplast Time 34 SEC (23-33) Sodium Level 143 MMOL/L (136-145) Potassium Level 4.7 MMOL/L (3.5-5.1) Chloride Level 109 MMOL/L (98-107) Carbon Dioxide Level 27 MMOL/L (21-32) Anion Gap 7 mmol/L (5-15) Blood Urea Nitrogen 69 mg/dL (7-18) Creatinine 7.3 MG/DL (0.55-1.30) Estimat Glomerular Filtration Rate 9.3 mL/min (>60) Glucose Level 115 MG/DL (74-106) Uric Acid 5.2 MG/DL (2.6-7.2) Calcium Level 7.5 MG/DL (8.5-10.1) Phosphorus Level 6.0 MG/DL (2.5-4.9) Magnesium Level 1.8 MG/DL (1.8-2.4) Total Bilirubin 0.6 MG/DL (0.2-1.0) Aspartate Amino Transf (AST/SGOT) 43 U/L (15-37) Alanine Aminotransferase (ALT/SGPT) 23 U/L (12-78) Alkaline Phosphatase 74 U/L (46-116) C-Reactive Protein, Quantitative 9.7 mg/dL (0.00-0.90) Pro-B-Type Natriuretic Peptide 09884 pg/mL (0-125) Total Protein 6.8 G/DL (6.4-8.2) Albumin 1.9 G/DL (3.4-5.0) Globulin 4.9 g/dL Albumin/Globulin Ratio 0.4 (1.0-2.7) Digoxin Level 1.4 NG/ML (0.5-2.0) Test 05/21/20 03:28 05/21/20 20:39 05/22/20 04:35 White Blood Count 6.1 K/UL (4.8-10.8) Red Blood Count 2.92 M/UL (4.70-6.10) Hemoglobin 8.0 G/DL (14.2-18.0) Hematocrit 27.1 % (42.0-52.0) Mean Corpuscular Volume 93 FL (80-99) Mean Corpuscular Hemoglobin 27.4 PG (27.0-31.0) Mean Corpuscular Hemoglobin Concent 29.4 G/DL (32.0-36.0) Red Cell Distribution Width 16.0 % (11.6-14.8) Platelet Count 123 K/UL (150-450) Mean Platelet Volume 7.5 FL (6.5-10.1) Neutrophils (%) (Auto) 77.4 % (45.0-75.0) Lymphocytes (%) (Auto) 12.9 % (20.0-45.0) Monocytes (%) (Auto) 8.4 % (1.0-10.0) Eosinophils (%) (Auto) 0.0 % (0.0-3.0) Basophils (%) (Auto) 1.3 % (0.0-2.0) Sodium Level 141 MMOL/L (136-145) 140 MMOL/L (136-145) Potassium Level 4.7 MMOL/L (3.5-5.1) 5.0 MMOL/L (3.5-5.1) Chloride Level 107 MMOL/L (98-107) 105 MMOL/L (98-107) Carbon Dioxide Level 29 MMOL/L (21-32) 25 MMOL/L (21-32) Anion Gap 5 mmol/L (5-15) 10 mmol/L (5-15) Blood Urea Nitrogen 60 mg/dL (7-18) 71 mg/dL (7-18) Creatinine 6.4 MG/DL (0.55-1.30) 7.2 MG/DL (0.55-1.30) Estimat Glomerular Filtration Rate 10.9 mL/min (>60) 9.6 mL/min (>60) Glucose Level 117 MG/DL (74-106) 121 MG/DL (74-106) Uric Acid 4.7 MG/DL (2.6-7.2) Calcium Level 8.4 MG/DL (8.5-10.1) 8.3 MG/DL (8.5-10.1) Phosphorus Level 5.7 MG/DL (2.5-4.9) 6.7 MG/DL (2.5-4.9) Magnesium Level 1.9 MG/DL (1.8-2.4) 2.1 MG/DL (1.8-2.4) Total Bilirubin 0.5 MG/DL (0.2-1.0) 0.5 MG/DL (0.2-1.0) Aspartate Amino Transf (AST/SGOT) 46 U/L (15-37) 42 U/L (15-37) Alanine Aminotransferase (ALT/SGPT) 22 U/L (12-78) 24 U/L (12-78) Alkaline Phosphatase 74 U/L (46-116) 75 U/L (46-116) C-Reactive Protein, Quantitative 12.9 mg/dL (0.00-0.90) Pro-B-Type Natriuretic Peptide 96208 pg/mL (0-125) Total Protein 7.1 G/DL (6.4-8.2) 7.4 G/DL (6.4-8.2) Albumin 2.0 G/DL (3.4-5.0) 2.0 G/DL (3.4-5.0) Globulin 5.1 g/dL 5.4 g/dL Albumin/Globulin Ratio 0.4 (1.0-2.7) 0.4 (1.0-2.7) Digoxin Level 1.1 NG/ML (0.5-2.0) Height (Feet): 5 Height (Inches): 11.00 Weight (Pounds): 415 Objective Physical Exam General: Somnolent, falling asleep during exam. alert HEENT: NC/AT. EOMI. Cardiovascular: RRR. S1 and S2 normal. No murmur appreciated Resp: 4 L nasal cannula. + right chest permacath Abdomen: Abdomen is morbidly obese. Skin: Intact. Venous stasis changes lower extremities MSK: Normal tone and bulk. Moving all extremities. No obvious deformity. Neuro: Somnolent. Confused. Moving all extremities. Mio Ashton MD May 22, 2020 09:11
[2020-05-22] MEDS: Enoxaparin 30mg Inj SUBQ SCH (09:52)
[2020-05-22] MEDS: Docusate 100mg cap ORAL SCH ×3 (09:53→18:00)
[2020-05-22] MEDS: Digoxin 0.125mg tab ORAL SCH (09:53)
--- NOTE | 2020-05-22 10:57 | Pulmonology Progress Note ---
Subjective ROS Limited/Unobtainable: Yes Interval Events: seen in SDU; due for diaylsis today Constitutional: Reports: no symptoms HEENT: Repors: no symptoms Respiratory: Reports: shortness of breath Cardiovascular: Reports: no symptoms Gastrointestinal/Abdominal: Reports: no symptoms Allergies: Coded Allergies: [place] (Verified Allergy, Mild, Rash, 10/29/14) per patient PENICILLINS (Unverified Allergy, Unknown, 11/28/13) Objective Last 24 Hour Vital Signs Date Time Temp Pulse Resp B/P (MAP) Pulse Ox O2 Delivery O2 Flow Rate FiO2 05/22/20 09:53 85 05/22/20 06:09 94 126/70 05/22/20 04:00 97.9 94 20 126/70 (88) 94 05/22/20 04:00 14.0 50 05/22/20 04:00 Venturi Mask 14.0 05/22/20 04:00 95 05/22/20 03:47 94 14.0 55 05/22/20 02:50 98 15.0 100 05/22/20 00:00 14.0 50 05/22/20 00:00 Venturi Mask 14.0 05/22/20 00:00 85 05/22/20 00:00 98.1 89 20 140/78 (98) 91 05/21/20 23:20 104 21 96 60 05/21/20 23:18 89 122/68 05/21/20 21:13 93 25 91 60 05/21/20 21:12 91 Bi-Pap 60 05/21/20 20:58 89 132/70 05/21/20 20:00 Venturi Mask 14.0 05/21/20 20:00 94 05/21/20 20:00 14.0 50 05/21/20 20:00 97.9 89 20 132/70 (90) 91 05/21/20 19:54 91 Venturi Mask 12.0 50 05/21/20 18:07 83 115/68 05/21/20 16:00 Venturi Mask 14.0 05/21/20 16:00 14.0 50 05/21/20 16:00 98.1 83 20 115/68 (84) 92 05/21/20 16:00 90 05/21/20 15:36 90 05/21/20 13:47 101 130/80 05/21/20 12:49 104 136/90 05/21/20 12:00 12.0 50 05/21/20 12:00 Venturi Mask 12.0 05/21/20 12:00 98.2 101 20 130/80 (97) 90 05/21/20 11:32 104 Intake and Output 05/21/20 05/22/20 19:00 07:00 Intake Total 440 ml 200 ml Output Total 600 ml Balance 440 ml -400 ml Intake Oral 440 ml 200 ml Output Urine Total 600 ml General Appearance: no acute distress Respiratory: chest wall non-tender, normal breath sounds Cardiovascular: normal rate, regular rhythm Abdomen: other - morbid obesity Laboratory Tests 05/21/20 20:39: POC Whole Blood Glucose [Pending] 05/22/20 04:35: Sodium Level 140, Potassium Level 5.0, Chloride Level 105, Carbon Dioxide Level 25, Anion Gap 10, Blood Urea Nitrogen 71H, Creatinine 7.2H, Estimat Glomerular Filtration Rate 9.6, Glucose Level 121H, Calcium Level 8.3L, Phosphorus Level 6.7H, Magnesium Level 2.1, Total Bilirubin 0.5, Aspartate Amino Transf (AST/SGOT) 42H, Alanine Aminotransferase (ALT/SGPT) 24, Alkaline Phosphatase 75, Total Protein 7.4, Albumin 2.0L, Globulin 5.4, Albumin/Globulin Ratio 0.4L, Digoxin Level 1.1 Current Medications Medications (Trade) Dose Ordered Sig/Albert Route PRN Reason Start Time Stop Time Status Last Admin Dose Admin Acetaminophen (Tylenol) 500 mg Q4H PRN ORAL Severe Pain (Pain Scale 7-10) 05/20/20 18:45 06/19/20 18:44 05/21/20 09:49 Barium Sulfate (Varibar Honey) 250 ml NOW PRN MC RAD 05/20/20 18:00 05/23/20 17:53 Barium Sulfate (Varibar [place]) 240 ml NOW PRN MC RAD 05/20/20 18:00 05/23/20 17:53 Barium Sulfate (Varibar Pudding) 230 ml NOW PRN MC RAD 05/20/20 18:00 05/23/20 17:53 Barium Sulfate (Varibar Thin Liquid powder) 148 gm NOW PRN MC RAD 05/20/20 18:00 05/23/20 17:53 Cefepime HCl 500 mg/Dextrose 55 ml @ 110 mls/hr Q24H IV 05/19/20 13:00 05/26/20 12:59 05/21/20 13:44 Chlorhexidine Gluconate (Isamar-Hex 2%) 1 applic DAILY@2000 TOPIC 05/17/20 20:00 08/15/20 19:59 05/21/20 20:00 Dextrose (Dextrose 50%) 25 ml Q30M PRN IV Hypoglycemia 05/16/20 03:45 08/14/20 03:44 05/16/20 06:23 Dextrose (Dextrose 50%) 50 ml Q30M PRN IV Hypoglycemia 05/16/20 03:45 08/14/20 03:44 Digoxin (Lanoxin) 0.125 mg THREE TIMES A WEEK ORAL 05/20/20 11:00 08/18/20 10:59 05/22/20 09:53 Diltiazem HCl (Cardizem Tab) 60 mg EVERY 6 HOURS ORAL 05/20/20 18:00 06/17/20 17:59 05/22/20 06:09 Docusate Sodium (Colace) 100 mg THREE TIMES A DAY ORAL 05/19/20 13:00 06/18/20 12:59 05/22/20 09:53 Enoxaparin Sodium (Lovenox) 30 mg DAILY SUBQ 05/19/20 09:00 08/17/20 08:59 05/22/20 09:52 Epoetin Vivek (Epoetin Vivek(ESRD on dialysis)) 10,000 unit MON-MON-MON SUBQ 05/20/20 21:00 08/18/20 20:59 05/20/20 20:22 Folic Acid (Folate) 5 mg DAILY ORAL 05/17/20 14:00 06/16/20 13:59 05/22/20 09:56 Heparin Sodium/ Sodium Chloride (Heparin 1000 units/500ml Premix) 1,000 unit ONCE PRN INJ wood barrel reconditioner to radiology 05/20/20 13:15 05/22/20 13:14 Iron Sucrose 100 mg/Sodium Chloride 60 ml @ 240 mls/hr BEDTIME IVPB 05/19/20 21:00 05/23/20 21:14 05/21/20 20:57 Lidocaine/ Epinephrine (Lidocaine 2%/ Epi 20ml) 40 ml ONCE PRN INJ wood barrel reconditioner to radiology 05/20/20 13:15 05/22/20 23:59 Metoprolol Tartrate (Lopressor) 12.5 mg Q12HR ORAL 05/21/20 21:00 08/19/20 20:59 05/21/20 20:58 Pantoprazole (Protonix) 40 mg EVERY 12 HOURS ORAL 05/19/20 21:00 06/18/20 20:59 05/22/20 09:53 Sevelamer Carbonate (Renvela) 800 mg THREE TIMES A DAY ORAL 05/21/20 18:00 08/19/20 17:59 05/22/20 09:53 Assessment/Plan Assessment/Plan 1. Hx Sleep apnea - Currently not on CPAP 2. Acute on chronic renal failure; hyperkalemia - s/p Kayexalate - s/p dialysis (05/15) - s/p permacath 3. Bacteriuria - s/p Rocephin in ER - f/u UCx negative 4. Hypoxemic respiratory distress -Continue supplemental O2 -> now saturating at 100% on Ventimask 14L - continue to wean as tolerated 5. Elevated inflammatory markers -Venous duplex ultrasound of lower extremities negative for DVT -On SCD for DVT prophylaxis 6. pneumonia -Chest x-ray shows interstitial opacities bilaterally -COVID-19 PCR negative -Observe off antibiotics given no leukocytosis or fever 7. A-fib with rvr - seen by cardio - now out of ICU and in SDU - s/p chandler whitmore The care for this patient was discussed with my supervising physician. Time spent for this case was approximately 31 minutes. Juan Dunlap May 22, 2020 10:57
--- NOTE | 2020-05-22 11:18 | Infectious Diseases Prog Note ---
Assessment/Plan Assessment/Plan A; 1. Possible pneumonia. 2. Hypertension. 3. Diabetes. 4. Congestive heart failure. 5. Morbid Obesity. 6. Respiratory failure, 7. Acute renal failure, ESRD 8. Anemia 9. Atrial fibrillation PLAN: 1. continue cefepime. 2. Negative COVID-19 test. Subjective ROS Limited/Unobtainable: Yes Allergies: Coded Allergies: [place] (Verified Allergy, Mild, Rash, 10/29/14) per patient PENICILLINS (Unverified Allergy, Unknown, 11/28/13) Objective Last 24 Hour Vital Signs Date Time Temp Pulse Resp B/P (MAP) Pulse Ox O2 Delivery O2 Flow Rate FiO2 05/22/20 10:00 100 05/22/20 09:53 85 05/22/20 08:00 12.0 50 05/22/20 08:00 99.5 103 18 129/73 (91) 87 05/22/20 08:00 Venturi Mask 12.0 05/22/20 08:00 104 05/22/20 06:09 94 126/70 05/22/20 04:00 97.9 94 20 126/70 (88) 94 05/22/20 04:00 14.0 50 05/22/20 04:00 Venturi Mask 14.0 05/22/20 04:00 95 05/22/20 03:47 94 14.0 55 05/22/20 02:50 98 15.0 100 05/22/20 00:00 14.0 50 05/22/20 00:00 Venturi Mask 14.0 05/22/20 00:00 85 05/22/20 00:00 98.1 89 20 140/78 (98) 91 05/21/20 23:20 104 21 96 60 05/21/20 23:18 89 122/68 05/21/20 21:13 93 25 91 60 05/21/20 21:12 91 Bi-Pap 60 05/21/20 20:58 89 132/70 05/21/20 20:00 Venturi Mask 14.0 05/21/20 20:00 94 05/21/20 20:00 14.0 50 05/21/20 20:00 97.9 89 20 132/70 (90) 91 05/21/20 19:54 91 Venturi Mask 12.0 50 05/21/20 18:07 83 115/68 2/18/21 16:00 Venturi Mask 14.0 05/21/20 16:00 14.0 50 05/21/20 16:00 98.1 83 20 115/68 (84) 92 05/21/20 16:00 90 05/21/20 15:36 90 05/21/20 13:47 101 130/80 05/21/20 12:49 104 136/90 05/21/20 12:00 12.0 50 05/21/20 12:00 Venturi Mask 12.0 05/21/20 12:00 98.2 101 20 130/80 (97) 90 05/21/20 11:32 104 Height (Feet): 5 Height (Inches): 11.00 Weight (Pounds): 415 HEENT: mucous membranes moist Respiratory/Chest: lungs clear, other - O2 by NRB mask, TND9=340% Cardiovascular: normal rate, other - Permacath Abdomen: soft, non tender Extremities: other - SCD of legs Neurologic/Psychiatric: other - sleeping Laboratory Tests Test 05/21/20 20:39 05/22/20 04:35 POC Whole Blood Glucose Pending Sodium Level 140 MMOL/L (136-145) Potassium Level 5.0 MMOL/L (3.5-5.1) Chloride Level 105 MMOL/L (98-107) Carbon Dioxide Level 25 MMOL/L (21-32) Anion Gap 10 mmol/L (5-15) Blood Urea Nitrogen 71 mg/dL (7-18) H Creatinine 7.2 MG/DL (0.55-1.30) H Estimat Glomerular Filtration Rate 9.6 mL/min (>60) Glucose Level 121 MG/DL (74-106) H Calcium Level 8.3 MG/DL (8.5-10.1) L Phosphorus Level 6.7 MG/DL (2.5-4.9) H Magnesium Level 2.1 MG/DL (1.8-2.4) Total Bilirubin 0.5 MG/DL (0.2-1.0) Aspartate Amino Transf (AST/SGOT) 42 U/L (15-37) H Alanine Aminotransferase (ALT/SGPT) 24 U/L (12-78) Alkaline Phosphatase 75 U/L (46-116) Total Protein 7.4 G/DL (6.4-8.2) Albumin 2.0 G/DL (3.4-5.0) L Globulin 5.4 g/dL Albumin/Globulin Ratio 0.4 (1.0-2.7) L Digoxin Level 1.1 NG/ML (0.5-2.0) Current Medications Medications (Trade) Dose Ordered Sig/Albert Route PRN Reason Start Time Stop Time Status Last Admin Dose Admin Acetaminophen (Tylenol) 500 mg Q4H PRN ORAL Severe Pain (Pain Scale 7-10) 05/20/20 18:45 06/19/20 18:44 05/21/20 09:49 Barium Sulfate (Varibar Honey) 250 ml NOW PRN MC RAD 05/20/20 18:00 05/23/20 17:53 Barium Sulfate (Varibar [place]) 240 ml NOW PRN MC RAD 05/20/20 18:00 05/23/20 17:53 Barium Sulfate (Varibar Pudding) 230 ml NOW PRN MC RAD 05/20/20 18:00 05/23/20 17:53 Barium Sulfate (Varibar Thin Liquid powder) 148 gm NOW PRN MC RAD 05/20/20 18:00 05/23/20 17:53 Cefepime HCl 500 mg/Dextrose 55 ml @ 110 mls/hr Q24H IV 05/19/20 13:00 05/26/20 12:59 05/21/20 13:44 Chlorhexidine Gluconate (Isamar-Hex 2%) 1 applic DAILY@2000 TOPIC 05/17/20 20:00 08/15/20 19:59 05/21/20 20:00 Dextrose (Dextrose 50%) 25 ml Q30M PRN IV Hypoglycemia 05/16/20 03:45 08/14/20 03:44 05/16/20 06:23 Dextrose (Dextrose 50%) 50 ml Q30M PRN IV Hypoglycemia 05/16/20 03:45 08/14/20 03:44 Digoxin (Lanoxin) 0.125 mg THREE TIMES A WEEK ORAL 05/20/20 11:00 08/18/20 10:59 05/22/20 09:53 Diltiazem HCl (Cardizem Tab) 60 mg EVERY 6 HOURS ORAL 05/20/20 18:00 06/17/20 17:59 05/22/20 06:09 Docusate Sodium (Colace) 100 mg THREE TIMES A DAY ORAL 05/19/20 13:00 06/18/20 12:59 05/22/20 09:53 Enoxaparin Sodium (Lovenox) 30 mg DAILY SUBQ 05/19/20 09:00 08/17/20 08:59 05/22/20 09:52 Epoetin Vivek (Epoetin Vivek(ESRD on dialysis)) 10,000 unit MON-MON-MON SUBQ 05/20/20 21:00 08/18/20 20:59 05/20/20 20:22 Folic Acid (Folate) 5 mg DAILY ORAL 05/17/20 14:00 06/16/20 13:59 05/22/20 09:56 Heparin Sodium/ Sodium Chloride (Heparin 1000 units/500ml Premix) 1,000 unit ONCE PRN INJ orthodontist to radiology 05/20/20 13:15 05/22/20 13:14 Iron Sucrose 100 mg/Sodium Chloride 60 ml @ 240 mls/hr BEDTIME IVPB 05/19/20 21:00 05/23/20 21:14 05/21/20 20:57 Lidocaine/ Epinephrine (Lidocaine 2%/ Epi 20ml) 40 ml ONCE PRN INJ orthodontist to radiology 05/20/20 13:15 05/22/20 23:59 Metoprolol Tartrate (Lopressor) 12.5 mg Q12HR ORAL 05/21/20 21:00 08/19/20 20:59 05/21/20 20:58 Pantoprazole (Protonix) 40 mg EVERY 12 HOURS ORAL 05/19/20 21:00 06/18/20 20:59 05/22/20 09:53 Sevelamer Carbonate (Renvela) 800 mg THREE TIMES A DAY ORAL 05/21/20 18:00 08/19/20 17:59 05/22/20 09:53 Oswaldo Toro MD May 22, 2020 11:18
--- NOTE | 2020-05-22 11:24 | Surgery Progress Note ---
Surgery Progress Note Subjective Procedure Performed Right femoral temporary hemodialysis catheter insertion Additional Comments receiving HD now will remove line after from fem doing much better no n/v/f/c Objective Last 24 Hour Vital Signs Date Time Temp Pulse Resp B/P (MAP) Pulse Ox O2 Delivery O2 Flow Rate FiO2 05/22/20 10:00 100 05/22/20 09:53 85 05/22/20 08:00 12.0 50 05/22/20 08:00 99.5 103 18 129/73 (91) 87 05/22/20 08:00 Venturi Mask 12.0 05/22/20 08:00 104 05/22/20 06:09 94 126/70 05/22/20 04:00 97.9 94 20 126/70 (88) 94 05/22/20 04:00 14.0 50 05/22/20 04:00 Venturi Mask 14.0 05/22/20 04:00 95 05/22/20 03:47 94 14.0 55 05/22/20 02:50 98 15.0 100 05/22/20 00:00 14.0 50 05/22/20 00:00 Venturi Mask 14.0 05/22/20 00:00 85 05/22/20 00:00 98.1 89 20 140/78 (98) 91 05/21/20 23:20 104 21 96 60 05/21/20 23:18 89 122/68 05/21/20 21:13 93 25 91 60 05/21/20 21:12 91 Bi-Pap 60 05/21/20 20:58 89 132/70 05/21/20 20:00 Venturi Mask 14.0 05/21/20 20:00 94 05/21/20 20:00 14.0 50 05/21/20 20:00 97.9 89 20 132/70 (90) 91 05/21/20 19:54 91 Venturi Mask 12.0 50 05/21/20 18:07 83 115/68 05/21/20 16:00 Venturi Mask 14.0 05/21/20 16:00 14.0 50 05/21/20 16:00 98.1 83 20 115/68 (84) 92 05/21/20 16:00 90 05/21/20 15:36 90 05/21/20 13:47 101 130/80 05/21/20 12:49 104 136/90 05/21/20 12:00 12.0 50 05/21/20 12:00 Venturi Mask 12.0 05/21/20 12:00 98.2 101 20 130/80 (97) 90 05/21/20 11:32 104 I&O l Intake and Output 05/21/20 05/22/20 19:00 07:00 Intake Total 440 ml 200 ml Output Total 600 ml Balance 440 ml -400 ml Intake Oral 440 ml 200 ml Output Urine Total 600 ml Dressing: dry Wound: clean Cardiovascular: RSR Respiratory: clear, decreased breath sounds Abdomen: soft, flat, non-tender, present bowel sounds, non-distended Extremities: no edema, no tenderness, no cyanosis Laboratory Tests Test 05/21/20 20:39 05/22/20 04:35 POC Whole Blood Glucose Pending Sodium Level 140 MMOL/L (136-145) Potassium Level 5.0 MMOL/L (3.5-5.1) Chloride Level 105 MMOL/L (98-107) Carbon Dioxide Level 25 MMOL/L (21-32) Anion Gap 10 mmol/L (5-15) Blood Urea Nitrogen 71 mg/dL (7-18) H Creatinine 7.2 MG/DL (0.55-1.30) H Estimat Glomerular Filtration Rate 9.6 mL/min (>60) Glucose Level 121 MG/DL (74-106) H Calcium Level 8.3 MG/DL (8.5-10.1) L Phosphorus Level 6.7 MG/DL (2.5-4.9) H Magnesium Level 2.1 MG/DL (1.8-2.4) Total Bilirubin 0.5 MG/DL (0.2-1.0) Aspartate Amino Transf (AST/SGOT) 42 U/L (15-37) H Alanine Aminotransferase (ALT/SGPT) 24 U/L (12-78) Alkaline Phosphatase 75 U/L (46-116) Total Protein 7.4 G/DL (6.4-8.2) Albumin 2.0 G/DL (3.4-5.0) L Globulin 5.4 g/dL Albumin/Globulin Ratio 0.4 (1.0-2.7) L Digoxin Level 1.1 NG/ML (0.5-2.0) Plan Problems: (1) Morbid obesity (2) Pacemaker (3) 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 Temporary use. Line functional. Recent dialysis noted. 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 His abdominal distention is his baseline large pannus. Skin folds and abnormalities in pannus identified from chronic distention. His KUB noted bowel gas pattern unremarkable. NG tube has been her removed since. No nausea vomiting fever chills. Labs noted. Improving with dialysis. Hyperkalemia improved. Mentation improved. Abdominal exam is fairly benign and consistent with what would be anticipated with the p atient with a BMI of 57 with chronic condition. No acute abdominal source or etiology identified. Hypotension likely relative to patient's treatment renal and will monitor with dialysis. Okay for diet once stabilized but currently keep n.p.o. given his high BiPAP requirement. Thank you for letting participate patient's care will follow with recommendations diet as tolerated Abhay Mccray May 22, 2020 11:23
[2020-05-22 12:00] VITALS: BP 115/54
--- NOTE | 2020-05-22 13:05 | General Progress Note ---
Subjective ROS Limited/Unobtainable: Yes Allergies: Coded Allergies: [place] (Verified Allergy, Mild, Rash, 10/29/14) per patient PENICILLINS (Unverified Allergy, Unknown, 11/28/13) Objective Last 24 Hour Vital Signs Date Time Temp Pulse Resp B/P (MAP) Pulse Ox O2 Delivery O2 Flow Rate FiO2 05/22/20 10:00 100 05/22/20 09:53 85 05/22/20 08:00 12.0 50 05/22/20 08:00 99.5 103 18 129/73 (91) 87 05/22/20 08:00 Venturi Mask 12.0 05/22/20 08:00 104 05/22/20 06:09 94 126/70 05/22/20 04:00 97.9 94 20 126/70 (88) 94 05/22/20 04:00 14.0 50 05/22/20 04:00 Venturi Mask 14.0 05/22/20 04:00 95 05/22/20 03:47 94 14.0 55 05/22/20 02:50 98 15.0 100 05/22/20 00:00 14.0 50 05/22/20 00:00 Venturi Mask 14.0 05/22/20 00:00 85 05/22/20 00:00 98.1 89 20 140/78 (98) 91 05/21/20 23:20 104 21 96 60 05/21/20 23:18 89 122/68 05/21/20 21:13 93 25 91 60 05/21/20 21:12 91 Bi-Pap 60 05/21/20 20:58 89 132/70 05/21/20 20:00 Venturi Mask 14.0 05/21/20 20:00 94 05/21/20 20:00 14.0 50 05/21/20 20:00 97.9 89 20 132/70 (90) 91 05/21/20 19:54 91 Venturi Mask 12.0 50 05/21/20 18:07 83 115/68 05/21/20 16:00 Venturi Mask 14.0 05/21/20 16:00 14.0 50 05/21/20 16:00 98.1 83 20 115/68 (84) 92 05/21/20 16:00 90 05/21/20 15:36 90 05/21/20 13:47 101 130/80 Intake and Output 05/21/20 05/22/20 19:00 07:00 Intake Total 440 ml 200 ml Output Total 600 ml Balance 440 ml -400 ml Intake Oral 440 ml 200 ml Output Urine Total 600 ml Laboratory Tests 05/21/20 20:39: POC Whole Blood Glucose [Pending] 05/22/20 04:35: Sodium Level 140, Potassium Level 5.0, Chloride Level 105, Carbon Dioxide Level 25, Anion Gap 10, Blood Urea Nitrogen 71H, Creatinine 7.2H, Estimat Glomerular Filtration Rate 9.6, Glucose Level 121H, Calcium Level 8.3L, Phosphorus Level 6.7H, Magnesium Level 2.1, Total Bilirubin 0.5, Aspartate Amino Transf (AST/SGOT) 42H, Alanine Aminotransferase (ALT/SGPT) 24, Alkaline Phosphatase 75, Total Protein 7.4, Albumin 2.0L, Globulin 5.4, Albumin/Globulin Ratio 0.4L, Digoxin Level 1.1 Height (Feet): 5 Height (Inches): 11.00 Weight (Pounds): 415 Assessment/Plan Problem List: (1) Hyperkalemia ICD Codes: E87.5 - Hyperkalemia SNOMED: 31302979 (2) Acidosis ICD Codes: E87.2 - Acidosis SNOMED: 46710447 (3) Hyperglycemia ICD Codes: R73.9 - Hyperglycemia, unspecified SNOMED: 52120018 (4) Acute kidney failure ICD Codes: N17.9 - Acute kidney failure, unspecified SNOMED: 05739774 (5) Sepsis ICD Codes: A41.9 - Sepsis SNOMED: 23932122 (6) UTI (urinary tract infection) ICD Codes: N39.0 - Urinary tract infection, site not specified SNOMED: 75604789 (7) Chronic systolic heart failure ICD Codes: I50.9 - Chronic systolic heart failure SNOMED: 619182819 (8) Morbid obesity ICD Codes: E66.01 - Morbid (severe) obesity due to excess calories SNOMED: 056765548 (9) Pacemaker ICD Codes: Z95.0 - Pacemaker SNOMED: 497448787 (10) DM circ dis type I, uncontrolled ICD Codes: E10.59 - DM circ dis type I, uncontrolled SNOMED: 86232857 (11) Atrial flutter ICD Codes: I48.92 - Atrial flutter SNOMED: 8143416 (12) Abdominal distention ICD Codes: R14.0 - Abdominal distension (gaseous) SNOMED: 13798207 (13) Renal failure (ARF), acute on chronic ICD Codes: N17.9 - Acute kidney failure, unspecified; N18.9 - Chronic kidney disease, unspecified SNOMED: 460946232 Status: progressing Assessment/Plan: a fib niddm waxing and waning mental status afebrile arrythmia getting HD anemia of renal failure chf Montserrat Fan MD May 22, 2020 13:05
--- NOTE | 2020-05-22 13:13 | Nephrology Progress Note ---
Assessment/Plan Problem List: (1) MICHEAL (acute kidney injury) (2) Renal failure (ARF), acute on chronic (3) Morbid obesity (4) Pacemaker (5) Hyperkalemia (6) Acidosis Assessment Acute on chronic renal failure Hyperkalemia Metabolic acidosis Pacemaker UTI Morbid obesity Plan May 22: Currently on dialysis. Tolerating it well. Additional digoxin p.o. given. Continue per current treatment plan. May 21: Dialyzed yesterday. Due for dialysis tomorrow. Low-dose Lopressor added. Check digoxin level tomorrow. Phosphorus binders ordered. Continue as is. May 20: Downgraded to stepdown. Due for dialysis today. Blood pressure somewhat low. Will decrease Cardizem dose. Continue to monitor renal parameters and dialyze as needed. Per orders. May 19: Seen in ICU. Awake alert responsive. Last dialyzed yesterday. Next dialysis tomorrow. Medication list reviewed. Hepatitis panel ordered. Donovan blake requires long-term dialysis. Epogen added for anemia May 18: Patient seen in ICU. Currently on dialysis. Dialysis orders yesterday was not carried out apparently due to lack of personal. Patient clinically doing better. Breathing easier. Continue per consultants. Medication list reviewed. Off pressors. Continue to dialyze as needed. May 17: Patient seen in ICU. Full code. On BiPAP. Discussed with DANIEL Ponce. Labs reviewed. Renal parameters improved after patient was dialyzed yesterday. Patient off pressors. Will attempt dialysis again today for hyperkalemia. Continue per consultants. Oral folic acid ordered. Protonix IV ordered. Previously: Stat ABG, stat kidney ultrasound: Results noted IV bicarb NG tube, Kayexalate Urgent dialysis Discussed with DANIEL Oliva Patient cannot give consent for insertion of dialysis catheter. Dialysis at this point is a lifesaving procedure in my opinion. Subjective ROS Limited/Unobtainable: No Constitutional: Reports: malaise, weakness Objective Objective Last 24 Hour Vital Signs Date Time Temp Pulse Resp B/P (MAP) Pulse Ox O2 Delivery O2 Flow Rate FiO2 05/22/20 10:00 100 05/22/20 09:53 85 05/22/20 08:00 12.0 50 05/22/20 08:00 99.5 103 18 129/73 (91) 87 05/22/20 08:00 Venturi Mask 12.0 05/22/20 08:00 104 2/19/21 06:09 94 126/70 05/22/20 04:00 97.9 94 20 126/70 (88) 94 05/22/20 04:00 14.0 50 05/22/20 04:00 Venturi Mask 14.0 05/22/20 04:00 95 05/22/20 03:47 94 14.0 55 05/22/20 02:50 98 15.0 100 05/22/20 00:00 14.0 50 05/22/20 00:00 Venturi Mask 14.0 05/22/20 00:00 85 05/22/20 00:00 98.1 89 20 140/78 (98) 91 05/21/20 23:20 104 21 96 60 05/21/20 23:18 89 122/68 05/21/20 21:13 93 25 91 60 05/21/20 21:12 91 Bi-Pap 60 05/21/20 20:58 89 132/70 05/21/20 20:00 Venturi Mask 14.0 05/21/20 20:00 94 05/21/20 20:00 14.0 50 05/21/20 20:00 97.9 89 20 132/70 (90) 91 05/21/20 19:54 91 Venturi Mask 12.0 50 05/21/20 18:07 83 115/68 05/21/20 16:00 Venturi Mask 14.0 05/21/20 16:00 14.0 50 05/21/20 16:00 98.1 83 20 115/68 (84) 92 05/21/20 16:00 90 05/21/20 15:36 90 05/21/20 13:47 101 130/80 Intake and Output 05/21/20 05/22/20 19:00 07:00 Intake Total 440 ml 200 ml Output Total 600 ml Balance 440 ml -400 ml Intake Oral 440 ml 200 ml Output Urine Total 600 ml Current Medications Medications (Trade) Dose Ordered Sig/Albert Route PRN Reason Start Time Stop Time Status Last Admin Dose Admin Acetaminophen (Tylenol) 500 mg Q4H PRN ORAL Severe Pain (Pain Scale 7-10) 05/20/20 18:45 06/19/20 18:44 05/21/20 09:49 Barium Sulfate (Varibar Honey) 250 ml NOW PRN RAD 05/20/20 18:00 05/23/20 17:53 Barium Sulfate (Varibar [place]) 240 ml NOW PRN MC RAD 05/20/20 18:00 05/23/20 17:53 Barium Sulfate (Varibar Pudding) 230 ml NOW PRN MC RAD 05/20/20 18:00 05/23/20 17:53 Barium Sulfate (Varibar Thin Liquid powder) 148 gm NOW PRN MC RAD 05/20/20 18:00 05/23/20 17:53 Cefepime HCl 500 mg/Dextrose 55 ml @ 110 mls/hr Q24H IV 05/19/20 13:00 05/26/20 12:59 05/21/20 13:44 Chlorhexidine Gluconate (Isamar-Hex 2%) 1 applic DAILY@2000 TOPIC 05/17/20 20:00 08/15/20 19:59 05/21/20 20:00 Dextrose (Dextrose 50%) 25 ml Q30M PRN IV Hypoglycemia 05/16/20 03:45 08/14/20 03:44 05/16/20 06:23 Dextrose (Dextrose 50%) 50 ml Q30M PRN IV Hypoglycemia 05/16/20 03:45 08/14/20 03:44 Digoxin (Lanoxin) 0.125 mg THREE TIMES A WEEK ORAL 05/20/20 11:00 08/18/20 10:59 05/22/20 09:53 Diltiazem HCl (Cardizem Tab) 60 mg EVERY 6 HOURS ORAL 05/20/20 18:00 06/17/20 17:59 05/22/20 06:09 Docusate Sodium (Colace) 100 mg THREE TIMES A DAY ORAL 05/19/20 13:00 06/18/20 12:59 05/22/20 09:53 Enoxaparin Sodium (Lovenox) 30 mg DAILY SUBQ 05/19/20 09:00 08/17/20 08:59 05/22/20 09:52 Epoetin Vivek (Epoetin Vivek(ESRD on dialysis)) 10,000 unit MON-WED-FRI SUBQ 05/20/20 21:00 08/18/20 20:59 05/20/20 20:22 Folic Acid (Folate) 5 mg DAILY ORAL 05/17/20 14:00 06/16/20 13:59 05/22/20 09:56 Heparin Sodium/ Sodium Chloride (Heparin 1000 units/500ml Premix) 1,000 unit ONCE PRN INJ reconciliation clerk to radiology 05/20/20 13:15 05/22/20 13:14 Iron Sucrose 100 mg/Sodium Chloride 60 ml @ 240 mls/hr BEDTIME IVPB 05/19/20 21:00 05/23/20 21:14 05/21/20 20:57 Lidocaine/ Epinephrine (Lidocaine 2%/ Epi 20ml) 40 ml ONCE PRN INJ reconciliation clerk to radiology 05/20/20 13:15 05/22/20 23:59 Metoprolol Tartrate (Lopressor) 12.5 mg Q12HR ORAL 05/21/20 21:00 08/19/20 20:59 05/21/20 20:58 Pantoprazole (Protonix) 40 mg EVERY 12 HOURS ORAL 05/19/20 21:00 06/18/20 20:59 05/22/20 09:53 Sevelamer Carbonate (Renvela) 800 mg THREE TIMES A DAY ORAL 05/21/20 18:00 08/19/20 17:59 05/22/20 09:53 Laboratory Tests 05/21/20 20:39: POC Whole Blood Glucose [Pending] 05/22/20 04:35: Sodium Level 140, Potassium Level 5.0, Chloride Level 105, Carbon Dioxide Level 25, Anion Gap 10, Blood Urea Nitrogen 71H, Creatinine 7.2H, Estimat Glomerular Filtration Rate 9.6, Glucose Level 121H, Calcium Level 8.3L, Phosphorus Level 6.7H, Magnesium Level 2.1, Total Bilirubin 0.5, Aspartate Amino Transf (AST/SGOT) 42H, Alanine Aminotransferase (ALT/SGPT) 24, Alkaline Phosphatase 75, Total Protein 7.4, Albumin 2.0L, Globulin 5.4, Albumin/Globulin Ratio 0.4L, Digoxin Level 1.1 Height (Feet): 5 Height (Inches): 11.00 Weight (Pounds): 415 General Appearance: no apparent distress Cardiovascular: tachycardia, arrhythmia Respiratory/Chest: decreased breath sounds Abdomen: distended Adria Gautam MD May 22, 2020 13:13
[2020-05-22] MEDS ORDERED: Digoxin 0.125mg tab ORAL SCH (13:15)
--- NOTE | 2020-05-22 13:44 | Cardiac Electrophysiology PN ---
Assessment/Plan Assessment/Plan 1. Elevated troponin due to renal failure and respiratory failure His echocardiogram showed ejection fraction of 60%. EKG showed atrial fibrillation with rapid ventricular response and nonspecific ST-T wave abnormalities. 2. Atrial fibrillation with rapid ventricular response with heart rate in 130s. On Cardizem 60 po q 6 hr and Dig 0.125 po MWF Dig level 1.4 3. S/P left-sided St Zhang pacemaker. Interrogated and showed Nl fx but frequent atrial fib with RVR 4. Hyperkalemia due to renal failure. On dialysis by Dr. Gautam. 5. Morbid obesity. 6. Diabetes. 7. Respiratory failure, currently on VM 8. Anemia, S/P PRBC 05/19 DW RN, Dr Gautam Subjective Subjective Atrial fib rate is better on Cardizem 90 po q 6hr Still Hypoxic on 12 liter VM 50%. Getting HD Ruled out for Covid Objective Last 24 Hour Vital Signs Date Time Temp Pulse Resp B/P (MAP) Pulse Ox O2 Delivery O2 Flow Rate FiO2 05/22/20 10:00 100 05/22/20 09:53 85 05/22/20 08:00 12.0 50 05/22/20 08:00 99.5 103 18 129/73 (91) 87 05/22/20 08:00 Venturi Mask 12.0 05/22/20 08:00 104 05/22/20 06:09 94 126/70 05/22/20 04:00 97.9 94 20 126/70 (88) 94 05/22/20 04:00 14.0 50 05/22/20 04:00 Venturi Mask 14.0 05/22/20 04:00 95 05/22/20 03:47 94 14.0 55 05/22/20 02:50 98 15.0 100 05/22/20 00:00 14.0 50 05/22/20 00:00 Venturi Mask 14.0 05/22/20 00:00 85 05/22/20 00:00 98.1 89 20 140/78 (98) 91 05/21/20 23:20 104 21 96 60 05/21/20 23:18 89 122/68 05/21/20 21:13 93 25 91 60 05/21/20 21:12 91 Bi-Pap 60 05/21/20 20:58 89 132/70 05/21/20 20:00 Venturi Mask 14.0 05/21/20 20:00 94 05/21/20 20:00 14.0 50 05/21/20 20:00 97.9 89 20 132/70 (90) 91 05/21/20 19:54 91 Venturi Mask 12.0 50 05/21/20 18:07 83 115/68 05/21/20 16:00 Venturi Mask 14.0 05/21/20 16:00 14.0 50 05/21/20 16:00 98.1 83 20 115/68 (84) 92 05/21/20 16:00 90 05/21/20 15:36 90 05/21/20 13:47 101 130/80 Intake and Output 05/21/20 05/22/20 19:00 07:00 Intake Total 440 ml 200 ml Output Total 600 ml Balance 440 ml -400 ml Intake Oral 440 ml 200 ml Output Urine Total 600 ml Laboratory Tests Test 05/21/20 20:39 05/22/20 04:35 POC Whole Blood Glucose Pending Sodium Level 140 MMOL/L (136-145) Potassium Level 5.0 MMOL/L (3.5-5.1) Chloride Level 105 MMOL/L (98-107) Carbon Dioxide Level 25 MMOL/L (21-32) Anion Gap 10 mmol/L (5-15) Blood Urea Nitrogen 71 mg/dL (7-18) H Creatinine 7.2 MG/DL (0.55-1.30) H Estimat Glomerular Filtration Rate 9.6 mL/min (>60) Glucose Level 121 MG/DL (74-106) H Calcium Level 8.3 MG/DL (8.5-10.1) L Phosphorus Level 6.7 MG/DL (2.5-4.9) H Magnesium Level 2.1 MG/DL (1.8-2.4) Total Bilirubin 0.5 MG/DL (0.2-1.0) Aspartate Amino Transf (AST/SGOT) 42 U/L (15-37) H Alanine Aminotransferase (ALT/SGPT) 24 U/L (12-78) Alkaline Phosphatase 75 U/L (46-116) Total Protein 7.4 G/DL (6.4-8.2) Albumin 2.0 G/DL (3.4-5.0) L Globulin 5.4 g/dL Albumin/Globulin Ratio 0.4 (1.0-2.7) L Digoxin Level 1.1 NG/ML (0.5-2.0) Objective HEAD AND NECK: Positive JVD. On Ventimask LUNGS: Decreased breath sounds. CARDIOVASCULAR: Irregularly irregular S1 and S2. No G/R/M ABDOMEN: Soft and morbidly obese. EXTREMITIES: 2+ pitting edema. Shai Champion MD May 22, 2020 13:44
[2020-05-22] MEDS: Cefepime 500mg/D5W 55ml IV SCH ×2 (14:03)
[2020-05-22 16:00] VITALS: BP 126/96
[2020-05-22] MEDS: NovoLOG Insulin Flexpen SUBQ SCH ×2 (16:30→22:43)
--- NOTE | 2020-05-22 17:09 | Diagnostic Imaging Report ---
Indication: Right upper extremity edema Technique: Grayscale and duplex images of the right upper extremity veins Comparison: none Findings: Grayscale and duplex images demonstrate thrombus within the upstream right brachial vein, resulting in diminished flow and noncompressibility. Other venous segments demonstrate normal Doppler signal, normal phasic flow, and normal compressibility Impression: Positive for right brachial venous thrombosis. Patient's nurse notified at the time of interpretation
[2020-05-22 18:09] LABS: INR 1.1 (0.9-1.1)
[2020-05-22 20:00] VITALS: BP 126/77
[2020-05-22] MEDS ORDERED: Warfarin Sodium 5mg ORAL ONE ×3 (20:00→22:15)
[2020-05-22] MEDS: Dyna-Hex 2% Top Sol 2oz TOPIC SCH (20:00)
[2020-05-22] MEDS: Iron Sucrose 100 MG in NS 55 ML IVPB SCH (22:43)
[2020-05-22] MEDS: Epoetin Alfa-EPBX(ESRD on dialysis)10,000 unit/ml vial SUBQ SCH (22:43)
[2020-05-23] VITALS: BP 123/72
[2020-05-23 04:00] VITALS: BP 100/57
[2020-05-23] MEDS: dilTIAZem HCl 30mg tab ORAL SCH ×3 (05:39→22:41)
[2020-05-23] MEDS: NovoLOG Insulin Flexpen SUBQ SCH ×4 (05:53→20:53)
[2020-05-23 07:39] LABS: CALCIUM 8.4 MG/DL (8.5-10.1); CREATININE 6.4 MG/DL (0.55-1.30); POTASSIUM 5.4 MMOL/L (3.5-5.1)
[2020-05-23 07:57] LABS: ALANINE AMINOTRANSFERASE 21 U/L (12-78); ALKALINE PHOSPHATASE 78 U/L (46-116); ASPARTATE AMINO TRANSFERASE 30 U/L (15-37); BILIRUBIN,DIRECT 0.1 MG/DL (0.0-0.3); BILIRUBIN,TOTAL 0.3 MG/DL (0.2-1.0); PHOSPHORUS 6.5 MG/DL (2.5-4.9)
[2020-05-23 08:00] VITALS: BP 110/60
[2020-05-23] MEDS: Docusate 100mg cap ORAL SCH ×3 (08:33→16:57)
--- NOTE | 2020-05-23 10:05 | Surgery Progress Note ---
Surgery Progress Note Subjective Procedure Performed Right femoral temporary hemodialysis catheter insertion Additional Comments right fem line removed no bleeding hemostasis after pressure held at bedside Objective Last 24 Hour Vital Signs Date Time Temp Pulse Resp B/P (MAP) Pulse Ox O2 Delivery O2 Flow Rate FiO2 05/23/20 09:00 15.0 100 05/23/20 08:33 94 115/60 05/23/20 08:00 Venturi Mask 12.0 05/23/20 08:00 99.2 91 22 110/60 (77) 91 05/23/20 08:00 91 05/23/20 07:25 92 Non-Rebreather 15.0 100 05/23/20 05:39 94 100/57 05/23/20 04:00 15.0 100 05/23/20 04:00 Venturi Mask 12.0 05/23/20 04:00 94 05/23/20 04:00 99.9 94 22 100/57 (71) 93 05/23/20 02:20 95 26 92 100 05/23/20 00:00 Venturi Mask 12.0 05/23/20 00:00 100.6 114 22 123/72 (89) 92 05/23/20 00:00 15.0 100 05/22/20 23:34 114 123/72 05/22/20 22:43 117 126/77 05/22/20 20:00 Venturi Mask 12.0 05/22/20 20:00 99.3 116 22 126/77 (93) 97 05/22/20 20:00 15.0 100 05/22/20 20:00 104 05/22/20 18:58 93 Non-Rebreather 15.0 100 05/22/20 18:00 79 145/88 05/22/20 16:00 104 05/22/20 16:00 Venturi Mask 12.0 05/22/20 16:00 99.1 106 20 126/96 (106) 96 05/22/20 16:00 100 05/22/20 14:10 101 05/22/20 14:06 110 144/73 05/22/20 12:00 Venturi Mask 12.0 05/22/20 12:00 99.5 75 24 115/54 (74) 94 05/22/20 12:00 100 05/22/20 11:41 107 I&O Intake and Output 05/22/20 05/23/20 19:00 07:00 Intake Total 400 ml 60 ml Output Total 2300 ml 200 ml Balance -1900 ml -140 ml Intake Oral 400 ml IV Total 60 ml Output Urine Total 300 ml 200 ml Hemodialysis UF 2000 ml Dressing: dry Wound: clean Cardiovascular: RSR Respiratory: clear, decreased breath sounds Abdomen: soft, non-tender, present bowel sounds Extremities: edema, no tenderness, no cyanosis Laboratory Tests Test 05/22/20 17:05 05/22/20 18:00 05/23/20 07:15 Prothrombin Time 11.8 SEC (9.30-11.50) H Prothromb Time International Ratio 1.1 (0.9-1.1) POC Whole Blood Glucose 104 MG/DL (74-106) Sodium Level 138 MMOL/L (136-145) Potassium Level 5.4 MMOL/L (3.5-5.1) H Chloride Level 104 MMOL/L (98-107) Carbon Dioxide Level 26 MMOL/L (21-32) Anion Gap 8 mmol/L (5-15) Blood Urea Nitrogen 66 mg/dL (7-18) H Creatinine 6.4 MG/DL (0.55-1.30) H Estimat Glomerular Filtration Rate 10.9 mL/min (>60) Glucose Level 143 MG/DL (74-106) H Calcium Level 8.4 MG/DL (8.5-10.1) L Phosphorus Level 6.5 MG/DL (2.5-4.9) H Magnesium Level 2.1 MG/DL (1.8-2.4) Total Bilirubin 0.3 MG/DL (0.2-1.0) Direct Bilirubin 0.1 MG/DL (0.0-0.3) Aspartate Amino Transf (AST/SGOT) 30 U/L (15-37) Alanine Aminotransferase (ALT/SGPT) 21 U/L (12-78) Alkaline Phosphatase 78 U/L (46-116) Total Protein 7.9 G/DL (6.4-8.2) Albumin 2.0 G/DL (3.4-5.0) L Plan Problems: (1) Morbid obesity (2) Pacemaker (3) 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 Temporary use. Line functional. Recent dialysis noted. 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 His abdominal distention is his baseline large pannus. Skin folds and abnormalities in pannus identified from chronic distention. His KUB noted bowel gas pattern unremarkable. NG tube has been her removed since. No nausea vomiting fever chills. Labs noted. Improving with dialysis. Hyperkalemia improved. Mentation improved. Abdominal exam is fairly benign and consistent with what would be anticipated with the patient with a BMI of 57 with chronic condition. No acute abdominal source or etiology identified. Hypotension likely relative to patient's treatment renal and will monitor with dialysis. Okay for diet once stabilized but currently keep n.p.o. given his high BiPAP requirement. Thank you for letting participate patient's care will follow with recommendations diet as tolerated Abhay Mccray May 23, 2020 10:05
[2020-05-23 10:27] LABS: BASOPHILS % (AUTO) 2.1 % (0.0-2.0); EOSINOPHILS % (AUTO) 1.2 % (0.0-3.0); HEMATOCRIT 28.9 % (42.0-52.0); HEMOGLOBIN 8.3 G/DL (14.2-18.0); LYMPHOCYTES % (AUTO) 5.7 % (20.0-45.0); MEAN CORPUSCULAR VOLUME 94 FL (80-99); MONOCYTES % (AUTO) 12.5 % (1.0-10.0); NEUTROPHILS % (AUTO) 78.6 % (45.0-75.0); PLATELET COUNT 150 K/UL (150-450); RED BLOOD COUNT 3.07 M/UL (4.70-6.10); RED CELL DISTRIBUTION WIDTH 16.1 % (11.6-14.8); WHITE BLOOD COUNT 8.2 K/UL (4.8-10.8)
[2020-05-23] MEDS ORDERED: Sodium Polystyrene Sulfonate 15gm Powder ORAL SCH ×2 (10:30→20:30)
[2020-05-23 10:35] LABS: INR 1.1 (0.9-1.1)
--- NOTE | 2020-05-23 11:35 | Pulmonology Progress Note ---
Subjective ROS Limited/Unobtainable: No Interval Events: seen in SDU; On NRBM Constitutional: Reports: no symptoms HEENT: Repors: no symptoms Respiratory: Reports: shortness of breath Cardiovascular: Reports: no symptoms Gastrointestinal/Abdominal: Reports: no symptoms Allergies: Coded Allergies: [place] (Verified Allergy, Mild, Rash, 10/29/14) per patient PENICILLINS (Unverified Allergy, Unknown, 11/28/13) Objective Last 24 Hour Vital Signs Date Time Temp Pulse Resp B/P (MAP) Pulse Ox O2 Delivery O2 Flow Rate FiO2 05/23/20 09:00 15.0 100 05/23/20 08:33 94 115/60 05/23/20 08:00 Venturi Mask 12.0 05/23/20 08:00 99.2 91 22 110/60 (77) 91 05/23/20 08:00 91 05/23/20 07:25 92 Non-Rebreather 15.0 100 05/23/20 05:39 94 100/57 05/23/20 04:00 15.0 100 05/23/20 04:00 Venturi Mask 12.0 05/23/20 04:00 94 05/23/20 04:00 99.9 94 22 100/57 (71) 93 05/23/20 02:20 95 26 92 100 05/23/20 00:00 Venturi Mask 12.0 05/23/20 00:00 100.6 114 22 123/72 (89) 92 05/23/20 00:00 15.0 100 05/22/20 23:34 114 123/72 05/22/20 22:43 117 126/77 05/22/20 20:00 Venturi Mask 12.0 05/22/20 20:00 99.3 116 22 126/77 (93) 97 05/22/20 20:00 15.0 100 05/22/20 20:00 104 05/22/20 18:58 93 Non-Rebreather 15.0 100 05/22/20 18:00 79 145/88 05/22/20 16:00 104 05/22/20 16:00 Venturi Mask 12.0 05/22/20 16:00 99.1 106 20 126/96 (106) 96 05/22/20 16:00 100 05/22/20 14:10 101 05/22/20 14:06 110 144/73 05/22/20 12:00 Venturi Mask 12.0 05/22/20 12:00 99.5 75 24 115/54 (74) 94 05/22/20 12:00 100 05/22/20 11:41 107 Intake and Output 05/22/20 05/23/20 19:00 07:00 Intake Total 400 ml 60 ml Output Total 2300 ml 200 ml Balance -1900 ml -140 ml Intake Oral 400 ml IV Total 60 ml Output Urine Total 300 ml 200 ml Hemodialysis UF 2000 ml General Appearance: no acute distress Respiratory: chest wall non-tender, normal breath sounds Cardiovascular: normal rate, regular rhythm Abdomen: other - morbid obesity Laboratory Tests 05/22/20 17:05: Prothrombin Time 11.8H, Prothromb Time International Ratio 1.1 05/22/20 18:00: POC Whole Blood Glucose 104 05/23/20 07:15: Sodium Level 138, Potassium Level 5.4H, Chloride Level 104, Carbon Dioxide Level 26, Anion Gap 8, Blood Urea Nitrogen 66H, Creatinine 6.4H, Estimat Glomerular Filtration Rate 10.9, Glucose Level 143H, Calcium Level 8.4L, Phosphorus Level 6.5H, Magnesium Level 2.1, Total Bilirubin 0.3, Direct Bilirubin 0.1, Aspartate Amino Transf (AST/SGOT) 30, Alanine Aminotransferase (ALT/SGPT) 21, Alkaline Phosphatase 78, Total Protein 7.9, Albumin 2.0L 05/23/20 10:05: Prothrombin Time 12.0H, Prothromb Time International Ratio 1.1, White Blood Count 8.2, Red Blood Count 3.07L, Hemoglobin 8.3L, Hematocrit 28.9L, Mean Corpuscular Volume 94, Mean Corpuscular Hemoglobin 27.1, Mean Corpuscular Hemoglobin Concent 28.8L, Red Cell Distribution Width 16.1H, Platelet Count 150, Mean Platelet Volume 8.9, Neutrophils (%) (Auto) 78.6H, Lymphocytes (%) (Auto) 5.7L, Monocytes (%) (Auto) 12.5H, Eosinophils (%) (Auto) 1.2, Basophils (%) (Auto) 2.1H Current Medications Medications (Trade) Dose Ordered Sig/Albert Route PRN Reason Start Time Stop Time Status Last Admin Dose Admin Acetaminophen (Tylenol) 500 mg Q4H PRN ORAL Severe Pain (Pain Scale 7-10) 05/20/20 18:45 06/19/20 18:44 05/21/20 09:49 Barium Sulfate (Varibar Honey) 250 ml NOW PRN MC RAD 05/20/20 18:00 05/23/20 17:53 Barium Sulfate (Varibar [place]) 240 ml NOW PRN MC RAD 05/20/20 18:00 05/23/20 17:53 Barium Sulfate (Varibar Pudding) 230 ml NOW PRN MC RAD 05/20/20 18:00 05/23/20 17:53 Barium Sulfate (Varibar Thin Liquid powder) 148 gm NOW PRN MC RAD 05/20/20 18:00 05/23/20 17:53 Cefepime HCl 500 mg/Dextrose 55 ml @ 110 mls/hr Q24H IV 05/19/20 13:00 05/26/20 12:59 05/22/20 14:03 Chlorhexidine Gluconate (Isamar-Hex 2%) 1 applic DAILY@2000 TOPIC 05/17/20 20:00 08/15/20 19:59 05/22/20 20:00 Dextrose (Dextrose 50%) 25 ml Q30M PRN IV Hypoglycemia 05/22/20 13:15 08/20/20 13:14 Dextrose (Dextrose 50%) 50 ml Q30M PRN IV Hypoglycemia 05/22/20 13:15 08/20/20 13:14 Digoxin (Lanoxin) 0.125 mg THREE TIMES A WEEK ORAL 05/20/20 11:00 08/18/20 10:59 05/22/20 09:53 Diltiazem HCl (Cardizem Tab) 60 mg EVERY 6 HOURS ORAL 05/20/20 18:00 06/17/20 17:59 05/23/20 05:39 Docusate Sodium (Colace) 100 mg THREE TIMES A DAY ORAL 05/19/20 13:00 06/18/20 12:59 05/23/20 08:33 Epoetin Vivek (Epoetin Vivek(ESRD on dialysis)) 10,000 unit MON-WED-FRI SUBQ 05/20/20 21:00 08/18/20 20:59 05/22/20 22:43 Folic Acid (Folate) 5 mg DAILY ORAL 05/17/20 14:00 06/16/20 13:59 05/23/20 08:32 Insulin Aspart (NovoLOG) BEFORE MEALS AND HS SUBQ 05/22/20 16:30 08/20/20 16:29 05/23/20 05:53 Iron Sucrose 100 mg/Sodium Chloride 60 ml @ 240 mls/hr BEDTIME IVPB 05/19/20 21:00 05/23/20 21:14 05/22/20 22:43 Metoprolol Tartrate (Lopressor) 12.5 mg Q12HR ORAL 05/21/20 21:00 08/19/20 20:59 05/23/20 08:33 Pantoprazole (Protonix) 40 mg EVERY 12 HOURS ORAL 05/19/20 21:00 06/18/20 20:59 05/23/20 08:33 Sevelamer Carbonate (Renvela) 800 mg THREE TIMES A DAY ORAL 05/21/20 18:00 08/19/20 17:59 05/23/20 08:32 Sodium Polystyrene Sulfonate (Kayexalate) 30 gm ONCE ORAL 05/23/20 10:30 05/23/20 12:00 05/23/20 10:45 Warfarin Sodium (Coumadin per pharmacy) 1 ea DAILY PRN MISC rx protocol 05/23/20 09:00 06/22/20 08:59 Warfarin Sodium (Coumadin) 5 mg COUMADIN ORAL 05/23/20 17:00 05/23/20 19:00 Assessment/Plan Assessment/Plan 1. Hx Sleep apnea - Currently not on CPAP 2. Acute on chronic renal failure; hyperkalemia - s/p Kayexalate - s/p Right femoral catheter for dialysis (05/15) S/p dialysis 3. Bacteriuria - s/p Rocephin in ER - f/u UCx 4. Hypoxemic respiratory distress -Continue supplemental O2 -> now saturating at 100% on NRBM 5. Elevated inflammatory markers -Venous duplex ultrasound of lower extremities negative for DVT -On SCD for DVT prophylaxis 6. pneumonia -Chest x-ray shows interstitial opacities bilaterally -COVID-19 PCR sent; results pending 7. A-fib with rvr - seen by cardio - now in ICU - stable to transfer out of ICU Juanito Amador MD May 23, 2020 11:35
[2020-05-23 12:00] VITALS: BP 107/59
--- NOTE | 2020-05-23 12:36 | Nephrology Progress Note ---
Assessment/Plan Problem List: (1) MICHEAL (acute kidney injury) (2) Renal failure (ARF), acute on chronic (3) Morbid obesity (4) Pacemaker (5) Hyperkalemia (6) Acidosis Assessment Acute on chronic renal failure Hyperkalemia Metabolic acidosis Pacemaker UTI Morbid obesity Plan May 23: Dialyzed yesterday. Due for dialysis tomorrow. Medications adjusted with regard to dosage he is off Cardizem and digoxin. Vitamin D orally initiated. Continue to monitor renal parameters electrolytes. Kayexalate for high potassium given. May 22: Currently on dialysis. Tolerating it well. Additional digoxin p.o. given. Continue per current treatment plan. May 21: Dialyzed yesterday. Due for dialysis tomorrow. Low-dose Lopressor added. Check digoxin level tomorrow. Phosphorus binders ordered. Continue as is. May 20: Downgraded to stepdown. Due for dialysis today. Blood pressure somewhat low. Will decrease Cardizem dose. Continue to monitor renal parameters and dialyze as needed. Per orders. May 19: Seen in ICU. Awake alert responsive. Last dialyzed yesterday. Next dialysis tomorrow. Medication list reviewed. Hepatitis panel ordered. Donovan blake requires long-term dialysis. Epogen added for anemia May 18: Patient seen in ICU. Currently on dialysis. Dialysis orders yesterday was not carried out apparently due to lack of personal. Patient clinically doing better. Breathing easier. Continue per consultants. Medication list reviewed. Off pressors. Continue to dialyze as needed. May 17: Patient seen in ICU. Full code. On BiPAP. Discussed with DANIEL Ponce. Labs reviewed. Renal parameters improved after patient was dialyzed yesterday. Patient off pressors. Will attempt dialysis again today for hyperkalemia. Continue per consultants. Oral folic acid ordered. Protonix IV ordered. Previously: Stat ABG, stat kidney ultrasound: Results noted IV bicarb NG tube, Kayexalate Urgent dialysis Discussed with DANIEL Oliva Patient cannot give consent for insertion of dialysis catheter. Dialysis at this point is a lifesaving procedure in my opinion. Subjective ROS Limited/Unobtainable: No Constitutional: Reports: malaise, weakness Objective Objective Last 24 Hour Vital Signs Date Time Temp Pulse Resp B/P (MAP) Pulse Ox O2 Delivery O2 Flow Rate FiO2 05/23/20 12:03 94 107/59 05/23/20 12:00 15.0 100 05/23/20 12:00 Venturi Mask 12.0 05/23/20 12:00 99.4 94 23 107/59 (75) 92 05/23/20 09:00 15.0 100 05/23/20 08:33 94 115/60 05/23/20 08:00 Venturi Mask 12.0 05/23/20 08:00 99.2 91 22 110/60 (77) 91 05/23/20 08:00 91 05/23/20 07:25 92 Non-Rebreather 15.0 100 05/23/20 05:39 94 100/57 05/23/20 04:00 15.0 100 05/23/20 04:00 Venturi Mask 12.0 05/23/20 04:00 94 05/23/20 04:00 99.9 94 22 100/57 (71) 93 05/23/20 02:20 95 26 92 100 05/23/20 00:00 Venturi Mask 12.0 05/23/20 00:00 100.6 114 22 123/72 (89) 92 05/23/20 00:00 15.0 100 05/22/20 23:34 114 123/72 05/22/20 22:43 117 126/77 05/22/20 20:00 Venturi Mask 12.0 05/22/20 20:00 99.3 116 22 126/77 (93) 97 05/22/20 20:00 15.0 100 05/22/20 20:00 104 05/22/20 18:58 93 Non-Rebreather 15.0 100 05/22/20 18:00 79 145/88 05/22/20 16:00 104 05/22/20 16:00 Venturi Mask 12.0 05/22/20 16:00 99.1 106 20 126/96 (106) 96 05/22/20 16:00 100 05/22/20 14:10 101 05/22/20 14:06 110 144/73 Intake and Output 05/22/20 05/23/20 19:00 07:00 Intake Total 400 ml 60 ml Output Total 2300 ml 200 ml Balance -1900 ml -140 ml Intake Oral 400 ml IV Total 60 ml Output Urine Total 300 ml 200 ml Hemodialysis UF 2000 ml Current Medications Medications (Trade) Dose Ordered Sig/Albert Route PRN Reason Start Time Stop Time Status Last Admin Dose Admin Acetaminophen (Tylenol) 500 mg Q4H PRN ORAL Severe Pain (Pain Scale 7-10) 05/20/20 18:45 06/19/20 18:44 05/21/20 09:49 Barium Sulfate (Varibar Honey) 250 ml NOW PRN MC RAD 05/20/20 18:00 05/23/20 17:53 Barium Sulfate (Varibar [place]) 240 ml NOW PRN MC RAD 05/20/20 18:00 05/23/20 17:53 Barium Sulfate (Varibar Pudding) 230 ml NOW PRN MC RAD 05/20/20 18:00 05/23/20 17:53 Barium Sulfate (Varibar Thin Liquid powder) 148 gm NOW PRN MC RAD 05/20/20 18:00 05/23/20 17:53 Cefepime HCl 500 mg/Dextrose 55 ml @ 110 mls/hr Q24H IV 05/19/20 13:00 05/26/20 12:59 05/22/20 14:03 Chlorhexidine Gluconate (Isamar-Hex 2%) 1 applic DAILY@2000 TOPIC 05/17/20 20:00 08/15/20 19:59 05/22/20 20:00 Dextrose (Dextrose 50%) 25 ml Q30M PRN IV Hypoglycemia 05/22/20 13:15 08/20/20 13:14 Dextrose (Dextrose 50%) 50 ml Q30M PRN IV Hypoglycemia 05/22/20 13:15 08/20/20 13:14 Digoxin (Lanoxin) 0.125 mg DAILY ORAL 05/23/20 12:30 08/18/20 10:59 Diltiazem HCl (Cardizem Tab) 60 mg Q8HR ORAL 05/23/20 22:00 06/17/20 17:59 Docusate Sodium (Colace) 100 mg THREE TIMES A DAY ORAL 05/19/20 13:00 06/18/20 12:59 05/23/20 12:03 Epoetin Vivek (Epoetin Vivek(ESRD on dialysis)) 10,000 unit MON-WED-FRI SUBQ 05/20/20 21:00 08/18/20 20:59 05/22/20 22:43 Ergocalciferol (Drisdol) 50,000 intlu ONCE ONCE ORAL 05/23/20 12:45 05/23/20 12:46 UNV Folic Acid (Folate) 5 mg DAILY ORAL 05/17/20 14:00 06/16/20 13:59 05/23/20 08:32 Insulin Aspart (NovoLOG) BEFORE MEALS AND HS SUBQ 05/22/20 16:30 08/20/20 16:29 05/23/20 05:53 Iron Sucrose 100 mg/Sodium Chloride 60 ml @ 240 mls/hr BEDTIME IVPB 05/19/20 21:00 05/23/20 21:14 05/22/20 22:43 Metoprolol Tartrate (Lopressor) 12.5 mg Q12HR ORAL 05/21/20 21:00 08/19/20 20:59 05/23/20 08:33 Pantoprazole (Protonix) 40 mg EVERY 12 HOURS ORAL 05/19/20 21:00 06/18/20 20:59 05/23/20 08:33 Sevelamer Carbonate (Renvela) 1,600 mg THREE TIMES A DAY ORAL 05/23/20 13:00 08/19/20 17:59 Vitamin D (Vitamin D) 5,000 unit DAILY ORAL 05/24/20 09:00 06/23/20 08:59 UNV Warfarin Sodium (Coumadin per pharmacy) 1 ea DAILY PRN MISC rx protocol 05/23/20 09:00 06/22/20 08:59 Warfarin Sodium (Coumadin) 5 mg COUMADIN ORAL 05/23/20 17:00 05/23/20 19:00 Laboratory Tests 05/22/20 17:05: Prothrombin Time 11.8H, Prothromb Time International Ratio 1.1 05/22/20 18:00: POC Whole Blood Glucose 104 05/23/20 07:15: Sodium Level 138, Potassium Level 5.4H, Chloride Level 104, Carbon Dioxide Level 26, Anion Gap 8, Blood Urea Nitrogen 66H, Creatinine 6.4H, Estimat Glomerular Filtration Rate 10.9, Glucose Level 143H, Calcium Level 8.4L, Phosphorus Level 6.5H, Magnesium Level 2.1, Total Bilirubin 0.3, Direct Bilirubin 0.1, Aspartate Amino Transf (AST/SGOT) 30, Alanine Aminotransferase (ALT/SGPT) 21, Alkaline Phosphatase 78, Total Protein 7.9, Albumin 2.0L 05/23/20 10:05: Prothrombin Time 12.0H, Prothromb Time International Ratio 1.1, White Blood Count 8.2, Red Blood Count 3.07L, Hemoglobin 8.3L, Hematocrit 28.9L, Mean Corpuscular Volume 94, Mean Corpuscular Hemoglobin 27.1, Mean Corpuscular Hemoglobin Concent 28.8L, Red Cell Distribution Width 16.1H, Platelet Count 150, Mean Platelet Volume 8.9, Neutrophils (%) (Auto) 78.6H, Lymphocytes (%) (Auto) 5.7L, Monocytes (%) (Auto) 12.5H, Eosinophils (%) (Auto) 1.2, Basophils (%) (Auto) 2.1H Height (Feet): 5 Height (Inches): 11.00 Weight (Pounds): 415 General Appearance: no apparent distress, lethargic Cardiovascular: tachycardia Respiratory/Chest: decreased breath sounds Abdomen: distended Adria Gautam MD May 23, 2020 12:36
--- NOTE | 2020-05-23 12:56 | Infectious Diseases Prog Note ---
Assessment/Plan Assessment/Plan A; 1. Possible pneumonia. 2. Hypertension. 3. Diabetes. 4. Congestive heart failure. 5. Morbid Obesity. 6. Respiratory failure, 7. Acute renal failure, ESRD 8. Anemia 9. Atrial fibrillation 10 Thrombosis of R brachial vein PLAN: 1. continue cefepime. 2. Negative COVID-19 test. Subjective ROS Limited/Unobtainable: No Constitutional: Reports: no symptoms Respiratory: Reports: productive cough Gastrointestinal/Abdominal: Reports: no symptoms Genitourinary: Reports: no symptoms Allergies: Coded Allergies: [place] (Verified Allergy, Mild, Rash, 10/29/14) per patient PENICILLINS (Unverified Allergy, Unknown, 11/28/13) Objective Last 24 Hour Vital Signs Date Time Temp Pulse Resp B/P (MAP) Pulse Ox O2 Delivery O2 Flow Rate FiO2 05/23/20 12:03 94 107/59 05/23/20 12:00 15.0 100 05/23/20 12:00 Venturi Mask 12.0 05/23/20 12:00 103 05/23/20 12:00 99.4 94 23 107/59 (75) 92 05/23/20 09:00 15.0 100 05/23/20 08:33 94 115/60 05/23/20 08:00 Venturi Mask 12.0 05/23/20 08:00 99.2 91 22 110/60 (77) 91 05/23/20 08:00 91 05/23/20 07:25 92 Non-Rebreather 15.0 100 05/23/20 05:39 94 100/57 05/23/20 04:00 15.0 100 05/23/20 04:00 Venturi Mask 12.0 05/23/20 04:00 94 05/23/20 04:00 99.9 94 22 100/57 (71) 93 05/23/20 02:20 95 26 92 100 05/23/20 00:00 Venturi Mask 12.0 05/23/20 00:00 100.6 114 22 123/72 (89) 92 05/23/20 00:00 15.0 100 05/22/20 23:34 114 123/72 05/22/20 22:43 117 126/77 05/22/20 20:00 Venturi Mask 12.0 05/22/20 20:00 99.3 116 22 126/77 (93) 97 05/22/20 20:00 15.0 100 05/22/20 20:00 104 05/22/20 18:58 93 Non-Rebreather 15.0 100 05/22/20 18:00 79 145/88 05/22/20 16:00 104 05/22/20 16:00 Venturi Mask 12.0 05/22/20 16:00 99.1 106 20 126/96 (106) 96 05/22/20 16:00 100 05/22/20 14:10 101 05/22/20 14:06 110 144/73 Height (Feet): 5 Height (Inches): 11.00 Weight (Pounds): 415 General Appearance: no acute distress HEENT: mucous membranes moist Respiratory/Chest: lungs clear, other - O2 by mask Cardiovascular: normal rate, other - Permacath Abdomen: soft, non tender Extremities: other - legs edema Neurologic/Psychiatric: alert, responsive Laboratory Tests Test 05/22/20 17:05 05/22/20 18:00 05/23/20 07:15 05/23/20 10:05 Prothrombin Time 11.8 SEC (9.30-11.50) H 12.0 SEC (9.30-11.50) H Prothromb Time International Ratio 1.1 (0.9-1.1) 1.1 (0.9-1.1) POC Whole Blood Glucose 104 MG/DL (74-106) Sodium Level 138 MMOL/L (136-145) Potassium Level 5.4 MMOL/L (3.5-5.1) H Chloride Level 104 MMOL/L (98-107) Carbon Dioxide Level 26 MMOL/L (21-32) Anion Gap 8 mmol/L (5-15) Blood Urea Nitrogen 66 mg/dL (7-18) H Creatinine 6.4 MG/DL (0.55-1.30) H Estimat Glomerular Filtration Rate 10.9 mL/min (>60) Glucose Level 143 MG/DL (74-106) H Calcium Level 8.4 MG/DL (8.5-10.1) L Phosphorus Level 6.5 MG/DL (2.5-4.9) H Magnesium Level 2.1 MG/DL (1.8-2.4) Total Bilirubin 0.3 MG/DL (0.2-1.0) Direct Bilirubin 0.1 MG/DL (0.0-0.3) Aspartate Amino Transf (AST/SGOT) 30 U/L (15-37) Alanine Aminotransferase (ALT/SGPT) 21 U/L (12-78) Alkaline Phosphatase 78 U/L (46-116) Total Protein 7.9 G/DL (6.4-8.2) Albumin 2.0 G/DL (3.4-5.0) L White Blood Count 8.2 K/UL (4.8-10.8) Red Blood Count 3.07 M/UL (4.70-6.10) L Hemoglobin 8.3 G/DL (14.2-18.0) L Hematocrit 28.9 % (42.0-52.0) L Mean Corpuscular Volume 94 FL (80-99) Mean Corpuscular Hemoglobin 27.1 PG (27.0-31.0) Mean Corpuscular Hemoglobin Concent 28.8 G/DL (32.0-36.0) L Red Cell Distribution Width 16.1 % (11.6-14.8) H Platelet Count 150 K/UL (150-450) Mean Platelet Volume 8.9 FL (6.5-10.1) Neutrophils (%) (Auto) 78.6 % (45.0-75.0) H Lymphocytes (%) (Auto) 5.7 % (20.0-45.0) L Monocytes (%) (Auto) 12.5 % (1.0-10.0) H Eosinophils (%) (Auto) 1.2 % (0.0-3.0) Basophils (%) (Auto) 2.1 % (0.0-2.0) H Current Medications Medications (Trade) Dose Ordered Sig/Albert Route PRN Reason Start Time Stop Time Status Last Admin Dose Admin Acetaminophen (Tylenol) 500 mg Q4H PRN ORAL Severe Pain (Pain Scale 7-10) 05/20/20 18:45 06/19/20 18:44 05/21/20 09:49 Barium Sulfate (Varibar Honey) 250 ml NOW PRN RAD 05/20/20 18:00 05/23/20 17:53 Barium Sulfate (Varibar [place]) 240 ml NOW PRN RAD 05/20/20 18:00 05/23/20 17:53 Barium Sulfate (Varibar Pudding) 230 ml NOW PRN MC RAD 05/20/20 18:00 05/23/20 17:53 Barium Sulfate (Varibar Thin Liquid powder) 148 gm NOW PRN MC RAD 05/20/20 18:00 05/23/20 17:53 Cefepime HCl 500 mg/Dextrose 55 ml @ 110 mls/hr Q24H IV 05/19/20 13:00 05/26/20 12:59 05/22/20 14:03 Chlorhexidine Gluconate (Isamar-Hex 2%) 1 applic DAILY@2000 TOPIC 05/17/20 20:00 08/15/20 19:59 05/22/20 20:00 Dextrose (Dextrose 50%) 25 ml Q30M PRN IV Hypoglycemia 05/22/20 13:15 08/20/20 13:14 Dextrose (Dextrose 50%) 50 ml Q30M PRN IV Hypoglycemia 05/22/20 13:15 08/20/20 13:14 Digoxin (Lanoxin) 0.125 mg DAILY ORAL 05/23/20 12:30 08/18/20 10:59 Diltiazem HCl (Cardizem Tab) 60 mg Q8HR ORAL 05/23/20 22:00 06/17/20 17:59 Docusate Sodium (Colace) 100 mg THREE TIMES A DAY ORAL 05/19/20 13:00 06/18/20 12:59 05/23/20 12:03 Epoetin Vivek (Epoetin Vivek(ESRD on dialysis)) 10,000 unit MON-MON-MON SUBQ 05/20/20 21:00 08/18/20 20:59 05/22/20 22:43 Ergocalciferol (Drisdol) 50,000 intlu ONCE ORAL 05/23/20 13:30 05/23/20 14:30 Folic Acid (Folate) 5 mg DAILY ORAL 05/17/20 14:00 06/16/20 13:59 05/23/20 08:32 Insulin Aspart (NovoLOG) BEFORE MEALS AND HS SUBQ 05/22/20 16:30 08/20/20 16:29 05/23/20 05:53 Iron Sucrose 100 mg/Sodium Chloride 60 ml @ 240 mls/hr BEDTIME IVPB 05/19/20 21:00 05/23/20 21:14 05/22/20 22:43 Metoprolol Tartrate (Lopressor) 12.5 mg Q12HR ORAL 05/21/20 21:00 08/19/20 20:59 05/23/20 08:33 Pantoprazole (Protonix) 40 mg EVERY 12 HOURS ORAL 05/19/20 21:00 06/18/20 20:59 05/23/20 08:33 Sevelamer Carbonate (Renvela) 1,600 mg THREE TIMES A DAY ORAL 05/23/20 13:00 08/19/20 17:59 Vitamin D (Vitamin D) 5,000 unit DAILY ORAL 05/24/20 09:00 06/23/20 08:59 Warfarin Sodium (Coumadin per pharmacy) 1 ea DAILY PRN MISC rx protocol 05/23/20 09:00 06/22/20 08:59 Warfarin Sodium (Coumadin) 5 mg COUMADIN ORAL 05/23/20 17:00 05/23/20 19:00 Oswaldo Toro MD May 23, 2020 12:56
[2020-05-23] MEDS: Cefepime 500mg/D5W 55ml IV SCH ×2 (13:22)
[2020-05-23] MEDS: Digoxin 0.125mg tab ORAL SCH (13:23)
[2020-05-23] MEDS ORDERED: Vitamin D 50,000 units cap ORAL SCH (13:30)
[2020-05-23 16:00] VITALS: BP 105/61
--- NOTE | 2020-05-23 16:47 | Cardiac Electrophysiology PN ---
Assessment/Plan Assessment/Plan 1. Elevated troponin due to renal failure and respiratory failure His echocardiogram showed ejection fraction of 60%. EKG showed atrial fibrillation with rapid ventricular response and nonspecific ST-T wave abnormalities. 2. Atrial fibrillation with rapid ventricular response with heart rate in 130s. On Cardizem 60 po q 8hr, Digoxin 0.125 po daily and Lopressor 12.5 bid Dig level 1.4 3. S/P left-sided St Zhang pacemaker. Interrogated and showed Nl fx but frequent atrial fib with RVR 4. Hyperkalemia due to renal failure. On dialysis by Dr. Gautam. 5. Morbid obesity. 6. Diabetes. 7. Respiratory failure, currently on VM 8. Anemia, S/P PRBC 05/19 DW RN, Dr Gautam Subjective Subjective Atrial fib rate is better on Cardizem 60 po q 8hr, Digoxin 0.125 po daily and Lopressor 12.5 bid On BIPAP Ruled out for Covid Objective Last 24 Hour Vital Signs Date Time Temp Pulse Resp B/P (MAP) Pulse Ox O2 Delivery O2 Flow Rate FiO2 05/23/20 16:00 99.0 101 23 105/61 (76) 92 05/23/20 16:00 Venturi Mask 12.0 05/23/20 16:00 101 05/23/20 16:00 15.0 100 05/23/20 13:23 94 05/23/20 12:03 94 107/59 05/23/20 12:00 15.0 100 05/23/20 12:00 Venturi Mask 12.0 05/23/20 12:00 103 05/23/20 12:00 99.4 94 23 107/59 (75) 92 05/23/20 09:00 15.0 100 05/23/20 08:33 94 115/60 05/23/20 08:00 Venturi Mask 12.0 05/23/20 08:00 99.2 91 22 110/60 (77) 91 05/23/20 08:00 91 05/23/20 07:25 92 Non-Rebreather 15.0 100 05/23/20 05:39 94 100/57 05/23/20 04:00 15.0 100 05/23/20 04:00 Venturi Mask 12.0 05/23/20 04:00 94 05/23/20 04:00 99.9 94 22 100/57 (71) 93 05/23/20 02:20 95 26 92 100 05/23/20 00:00 Venturi Mask 12.0 05/23/20 00:00 100.6 114 22 123/72 (89) 92 05/23/20 00:00 15.0 100 05/22/20 23:34 114 123/72 05/22/20 22:43 117 126/77 05/22/20 20:00 Venturi Mask 12.0 05/22/20 20:00 99.3 116 22 126/77 (93) 97 05/22/20 20:00 15.0 100 05/22/20 20:00 104 05/22/20 18:58 93 Non-Rebreather 15.0 100 05/22/20 18:00 79 145/88 Intake and Output 05/22/20 05/23/20 18:59 06:59 Intake Total 400 ml 60 ml Output Total 2300 ml 200 ml Balance -1900 ml -140 ml Intake Oral 400 ml IV Total 60 ml Output Urine Total 300 ml 200 ml Hemodialysis UF 2000 ml Laboratory Tests Test 05/22/20 17:05 05/22/20 18:00 05/23/20 07:15 05/23/20 10:05 Prothrombin Time 11.8 SEC (9.30-11.50) H 12.0 SEC (9.30-11.50) H Prothromb Time International Ratio 1.1 (0.9-1.1) 1.1 (0.9-1.1) POC Whole Blood Glucose 104 MG/DL (74-106) Sodium Level 138 MMOL/L (136-145) Potassium Level 5.4 MMOL/L (3.5-5.1) H Chloride Level 104 MMOL/L (98-107) Carbon Dioxide Level 26 MMOL/L (21-32) Anion Gap 8 mmol/L (5-15) Blood Urea Nitrogen 66 mg/dL (7-18) H Creatinine 6.4 MG/DL (0.55-1.30) H Estimat Glomerular Filtration Rate 10.9 mL/min (>60) Glucose Level 143 MG/DL (74-106) H Calcium Level 8.4 MG/DL (8.5-10.1) L Phosphorus Level 6.5 MG/DL (2.5-4.9) H Magnesium Level 2.1 MG/DL (1.8-2.4) Total Bilirubin 0.3 MG/DL (0.2-1.0) Direct Bilirubin 0.1 MG/DL (0.0-0.3) Aspartate Amino Transf (AST/SGOT) 30 U/L (15-37) Alanine Aminotransferase (ALT/SGPT) 21 U/L (12-78) Alkaline Phosphatase 78 U/L (46-116) Total Protein 7.9 G/DL (6.4-8.2) Albumin 2.0 G/DL (3.4-5.0) L White Blood Count 8.2 K/UL (4.8-10.8) Red Blood Count 3.07 M/UL (4.70-6.10) L Hemoglobin 8.3 G/DL (14.2-18.0) L Hematocrit 28.9 % (42.0-52.0) L Mean Corpuscular Volume 94 FL (80-99) Mean Corpuscular Hemoglobin 27.1 PG (27.0-31.0) Mean Corpuscular Hemoglobin Concent 28.8 G/DL (32.0-36.0) L Red Cell Distribution Width 16.1 % (11.6-14.8) H Platelet Count 150 K/UL (150-450) Mean Platelet Volume 8.9 FL (6.5-10.1) Neutrophils (%) (Auto) 78.6 % (45.0-75.0) H Lymphocytes (%) (Auto) 5.7 % (20.0-45.0) L Monocytes (%) (Auto) 12.5 % (1.0-10.0) H Eosinophils (%) (Auto) 1.2 % (0.0-3.0) Basophils (%) (Auto) 2.1 % (0.0-2.0) H Objective HEAD AND NECK: Positive JVD. On Ventimask LUNGS: Decreased breath sounds. CARDIOVASCULAR: Irregularly irregular S1 and S2. No G/R/M ABDOMEN: Soft and morbidly obese. EXTREMITIES: 2+ pitting edema. Shai Champion MD May 23, 2020 16:47
[2020-05-23] MEDS ORDERED: Warfarin Sodium 5mg ORAL SCH (17:00)
[2020-05-23 20:00] VITALS: BP 112/57
[2020-05-23] MEDS: Iron Sucrose 100 MG in NS 55 ML IVPB SCH (20:48)
[2020-05-23] MEDS: Dyna-Hex 2% Top Sol 2oz TOPIC SCH (20:51)
--- NOTE | 2020-05-23 20:55 | General Progress Note ---
Subjective ROS Limited/Unobtainable: Yes Allergies: Coded Allergies: [place] (Verified Allergy, Mild, Rash, 10/29/14) per patient PENICILLINS (Unverified Allergy, Unknown, 11/28/13) Objective Last 24 Hour Vital Signs Date Time Temp Pulse Resp B/P (MAP) Pulse Ox O2 Delivery O2 Flow Rate FiO2 05/23/20 20:00 97.5 114 30 112/57 (75) 84 05/23/20 19:19 87 Non-Rebreather 15.0 100 05/23/20 19:19 87 05/23/20 16:00 99.0 101 23 105/61 (76) 92 05/23/20 16:00 Venturi Mask 12.0 05/23/20 16:00 101 05/23/20 16:00 15.0 100 05/23/20 14:40 84 22 92 100 05/23/20 13:59 94 21 91 100 05/23/20 13:23 94 05/23/20 12:03 94 107/59 05/23/20 12:00 15.0 100 05/23/20 12:00 Venturi Mask 12.0 05/23/20 12:00 103 05/23/20 12:00 99.4 94 23 107/59 (75) 92 05/23/20 09:00 15.0 100 05/23/20 08:33 94 115/60 05/23/20 08:00 Venturi Mask 12.0 05/23/20 08:00 99.2 91 22 110/60 (77) 91 05/23/20 08:00 91 05/23/20 07:25 92 Non-Rebreather 15.0 100 05/23/20 05:39 94 100/57 05/23/20 04:00 15.0 100 05/23/20 04:00 Venturi Mask 12.0 05/23/20 04:00 94 05/23/20 04:00 99.9 94 22 100/57 (71) 93 05/23/20 02:20 95 26 92 100 05/23/20 00:00 Venturi Mask 12.0 05/23/20 00:00 100.6 114 22 123/72 (89) 92 05/23/20 00:00 15.0 100 05/22/20 23:34 114 123/72 05/22/20 22:43 117 126/77 Intake and Output 05/22/20 05/23/20 19:00 07:00 Intake Total 400 ml 60 ml Output Total 2300 ml 200 ml Balance -1900 ml -140 ml Intake Oral 400 ml IV Total 60 ml Output Urine Total 300 ml 200 ml Hemodialysis UF 2000 ml Laboratory Tests 05/23/20 07:15: Sodium Level 138, Potassium Level 5.4H, Chloride Level 104, Carbon Dioxide Level 26, Anion Gap 8, Blood Urea Nitrogen 66H, Creatinine 6.4H, Estimat Glomerular Filtration Rate 10.9, Glucose Level 143H, Calcium Level 8.4L, Phosphorus Level 6.5H, Magnesium Level 2.1, Total Bilirubin 0.3, Direct Bilirubin 0.1, Aspartate Amino Transf (AST/SGOT) 30, Alanine Aminotransferase (ALT/SGPT) 21, Alkaline Phosphatase 78, Total Protein 7.9, Albumin 2.0L 05/23/20 10:05: White Blood Count 8.2, Red Blood Count 3.07L, Hemoglobin 8.3L, Hematocrit 28.9L, Mean Corpuscular Volume 94, Mean Corpuscular Hemoglobin 27.1, Mean Corpuscular Hemoglobin Concent 28.8L, Red Cell Distribution Width 16.1H, Platelet Count 150, Mean Platelet Volume 8.9, Neutrophils (%) (Auto) 78.6H, Lymphocytes (%) (Auto) 5.7L, Monocytes (%) (Auto) 12.5H, Eosinophils (%) (Auto) 1.2, Basophils (%) (Auto) 2.1H, Prothrombin Time 12.0H, Prothromb Time International Ratio 1.1 05/23/20 20:43: POC Whole Blood Glucose 148H Height (Feet): 5 Height (Inches): 11.00 Weight (Pounds): 415 Assessment/Plan Problem List: (1) Hyperkalemia ICD Codes: E87.5 - Hyperkalemia SNOMED: 09227620 (2) Acidosis ICD Codes: E87.2 - Acidosis SNOMED: 22175929 (3) Hyperglycemia ICD Codes: R73.9 - Hyperglycemia, unspecified SNOMED: 29744689 (4) Acute kidney failure ICD Codes: N17.9 - Acute kidney failure, unspecified SNOMED: 56443115 (5) Sepsis ICD Codes: A41.9 - Sepsis SNOMED: 25671826 (6) UTI (urinary tract infection) ICD Codes: N39.0 - Urinary tract infection, site not specified SNOMED: 03530996 (7) Chronic systolic heart failure ICD Codes: I50.9 - Chronic systolic heart failure SNOMED: 672855561 (8) Morbid obesity ICD Codes: E66.01 - Morbid (severe) obesity due to excess calories SNOMED: 174926376 (9) Pacemaker ICD Codes: Z95.0 - Pacemaker SNOMED: 184857243 (10) DM circ dis type I, uncontrolled ICD Codes: E10.59 - DM circ dis type I, uncontrolled SNOMED: 54590492 (11) Atrial flutter ICD Codes: I48.92 - Atrial flutter SNOMED: 8843604 (12) Abdominal distention ICD Codes: R14.0 - Abdominal distension (gaseous) SNOMED: 51622854 (13) Renal failure (ARF), acute on chronic ICD Codes: N17.9 - Acute kidney failure, unspecified; N18.9 - Chronic kidney disease, unspecified SNOMED: 640972206 Status: progressing Assessment/Plan: a fib intermittent bipap supportive care not improving arrythmia getting HD anemia of renal failure chf Montserrat Fan MD May 23, 2020 20:55
[2020-05-24] VITALS: BP 131/79
[2020-05-24 04:00] VITALS: BP 107/74
[2020-05-24] MEDS: dilTIAZem HCl 30mg tab ORAL SCH ×3 (06:00→22:00)
[2020-05-24] MEDS: NovoLOG Insulin Flexpen SUBQ SCH ×4 (06:05→20:36)
--- NOTE | 2020-05-24 06:40 | Hematology/Onc Progress Note ---
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, has been getting hd, as per renal -> hgb 9-->7.9-->8-->8.3 --> anemia panel has been noted --> consider use of epo --> have started on iv iron # Hypercoagulable disorder with afib/also COVID19 in iCU --> will start low dose lovenox given elevated ddimer per ISABELLA guidelines --> no evidence of bleeding currently --> trend ddimer as needed, to see if risk of emboli # Thrombocytopenia likely due to infection --> plt 130-->150 --> hep and hiv neg --> smear is reviewed # MICHEAL on ckd --> per renal # Morbid obesity --> rec weight loss # Acidosis --> off bipap --> on fm # Hyperkalemia # Pacemaker # UTI (urinary tract infection --> cefepime # Dvt ppx lovenox Appreciate consultation and dw Rn Subjective Constitutional: Denies: no symptoms, chills, fever, malaise, weakness, other Cardiovascular: Denies: no symptoms, chest pain, edema, irregular heart rate, lightheadedness, palpitations, syncope, other Respiratory: Denies: no symptoms, cough, shortness of breath, SOB with excertion, SOB at rest, sputum, wheezing, other Gastrointestinal/Abdominal: Denies: no symptoms, abdomen distended, abdominal pain, black stools, tarry stools, blood in stool, constipated, diarrhea, difficulty swallowing, nausea, poor appetite, poor fluid intake, rectal bleeding, vomiting, other Genitourinary: Denies: no symptoms, burning, discharge, frequency, flank pain, hematuria, incontinence, pain, urgency, other Neurologic/Psychiatric: Denies: no symptoms, anxiety, depressed, emotional problems, headache, numbness, paresthesia, pre-existing deficit, seizure, tingling, tremors, weakness, other Endocrine: Denies: no symptoms, excessive sweating, flushing, intolerance to cold, intolerance to heat, increased hunger, increased thirst, increased urine, unexplained weight gain, unexplained weight loss, other Allergies: Coded Allergies: [place] (Verified Allergy, Mild, Rash, 10/29/14) per patient [place] (Unverified Allergy, Unknown, 11/28/13) Subjective 05/20 transferred out of icu, doing better, hgb 8, plt 130, smear is reviewed 05/21 hgb 8, plt 123, meds reviewed, with right chest permacath 05/22 meds noted, no bleeding, cbc is pending this am 05/24 labs are pending, has refused kayxelate, meds noted Objective Objective Current Medications Medications (Trade) Dose Ordered Sig/Albert Route PRN Reason Start Time Stop Time Status Last Admin Dose Admin Acetaminophen (Tylenol) 500 mg Q4H PRN ORAL Severe Pain (Pain Scale 7-10) 05/20/20 18:45 06/19/20 18:44 05/21/20 09:49 Cefepime HCl 500 mg/Dextrose 55 ml @ 110 mls/hr Q24H IV 05/19/20 13:00 05/26/20 12:59 05/23/20 13:22 Chlorhexidine Gluconate (Isamar-Hex 2%) 1 applic DAILY@2000 TOPIC 05/17/20 20:00 08/15/20 19:59 05/23/20 20:51 Dextrose (Dextrose 50%) 25 ml Q30M PRN IV Hypoglycemia 05/22/20 13:15 08/20/20 13:14 Dextrose (Dextrose 50%) 50 ml Q30M PRN IV Hypoglycemia 05/22/20 13:15 08/20/20 13:14 Digoxin (Lanoxin) 0.125 mg DAILY ORAL 05/23/20 12:30 08/18/20 10:59 05/23/20 13:23 Diltiazem HCl (Cardizem Tab) 60 mg Q8HR ORAL 05/23/20 22:00 06/17/20 17:59 05/23/20 22:41 Docusate Sodium (Colace) 100 mg THREE TIMES A DAY ORAL 05/19/20 13:00 06/18/20 12:59 05/23/20 16:57 Epoetin Vivek (Epoetin Vivek(ESRD on dialysis)) 10,000 unit MON-WED-FRI SUBQ 05/20/20 21:00 08/18/20 20:59 05/22/20 22:43 Folic Acid (Folate) 5 mg DAILY ORAL 05/17/20 14:00 06/16/20 13:59 05/23/20 08:32 Insulin Aspart (NovoLOG) BEFORE MEALS AND HS SUBQ 05/22/20 16:30 08/20/20 16:29 05/23/20 20:53 Metoprolol Tartrate (Lopressor) 12.5 mg Q12HR ORAL 05/21/20 21:00 08/19/20 20:59 05/23/20 08:33 Pantoprazole (Protonix) 40 mg EVERY 12 HOURS ORAL 05/19/20 21:00 06/18/20 20:59 05/23/20 20:51 Pioglitazone HCl (Actos) 15 mg ACBREAKFAST ORAL 05/24/20 06:30 06/23/20 06:29 05/24/20 06:09 Sevelamer Carbonate (Renvela) 1,600 mg THREE TIMES A DAY ORAL 05/23/20 13:00 08/19/20 17:59 05/23/20 16:57 Vitamin D (Vitamin D) 5,000 unit DAILY ORAL 05/24/20 09:00 06/23/20 08:59 Warfarin Sodium (Coumadin per pharmacy) 1 ea DAILY PRN MISC rx protocol 05/23/20 09:00 06/22/20 08:59 Last 24 Hour Vital Signs Date Time Temp Pulse Resp B/P (MAP) Pulse Ox O2 Delivery O2 Flow Rate FiO2 05/24/20 06:00 110 102/61 05/24/20 04:00 98.4 108 22 107/74 (85) 92 05/24/20 04:00 Bi-pap 05/24/20 04:00 60 05/24/20 04:00 101 05/24/20 01:05 94 25 92 100 05/24/20 00:00 98.1 110 21 131/79 (96) 91 05/24/20 00:00 Bi-pap 05/24/20 00:00 60 05/24/20 00:00 99 05/23/20 22:41 104 143/76 05/23/20 20:49 114 112/57 05/23/20 20:00 60 05/23/20 20:00 Bi-pap 05/23/20 20:00 97.5 114 30 112/57 (75) 84 05/23/20 20:00 103 05/23/20 19:19 87 Non-Rebreather 15.0 100 05/23/20 19:19 87 05/23/20 16:00 99.0 101 23 105/61 (76) 92 05/23/20 16:00 Venturi Mask 12.0 05/23/20 16:00 101 05/23/20 16:00 15.0 100 05/23/20 14:40 84 22 92 100 05/23/20 13:59 94 21 91 100 05/23/20 13:23 94 05/23/20 12:03 94 107/59 05/23/20 12:00 15.0 100 05/23/20 12:00 Venturi Mask 12.0 05/23/20 12:00 103 05/23/20 12:00 99.4 94 23 107/59 (75) 92 05/23/20 09:00 15.0 100 05/23/20 08:33 94 115/60 05/23/20 08:00 Venturi Mask 12.0 05/23/20 08:00 99.2 91 22 110/60 (77) 91 05/23/20 08:00 91 05/23/20 07:25 92 Non-Rebreather 15.0 100 05/23/20 05:39 94 100/57 05/23/20 04:00 15.0 100 05/23/20 04:00 Venturi Mask 12.0 05/23/20 04:00 94 05/23/20 04:00 99.9 94 22 100/57 (71) 93 05/23/20 02:20 95 26 92 100 05/23/20 00:00 Venturi Mask 12.0 05/23/20 00:00 100.6 114 22 123/72 (89) 92 05/23/20 00:00 15.0 100 05/22/20 23:34 114 123/72 05/22/20 22:43 117 126/77 05/22/20 20:00 Venturi Mask 12.0 05/22/20 20:00 99.3 116 22 126/77 (93) 97 05/22/20 20:00 15.0 100 05/22/20 20:00 104 05/22/20 18:58 93 Non-Rebreather 15.0 100 05/22/20 18:00 79 145/88 05/22/20 16:00 104 05/22/20 16:00 Venturi Mask 12.0 05/22/20 16:00 99.1 106 20 126/96 (106) 96 05/22/20 16:00 100 05/22/20 14:10 101 05/22/20 14:06 110 144/73 05/22/20 12:00 Venturi Mask 12.0 05/22/20 12:00 99.5 75 24 115/54 (74) 94 05/22/20 12:00 100 05/22/20 11:41 107 05/22/20 10:00 100 05/22/20 09:53 85 05/22/20 08:00 12.0 50 05/22/20 08:00 99.5 103 18 129/73 (91) 87 05/22/20 08:00 Venturi Mask 12.0 05/22/20 08:00 104 Intake and Output 05/23/20 05/24/20 19:00 07:00 Intake Total 55 ml 420 ml Output Total 42 ml Balance 55 ml 378 ml Intake Oral 360 ml IV Total 55 ml 60 ml Output Urine Total 42 ml # Bowel Movements 1 Labs Test 05/21/20 20:39 05/22/20 04:35 05/22/20 17:05 05/22/20 18:00 Sodium Level 140 MMOL/L (136-145) Potassium Level 5.0 MMOL/L (3.5-5.1) Chloride Level 105 MMOL/L (98-107) Carbon Dioxide Level 25 MMOL/L (21-32) Anion Gap 10 mmol/L (5-15) Blood Urea Nitrogen 71 mg/dL (7-18) Creatinine 7.2 MG/DL (0.55-1.30) Estimat Glomerular Filtration Rate 9.6 mL/min (>60) Glucose Level 121 MG/DL (74-106) Calcium Level 8.3 MG/DL (8.5-10.1) Phosphorus Level 6.7 MG/DL (2.5-4.9) Magnesium Level 2.1 MG/DL (1.8-2.4) Total Bilirubin 0.5 MG/DL (0.2-1.0) Aspartate Amino Transf (AST/SGOT) 42 U/L (15-37) Alanine Aminotransferase (ALT/SGPT) 24 U/L (12-78) Alkaline Phosphatase 75 U/L (46-116) Total Protein 7.4 G/DL (6.4-8.2) Albumin 2.0 G/DL (3.4-5.0) Globulin 5.4 g/dL Albumin/Globulin Ratio 0.4 (1.0-2.7) Digoxin Level 1.1 NG/ML (0.5-2.0) Prothrombin Time 11.8 SEC (9.30-11.50) Prothromb Time International Ratio 1.1 (0.9-1.1) POC Whole Blood Glucose 104 MG/DL (74-106) Test 05/23/20 07:15 05/23/20 10:05 05/23/20 20:43 05/24/20 06:05 Sodium Level 138 MMOL/L (136-145) Potassium Level 5.4 MMOL/L (3.5-5.1) Chloride Level 104 MMOL/L (98-107) Carbon Dioxide Level 26 MMOL/L (21-32) Anion Gap 8 mmol/L (5-15) Blood Urea Nitrogen 66 mg/dL (7-18) Creatinine 6.4 MG/DL (0.55-1.30) Estimat Glomerular Filtration Rate 10.9 mL/min (>60) Glucose Level 143 MG/DL (74-106) Calcium Level 8.4 MG/DL (8.5-10.1) Phosphorus Level 6.5 MG/DL (2.5-4.9) Magnesium Level 2.1 MG/DL (1.8-2.4) Total Bilirubin 0.3 MG/DL (0.2-1.0) Direct Bilirubin 0.1 MG/DL (0.0-0.3) Aspartate Amino Transf (AST/SGOT) 30 U/L (15-37) Alanine Aminotransferase (ALT/SGPT) 21 U/L (12-78) Alkaline Phosphatase 78 U/L (46-116) Total Protein 7.9 G/DL (6.4-8.2) Albumin 2.0 G/DL (3.4-5.0) White Blood Count 8.2 K/UL (4.8-10.8) Red Blood Count 3.07 M/UL (4.70-6.10) Hemoglobin 8.3 G/DL (14.2-18.0) Hematocrit 28.9 % (42.0-52.0) Mean Corpuscular Volume 94 FL (80-99) Mean Corpuscular Hemoglobin 27.1 PG (27.0-31.0) Mean Corpuscular Hemoglobin Concent 28.8 G/DL (32.0-36.0) Red Cell Distribution Width 16.1 % (11.6-14.8) Platelet Count 150 K/UL (150-450) Mean Platelet Volume 8.9 FL (6.5-10.1) Neutrophils (%) (Auto) 78.6 % (45.0-75.0) Lymphocytes (%) (Auto) 5.7 % (20.0-45.0) Monocytes (%) (Auto) 12.5 % (1.0-10.0) Eosinophils (%) (Auto) 1.2 % (0.0-3.0) Basophils (%) (Auto) 2.1 % (0.0-2.0) Prothrombin Time 12.0 SEC (9.30-11.50) Prothromb Time International Ratio 1.1 (0.9-1.1) POC Whole Blood Glucose 148 MG/DL (74-106) Height (Feet): 5 Height (Inches): 11.00 Weight (Pounds): 415 Objective Physical Exam General: Somnolent, falling asleep during exam. alert HEENT: NC/AT. EOMI. Cardiovascular: RRR. S1 and S2 normal. No murmur appreciated Resp: 4 L nasal cannula. + right chest permacath Abdomen: Abdomen is morbidly obese. Skin: Intact. Venous stasis changes lower extremities MSK: Normal tone and bulk. Moving all extremities. No obvious deformity. Neuro: Somnolent. Confused. Moving all extremities. Mio Ashton MD May 24, 2020 06:40
[2020-05-24 08:00] VITALS: BP 133/68
--- NOTE | 2020-05-24 08:06 | Pulmonology Progress Note ---
Subjective ROS Limited/Unobtainable: Yes Interval Events: seen in SDU; On BiPAP Constitutional: Reports: no symptoms HEENT: Repors: no symptoms Respiratory: Reports: shortness of breath Cardiovascular: Reports: no symptoms Gastrointestinal/Abdominal: Reports: no symptoms Allergies: Coded Allergies: [place] (Verified Allergy, Mild, Rash, 10/29/14) per patient [place] (Unverified Allergy, Unknown, 11/28/13) Objective Last 24 Hour Vital Signs Date Time Temp Pulse Resp B/P (MAP) Pulse Ox O2 Delivery O2 Flow Rate FiO2 05/24/20 06:00 110 102/61 05/24/20 04:00 98.4 108 22 107/74 (85) 92 05/24/20 04:00 Bi-pap 05/24/20 04:00 60 05/24/20 04:00 101 05/24/20 01:05 94 25 92 100 05/24/20 00:00 98.1 110 21 131/79 (96) 91 05/24/20 00:00 Bi-pap 05/24/20 00:00 60 05/24/20 00:00 99 05/23/20 22:41 104 143/76 05/23/20 20:49 114 112/57 05/23/20 20:00 60 05/23/20 20:00 Bi-pap 05/23/20 20:00 97.5 114 30 112/57 (75) 84 05/23/20 20:00 103 05/23/20 19:19 87 Non-Rebreather 15.0 100 05/23/20 19:19 87 05/23/20 16:00 99.0 101 23 105/61 (76) 92 05/23/20 16:00 Venturi Mask 12.0 05/23/20 16:00 101 05/23/20 16:00 15.0 100 05/23/20 14:40 84 22 92 100 05/23/20 13:59 94 21 91 100 05/23/20 13:23 94 05/23/20 12:03 94 107/59 05/23/20 12:00 15.0 100 05/23/20 12:00 Venturi Mask 12.0 05/23/20 12:00 103 05/23/20 12:00 99.4 94 23 107/59 (75) 92 05/23/20 09:00 15.0 100 05/23/20 08:33 94 115/60 Intake and Output 05/23/20 05/24/20 19:00 07:00 Intake Total 55 ml 420 ml Output Total 42 ml Balance 55 ml 378 ml Intake Oral 360 ml IV Total 55 ml 60 ml Output Urine Total 42 ml # Bowel Movements 1 General Appearance: no acute distress Respiratory: chest wall non-tender, normal breath sounds Cardiovascular: normal rate, regular rhythm Abdomen: other - morbid obesity Laboratory Tests 05/23/20 10:05: White Blood Count 8.2, Red Blood Count 3.07L, Hemoglobin 8.3L, Hematocrit 28.9L, Mean Corpuscular Volume 94, Mean Corpuscular Hemoglobin 27.1, Mean Corpuscular Hemoglobin Concent 28.8L, Red Cell Distribution Width 16.1H, Platelet Count 150, Mean Platelet Volume 8.9, Neutrophils (%) (Auto) 78.6H, Lymphocytes (%) (Auto) 5.7L, Monocytes (%) (Auto) 12.5H, Eosinophils (%) (Auto) 1.2, Basophils (%) (Auto) 2.1H, Prothrombin Time 12.0H, Prothromb Time International Ratio 1.1 05/23/20 20:43: POC Whole Blood Glucose 148H 05/24/20 06:05: POC Whole Blood Glucose [Pending] Current Medications Medications (Trade) Dose Ordered Sig/Albert Route PRN Reason Start Time Stop Time Status Last Admin Dose Admin Acetaminophen (Tylenol) 500 mg Q4H PRN ORAL Severe Pain (Pain Scale 7-10) 05/20/20 18:45 06/19/20 18:44 05/21/20 09:49 Cefepime HCl 500 mg/Dextrose 55 ml @ 110 mls/hr Q24H IV 05/19/20 13:00 05/26/20 12:59 05/23/20 13:22 Chlorhexidine Gluconate (Isamar-Hex 2%) 1 applic DAILY@2000 TOPIC 05/17/20 20:00 08/15/20 19:59 05/23/20 20:51 Dextrose (Dextrose 50%) 25 ml Q30M PRN IV Hypoglycemia 05/22/20 13:15 08/20/20 13:14 Dextrose (Dextrose 50%) 50 ml Q30M PRN IV Hypoglycemia 05/22/20 13:15 08/20/20 13:14 Digoxin (Lanoxin) 0.125 mg DAILY ORAL 05/23/20 12:30 08/18/20 10:59 05/23/20 13:23 Diltiazem HCl (Cardizem Tab) 60 mg Q8HR ORAL 05/23/20 22:00 06/17/20 17:59 05/23/20 22:41 Docusate Sodium (Colace) 100 mg THREE TIMES A DAY ORAL 05/19/20 13:00 06/18/20 12:59 05/23/20 16:57 Epoetin Vivek (Epoetin Vivek(ESRD on dialysis)) 10,000 unit MON-MON-MON SUBQ 05/20/20 21:00 08/18/20 20:59 05/22/20 22:43 Folic Acid (Folate) 5 mg DAILY ORAL 05/17/20 14:00 06/16/20 13:59 05/23/20 08:32 Insulin Aspart (NovoLOG) BEFORE MEALS AND HS SUBQ 05/22/20 16:30 08/20/20 16:29 05/23/20 20:53 Metoprolol Tartrate (Lopressor) 12.5 mg Q12HR ORAL 05/21/20 21:00 08/19/20 20:59 05/23/20 08:33 Pantoprazole (Protonix) 40 mg EVERY 12 HOURS ORAL 05/19/20 21:00 06/18/20 20:59 05/23/20 20:51 Pioglitazone HCl (Actos) 15 mg ACBREAKFAST ORAL 05/24/20 06:30 06/23/20 06:29 05/24/20 06:09 Sevelamer Carbonate (Renvela) 1,600 mg THREE TIMES A DAY ORAL 05/23/20 13:00 08/19/20 17:59 05/23/20 16:57 Vitamin D (Vitamin D) 5,000 unit DAILY ORAL 05/24/20 09:00 06/23/20 08:59 Warfarin Sodium (Coumadin per pharmacy) 1 ea DAILY PRN MISC rx protocol 05/23/20 09:00 06/22/20 08:59 Assessment/Plan Assessment/Plan 1. Hx Sleep apnea - Currently not on nocturnal CPAP - Started on BiPAP 2. Acute on chronic renal failure; hyperkalemia - s/p Kayexalate - s/p Right femoral catheter for dialysis (05/15) S/p dialysis 3. Bacteriuria - s/p Rocephin in ER - f/u UCx 4. Hypoxemic respiratory distress -Continue supplemental O2 -> now on BiPAP 5. Elevated inflammatory markers -Venous duplex ultrasound of lower extremities negative for DVT -On SCD for DVT prophylaxis 6. pneumonia -Chest x-ray shows interstitial opacities bilaterally -COVID-19 PCR negative 7. A-fib with rvr - seen by cardio 8. Worsening hypoxemia; needs aggressive HD/UF - Discussed with renal Juanito Amador MD May 24, 2020 08:05
[2020-05-24] MEDS: Docusate 100mg cap ORAL SCH ×3 (08:39→18:00)
[2020-05-24] MEDS: Digoxin 0.125mg tab ORAL SCH (08:44)
[2020-05-24] MEDS: Vitamin D 1000 units Tab ORAL SCH (08:47)
--- NOTE | 2020-05-24 10:44 | General Progress Note ---
Subjective Date patient seen: May 24, 2020 Time patient seen: 09:45 - am Allergies: Coded Allergies: [place] (Verified Allergy, Mild, Rash, 10/29/14) per patient PENICILLINS (Unverified Allergy, Unknown, 11/28/13) Subjective HISTORY OF PRESENT ILLNESS: This is a 60-year-old male who is being seen on the stepdown unit of [facility]. Patient is in bed with Bipap applied. No signs of pain or distress. REVIEW OF SYSTEMS: Unable to obtain due to patients condition. Objective Last 24 Hour Vital Signs Date Time Temp Pulse Resp B/P (MAP) Pulse Ox O2 Delivery O2 Flow Rate FiO2 05/24/20 10:11 114 25 84 15.0 100 05/24/20 08:45 108 133/68 05/24/20 08:44 108 05/24/20 08:00 Bi-pap 05/24/20 08:00 98.2 108 18 133/68 (89) 92 05/24/20 08:00 60 05/24/20 07:52 106 05/24/20 07:50 104 24 91 100 05/24/20 07:10 100 22 87 100 05/24/20 07:09 92 Bi-Pap 100 05/24/20 07:09 103 25 92 100 05/24/20 06:00 110 102/61 05/24/20 04:00 98.4 108 22 107/74 (85) 92 05/24/20 04:00 Bi-pap 05/24/20 04:00 60 05/24/20 04:00 101 05/24/20 01:05 94 25 92 100 05/24/20 00:00 98.1 110 21 131/79 (96) 91 05/24/20 00:00 Bi-pap 05/24/20 00:00 60 05/24/20 00:00 99 05/23/20 22:41 104 143/76 05/23/20 20:49 114 112/57 05/23/20 20:00 60 05/23/20 20:00 Bi-pap 05/23/20 20:00 97.5 114 30 112/57 (75) 84 05/23/20 20:00 103 05/23/20 19:19 87 Non-Rebreather 15.0 100 05/23/20 19:19 87 05/23/20 16:00 99.0 101 23 105/61 (76) 92 05/23/20 16:00 Venturi Mask 12.0 05/23/20 16:00 101 05/23/20 16:00 15.0 100 05/23/20 14:40 84 22 92 100 05/23/20 13:59 94 21 91 100 05/23/20 13:23 94 05/23/20 12:03 94 107/59 05/23/20 12:00 15.0 100 05/23/20 12:00 Venturi Mask 12.0 05/23/20 12:00 103 05/23/20 12:00 99.4 94 23 107/59 (75) 92 Intake and Output 05/23/20 05/24/20 19:00 07:00 Intake Total 55 ml 420 ml Output Total 42 ml Balance 55 ml 378 ml Intake Oral 360 ml IV Total 55 ml 60 ml Output Urine Total 42 ml # Bowel Movements 1 Laboratory Tests 05/23/20 20:43: POC Whole Blood Glucose 148H 05/24/20 06:05: POC Whole Blood Glucose [Pending] Height (Feet): 5 Height (Inches): 11.00 Weight (Pounds): 415 Objective PHYSICAL EXAMINATION: LUNGS: Decreased breath sounds bilaterally. HEART: S1 and S2, regular. ABDOMEN: Obese. EXTREMITIES: No cyanosis. No clubbing. NEURO: No changes. Assessment/Plan Assessment/Plan: (1) Neck pain s/p tunnel cath placement (2) Morbid obesity (3) Degenerative joint disease Patient to be continued on Tylenol D/w Dr. Choi and he concurred. Bassem Hickey May 24, 2020 10:44
[2020-05-24 12:00] VITALS: BP 106/62
[2020-05-24] MEDS: Cefepime 500mg/D5W 55ml IV SCH ×2 (13:00)
--- NOTE | 2020-05-24 13:02 | Surgery Progress Note ---
Surgery Progress Note Subjective Procedure Performed Right femoral temporary hemodialysis catheter insertion Symptoms: improved, tolerating diet, voiding well, passing flatus Additional Comments bipap no hematoma no bleeding Objective Last 24 Hour Vital Signs Date Time Temp Pulse Resp B/P (MAP) Pulse Ox O2 Delivery O2 Flow Rate FiO2 05/24/20 12:00 Bi-pap 05/24/20 12:00 60 05/24/20 12:00 97.2 115 20 106/62 (77) 90 05/24/20 11:43 105 05/24/20 10:37 119 24 88 100 05/24/20 10:11 114 25 84 15.0 100 05/24/20 08:45 108 133/68 05/24/20 08:44 108 05/24/20 08:00 Bi-pap 05/24/20 08:00 98.2 108 18 133/68 (89) 92 05/24/20 08:00 60 05/24/20 07:52 106 05/24/20 07:50 104 24 91 100 05/24/20 07:10 100 22 87 100 05/24/20 07:09 92 Bi-Pap 100 05/24/20 07:09 103 25 92 100 05/24/20 06:00 110 102/61 05/24/20 04:00 98.4 108 22 107/74 (85) 92 05/24/20 04:00 Bi-pap 05/24/20 04:00 60 05/24/20 04:00 101 05/24/20 01:05 94 25 92 100 05/24/20 00:00 98.1 110 21 131/79 (96) 91 05/24/20 00:00 Bi-pap 05/24/20 00:00 60 05/24/20 00:00 99 05/23/20 22:41 104 143/76 05/23/20 20:49 114 112/57 05/23/20 20:00 60 05/23/20 20:00 Bi-pap 05/23/20 20:00 97.5 114 30 112/57 (75) 84 05/23/20 20:00 103 05/23/20 19:19 87 Non-Rebreather 15.0 100 05/23/20 19:19 87 05/23/20 16:00 99.0 101 23 105/61 (76) 92 05/23/20 16:00 Venturi Mask 12.0 05/23/20 16:00 101 05/23/20 16:00 15.0 100 05/23/20 14:40 84 22 92 100 05/23/20 13:59 94 21 91 100 05/23/20 13:23 94 I&O Intake and Output 05/23/20 05/24/20 19:00 07:00 Intake Total 55 ml 420 ml Output Total 42 ml Balance 55 ml 378 ml Intake Oral 360 ml IV Total 55 ml 60 ml Output Urine Total 42 ml # Bowel Movements 1 Dressing: saturated Cardiovascular: RSR Respiratory: decreased breath sounds Abdomen: soft, non-tender, present bowel sounds, non-distended Extremities: edema, no tenderness, no cyanosis Laboratory Tests Test 05/23/20 20:43 05/24/20 06:05 POC Whole Blood Glucose 148 MG/DL (74-106) H Pending Plan Problems: (1) Morbid obesity (2) Pacemaker (3) 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 Temporary use. Line functional. Recent dialysis noted. 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 His abdominal distention is his baseline large pannus. Skin folds and abnormalities in pannus identified from chronic distention. His KUB noted bowel gas pattern unremarkable. NG tube has been her removed since. No nausea vomiting fever chills. Labs noted. Improving with dialysis. Hyperkalemia improved. Mentation improved. Abdominal exam is fairly benign and consistent with what would be anticipated with the patient with a BMI of 57 with chronic condition. No acute abdominal source or etiology identified. Hypotension likely relative to patient's treatment renal and will monitor with dialysis. Okay for diet once stabilized but currently keep n.p.o. given his high BiPAP requirement. Thank you for letting participate patient's care will follow with recommendations diet as tolerated Abhay Mccray May 24, 2020 13:02
--- NOTE | 2020-05-24 13:30 | Nephrology Progress Note ---
Assessment/Plan Problem List: (1) MICHEAL (acute kidney injury) (2) Renal failure (ARF), acute on chronic (3) Morbid obesity (4) Pacemaker (5) Hyperkalemia (6) Acidosis Assessment Acute on chronic renal failure Hyperkalemia Metabolic acidosis Pacemaker UTI Morbid obesity Plan May 24: Due for dialysis today. Due for ultrafiltration of 3 L minimum today. Today's labs still pending. Continue per consultants. May 23: Dialyzed yesterday. Due for dialysis tomorrow. Medications adjusted with regard to dosage he is off Cardizem and digoxin. Vitamin D orally initiated. Continue to monitor renal parameters electrolytes. Kayexalate for high potassium given. May 22: Currently on dialysis. Tolerating it well. Additional digoxin p.o. given. Continue per current treatment plan. May 21: Dialyzed yesterday. Due for dialysis tomorrow. Low-dose Lopressor added. Check digoxin level tomorrow. Phosphorus binders ordered. Continue as is. May 20: Downgraded to stepdown. Due for dialysis today. Blood pressure somewhat low. Will decrease Cardizem dose. Continue to monitor renal parameters and dialyze as needed. Per orders. May 19: Seen in ICU. Awake alert responsive. Last dialyzed yesterday. Next dialysis tomorrow. Medication list reviewed. Hepatitis panel ordered. Patient requires long-term dialysis. Epogen added for anemia May 18: Patient seen in ICU. Currently on dialysis. Dialysis orders yesterday was not carried out apparently due to lack of personal. Patient clinically doing better. Breathing easier. Continue per consultants. Medication list reviewed. Off pressors. Continue to dialyze as needed. May 17: Patient seen in ICU. Full code. On BiPAP. Discussed with DANIEL Ponce. Labs reviewed. Renal parameters improved after patient was dialyzed yesterday. Patient off pressors. Will attempt dialysis again today for hyperkalemia. Continue per consultants. Oral folic acid ordered. Protonix IV ordered. Previously: Stat ABG, stat kidney ultrasound: Results noted IV bicarb NG tube, Kayexalate Urgent dialysis Discussed with DANIEL Oliva Patient cannot give consent for insertion of dialysis catheter. Dialysis at this point is a lifesaving procedure in my opinion. Subjective ROS Limited/Unobtainable: Yes Objective Objective Last 24 Hour Vital Signs Date Time Temp Pulse Resp B/P (MAP) Pulse Ox O2 Delivery O2 Flow Rate FiO2 05/24/20 12:00 Bi-pap 05/24/20 12:00 60 05/24/20 12:00 97.2 115 20 106/62 (77) 90 05/24/20 11:43 105 05/24/20 10:37 119 24 88 100 05/24/20 10:11 114 25 84 15.0 100 05/24/20 08:45 108 133/68 05/24/20 08:44 108 05/24/20 08:00 Bi-pap 05/24/20 08:00 98.2 108 18 133/68 (89) 92 05/24/20 08:00 60 05/24/20 07:52 106 05/24/20 07:50 104 24 91 100 05/24/20 07:10 100 22 87 100 05/24/20 07:09 92 Bi-Pap 100 05/24/20 07:09 103 25 92 100 05/24/20 06:00 110 102/61 05/24/20 04:00 98.4 108 22 107/74 (85) 92 05/24/20 04:00 Bi-pap 05/24/20 04:00 60 05/24/20 04:00 101 05/24/20 01:05 94 25 92 100 05/24/20 00:00 98.1 110 21 131/79 (96) 91 05/24/20 00:00 Bi-pap 05/24/20 00:00 60 05/24/20 00:00 99 05/23/20 22:41 104 143/76 05/23/20 20:49 114 112/57 05/23/20 20:00 60 05/23/20 20:00 Bi-pap 05/23/20 20:00 97.5 114 30 112/57 (75) 84 05/23/20 20:00 103 05/23/20 19:19 87 Non-Rebreather 15.0 100 05/23/20 19:19 87 05/23/20 16:00 99.0 101 23 105/61 (76) 92 05/23/20 16:00 Venturi Mask 12.0 05/23/20 16:00 101 05/23/20 16:00 15.0 100 05/23/20 14:40 84 22 92 100 05/23/20 13:59 94 21 91 100 Intake and Output 05/23/20 05/24/20 19:00 07:00 Intake Total 55 ml 420 ml Output Total 42 ml Balance 55 ml 378 ml Intake Oral 360 ml IV Total 55 ml 60 ml Output Urine Total 42 ml # Bowel Movements 1 Current Medications Medications (Trade) Dose Ordered Sig/Albert Route PRN Reason Start Time Stop Time Status Last Admin Dose Admin Acetaminophen (Tylenol) 500 mg Q4H PRN ORAL Severe Pain (Pain Scale 7-10) 05/20/20 18:45 06/19/20 18:44 05/21/20 09:49 Cefepime HCl 500 mg/Dextrose 55 ml @ 110 mls/hr Q24H IV 05/19/20 13:00 05/26/20 12:59 05/23/20 13:22 Chlorhexidine Gluconate (Isamar-Hex 2%) 1 applic DAILY@2000 TOPIC 05/17/20 20:00 08/15/20 19:59 05/23/20 20:51 Dextrose (Dextrose 50%) 25 ml Q30M PRN IV Hypoglycemia 05/22/20 13:15 08/20/20 13:14 Dextrose (Dextrose 50%) 50 ml Q30M PRN IV Hypoglycemia 05/22/20 13:15 08/20/20 13:14 Digoxin (Lanoxin) 0.125 mg DAILY ORAL 05/23/20 12:30 08/18/20 10:59 05/24/20 08:44 Diltiazem HCl (Cardizem Tab) 60 mg Q8HR ORAL 05/23/20 22:00 06/17/20 17:59 05/23/20 22:41 Docusate Sodium (Colace) 100 mg THREE TIMES A DAY ORAL 05/19/20 13:00 06/18/20 12:59 05/24/20 08:39 Epoetin Vivek (Epoetin Vivek(ESRD on dialysis)) 10,000 unit MON-MON-MON SUBQ 05/20/20 21:00 08/18/20 20:59 05/22/20 22:43 Folic Acid (Folate) 5 mg DAILY ORAL 05/17/20 14:00 06/16/20 13:59 05/24/20 08:40 Insulin Aspart (NovoLOG) BEFORE MEALS AND HS SUBQ 05/22/20 16:30 08/20/20 16:29 05/23/20 20:53 Metoprolol Tartrate (Lopressor) 12.5 mg Q12HR ORAL 05/21/20 21:00 08/19/20 20:59 05/24/20 08:45 Pantoprazole (Protonix) 40 mg EVERY 12 HOURS ORAL 05/19/20 21:00 06/18/20 20:59 05/24/20 08:46 Pioglitazone HCl (Actos) 15 mg ACBREAKFAST ORAL 05/24/20 06:30 06/23/20 06:29 05/24/20 06:09 Sevelamer Carbonate (Renvela) 1,600 mg THREE TIMES A DAY ORAL 05/23/20 13:00 08/19/20 17:59 05/24/20 08:46 Vitamin D (Vitamin D) 5,000 unit DAILY ORAL 05/24/20 09:00 06/23/20 08:59 05/24/20 08:47 Warfarin Sodium (Coumadin per pharmacy) 1 ea DAILY PRN MISC rx protocol 05/23/20 09:00 06/22/20 08:59 Laboratory Tests 05/23/20 20:43: POC Whole Blood Glucose 148H 05/24/20 06:05: POC Whole Blood Glucose 107H Height (Feet): 5 Height (Inches): 11.00 Weight (Pounds): 415 General Appearance: no apparent distress EENT: other - On BiPAP Cardiovascular: tachycardia Respiratory/Chest: decreased breath sounds Abdomen: distended Adria Gautam MD May 24, 2020 13:30
[2020-05-24 16:00] VITALS: BP 104/60
[2020-05-24 16:50] LABS: BASOPHILS % (AUTO) 2.3 % (0.0-2.0); EOSINOPHILS % (AUTO) 0.3 % (0.0-3.0); HEMATOCRIT 33.7 % (42.0-52.0); HEMOGLOBIN 9.5 G/DL (14.2-18.0); LYMPHOCYTES % (AUTO) 3.1 % (20.0-45.0); MEAN CORPUSCULAR VOLUME 96 FL (80-99); MONOCYTES % (AUTO) 10.6 % (1.0-10.0); NEUTROPHILS % (AUTO) 83.7 % (45.0-75.0); PLATELET COUNT 198 K/UL (150-450); RED BLOOD COUNT 3.52 M/UL (4.70-6.10); RED CELL DISTRIBUTION WIDTH 16.1 % (11.6-14.8); WHITE BLOOD COUNT 9.2 K/UL (4.8-10.8)
[2020-05-24 17:02] LABS: INR 1.1 (0.9-1.1)
[2020-05-24 17:04] LABS: CALCIUM 8.9 MG/DL (8.5-10.1); CREATININE 7.8 MG/DL (0.55-1.30); POTASSIUM 5.6 MMOL/L (3.5-5.1)
[2020-05-24 17:09] LABS: ALBUMIN 1.9 G/DL (3.4-5.0); ALBUMIN/GLOBULIN RATIO 0.3 (1.0-2.7); BILIRUBIN,TOTAL 0.5 MG/DL (0.2-1.0)
[2020-05-24 17:44] LABS: PHOSPHORUS 8.6 MG/DL (2.5-4.9)
[2020-05-24] MEDS ORDERED: Warfarin Sod 5 MG, Warfarin Sod 2.5 MG ORAL SCH ×2 (18:00)
[2020-05-24 20:00] VITALS: BP 116/68
[2020-05-24] MEDS: Dyna-Hex 2% Top Sol 2oz TOPIC SCH (20:34)
--- NOTE | 2020-05-24 21:33 | General Progress Note ---
Subjective ROS Limited/Unobtainable: Yes Allergies: Coded Allergies: [place] (Verified Allergy, Mild, Rash, 10/29/14) per patient [place] (Unverified Allergy, Unknown, 11/28/13) Objective Last 24 Hour Vital Signs Date Time Temp Pulse Resp B/P (MAP) Pulse Ox O2 Delivery O2 Flow Rate FiO2 05/24/20 20:54 94 21 88 100 05/24/20 20:35 122 118/68 05/24/20 20:00 Bi-pap 05/24/20 20:00 60 05/24/20 20:00 124 05/24/20 19:16 107 23 89 100 05/24/20 19:15 88 Bi-Pap 100 05/24/20 16:00 60 05/24/20 16:00 97.5 116 19 104/60 (75) 90 05/24/20 16:00 Bi-pap 05/24/20 15:29 113 19 88 100 05/24/20 15:13 109 05/24/20 14:00 115 106/62 05/24/20 12:00 Bi-pap 05/24/20 12:00 60 05/24/20 12:00 97.2 115 20 106/62 (77) 90 05/24/20 11:43 105 05/24/20 10:37 119 24 88 100 05/24/20 10:11 114 25 84 15.0 100 05/24/20 08:45 108 133/68 05/24/20 08:44 108 05/24/20 08:00 Bi-pap 05/24/20 08:00 98.2 108 18 133/68 (89) 92 05/24/20 08:00 60 05/24/20 07:52 106 05/24/20 07:50 104 24 91 100 05/24/20 07:10 100 22 87 100 05/24/20 07:09 92 Bi-Pap 100 05/24/20 07:09 103 25 92 100 05/24/20 06:00 110 102/61 05/24/20 04:00 98.4 108 22 107/74 (85) 92 05/24/20 04:00 Bi-pap 05/24/20 04:00 60 05/24/20 04:00 101 05/24/20 01:05 94 25 92 100 05/24/20 00:00 98.1 110 21 131/79 (96) 91 05/24/20 00:00 Bi-pap 05/24/20 00:00 60 05/24/20 00:00 99 05/23/20 22:41 104 143/76 Intake and Output 05/23/20 05/24/20 19:00 07:00 Intake Total 55 ml 420 ml Output Total 42 ml Balance 55 ml 378 ml Intake Oral 360 ml IV Total 55 ml 60 ml Output Urine Total 42 ml # Bowel Movements 1 Laboratory Tests 05/24/20 06:05: POC Whole Blood Glucose 107H 05/24/20 16:42: White Blood Count 9.2, Red Blood Count 3.52L, Hemoglobin 9.5L, Hematocrit 33.7L, Mean Corpuscular Volume 96, Mean Corpuscular Hemoglobin 27.0, Mean Corpuscular Hemoglobin Concent 28.3L, Red Cell Distribution Width 16.1H, Platelet Count 198, Mean Platelet Volume 8.2, Neutrophils (%) (Auto) 83.7H, Lymphocytes (%) (Auto) 3.1L, Monocytes (%) (Auto) 10.6H, Eosinophils (%) (Auto) 0.3, Basophils (%) (Auto) 2.3H, Prothrombin Time 12.0H, Prothromb Time International Ratio 1.1, Sodium Level 137, Potassium Level 5.6H, Chloride Level 102, Carbon Dioxide Level 27, Anion Gap 8, Blood Urea Nitrogen 84H, Creatinine 7.8H, Estimat Glomerular Filtration Rate 8.7, Glucose Level 139H, Calcium Level 8.9, Total Bilirubin 0.5, Aspartate Amino Transf (AST/SGOT) 24, Alanine Aminotransferase (ALT/SGPT) 19, Alkaline Phosphatase 78, Total Protein 8.5H, Albumin 1.9L, Globulin 6.6, Albumin/Globulin Ratio 0.3L 05/24/20 16:43: Uric Acid 5.5, Phosphorus Level 8.6H, Magnesium Level 2.3, Gamma Glutamyl Transpeptidase 35, C-Reactive Protein, Quantitative 21.4H, Folate 18.4, Digoxin Level 1.5 05/24/20 20:28: POC Whole Blood Glucose [Pending] Height (Feet): 5 Height (Inches): 11.00 Weight (Pounds): 415 Assessment/Plan Problem List: (1) Hyperkalemia ICD Codes: E87.5 - Hyperkalemia SNOMED: 05368083 (2) Acidosis ICD Codes: E87.2 - Acidosis SNOMED: 21536650 (3) Hyperglycemia ICD Codes: R73.9 - Hyperglycemia, unspecified SNOMED: 10386474 (4) Acute kidney failure ICD Codes: N17.9 - Acute kidney failure, unspecified SNOMED: 07931088 (5) Sepsis ICD Codes: A41.9 - Sepsis SNOMED: 52940516 (6) UTI (urinary tract infection) ICD Codes: N39.0 - Urinary tract infection, site not specified SNOMED: 48302483 (7) Chronic systolic heart failure ICD Codes: I50.9 - Chronic systolic heart failure SNOMED: 890126096 (8) Morbid obesity ICD Codes: E66.01 - Morbid (severe) obesity due to excess calories SNOMED: 545429563 (9) Pacemaker ICD Codes: Z95.0 - Pacemaker SNOMED: 805072302 (10) DM circ dis type I, uncontrolled ICD Codes: E10.59 - DM circ dis type I, uncontrolled SNOMED: 48660501 (11) Atrial flutter ICD Codes: I48.92 - Atrial flutter SNOMED: 8033586 (12) Abdominal distention ICD Codes: R14.0 - Abdominal distension (gaseous) SNOMED: 91791205 (13) Renal failure (ARF), acute on chronic ICD Codes: N17.9 - Acute kidney failure, unspecified; N18.9 - Chronic kidney disease, unspecified SNOMED: 991174272 Assessment/Plan: need more fluid out informed renal dr arrythmia getting HD anemia of renal failure chf pacer no wheezing Montserrat Fan MD May 24, 2020 21:33
[2020-05-25] VITALS: BP 123/84
[2020-05-25 04:00] VITALS: BP 125/77
[2020-05-25] MEDS: dilTIAZem HCl 30mg tab ORAL SCH ×4 (05:39→23:00)
[2020-05-25] MEDS: NovoLOG Insulin Flexpen SUBQ SCH ×4 (05:41→20:42)
--- NOTE | 2020-05-25 06:15 | General Progress Note ---
Subjective ROS Limited/Unobtainable: Yes Allergies: Coded Allergies: [place] (Verified Allergy, Mild, Rash, 10/29/14) per patient [place] (Unverified Allergy, Unknown, 11/28/13) Subjective events noted interval notes reviewed seen by Dr Ariza over the weekend glucose values are stable Item Value Date Time Bedside Blood Glucose 140 mg/dl H 05/25/20 0541 Bedside Blood Glucose 115 mg/dl 05/24/20 2100 Bedside Blood Glucose 113 mg/dl 05/24/20 1630 Bedside Blood Glucose 129 mg/dl H 05/24/20 1130 Bedside Blood Glucose 107 mg/dl 05/24/20 0605 Objective Last 24 Hour Vital Signs Date Time Temp Pulse Resp B/P (MAP) Pulse Ox O2 Delivery O2 Flow Rate FiO2 05/25/20 05:39 113 125/77 05/25/20 05:03 113 25 85 100 05/25/20 04:45 108 21 87 100 05/25/20 04:00 100 05/25/20 04:00 96.9 111 25 125/77 (93) 87 05/25/20 04:00 Bi-pap 05/25/20 04:00 116 05/25/20 03:10 100 22 88 100 05/25/20 01:15 104 20 87 100 05/25/20 00:00 108 05/25/20 00:00 100 05/25/20 00:00 Bi-pap 05/25/20 00:00 96.1 117 24 123/84 (97) 89 05/24/20 23:14 101 20 90 100 05/24/20 22:00 119 117/56 05/24/20 20:54 94 21 88 100 05/24/20 20:35 122 118/68 05/24/20 20:00 Bi-pap 05/24/20 20:00 60 05/24/20 20:00 124 05/24/20 20:00 97.7 122 22 116/68 (84) 89 05/24/20 19:16 107 23 89 100 05/24/20 19:15 88 Bi-Pap 100 05/24/20 16:00 60 05/24/20 16:00 97.5 116 19 104/60 (75) 90 05/24/20 16:00 Bi-pap 05/24/20 15:29 113 19 88 100 05/24/20 15:13 109 2/21/21 14:00 115 106/62 05/24/20 12:00 Bi-pap 05/24/20 12:00 60 05/24/20 12:00 97.2 115 20 106/62 (77) 90 05/24/20 11:43 105 05/24/20 10:37 119 24 88 100 05/24/20 10:11 114 25 84 15.0 100 05/24/20 08:45 108 133/68 05/24/20 08:44 108 05/24/20 08:00 Bi-pap 05/24/20 08:00 98.2 108 18 133/68 (89) 92 05/24/20 08:00 60 05/24/20 07:52 106 05/24/20 07:50 104 24 91 100 05/24/20 07:10 100 22 87 100 05/24/20 07:09 92 Bi-Pap 100 05/24/20 07:09 103 25 92 100 Intake and Output 05/24/20 05/25/20 19:00 07:00 Intake Total 120 ml Output Total 150 ml Balance -30 ml Intake Oral 120 ml Output Urine Total 150 ml Laboratory Tests 05/24/20 16:42: White Blood Count 9.2, Red Blood Count 3.52L, Hemoglobin 9.5L, Hematocrit 33.7L, Mean Corpuscular Volume 96, Mean Corpuscular Hemoglobin 27.0, Mean Corpuscular Hemoglobin Concent 28.3L, Red Cell Distribution Width 16.1H, Platelet Count 198, Mean Platelet Volume 8.2, Neutrophils (%) (Auto) 83.7H, Lymphocytes (%) (Auto) 3.1L, Monocytes (%) (Auto) 10.6H, Eosinophils (%) (Auto) 0.3, Basophils (%) (Auto) 2.3H, Prothrombin Time 12.0H, Prothromb Time International Ratio 1.1, Sodium Level 137, Potassium Level 5.6H, Chloride Level 102, Carbon Dioxide Level 27, Anion Gap 8, Blood Urea Nitrogen 84H, Creatinine 7.8H, Estimat Glomerular Filtration Rate 8.7, Glucose Level 139H, Calcium Level 8.9, Total Bilirubin 0.5, Aspartate Amino Transf (AST/SGOT) 24, Alanine Aminotransferase (ALT/SGPT) 19, Alkaline Phosphatase 78, Total Protein 8.5H, Albumin 1.9L, Globulin 6.6, Albumin/Globulin Ratio 0.3L 05/24/20 16:43: Uric Acid 5.5, Phosphorus Level 8.6H, Magnesium Level 2.3, Gamma Glutamyl Transpeptidase 35, C-Reactive Protein, Quantitative 21.4H, Folate 18.4, Digoxin Level 1.5 05/24/20 20:28: POC Whole Blood Glucose [Pending] Height (Feet): 5 Height (Inches): 11.00 Weight (Pounds): 415 General Appearance: moderate distress Cardiovascular: tachycardia Respiratory/Chest: decreased breath sounds Abdomen: normal bowel sounds Objective Current Medications Medications (Trade) Dose Ordered Sig/Albert Route PRN Reason Start Time Stop Time Status Last Admin Dose Admin Acetaminophen (Tylenol) 500 mg Q4H PRN ORAL Severe Pain (Pain Scale 7-10) 05/20/20 18:45 06/19/20 18:44 05/21/20 09:49 Cefepime HCl 500 mg/Dextrose 55 ml @ 110 mls/hr Q24H IV 05/19/20 13:00 05/26/20 12:59 05/23/20 13:22 Chlorhexidine Gluconate (Isamar-Hex 2%) 1 applic DAILY@2000 TOPIC 05/17/20 20:00 08/15/20 19:59 05/24/20 20:34 Dextrose (Dextrose 50%) 25 ml Q30M PRN IV Hypoglycemia 05/22/20 13:15 08/20/20 13:14 Dextrose (Dextrose 50%) 50 ml Q30M PRN IV Hypoglycemia 05/22/20 13:15 08/20/20 13:14 Digoxin (Lanoxin) 0.125 mg DAILY ORAL 05/23/20 12:30 08/18/20 10:59 05/24/20 08:44 Diltiazem HCl (Cardizem Tab) 60 mg Q8HR ORAL 05/23/20 22:00 06/17/20 17:59 05/25/20 05:39 Docusate Sodium (Colace) 100 mg THREE TIMES A DAY ORAL 05/19/20 13:00 06/18/20 12:59 05/24/20 08:39 Epoetin Vivek (Epoetin Vivek(ESRD on dialysis)) 10,000 unit MON-MON-MON SUBQ 05/20/20 21:00 08/18/20 20:59 05/22/20 22:43 Folic Acid (Folate) 5 mg DAILY ORAL 05/17/20 14:00 06/16/20 13:59 05/24/20 08:40 Insulin Aspart (NovoLOG) BEFORE MEALS AND HS SUBQ 05/22/20 16:30 08/20/20 16:29 05/25/20 05:41 Metoprolol Tartrate (Lopressor) 12.5 mg Q12HR ORAL 05/21/20 21:00 08/19/20 20:59 05/24/20 20:35 Pantoprazole (Protonix) 40 mg EVERY 12 HOURS ORAL 05/19/20 21:00 06/18/20 20:59 05/24/20 20:35 Pioglitazone HCl (Actos) 15 mg ACBREAKFAST ORAL 05/24/20 06:30 06/23/20 06:29 05/25/20 05:39 Sevelamer Carbonate (Renvela) 1,600 mg THREE TIMES A DAY ORAL 05/23/20 13:00 08/19/20 17:59 05/24/20 08:46 Vitamin D (Vitamin D) 5,000 unit DAILY ORAL 05/24/20 09:00 06/23/20 08:59 05/24/20 08:47 Warfarin Sodium (Coumadin per pharmacy) 1 ea DAILY PRN MISC rx protocol 05/23/20 09:00 06/22/20 08:59 Assessment/Plan Problem List: (1) Morbid obesity ICD Codes: E66.01 - Morbid (severe) obesity due to excess calories SNOMED: 589533471 (2) Pacemaker ICD Codes: Z95.0 - Pacemaker SNOMED: 199882937 (3) Poorly controlled diabetes mellitus ICD Codes: E11.65 - Type 2 diabetesmellitus with hyperglycemia SNOMED: 039989569 (4) Renal failure (ARF), acute on chronic ICD Codes: N17.9 - Acute kidney failure, unspecified; N18.9 - Chronic kidney disease, unspecified SNOMED: 307721104 Assessment/Plan: DC Actos start Januvia 25 mg daily continue Novolog sliding scale ac hs Cb Yeh MD May 25, 2020 06:15
[2020-05-25 06:31] LABS: BASOPHILS % (AUTO) 1.2 % (0.0-2.0); EOSINOPHILS % (AUTO) 0.1 % (0.0-3.0); HEMATOCRIT 32.5 % (42.0-52.0); HEMOGLOBIN 9.1 G/DL (14.2-18.0); LYMPHOCYTES % (AUTO) 4.8 % (20.0-45.0); MEAN CORPUSCULAR VOLUME 96 FL (80-99); MONOCYTES % (AUTO) 9.2 % (1.0-10.0); NEUTROPHILS % (AUTO) 84.6 % (45.0-75.0); PLATELET COUNT 201 K/UL (150-450); RED CELL DISTRIBUTION WIDTH 16.1 % (11.6-14.8); WHITE BLOOD COUNT 8.1 K/UL (4.8-10.8)
[2020-05-25 06:34] LABS: INR 1.2 (0.9-1.1)
--- NOTE | 2020-05-25 06:35 | Hematology/Onc Progress Note ---
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, has been getting hd, as per renal -> hgb 9-->7.9-->8-->8.3->9.5 --> anemia panel has been noted --> consider use of epo --> have started on iv iron # Hypercoagulable disorder with afib/also COVID19 in iCU --> will start low dose lovenox given elevated ddimer per ISABELLA guidelines --> no evidence of bleeding currently --> trend ddimer as needed, to see if risk of emboli # Thrombocytopenia likely due to infection --> plt 130-->150-->198 --> hep and hiv neg --> smear is reviewed # MICHEAL on ckd --> per renal # Morbid obesity --> rec weight loss # Acidosis --> off bipap --> on fm # Hyperkalemia # Pacemaker # UTI (urinary tract infection --> cefepime # Dvt ppx lovenox Appreciate consultation and goyo Rn Subjective HEENT: Denies: no symptoms, eye pain, blurred vision, tearing, double vision, ear pain, ear discharge, nose pain, nose congestion, throat pain, throat swelling, mouth pain, mouth swelling, other Cardiovascular: Denies: no symptoms, chest pain, edema, irregular heart rate, lightheadedness, palpitations, syncope, other Respiratory: Denies: no symptoms, cough, shortness of breath, SOB with excertion, SOB at rest, sputum, wheezing, other Gastrointestinal/Abdominal: Denies: no symptoms, abdomen distended, abdominal pain, black stools, tarry stools, blood in stool, constipated, diarrhea, difficulty swallowing, nausea, poor appetite, poor fluid intake, rectal bleeding, vomiting, other Genitourinary: Denies: no symptoms, burning, discharge, frequency, flank pain, hematuria, incontinence, pain, urgency, other Neurologic/Psychiatric: Denies: no symptoms, anxiety, depressed, emotional problems, headache, numbness, paresthesia, pre-existing deficit, seizure, tingling, tremors, weakness, other Endocrine: Denies: no symptoms, excessive sweating, flushing, intolerance to cold, intolerance to heat, increased hunger, increased thirst, increased urine, unexplained weight gain, unexplained weight loss, other Allergies: Coded Allergies: [place] (Verified Allergy, Mild, Rash, 10/29/14) per patient PENICILLINS (Unverified Allergy, Unknown, 11/28/13) Subjective 05/20 transferred out of icu, doing better, hgb 8, plt 130, smear is reviewed 05/21 hgb 8, plt 123, meds reviewed, with right chest permacath 05/22 meds noted, no bleeding, cbc is pending this am 05/24 labs are pending, has refused kayxelate, meds noted 05/25 on bipap and wants to be dnr at this time, meds noted Objective Objective Current Medications Medications (Trade) Dose Ordered Sig/Albert Route PRN Reason Start Time Stop Time Status Last Admin Dose Admin Acetaminophen (Tylenol) 500 mg Q4H PRN ORAL Severe Pain (Pain Scale 7-10) 05/20/20 18:45 06/19/20 18:44 05/21/20 09:49 Cefepime HCl 500 mg/Dextrose 55 ml @ 110 mls/hr Q24H IV 05/19/20 13:00 05/26/20 12:59 05/23/20 13:22 Chlorhexidine Gluconate (Isamar-Hex 2%) 1 applic DAILY@2000 TOPIC 05/17/20 20:00 08/15/20 19:59 05/24/20 20:34 Dextrose (Dextrose 50%) 25 ml Q30M PRN IV Hypoglycemia 05/22/20 13:15 08/20/20 13:14 Dextrose (Dextrose 50%) 50 ml Q30M PRN IV Hypoglycemia 05/22/20 13:15 08/20/20 13:14 Digoxin (Lanoxin) 0.125 mg DAILY ORAL 05/23/20 12:30 08/18/20 10:59 05/24/20 08:44 Diltiazem HCl (Cardizem Tab) 60 mg Q8HR ORAL 05/23/20 22:00 06/17/20 17:59 05/25/20 05:39 Docusate Sodium (Colace) 100 mg THREE TIMES A DAY ORAL 05/19/20 13:00 06/18/20 12:59 05/24/20 08:39 Epoetin Vivek (Epoetin Vivek(ESRD on dialysis)) 10,000 unit MON-MON-MON SUBQ 05/20/20 21:00 08/18/20 20:59 05/22/20 22:43 Folic Acid (Folate) 5 mg DAILY ORAL 05/17/20 14:00 06/16/20 13:59 05/24/20 08:40 Insulin Aspart (NovoLOG) BEFORE MEALS AND HS SUBQ 05/22/20 16:30 08/20/20 16:29 05/25/20 05:41 Metoprolol Tartrate (Lopressor) 12.5 mg Q12HR ORAL 05/21/20 21:00 08/19/20 20:59 05/24/20 20:35 Pantoprazole (Protonix) 40 mg EVERY 12 HOURS ORAL 05/19/20 21:00 06/18/20 20:59 05/24/20 20:35 Sevelamer Carbonate (Renvela) 1,600 mg THREE TIMES A DAY ORAL 05/23/20 13:00 08/19/20 17:59 05/24/20 08:46 Sitagliptin Phosphate (Januvia) 25 mg ACBREAKFAST ORAL 05/25/20 06:30 06/24/20 06:29 UNV Vitamin D (Vitamin D) 5,000 unit DAILY ORAL 05/24/20 09:00 06/23/20 08:59 05/24/20 08:47 Warfarin Sodium (Coumadin per pharmacy) 1 ea DAILY PRN MISC rx protocol 05/23/20 09:00 06/22/20 08:59 Last 24 Hour Vital Signs Date Time Temp Pulse Resp B/P (MAP) Pulse Ox O2 Delivery O2 Flow Rate FiO2 05/25/20 05:39 113 125/77 05/25/20 05:03 113 25 85 100 05/25/20 04:45 108 21 87 100 05/25/20 04:00 100 05/25/20 04:00 96.9 111 25 125/77 (93) 87 05/25/20 04:00 Bi-pap 05/25/20 04:00 116 05/25/20 03:10 100 22 88 100 05/25/20 01:15 104 20 87 100 05/25/20 00:00 108 05/25/20 00:00 100 05/25/20 00:00 Bi-pap 05/25/20 00:00 96.1 117 24 123/84 (97) 89 05/24/20 23:14 101 20 90 100 05/24/20 22:00 119 117/56 05/24/20 20:54 94 21 88 100 05/24/20 20:35 122 118/68 05/24/20 20:00 Bi-pap 05/24/20 20:00 60 05/24/20 20:00 124 05/24/20 20:00 97.7 122 22 116/68 (84) 89 05/24/20 19:16 107 23 89 100 05/24/20 19:15 88 Bi-Pap 100 05/24/20 16:00 60 05/24/20 16:00 97.5 116 19 104/60 (75) 90 05/24/20 16:00 Bi-pap 05/24/20 15:29 113 19 88 100 05/24/20 15:13 109 05/24/20 14:00 115 106/62 05/24/20 12:00 Bi-pap 05/24/20 12:00 60 05/24/20 12:00 97.2 115 20 106/62 (77) 90 05/24/20 11:43 105 05/24/20 10:37 119 24 88 100 05/24/20 10:11 114 25 84 15.0 100 05/24/20 08:45 108 133/68 05/24/20 08:44 108 05/24/20 08:00 Bi-pap 05/24/20 08:00 98.2 108 18 133/68 (89) 92 05/24/20 08:00 60 05/24/20 07:52 106 05/24/20 07:50 104 24 91 100 05/24/20 07:10 100 22 87 100 05/24/20 07:09 92 Bi-Pap 100 05/24/20 07:09 103 25 92 100 05/24/20 06:00 110 102/61 05/24/20 04:00 98.4 108 22 107/74 (85) 92 05/24/20 04:00 Bi-pap 05/24/20 04:00 60 05/24/20 04:00 101 05/24/20 01:05 94 25 92 100 05/24/20 00:00 98.1 110 21 131/79 (96) 91 05/24/20 00:00 Bi-pap 05/24/20 00:00 60 05/24/20 00:00 99 05/23/20 22:41 104 143/76 05/23/20 20:49 114 112/57 05/23/20 20:00 60 05/23/20 20:00 Bi-pap 05/23/20 20:00 97.5 114 30 112/57 (75) 84 05/23/20 20:00 103 05/23/20 19:19 87 Non-Rebreather 15.0 100 05/23/20 19:19 87 05/23/20 16:00 99.0 101 23 105/61 (76) 92 05/23/20 16:00 Venturi Mask 12.0 05/23/20 16:00 101 05/23/20 16:00 15.0 100 05/23/20 14:40 84 22 92 100 05/23/20 13:59 94 21 91 100 05/23/20 13:23 94 05/23/20 12:03 94 107/59 05/23/20 12:00 15.0 100 05/23/20 12:00 Venturi Mask 12.0 05/23/20 12:00 103 05/23/20 12:00 99.4 94 23 107/59 (75) 92 05/23/20 09:00 15.0 100 05/23/20 08:33 94 115/60 05/23/20 08:00 Venturi Mask 12.0 05/23/20 08:00 99.2 91 22 110/60 (77) 91 05/23/20 08:00 91 05/23/20 07:25 92 Non-Rebreather 15.0 100 Intake and Output 05/24/20 05/25/20 19:00 07:00 Intake Total 120 ml 3000 ml Output Total 150 ml 50 ml Balance -30 ml 2950 ml Intake Oral 120 ml Hemodialysis 3000 ml Output Urine Total 150 ml 50 ml Labs Test 05/22/20 17:05 05/22/20 18:00 05/23/20 07:15 05/23/20 10:05 Prothrombin Time 11.8 SEC (9.30-11.50) 12.0 SEC (9.30-11.50) Prothromb Time International Ratio 1.1 (0.9-1.1) 1.1 (0.9-1.1) POC Whole Blood Glucose 104 MG/DL (74-106) Sodium Level 138 MMOL/L (136-145) Potassium Level 5.4 MMOL/L (3.5-5.1) Chloride Level 104 MMOL/L (98-107) Carbon Dioxide Level 26 MMOL/L (21-32) Anion Gap 8 mmol/L (5-15) Blood Urea Nitrogen 66 mg/dL (7-18) Creatinine 6.4 MG/DL (0.55-1.30) Estimat Glomerular Filtration Rate 10.9 mL/min (>60) Glucose Level 143 MG/DL (74-106) Calcium Level 8.4 MG/DL (8.5-10.1) Phosphorus Level 6.5 MG/DL (2.5-4.9) Magnesium Level 2.1 MG/DL (1.8-2.4) Total Bilirubin 0.3 MG/DL (0.2-1.0) Direct Bilirubin 0.1 MG/DL (0.0-0.3) Aspartate Amino Transf (AST/SGOT) 30 U/L (15-37) Alanine Aminotransferase (ALT/SGPT) 21 U/L (12-78) Alkaline Phosphatase 78 U/L (46-116) Total Protein 7.9 G/DL (6.4-8.2) Albumin 2.0 G/DL (3.4-5.0) White Blood Count 8.2 K/UL (4.8-10.8) Red Blood Count 3.07 M/UL (4.70-6.10) Hemoglobin 8.3 G/DL (14.2-18.0) Hematocrit 28.9 % (42.0-52.0) Mean Corpuscular Volume 94 FL (80-99) Mean Corpuscular Hemoglobin 27.1 PG (27.0-31.0) Mean Corpuscular Hemoglobin Concent 28.8 G/DL (32.0-36.0) Red Cell Distribution Width 16.1 % (11.6-14.8) Platelet Count 150 K/UL (150-450) Mean Platelet Volume 8.9 FL (6.5-10.1) Neutrophils (%) (Auto) 78.6 % (45.0-75.0) Lymphocytes (%) (Auto) 5.7 % (20.0-45.0) Monocytes (%) (Auto) 12.5 % (1.0-10.0) Eosinophils (%) (Auto) 1.2 % (0.0-3.0) Basophils (%) (Auto) 2.1 % (0.0-2.0) Test 05/23/20 20:43 05/24/20 06:05 05/24/20 16:42 05/24/20 16:43 POC Whole Blood Glucose 148 MG/DL (74-106) 107 MG/DL (74-106) White Blood Count 9.2 K/UL (4.8-10.8) Red Blood Count 3.52 M/UL (4.70-6.10) Hemoglobin 9.5 G/DL (14.2-18.0) Hematocrit 33.7 % (42.0-52.0) Mean Corpuscular Volume 96 FL (80-99) Mean Corpuscular Hemoglobin 27.0 PG (27.0-31.0) Mean Corpuscular Hemoglobin Concent 28.3 G/DL (32.0-36.0) Red Cell Distribution Width 16.1 % (11.6-14.8) Platelet Count 198 K/UL (150-450) Mean Platelet Volume 8.2 FL (6.5-10.1) Neutrophils (%) (Auto) 83.7 % (45.0-75.0) Lymphocytes (%) (Auto) 3.1 % (20.0-45.0) Monocytes (%) (Auto) 10.6 % (1.0-10.0) Eosinophils (%) (Auto) 0.3 % (0.0-3.0) Basophils (%) (Auto) 2.3 % (0.0-2.0) Prothrombin Time 12.0 SEC (9.30-11.50) Prothromb Time International Ratio 1.1 (0.9-1.1) Sodium Level 137 MMOL/L (136-145) Potassium Level 5.6 MMOL/L (3.5-5.1) Chloride Level 102 MMOL/L (98-107) Carbon Dioxide Level 27 MMOL/L (21-32) Anion Gap 8 mmol/L (5-15) Blood Urea Nitrogen 84 mg/dL (7-18) Creatinine 7.8 MG/DL (0.55-1.30) Estimat Glomerular Filtration Rate 8.7 mL/min (>60) Glucose Level 139 MG/DL (74-106) Calcium Level 8.9 MG/DL (8.5-10.1) Total Bilirubin 0.5 MG/DL (0.2-1.0) Aspartate Amino Transf (AST/SGOT) 24 U/L (15-37) Alanine Aminotransferase (ALT/SGPT) 19 U/L (12-78) Alkaline Phosphatase 78 U/L (46-116) Total Protein 8.5 G/DL (6.4-8.2) Albumin 1.9 G/DL (3.4-5.0) Globulin 6.6 g/dL Albumin/Globulin Ratio 0.3 (1.0-2.7) Uric Acid 5.5 MG/DL (2.6-7.2) Phosphorus Level 8.6 MG/DL (2.5-4.9) Magnesium Level 2.3 MG/DL (1.8-2.4) Gamma Glutamyl Transpeptidase 35 U/L (5-85) C-Reactive Protein, Quantitative 21.4 mg/dL (0.00-0.90) Folate 18.4 NG/ML (8.6-58.9) Digoxin Level 1.5 NG/ML (0.5-2.0) Test 05/24/20 20:28 05/25/20 04:27 Height (Feet): 5 Height (Inches): 11.00 Weight (Pounds): 415 Objective Physical Exam General: Somnolent, falling asleep during exam. alert HEENT: NC/AT. EOMI. Cardiovascular: RRR. S1 and S2 normal. No murmur appreciated Resp: 4 L nasal cannula. + right chest permacath Abdomen: Abdomen is morbidly obese. Skin: Intact. Venous stasis changes lower extremities MSK: Normal tone and bulk. Moving all extremities. No obvious deformity. Neuro: Somnolent. Confused. Moving all extremities. Mio Ashton MD May 25, 2020 06:35
[2020-05-25 07:21] LABS: ALBUMIN 1.9 G/DL (3.4-5.0); ALBUMIN/GLOBULIN RATIO 0.3 (1.0-2.7); BILIRUBIN,TOTAL 0.5 MG/DL (0.2-1.0); CALCIUM 9.1 MG/DL (8.5-10.1); PHOSPHORUS 7.8 MG/DL (2.5-4.9); POTASSIUM 5.2 MMOL/L (3.5-5.1)
[2020-05-25 08:00] VITALS: BP 154/81
--- NOTE | 2020-05-25 08:37 | General Progress Note ---
Subjective Date patient seen: May 25, 2020 Time patient seen: 07:15 - am Allergies: Coded Allergies: [place] (Verified Allergy, Mild, Rash, 10/29/14) per patient PENICILLINS (Unverified Allergy, Unknown, 11/28/13) Subjective HISTORY OF PRESENT ILLNESS: This is a 60-year-old male who is being seen on the stepdown unit of [facility]. Patient in bed and showing no signs fo pain or distress. REVIEW OF SYSTEMS: Unable to obtain due to patients condition. Objective Last 24 Hour Vital Signs Date Time Temp Pulse Resp B/P (MAP) Pulse Ox O2 Delivery O2 Flow Rate FiO2 05/25/20 05:39 113 125/77 05/25/20 05:03 113 25 85 100 05/25/20 04:45 108 21 87 100 05/25/20 04:00 100 05/25/20 04:00 96.9 111 25 125/77 (93) 87 05/25/20 04:00 Bi-pap 05/25/20 04:00 116 05/25/20 03:10 100 22 88 100 05/25/20 01:15 104 20 87 100 05/25/20 00:00 108 05/25/20 00:00 100 05/25/20 00:00 Bi-pap 05/25/20 00:00 96.1 117 24 123/84 (97) 89 05/24/20 23:14 101 20 90 100 05/24/20 22:00 119 117/56 05/24/20 20:54 94 21 88 100 05/24/20 20:35 122 118/68 05/24/20 20:00 Bi-pap 05/24/20 20:00 60 05/24/20 20:00 124 05/24/20 20:00 97.7 122 22 116/68 (84) 89 05/24/20 19:16 107 23 89 100 05/24/20 19:15 88 Bi-Pap 100 05/24/20 16:00 60 05/24/20 16:00 97.5 116 19 104/60 (75) 90 05/24/20 16:00 Bi-pap 05/24/20 15:29 113 19 88 100 05/24/20 15:13 109 05/24/20 14:00 115 106/62 05/24/20 12:00 Bi-pap 05/24/20 12:00 60 05/24/20 12:00 97.2 115 20 106/62 (77) 90 05/24/20 11:43 105 05/24/20 10:37 119 24 88 100 05/24/20 10:11 114 25 84 15.0 100 05/24/20 08:45 108 133/68 05/24/20 08:44 108 Intake and Output 05/24/20 05/25/20 19:00 07:00 Intake Total 120 ml 3000 ml Output Total 150 ml 50 ml Balance -30 ml 2950 ml Intake Oral 120 ml Hemodialysis 3000 ml Output Urine Total 150 ml 50 ml Laboratory Tests 05/24/20 16:42: White Blood Count 9.2, Red Blood Count 3.52L, Hemoglobin 9.5L, Hematocrit 33.7L, Mean Corpuscular Volume 96, Mean Corpuscular Hemoglobin 27.0, Mean Corpuscular Hemoglobin Concent 28.3L, Red Cell Distribution Width 16.1H, Platelet Count 198, Mean Platelet Volume 8.2, Neutrophils (%) (Auto) 83.7H, Lymphocytes (%) (Auto) 3.1L, Monocytes (%) (Auto) 10.6H, Eosinophils (%) (Auto) 0.3, Basophils (%) (Auto) 2.3H, Prothrombin Time 12.0H, Prothromb Time International Ratio 1.1, Sodium Level 137, Potassium Level 5.6H, Chloride Level 102, Carbon Dioxide Level 27, Anion Gap 8, Blood Urea Nitrogen 84H, Creatinine 7.8H, Estimat Glomerular Filtration Rate 8.7, Glucose Level 139H, Calcium Level 8.9, Total Bilirubin 0.5, Aspartate Amino Transf (AST/SGOT) 24, Alanine Aminotransferase (ALT/SGPT) 19, Alkaline Phosphatase 78, Total Protein 8.5H, Albumin 1.9L, Globulin 6.6, Albumin/Globulin Ratio 0.3L 05/24/20 16:43: Uric Acid 5.5, Phosphorus Level 8.6H, Magnesium Level 2.3, Gamma Glutamyl Transpeptidase 35, C-Reactive Protein, Quantitative 21.4H, Folate 18.4, Digoxin Level 1.5 05/24/20 20:28: POC Whole Blood Glucose [Pending] 05/25/20 04:27: White Blood Count 8.1, Red Blood Count 3.40L, Hemoglobin 9.1L, Hematocrit 32.5L, Mean Corpuscular Volume 96, Mean Corpuscular Hemoglobin 26.7L, Mean Corpuscular Hemoglobin Concent 27.9L, Red Cell Distribution Width 16.1H, Platelet Count 201, Mean Platelet Volume 8.3, Neutrophils (%) (Auto) 84.6H, Lymphocytes (%) (Auto) 4.8L, Monocytes (%) (Auto) 9.2, Eosinophils (%) (Auto) 0.1, Basophils (%) (Auto) 1.2, Prothrombin Time 12.7H, Prothromb Time International Ratio 1.2H, Sodium Level 136, Potassium Level 5.2H, Chloride Level 100, Carbon Dioxide Level 29, Anion Gap 7, Blood Urea Nitrogen 74H, Creatinine 7.0H, Estimat Glomerular Filtration Rate 9.8, Glucose Level 134H, Calcium Level 9.1, Total Bilirubin 0.5, Aspartate Amino Transf (AST/SGOT) 25, Alanine Aminotransferase (ALT/SGPT) 22, Alkaline Phosphatase 78, Total Protein 8.7H, Albumin 1.9L, Globulin 6.8, Albumin/Globulin Ratio 0.3L, Phosphorus Level 7.8H, C-Reactive Protein, Quantitative 31.5H, Digoxin Level 1.5, Pro-B-Type Natriuretic Peptide 59929V Height (Feet): 5 Height (Inches): 11.00 Weight (Pounds): 415 Objective PHYSICAL EXAMINATION: LUNGS: Decreased breath sounds bilaterally. HEART: S1 and S2, regular. ABDOMEN: Obese. EXTREMITIES: No cyanosis. No clubbing. NEURO: No changes. Assessment/Plan Assessment/Plan: (1) Neck pain s/p tunnel cath placement (2) Morbid obesity (3) Degenerative joint disease Patient to be continued on Tylenol D/w Dr. Choi and he concurred. Bassem Hickey May 25, 2020 08:37
[2020-05-25] MEDS: Docusate 100mg cap ORAL SCH ×3 (09:17→17:36)
[2020-05-25] MEDS: Digoxin 0.125mg tab ORAL SCH (09:17)
[2020-05-25] MEDS: Vitamin D 1000 units Tab ORAL SCH (09:20)
[2020-05-25] MEDS ORDERED: Heparin1,000 units/500ml Premix(Conc:2 units/ml) INJ PRN (10:00)
[2020-05-25] MEDS ORDERED: Lidocaine 1% Plain 30 ml INJ PRN (10:00)
--- NOTE | 2020-05-25 10:10 | Nephrology Progress Note ---
Assessment/Plan Problem List: (1) MICHEAL (acute kidney injury) (2) Renal failure (ARF), acute on chronic (3) Morbid obesity (4) Pacemaker (5) Hyperkalemia (6) Acidosis Assessment Acute on chronic renal failure Hyperkalemia Metabolic acidosis Pacemaker UTI Morbid obesity Plan May 25: Dialyzed yesterday. Aim to dialyze tomorrow, however it appears that the patient can benefit from more ultrafiltration today. Cardizem dose adjusted. Digoxin level is being monitored. Continue per consultants. May 24: Due for dialysis today. Due for ultrafiltration of 3 L minimum today. Today's labs still pending. Continue per consultants. May 23: Dialyzed yesterday. Due for dialysis tomorrow. Medications adjusted with regard to dosage he is off Cardizem and digoxin. Vitamin D orally initiated. Continue to monitor renal parameters electrolytes. Kayexalate for high potassium given. May 22: Currently on dialysis. Tolerating it well. Additional digoxin p.o. given. Continue per current treatment plan. May 21: Dialyzed yesterday. Due for dialysis tomorrow. Low-dose Lopressor added. Check digoxin level tomorrow. Phosphorus binders ordered. Continue as is. May 20: Downgraded to stepdown. Due for dialysis today. Blood pressure somewhat low. Will decrease Cardizem dose. Continue to monitor renal parameters and dialyze as needed. Per orders. May 19: Seen in ICU. Awake alert responsive. Last dialyzed yesterday. Next dialysis tomorrow. Medication list reviewed. Hepatitis panel ordered. Patient requires long-term dialysis. Epogen added for anemia May 18: Patient seen in ICU. Currently on dialysis. Dialysis orders yesterday was not carried out apparently due to lack of personal. Patient clinically doing better. Breathing easier. Continue per consultants. Medication list reviewed. Off pressors. Continue to dialyze as needed. May 17: Patient seen in ICU. Full code. On BiPAP. Discussed with DANIEL Ponce. Labs reviewed. Renal parameters improved after patient was dialyzed yesterday. Patient off pressors. Will attempt dialysis again today for hyperkalemia. Continue per consultants. Oral folic acid ordered. Protonix IV ordered. Previously: Stat ABG, stat kidney ultrasound: Results noted IV bicarb NG tube, Kayexalate Urgent dialysis Discussed with DANIEL Oliva Patient cannot give consent for insertion of dialysis catheter. Dialysis at this point is a lifesaving procedure in my opinion. Subjective ROS Limited/Unobtainable: Yes Objective Objective Last 24 Hour Vital Signs Date Time Temp Pulse Resp B/P (MAP) Pulse Ox O2 Delivery O2 Flow Rate FiO2 05/25/20 09:17 109 05/25/20 09:16 109 154/81 05/25/20 08:00 96.8 109 22 154/81 (105) 85 05/25/20 05:39 113 125/77 05/25/20 05:03 113 25 85 100 05/25/20 04:45 108 21 87 100 05/25/20 04:00 100 05/25/20 04:00 96.9 111 25 125/77 (93) 87 05/25/20 04:00 Bi-pap 05/25/20 04:00 116 05/25/20 03:10 100 22 88 100 05/25/20 01:15 104 20 87 100 05/25/20 00:00 108 05/25/20 00:00 100 05/25/20 00:00 Bi-pap 05/25/20 00:00 96.1 117 24 123/84 (97) 89 05/24/20 23:14 101 20 90 100 05/24/20 22:00 119 117/56 05/24/20 20:54 94 21 88 100 05/24/20 20:35 122 118/68 05/24/20 20:00 Bi-pap 05/24/20 20:00 60 05/24/20 20:00 124 05/24/20 20:00 97.7 122 22 116/68 (84) 89 05/24/20 19:16 107 23 89 100 05/24/20 19:15 88 Bi-Pap 100 05/24/20 16:00 60 05/24/20 16:00 97.5 116 19 104/60 (75) 90 05/24/20 16:00 Bi-pap 05/24/20 15:29 113 19 88 100 05/24/20 15:13 109 05/24/20 14:00 115 106/62 05/24/20 12:00 Bi-pap 05/24/20 12:00 60 05/24/20 12:00 97.2 115 20 106/62 (77) 90 05/24/20 11:43 105 05/24/20 10:37 119 24 88 100 05/24/20 10:11 114 25 84 15.0 100 Intake and Output 05/24/20 05/25/20 19:00 07:00 Intake Total 120 ml 3000 ml Output Total 150 ml 50 ml Balance -30 ml 2950 ml Intake Oral 120 ml Hemodialysis 3000 ml Output Urine Total 150 ml 50 ml Current Medications Medications (Trade) Dose Ordered Sig/Albert Route PRN Reason Start Time Stop Time Status Last Admin Dose Admin Acetaminophen (Tylenol) 500 mg Q4H PRN ORAL Severe Pain (Pain Scale 7-10) 05/20/20 18:45 06/19/20 18:44 05/21/20 09:49 Cefepime HCl 500 mg/Dextrose 55 ml @ 110 mls/hr Q24H IV 05/19/20 13:00 05/26/20 12:59 05/23/20 13:22 Chlorhexidine Gluconate (Isamar-Hex 2%) 1 applic DAILY@2000 TOPIC 05/17/20 20:00 08/15/20 19:59 05/24/20 20:34 Dextrose (Dextrose 50%) 25 ml Q30M PRN IV Hypoglycemia 05/22/20 13:15 08/20/20 13:14 Dextrose (Dextrose 50%) 50 ml Q30M PRN IV Hypoglycemia 05/22/20 13:15 08/20/20 13:14 Digoxin (Lanoxin) 0.125 mg DAILY ORAL 05/23/20 12:30 08/18/20 10:59 05/25/20 09:17 Diltiazem HCl (Cardizem Tab) 60 mg Q8HR ORAL 05/23/20 22:00 06/17/20 17:59 05/25/20 05:39 Docusate Sodium (Colace) 100 mg THREE TIMES A DAY ORAL 05/19/20 13:00 06/18/20 12:59 05/25/20 09:17 Epoetin Vivek (Epoetin Vivek(ESRD on dialysis)) 10,000 unit MON-MON-MON SUBQ 05/20/20 21:00 08/18/20 20:59 05/22/20 22:43 Folic Acid (Folate) 5 mg DAILY ORAL 05/17/20 14:00 06/16/20 13:59 05/25/20 09:17 Heparin Sodium/ Sodium Chloride (Heparin 1000 units/500ml Premix) 1,000 unit ONCE PRN INJ radiology procedure 05/25/20 10:00 05/27/20 09:59 Insulin Aspart (NovoLOG) BEFORE MEALS AND HS SUBQ 05/22/20 16:30 08/20/20 16:29 05/25/20 05:41 Lidocaine HCl (Xylocaine 1% 30ml) 30 ml ONCE PRN INJ radiology procedure 05/25/20 10:00 05/27/20 09:59 Metoprolol Tartrate (Lopressor) 12.5 mg Q12HR ORAL 05/21/20 21:00 08/19/20 20:59 05/25/20 09:16 Pantoprazole (Protonix) 40 mg EVERY 12 HOURS ORAL 05/19/20 21:00 06/18/20 20:59 05/25/20 09:16 Sevelamer Carbonate (Renvela) 1,600 mg THREE TIMES A DAY ORAL 05/23/20 13:00 08/19/20 17:59 05/25/20 09:17 Sitagliptin Phosphate (Januvia) 25 mg ACBREAKFAST ORAL 05/26/20 06:30 06/25/20 06:29 Vitamin D (Vitamin D) 5,000 unit DAILY ORAL 05/24/20 09:00 06/23/20 08:59 05/25/20 09:20 Warfarin Sodium (Coumadin per pharmacy) 1 ea DAILY PRN MISC rx protocol 05/23/20 09:00 06/22/20 08:59 Warfarin Sodium (Coumadin) 7.5 mg COUMADIN ORAL 05/25/20 17:00 05/25/20 20:00 Laboratory Tests 05/24/20 16:42: White Blood Count 9.2, Red Blood Count 3.52L, Hemoglobin 9.5L, Hematocrit 33.7L, Mean Corpuscular Volume 96, Mean Corpuscular Hemoglobin 27.0, Mean Corpuscular H emoglobin Concent 28.3L, Red Cell Distribution Width 16.1H, Platelet Count 198, Mean Platelet Volume 8.2, Neutrophils (%) (Auto) 83.7H, Lymphocytes (%) (Auto) 3.1L, Monocytes (%) (Auto) 10.6H, Eosinophils (%) (Auto) 0.3, Basophils (%) (Auto) 2.3H, Prothrombin Time 12.0H, Prothromb Time International Ratio 1.1, Sodium Level 137, Potassium Level 5.6H, Chloride Level 102, Carbon Dioxide Level 27, Anion Gap 8, Blood Urea Nitrogen 84H, Creatinine 7.8H, Estimat Glomerular Filtration Rate 8.7, Glucose Level 139H, Calcium Level 8.9, Total Bilirubin 0.5, Aspartate Amino Transf (AST/SGOT) 24, Alanine Aminotransferase (ALT/SGPT) 19, Alkaline Phosphatase 78, Total Protein 8.5H, Albumin 1.9L, Globulin 6.6, Albumin/Globulin Ratio 0.3L 05/24/20 16:43: Uric Acid 5.5, Phosphorus Level 8.6H, Magnesium Level 2.3, Gamma Glutamyl Transpeptidase 35, C-Reactive Protein, Quantitative 21.4H, Folate 18.4, Digoxin Level 1.5 05/24/20 20:28: POC Whole Blood Glucose [Pending] 05/25/20 04:27: White Blood Count 8.1, Red Blood Count 3.40L, Hemoglobin 9.1L, Hematocrit 32.5L, Mean Corpuscular Volume 96, Mean Corpuscular Hemoglobin 26.7L, Mean Corpuscular Hemoglobin Concent 27.9L, Red Cell Distribution Width 16.1H, Platelet Count 201, Mean Platelet Volume 8.3, Neutrophils (%) (Auto) 84.6H, Lymphocytes (%) (Auto) 4.8L, Monocytes (%) (Auto) 9.2, Eosinophils (%) (Auto) 0.1, Basophils (%) (Auto) 1.2, Prothrombin Time 12.7H, Prothromb Time International Ratio 1.2H, Sodium Level 136, Potassium Level 5.2H, Chloride Level 100, Carbon Dioxide Level 29, Anion Gap 7, Blood Urea Nitrogen 74H, Creatinine 7.0H, Estimat Glomerular Filtration Rate 9.8, Glucose Level 134H, Calcium Level 9.1, Total Bilirubin 0.5, Aspartate Amino Transf (AST/SGOT) 25, Alanine Aminotransferase (ALT/SGPT) 22, Alkaline Phosphatase 78, Total Protein 8.7H, Albumin 1.9L, Globulin 6.8, Albumin /Globulin Ratio 0.3L, Phosphorus Level 7.8H, C-Reactive Protein, Quantitative 31.5H, Digoxin Level 1.5, Pro-B-Type Natriuretic Peptide [id number] Height (Feet): 5 Height (Inches): 11.00 Weight (Pounds): 415 General Appearance: mild distress EENT: other - BiPAP, FiO2 100% Cardiovascular: tachycardia, arrhythmia Respiratory/Chest: decreased breath sounds Abdomen: distended Adria Gautam MD May 25, 2020 10:09
--- NOTE | 2020-05-25 10:55 | Infectious Diseases Prog Note ---
Assessment/Plan Assessment/Plan A; 1. Possible pneumonia. 2. Hypertension. 3. Diabetes. 4. Congestive heart failure. 5. Morbid Obesity. 6. Respiratory failure, 7. Acute renal failure, ESRD 8. Anemia 9. Atrial fibrillation 10 Thrombosis of R brachial vein 11. Hematuria PLAN: 1. continue cefepime X 1 day 2. UA & Urine culture Subjective ROS Limited/Unobtainable: Yes Constitutional: Denies: fever Respiratory: Reports: shortness of breath Genitourinary: Reports: hematuria Allergies: Coded Allergies: Bowden (Verified Allergy, Mild, Rash, 10/29/14) per patient PENICILLINS (Unverified Allergy, Unknown, 11/28/13) Objective Last 24 Hour Vital Signs Date Time Temp Pulse Resp B/P (MAP) Pulse Ox O2 Delivery O2 Flow Rate FiO2 05/25/20 09:17 109 05/25/20 09:16 109 154/81 05/25/20 08:00 96.8 109 22 154/81 (105) 85 05/25/20 05:39 113 125/77 05/25/20 05:03 113 25 85 100 05/25/20 04:45 108 21 87 100 05/25/20 04:00 100 05/25/20 04:00 96.9 111 25 125/77 (93) 87 05/25/20 04:00 Bi-pap 05/25/20 04:00 116 05/25/20 03:10 100 22 88 100 05/25/20 01:15 104 20 87 100 05/25/20 00:00 108 05/25/20 00:00 100 05/25/20 00:00 Bi-pap 05/25/20 00:00 96.1 117 24 123/84 (97) 89 05/24/20 23:14 101 20 90 100 05/24/20 22:00 119 117/56 05/24/20 20:54 94 21 88 100 05/24/20 20:35 122 118/68 05/24/20 20:00 Bi-pap 05/24/20 20:00 60 05/24/20 20:00 124 05/24/20 20:00 97.7 122 22 116/68 (84) 89 05/24/20 19:16 107 23 89 100 05/24/20 19:15 88 Bi-Pap 100 05/24/20 16:00 60 05/24/20 16:00 97.5 116 19 104/60 (75) 90 05/24/20 16:00 Bi-pap 05/24/20 15:29 113 19 88 100 05/24/20 15:13 109 05/24/20 14:00 115 106/62 05/24/20 12:00 Bi-pap 05/24/20 12:00 60 05/24/20 12:00 97.2 115 20 106/62 (77) 90 05/24/20 11:43 105 Height (Feet): 5 Height (Inches): 11.00 Weight (Pounds): 415 HEENT: mucous membranes moist Respiratory/Chest: decreased breath sounds, other - on BIPAP Cardiovascular: tachycardia, other - HD line Abdomen: soft, non tender Genitourinary: other - Aaron catheter, hematuria Extremities: other - right arm & legs edema Neurologic/Psychiatric: alert, responsive Laboratory Tests Test 05/24/20 16:42 05/24/20 16:43 05/24/20 20:28 05/25/20 04:27 White Blood Count 9.2 K/UL (4.8-10.8) 8.1 K/UL (4.8-10.8) Red Blood Count 3.52 M/UL (4.70-6.10) L 3.40 M/UL (4.70-6.10) L Hemoglobin 9.5 G/DL (14.2-18.0) L 9.1 G/DL (14.2-18.0) L Hematocrit 33.7 % (42.0-52.0) L 32.5 % (42.0-52.0) L Mean Corpuscular Volume 96 FL (80-99) 96 FL (80-99) Mean Corpuscular Hemoglobin 27.0 PG (27.0-31.0) 26.7 PG (27.0-31.0) L Mean Corpuscular Hemoglobin Concent 28.3 G/DL (32.0-36.0) L 27.9 G/DL (32.0-36.0) L Red Cell Distribution Width 16.1 % (11.6-14.8) H 16.1 % (11.6-14.8) H Platelet Count 198 K/UL (150-450) 201 K/UL (150-450) Mean Platelet Volume 8.2 FL (6.5-10.1) 8.3 FL (6.5-10.1) Neutrophils (%) (Auto) 83.7 % (45.0-75.0) H 84.6 % (45.0-75.0) H Lymphocytes (%) (Auto) 3.1 % (20.0-45.0) L 4.8 % (20.0-45.0) L Monocytes (%) (Auto) 10.6 % (1.0-10.0) H 9.2 % (1.0-10.0) Eosinophils (%) (Auto) 0.3 % (0.0-3.0) 0.1 % (0.0-3.0) Basophils (%) (Auto) 2.3 % (0.0-2.0) H 1.2 % (0.0-2.0) Prothrombin Time 12.0 SEC (9.30-11.50) H 12.7 SEC (9.30-11.50) H Prothromb Time International Ratio 1.1 (0.9-1.1) 1.2 (0.9-1.1) H Sodium Level 137 MMOL/L (136-145) 136 MMOL/L (136-145) Potassium Level 5.6 MMOL/L (3.5-5.1) H 5.2 MMOL/L (3.5-5.1) H Chloride Level 102 MMOL/L (98-107) 100 MMOL/L (98-107) Carbon Dioxide Level 27 MMOL/L (21-32) 29 MMOL/L (21-32) Anion Gap 8 mmol/L (5-15) 7 mmol/L (5-15) Blood Urea Nitrogen 84 mg/dL (7-18) H 74 mg/dL (7-18) H Creatinine 7.8 MG/DL (0.55-1.30) H 7.0 MG/DL (0.55-1.30) H Estimat Glomerular Filtration Rate 8.7 mL/min (>60) 9.8 mL/min (>60) Glucose Level 139 MG/DL (74-106) H 134 MG/DL (74-106) H Calcium Level 8.9 MG/DL (8.5-10.1) 9.1 MG/DL (8.5-10.1) Total Bilirubin 0.5 MG/DL (0.2-1.0) 0.5 MG/DL (0.2-1.0) Aspartate Amino Transf (AST/SGOT) 24 U/L (15-37) 25 U/L (15-37) Alanine Aminotransferase (ALT/SGPT) 19 U/L (12-78) 22 U/L (12-78) Alkaline Phosphatase 78 U/L (46-116) 78 U/L (46-116) Total Protein 8.5 G/DL (6.4-8.2) H 8.7 G/DL (6.4-8.2) H Albumin 1.9 G/DL (3.4-5.0) L 1.9 G/DL (3.4-5.0) L Globulin 6.6 g/dL 6.8 g/dL Albumin/Globulin Ratio 0.3 (1.0-2.7) L 0.3 (1.0-2.7) L Uric Acid 5.5 MG/DL (2.6-7.2) Phosphorus Level 8.6 MG/DL (2.5-4.9) H 7.8 MG/DL (2.5-4.9) H Magnesium Level 2.3 MG/DL (1.8-2.4) Gamma Glutamyl Transpeptidase 35 U/L (5-85) C-Reactive Protein, Quantitative 21.4 mg/dL (0.00-0.90) H 31.5 mg/dL (0.00-0.90) H Folate 18.4 NG/ML (8.6-58.9) Digoxin Level 1.5 NG/ML (0.5-2.0) 1.5 NG/ML (0.5-2.0) POC Whole Blood Glucose Pending Pro-B-Type Natriuretic Peptide 13355 pg/mL (0-125) H Test 05/25/20 10:10 Arterial Blood pH 7.200 (7.350-7.450) Arterial Blood Partial Pressure CO2 69.1 mmHg (35.0-45.0) *H Arterial Blood Partial Pressure O2 46.2 mmHg (75.0-100.0) Arterial Blood HCO3 26.4 mmol/L (22.0-26.0) H Arterial Blood Oxygen Saturation 76.5 % (95-100) *L Arterial Blood Base Excess -2.4 (-2-2) L Dany Test Positive Current Medications Medications (Trade) Dose Ordered Sig/Albert Route PRN Reason Start Time Stop Time Status Last Admin Dose Admin Acetaminophen (Tylenol) 500 mg Q4H PRN ORAL Severe Pain (Pain Scale 7-10) 05/20/20 18:45 06/19/20 18:44 05/21/20 09:49 Cefepime HCl 500 mg/Dextrose 55 ml @ 110 mls/hr Q24H IV 05/19/20 13:00 05/26/20 12:59 05/23/20 13:22 Chlorhexidine Gluconate (Isamar-Hex 2%) 1 applic DAILY@2000 TOPIC 05/17/20 20:00 08/15/20 19:59 05/24/20 20:34 Dextrose (Dextrose 50%) 25 ml Q30M PRN IV Hypoglycemia 05/22/20 13:15 08/20/20 13:14 Dextrose (Dextrose 50%) 50 ml Q30M PRN IV Hypoglycemia 05/22/20 13:15 08/20/20 13:14 Digoxin (Lanoxin) 0.125 mg DAILY ORAL 05/23/20 12:30 08/18/20 10:59 05/25/20 09:17 Diltiazem HCl (Cardizem Tab) 90 mg Q8HR ORAL 05/25/20 14:00 06/17/20 17:59 Docusate Sodium (Colace) 100 mg THREE TIMES A DAY ORAL 05/19/20 13:00 06/18/20 12:59 05/25/20 09:17 Epoetin Vivek (Epoetin Vivek(ESRD on dialysis)) 10,000 unit MON-WED-MON SUBQ 05/20/20 21:00 08/18/20 20:59 05/22/20 22:43 Folic Acid (Folate) 5 mg DAILY ORAL 05/17/20 14:00 06/16/20 13:59 05/25/20 09:17 Heparin Sodium/ Sodium Chloride (Heparin 1000 units/500ml Premix) 1,000 unit ONCE PRN INJ radiology procedure 05/25/20 10:00 05/27/20 09:59 Insulin Aspart (NovoLOG) BEFORE MEALS AND HS SUBQ 05/22/20 16:30 08/20/20 16:29 05/25/20 05:41 Lidocaine HCl (Xylocaine 1% 30ml) 30 ml ONCE PRN INJ radiology procedure 05/25/20 10:00 05/27/20 09:59 Metoprolol Tartrate (Lopressor) 12.5 mg Q12HR ORAL 05/21/20 21:00 08/19/20 20:59 05/25/20 09:16 Pantoprazole (Protonix) 40 mg EVERY 12 HOURS ORAL 05/19/20 21:00 06/18/20 20:59 05/25/20 09:16 Sevelamer Carbonate (Renvela) 1,600 mg THREE TIMES A DAY ORAL 05/23/20 13:00 08/19/20 17:59 05/25/20 09:17 Sitagliptin Phosphate (Januvia) 25 mg ACBREAKFAST ORAL 05/26/20 06:30 06/25/20 06:29 Vitamin D (Vitamin D) 5,000 unit DAILY ORAL 05/24/20 09:00 06/23/20 08:59 05/25/20 09:20 Warfarin Sodium (Coumadin per pharmacy) 1 ea DAILY PRN MISC rx protocol 05/23/20 09:00 06/22/20 08:59 Warfarin Sodium (Coumadin) 7.5 mg COUMADIN ORAL 05/25/20 17:00 05/25/20 20:00 Oswaldo Toro MD May 25, 2020 10:55
--- NOTE | 2020-05-25 11:04 | Surgery Progress Note ---
Surgery Progress Note Subjective Procedure Performed Right femoral temporary hemodialysis catheter insertion Additional Comments Positive for right brachial venous thrombosis. discussed with team anticoag no n/v on bipap Objective Last 24 Hour Vital Signs Date Time Temp Pulse Resp B/P (MAP) Pulse Ox O2 Delivery O2 Flow Rate FiO2 05/25/20 11:00 100 05/25/20 09:17 109 05/25/20 09:16 109 154/81 05/25/20 08:00 96.8 109 22 154/81 (105) 85 05/25/20 08:00 102 05/25/20 08:00 Bi-pap 05/25/20 08:00 100 05/25/20 05:39 113 125/77 05/25/20 05:03 113 25 85 100 05/25/20 04:45 108 21 87 100 05/25/20 04:00 100 05/25/20 04:00 96.9 111 25 125/77 (93) 87 05/25/20 04:00 Bi-pap 05/25/20 04:00 116 05/25/20 03:10 100 22 88 100 05/25/20 01:15 104 20 87 100 05/25/20 00:00 108 05/25/20 00:00 100 05/25/20 00:00 Bi-pap 05/25/20 00:00 96.1 117 24 123/84 (97) 89 05/24/20 23:14 101 20 90 100 05/24/20 22:00 119 117/56 05/24/20 20:54 94 21 88 100 05/24/20 20:35 122 118/68 05/24/20 20:00 Bi-pap 05/24/20 20:00 60 05/24/20 20:00 124 05/24/20 20:00 97.7 122 22 116/68 (84) 89 05/24/20 19:16 107 23 89 100 05/24/20 19:15 88 Bi-Pap 100 05/24/20 16:00 60 05/24/20 16:00 97.5 116 19 104/60 (75) 90 05/24/20 16:00 Bi-pap 05/24/20 15:29 113 19 88 100 05/24/20 15:13 109 05/24/20 14:00 115 106/62 05/24/20 12:00 Bi-pap 05/24/20 12:00 60 05/24/20 12:00 97.2 115 20 106/62 (77) 90 05/24/20 11:43 105 I&O Intake and Output 05/24/20 05/25/20 19:00 07:00 Intake Total 120 ml 3000 ml Output Total 150 ml 50 ml Balance -30 ml 2950 ml Intake Oral 120 ml Hemodialysis 3000 ml Output Urine Total 150 ml 50 ml Cardiovascular: RSR Respiratory: decreased breath sounds Abdomen: soft, distended, non-tender, present bowel sounds Extremities: edema, no tenderness, no cyanosis Laboratory Tests Test 05/24/20 16:42 05/24/20 16:43 05/24/20 20:28 05/25/20 04:27 White Blood Count 9.2 K/UL (4.8-10.8) 8.1 K/UL (4.8-10.8) Red Blood Count 3.52 M/UL (4.70-6.10) L 3.40 M/UL (4.70-6.10) L Hemoglobin 9.5 G/DL (14.2-18.0) L 9.1 G/DL (14.2-18.0) L Hematocrit 33.7 % (42.0-52.0) L 32.5 % (42.0-52.0) L Mean Corpuscular Volume 96 FL (80-99) 96 FL (80-99) Mean Corpuscular Hemoglobin 27.0 PG (27.0-31.0) 26.7 PG (27.0-31.0) L Mean Corpuscular Hemoglobin Concent 28.3 G/DL (32.0-36.0) L 27.9 G/DL (32.0-36.0) L Red Cell Distribution Width 16.1 % (11.6-14.8) H 16.1 % (11.6-14.8) H Platelet Count 198 K/UL (150-450) 201 K/UL (150-450) Mean Platelet Volume 8.2 FL (6.5-10.1) 8.3 FL (6.5-10.1) Neutrophils (%) (Auto) 83.7 % (45.0-75.0) H 84.6 % (45.0-75.0) H Lymphocytes (%) (Auto) 3.1 % (20.0-45.0) L 4.8 % (20.0-45.0) L Monocytes (%) (Auto) 10.6 % (1.0-10.0) H 9.2 % (1.0-10.0) Eosinophils (%) (Auto) 0.3 % (0.0-3.0) 0.1 % (0.0-3.0) Basophils (%) (Auto) 2.3 % (0.0-2.0) H 1.2 % (0.0-2.0) Prothrombin Time 12.0 SEC (9.30-11.50) H 12.7 SEC (9.30-11.50) H Prothromb Time International Ratio 1.1 (0.9-1.1) 1.2 (0.9-1.1) H Sodium Level 137 MMOL/L (136-145) 136 MMOL/L (136-145) Potassium Level 5.6 MMOL/L (3.5-5.1) H 5.2 MMOL/L (3.5-5.1) H Chloride Level 102 MMOL/L (98-107) 100 MMOL/L (98-107) Carbon Dioxide Level 27 MMOL/L (21-32) 29 MMOL/L (21-32) Anion Gap 8 mmol/L (5-15) 7 mmol/L (5-15) Blood Urea Nitrogen 84 mg/dL (7-18) H 74 mg/dL (7-18) H Creatinine 7.8 MG/DL (0.55-1.30) H 7.0 MG/DL (0.55-1.30) H Estimat Glomerular Filtration Rate 8.7 mL/min (>60) 9.8 mL/min (>60) Glucose Level 139 MG/DL (74-106) H 134 MG/DL (74-106) H Calcium Level 8.9 MG/DL (8.5-10.1) 9.1 MG/DL (8.5-10.1) Total Bilirubin 0.5 MG/DL (0.2-1.0) 0.5 MG/DL (0.2-1.0) Aspartate Amino Transf (AST/SGOT) 24 U/L (15-37) 25 U/L (15-37) Alanine Aminotransferase (ALT/SGPT) 19 U/L (12-78) 22 U/L (12-78) Alkaline Phosphatase 78 U/L (46-116) 78 U/L (46-116) Total Protein 8.5 G/DL (6.4-8.2) H 8.7 G/DL (6.4-8.2) H Albumin 1.9 G/DL (3.4-5.0) L 1.9 G/DL (3.4-5.0) L Globulin 6.6 g/dL 6.8 g/dL Albumin/Globulin Ratio 0.3 (1.0-2.7) L 0.3 (1.0-2.7) L Uric Acid 5.5 MG/DL (2.6-7.2) Phosphorus Level 8.6 MG/DL (2.5-4.9) H 7.8 MG/DL (2.5-4.9) H Magnesium Level 2.3 MG/DL (1.8-2.4) Gamma Glutamyl Transpeptidase 35 U/L (5-85) C-Reactive Protein, Quantitative 21.4 mg/dL (0.00-0.90) H 31.5 mg/dL (0.00-0.90) H Folate 18.4 NG/ML (8.6-58.9) Digoxin Level 1.5 NG/ML (0.5-2.0) 1.5 NG/ML (0.5-2.0) POC Whole Blood Glucose Pending Pro-B-Type Natriuretic Peptide 13979 pg/mL (0-125) H Test 05/25/20 10:10 Arterial Blood pH 7.200 (7.350-7.450) Arterial Blood Partial Pressure CO2 69.1 mmHg (35.0-45.0) *H Arterial Blood Partial Pressure O2 46.2 mmHg (75.0-100.0) Arterial Blood HCO3 26.4 mmol/L (22.0-26.0) H Arterial Blood Oxygen Saturation 76.5 % (95-100) *L Arterial Blood Base Excess -2.4 (-2-2) L Dany Test Positive Plan Problems: (1) Morbid obesity (2) Pacemaker (3) 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 Temporary use. Line functional. Recent dialysis noted. 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 His abdominal distention is his baseline large pannus. Skin folds and abnormalities in pannus identified from chronic distention. His KUB noted bowel gas pattern unremarkable. NG tube has been her removed since. No nausea vomiting fever chills. Labs noted. Improving with dialysis. Hyperkalemia improved. Mentation improved. Abdominal exam is fairly benign and consistent with what would be anticipated with the patient with a BMI of 57 with chronic condition. No acute abdominal source or etiology identified. Hypotension likely relative to patient's treatment renal and will monitor with dialysis. Okay for diet once stabilized but currently keep n.p.o. given his high BiPAP requirement. Thank you for letting participate patient's care will follow with recommendations diet as tolerated Abhay Mccray May 25, 2020 11:04
[2020-05-25 12:00] VITALS: BP 151/63
--- NOTE | 2020-05-25 13:26 | Cardiac Electrophysiology PN ---
Assessment/Plan Assessment/Plan 1. Elevated troponin due to renal failure and respiratory failure His echocardiogram showed ejection fraction of 60%. EKG showed atrial fibrillation with rapid ventricular response and nonspecific ST-T wave abnormalities. 2. Atrial fibrillation with rapid ventricular response with heart rate in 130s. On Cardizem 60 po q 8hr, Digoxin 0.125 po daily, Lopressor 12.5 bid and Coumadin per pharmacy Dig level 1.4 3. S/P left-sided St Zhang pacemaker. Interrogated and showed Nl fx but frequent atrial fib with RVR 4. Hyperkalemia due to renal failure. On dialysis by Dr. Gautma. 5. Morbid obesity. 6. Diabetes. 7. Respiratory failure, currently on VM 8. Anemia, S/P PRBC 05/19 9. Positive for right brachial venous thrombosis.On Coumadin for atrial fib anyway KATE RN and Dr Mccray Subjective Subjective Atrial fib rate is controlled on Cardizem 60 po q 8hr, Digoxin 0.125 po daily and Lopressor 12.5 bid On Coumadin per pharmacy On BIPAP Ruled out for Covid Objective Last 24 Hour Vital Signs Date Time Temp Pulse Resp B/P (MAP) Pulse Ox O2 Delivery O2 Flow Rate FiO2 05/25/20 12:00 100 05/25/20 12:00 Bi-pap 05/25/20 12:00 100 05/25/20 12:00 97.9 103 22 151/63 (92) 84 05/25/20 11:00 100 05/25/20 10:40 89 29 82 100 05/25/20 09:17 109 05/25/20 09:16 109 154/81 05/25/20 08:00 96.8 109 22 154/81 (105) 85 05/25/20 08:00 102 05/25/20 08:00 Bi-pap 05/25/20 08:00 100 05/25/20 07:00 99 24 85 100 05/25/20 05:39 113 125/77 05/25/20 05:03 113 25 85 100 05/25/20 04:45 108 21 87 100 05/25/20 04:00 100 05/25/20 04:00 96.9 111 25 125/77 (93) 87 05/25/20 04:00 Bi-pap 05/25/20 04:00 116 05/25/20 03:10 100 22 88 100 05/25/20 01:15 104 20 87 100 05/25/20 00:00 108 05/25/20 00:00 100 05/25/20 00:00 Bi-pap 05/25/20 00:00 96.1 117 24 123/84 (97) 89 05/24/20 23:14 101 20 90 100 05/24/20 22:00 119 117/56 05/24/20 20:54 94 21 88 100 05/24/20 20:35 122 118/68 05/24/20 20:00 Bi-pap 05/24/20 20:00 60 05/24/20 20:00 124 05/24/20 20:00 97.7 122 22 116/68 (84) 89 05/24/20 19:16 107 23 89 100 05/24/20 19:15 88 Bi-Pap 100 05/24/20 16:00 60 05/24/20 16:00 97.5 116 19 104/60 (75) 90 05/24/20 16:00 Bi-pap 05/24/20 15:29 113 19 88 100 05/24/20 15:13 109 05/24/20 14:00 115 106/62 Intake and Output 05/24/20 05/25/20 19:00 07:00 Intake Total 120 ml 3000 ml Output Total 150 ml 50 ml Balance -30 ml 2950 ml Intake Oral 120 ml Hemodialysis 3000 ml Output Urine Total 150 ml 50 ml Laboratory Tests Test 05/24/20 16:42 05/24/20 16:43 05/24/20 20:28 05/25/20 04:27 White Blood Count 9.2 K/UL (4.8-10.8) 8.1 K/UL (4.8-10.8) Red Blood Count 3.52 M/UL (4.70-6.10) L 3.40 M/UL (4.70-6.10) L Hemoglobin 9.5 G/DL (14.2-18.0) L 9.1 G/DL (14.2-18.0) L Hematocrit 33.7 % (42.0-52.0) L 32.5 % (42.0-52.0) L Mean Corpuscular Volume 96 FL (80-99) 96 FL (80-99) Mean Corpuscular Hemoglobin 27.0 PG (27.0-31.0) 26.7 PG (27.0-31.0) L Mean Corpuscular Hemoglobin Concent 28.3 G/DL (32.0-36.0) L 27.9 G/DL (32.0-36.0) L Red Cell Distribution Width 16.1 % (11.6-14.8) H 16.1 % (11.6-14.8) H Platelet Count 198 K/UL (150-450) 201 K/UL (150-450) Mean Platelet Volume 8.2 FL (6.5-10.1) 8.3 FL (6.5-10.1) Neutrophils (%) (Auto) 83.7 % (45.0-75.0) H 84.6 % (45.0-75.0) H Lymphocytes (%) (Auto) 3.1 % (20.0-45.0) L 4.8 % (20.0-45.0) L Monocytes (%) (Auto) 10.6 % (1.0-10.0) H 9.2 % (1.0-10.0) Eosinophils (%) (Auto) 0.3 % (0.0-3.0) 0.1 % (0.0-3.0) Basophils (%) (Auto) 2.3 % (0.0-2.0) H 1.2 % (0.0-2.0) Prothrombin Time 12.0 SEC (9.30-11.50) H 12.7 SEC (9.30-11.50) H Prothromb Time International Ratio 1.1 (0.9-1.1) 1.2 (0.9-1.1) H Sodium Level 137 MMOL/L (136-145) 136 MMOL/L (136-145) Potassium Level 5.6 MMOL/L (3.5-5.1) H 5.2 MMOL/L (3.5-5.1) H Chloride Level 102 MMOL/L (98-107) 100 MMOL/L (98-107) Carbon Dioxide Level 27 MMOL/L (21-32) 29 MMOL/L (21-32) Anion Gap 8 mmol/L (5-15) 7 mmol/L (5-15) Blood Urea Nitrogen 84 mg/dL (7-18) H 74 mg/dL (7-18) H Creatinine 7.8 MG/DL (0.55-1.30) H 7.0 MG/DL (0.55-1.30) H Estimat Glomerular Filtration Rate 8.7 mL/min (>60) 9.8 mL/min (>60) Glucose Level 139 MG/DL (74-106) H 134 MG/DL (74-106) H Calcium Level 8.9 MG/DL (8.5-10.1) 9.1 MG/DL (8.5-10.1) Total Bilirubin 0.5 MG/DL (0.2-1.0) 0.5 MG/DL (0.2-1.0) Aspartate Amino Transf (AST/SGOT) 24 U/L (15-37) 25 U/L (15-37) Alanine Aminotransferase (ALT/SGPT) 19 U/L (12-78) 22 U/L (12-78) Alkaline Phosphatase 78 U/L (46-116) 78 U/L (46-116) Total Protein 8.5 G/DL (6.4-8.2) H 8.7 G/DL (6.4-8.2) H Albumin 1.9 G/DL (3.4-5.0) L 1.9 G/DL (3.4-5.0) L Globulin 6.6 g/dL 6.8 g/dL Albumin/Globulin Ratio 0.3 (1.0-2.7) L 0.3 (1.0-2.7) L Uric Acid 5.5 MG/DL (2.6-7.2) Phosphorus Level 8.6 MG/DL (2.5-4.9) H 7.8 MG/DL (2.5-4.9) H Magnesium Level 2.3 MG/DL (1.8-2.4) Gamma Glutamyl Transpeptidase 35 U/L (5-85) C-Reactive Protein, Quantitative 21.4 mg/dL (0.00-0.90) H 31.5 mg/dL (0.00-0.90) H Folate 18.4 NG/ML (8.6-58.9) Digoxin Level 1.5 NG/ML (0.5-2.0) 1.5 NG/ML (0.5-2.0) POC Whole Blood Glucose Pending Pro-B-Type Natriuretic Peptide 48350 pg/mL (0-125) H Test 05/25/20 10:10 Arterial Blood pH 7.200 (7.350-7.450) Arterial Blood Partial Pressure CO2 69.1 mmHg (35.0-45.0) *H Arterial Blood Partial Pressure O2 46.2 mmHg (75.0-100.0) Arterial Blood HCO3 26.4 mmol/L (22.0-26.0) H Arterial Blood Oxygen Saturation 76.5 % (95-100) *L Arterial Blood Base Excess -2.4 (-2-2) L Dany Test Positive Objective HEAD AND NECK: Positive JVD. On BIPAP LUNGS: Decreased breath sounds. CARDIOVASCULAR: Irregularly irregular S1 and S2. No G/R/M ABDOMEN: Soft and morbidly obese. EXTREMITIES: 2+ pitting edema. Shai Champion MD May 25, 2020 13:26
[2020-05-25] MEDS: Cefepime 500mg/D5W 55ml IV SCH ×2 (13:53)
--- NOTE | 2020-05-25 14:10 | Pre-Procedure Note/Attestation ---
Pre-Procedure Note/Attestation Complete Prior to Procedure Planned Procedure: not applicable Procedure Narrative: picc insertion Indications for Procedure Pre-Operative Diagnosis: need iv access Attestation informed obtained from patient, this was verified prior to the procedure Stanislav Andrade M.D. May 25, 2020 14:10
--- NOTE | 2020-05-25 15:22 | Diagnostic Imaging Report ---
Indications: Needs long-term IV access Technique: Procedure performed at bedside. Procedural timeout performed. Ultrasound confirms patent compressible left brachial vein. Total sterile technique, including sterile probe cover and sterile gel, sterile gloves, hand hygiene, hat, mask,, sterile gown, large sterile drape, and preparation with 2% chlorhexidine utilized. Local anesthesia with 1% lidocaine. Under real-time ultrasound guidance, puncture of left brachial vein using 21-gauge needle, passage 0.018 guidewire, exchange for 4.5 Russian peel-away sheath. 4French dual-lumen power PICC cut to 45 cm. It was inserted through the peel-away sheath. Peel-away sheath and guidewire removed. Catheter fixed to the skin. Both catheter ports aspirated and flushed. Patient tolerated procedure well, without immediate complication. Followup chest x-ray obtained, documents catheter tip position at the level of the left innominate vein, adjacent to pacemaker wires. Compared to the prior chest radiograph there has been interval placement of a tunneled dialysis catheter. Pacemaker is noted. Bilateral infiltrates and pleural effusions appear slightly worsened. IMPRESSION: Successful bedside placement of 4 Russian double lumen PICC under sonographic guidance, as described above.
[2020-05-25 16:00] VITALS: BP 122/73
--- NOTE | 2020-05-25 16:29 | Pulmonology Progress Note ---
Subjective ROS Limited/Unobtainable: Yes Interval Events: seen in SDU; On BiPAP Constitutional: Denies: fever HEENT: Repors: no symptoms Respiratory: Reports: shortness of breath Cardiovascular: Reports: no symptoms Gastrointestinal/Abdominal: Reports: no symptoms Allergies: Coded Allergies: [place] (Verified Allergy, Mild, Rash, 10/29/14) per patient PENICILLINS (Unverified Allergy, Unknown, 11/28/13) Objective Last 24 Hour Vital Signs Date Time Temp Pulse Resp B/P (MAP) Pulse Ox O2 Delivery O2 Flow Rate FiO2 05/25/20 13:47 100 151/63 05/25/20 12:00 100 05/25/20 12:00 Bi-pap 05/25/20 12:00 100 05/25/20 12:00 97.9 103 22 151/63 (92) 84 05/25/20 11:00 100 05/25/20 10:40 89 29 82 100 05/25/20 09:17 109 05/25/20 09:16 109 154/81 05/25/20 08:00 96.8 109 22 154/81 (105) 85 05/25/20 08:00 102 05/25/20 08:00 Bi-pap 05/25/20 08:00 100 05/25/20 07:00 99 24 85 100 05/25/20 07:00 85 Bi-Pap 100 05/25/20 05:39 113 125/77 05/25/20 05:03 113 25 85 100 05/25/20 04:45 108 21 87 100 05/25/20 04:00 100 05/25/20 04:00 96.9 111 25 125/77 (93) 87 05/25/20 04:00 Bi-pap 05/25/20 04:00 116 05/25/20 03:10 100 22 88 100 05/25/20 01:15 104 20 87 100 05/25/20 00:00 108 05/25/20 00:00 100 05/25/20 00:00 Bi-pap 05/25/20 00:00 96.1 117 24 123/84 (97) 89 05/24/20 23:14 101 20 90 100 05/24/20 22:00 119 117/56 05/24/20 20:54 94 21 88 100 05/24/20 20:35 122 118/68 05/24/20 20:00 Bi-pap 05/24/20 20:00 60 05/24/20 20:00 124 05/24/20 20:00 97.7 122 22 116/68 (84) 89 05/24/20 19:16 107 23 89 100 05/24/20 19:15 88 Bi-Pap 100 Intake and Output 0 05/24/20 05/25/20 19:00 07:00 Intake Total 120 ml 3000 ml Output Total 150 ml 50 ml Balance -30 ml 2950 ml Intake Oral 120 ml Hemodialysis 3000 ml Output Urine Total 150 ml 50 ml General Appearance: no acute distress Respiratory: chest wall non-tender, normal breath sounds Cardiovascular: normal rate, regular rhythm Abdomen: other - morbid obesity Laboratory Tests 05/24/20 16:42: White Blood Count 9.2, Red Blood Count 3.52L, Hemoglobin 9.5L, Hematocrit 33.7L, Mean Corpuscular Volume 96, Mean Corpuscular Hemoglobin 27.0, Mean Corpuscular Hemoglobin Concent 28.3L, Red Cell Distribution Width 16.1H, Platelet Count 198, Mean Platelet Volume 8.2, Neutrophils (%) (Auto) 83.7H, Lymphocytes (%) (Auto) 3.1L, Monocytes (%) (Auto) 10.6H, Eosinophils (%) (Auto) 0.3, Basophils (%) (Auto) 2.3H, Prothrombin Time 12.0H, Prothromb Time International Ratio 1.1, Sodium Level 137, Potassium Level 5.6H, Chloride Level 102, Carbon Dioxide Level 27, Anion Gap 8, Blood Urea Nitrogen 84H, Creatinine 7.8H, Estimat Glomerular Filtration Rate 8.7, Glucose Level 139H, Calcium Level 8.9, Total Bilirubin 0.5, Aspartate Amino Transf (AST/SGOT) 24, Alanine Aminotransferase (ALT/SGPT) 19, Alkaline Phosphatase 78, Total Protein 8.5H, Albumin 1.9L, Globulin 6.6, Albumin/Globulin Ratio 0.3L 05/24/20 16:43: Uric Acid 5.5, Phosphorus Level 8.6H, Magnesium Level 2.3, Gamma Glutamyl Transpeptidase 35, C-Reactive Protein, Quantitative 21.4H, Folate 18.4, Digoxin Level 1.5 05/24/20 20:28: POC Whole Blood Glucose [Pending] 05/25/20 04:27: White Blood Count 8.1, Red Blood Count 3.40L, Hemoglobin 9.1L, Hematocrit 32.5L, Mean Corpuscular Volume 96, Mean Corpuscular Hemoglobin 26.7L, Mean Corpuscular Hemoglobin Concent 27.9L, Red Cell Distribution Width 16.1H, Platelet Count 201, Mean Platelet Volume 8.3, Neutrophils (%) (Auto) 84.6H, Lymphocytes (%) (Auto) 4.8L, Monocytes (%) (Auto) 9.2, Eosinophils (%) (Auto) 0.1, Basophils (%) (Auto) 1.2, Prothrombin Time 12.7H, Prothromb Time International Ratio 1.2H, Sodium Level 136, Potassium Level 5.2H, Chloride Level 100, Carbon Dioxide Level 29, Anion Gap 7, Blood Urea Nitrogen 74H, Creatinine 7.0H, Estimat Glomerular Filtration Rate 9.8, Glucose Level 134H, Calcium Level 9.1, Total Bilirubin 0.5, Aspartate Amino Transf (AST/SGOT) 25, Alanine Aminotransferase (ALT/SGPT) 22, Alkaline Phosphatase 78, Total Protein 8.7H, Albumin 1.9L, Globulin 6.8, Albumin/Globulin Ratio 0.3L, Phosphorus Level 7.8H, C-Reactive Protein, Quantitative 31.5H, Digoxin Level 1.5, Pro-B-Type Natriuretic Peptide 13690Q 05/25/20 10:10: Arterial Blood pH 7.200*L, Arterial Blood Partial Pressure CO2 69.1*H, Arterial Blood Partial Pressure O2 46.2*L, Arterial Blood HCO3 26.4H, Arterial Blood Oxygen Saturation 76.5*L, Arterial Blood Base Excess -2.4L, Dany Test Positive Current Medications Medications (Trade) Dose Ordered Sig/Albert Route PRN Reason Start Time Stop Time Status Last Admin Dose Admin Acetaminophen (Tylenol) 500 mg Q4H PRN ORAL Severe Pain (Pain Scale 7-10) 05/20/20 18:45 06/19/20 18:44 05/21/20 09:49 Cefepime HCl 500 mg/Dextrose 55 ml @ 110 mls/hr Q24H IV 05/19/20 13:00 05/26/20 12:59 05/25/20 13:53 Chlorhexidine Gluconate (Isamar-Hex 2%) 1 applic DAILY@2000 TOPIC 05/17/20 20:00 08/15/20 19:59 05/24/20 20:34 Dextrose (Dextrose 50%) 25 ml Q30M PRN IV Hypoglycemia 05/22/20 13:15 08/20/20 13:14 Dextrose (Dextrose 50%) 50 ml Q30M PRN IV Hypoglycemia 05/22/20 13:15 08/20/20 13:14 Digoxin (Lanoxin) 0.125 mg DAILY ORAL 05/23/20 12:30 08/18/20 10:59 05/25/20 09:17 Diltiazem HCl (Cardizem Tab) 90 mg Q8HR ORAL 05/25/20 14:00 06/17/20 17:59 05/25/20 13:47 Docusate Sodium (Colace) 100 mg THREE TIMES A DAY ORAL 05/19/20 13:00 06/18/20 12:59 05/25/20 13:47 Epoetin Vivek (Epoetin Vivek(ESRD on dialysis)) 10,000 unit MON-MON-MON SUBQ 05/20/20 21:00 08/18/20 20:59 05/22/20 22:43 Folic Acid (Folate) 5 mg DAILY ORAL 05/17/20 14:00 06/16/20 13:59 05/25/20 09:17 Heparin Sodium/ Sodium Chloride (Heparin 1000 units/500ml Premix) 1,000 unit ONCE PRN INJ radiology procedure 05/25/20 10:00 05/27/20 09:59 Insulin Aspart (NovoLOG) BEFORE MEALS AND HS SUBQ 05/22/20 16:30 08/20/20 16:29 05/25/20 05:41 Lidocaine HCl (Xylocaine 1% 30ml) 30 ml ONCE PRN INJ radiology procedure 05/25/20 10:00 05/27/20 09:59 Metoprolol Tartrate (Lopressor) 12.5 mg Q12HR ORAL 05/21/20 21:00 08/19/20 20:59 05/25/20 09:16 Pantoprazole (Protonix) 40 mg EVERY 12 HOURS ORAL 05/19/20 21:00 06/18/20 20:59 05/25/20 09:16 Sevelamer Carbonate (Renvela) 1,600 mg THREE TIMES A DAY ORAL 05/23/20 13:00 08/19/20 17:59 05/25/20 13:47 Sitagliptin Phosphate (Januvia) 25 mg ACBREAKFAST ORAL 05/26/20 06:30 06/25/20 06:29 Vitamin D (Vitamin D) 5,000 unit DAILY ORAL 05/24/20 09:00 06/23/20 08:59 05/25/20 09:20 Warfarin Sodium (Coumadin per pharmacy) 1 ea DAILY PRN MISC rx protocol 05/23/20 09:00 06/22/20 08:59 Warfarin Sodium (Coumadin) 7.5 mg COUMADIN ORAL 05/25/20 17:00 05/25/20 20:00 05/25/20 16:21 Assessment/Plan Assessment/Plan 1. Hx Sleep apnea - Currently not on CPAP - Started on BiPAP 2. Acute on chronic renal failure; hyperkalemia - s/p Kayexalate - s/p dialysis (05/15) - s/p permacath 3. Bacteriuria - s/p Rocephin in ER - f/u UCx negative 4. Hypoxemic respiratory distress -Continue supplemental O2; On BiPAP 20/03, 100% FiO2 -> increased to 22/03 today - needs aggressive HD/UF -> Discussed with renal 5. Elevated inflammatory markers -Venous duplex ultrasound of lower extremities negative for DVT -On SCD for DVT prophylaxis 6. pneumonia -Chest x-ray shows interstitial opacities bilaterally -COVID-19 PCR negative -on cefepime per ID 7. A-fib with rvr - seen by cardio - now out of ICU and in SDU - s/p cardizem drip 8. Worsening hypoxemia; 9. Right upper extremity DVT (05/22) - already on Coumadin for A-fib The care for this patient was discussed with my supervising physician. Time spent for this case was approximately 31 minutes. Juan Dunlap May 25, 2020 16:29
[2020-05-25] MEDS ORDERED: Warfarin Sod 5 MG, Warfarin Sod 2.5 MG ORAL SCH ×2 (17:00)
[2020-05-25] MEDS ORDERED: Tubing IV Secondary IV ONE (18:16)
[2020-05-25] MEDS ORDERED: NS 275ml ONE (18:16)
[2020-05-25 20:00] VITALS: BP 133/54
--- NOTE | 2020-05-25 20:29 | Consultation ---
DATE OF CONSULTATION: 05/25/2020 CONSULTING PHYSICIAN: Rohith Corona MD REASON FOR CONSULTATION: Gross hematuria. HISTORY OF PRESENT ILLNESS: Patient is a 60-year-old man on dialysis with history of hypertension, congestive heart failure. I was asked to see him because he had a Aaron catheter and some hematuria in the Aaron bag. PAST MEDICAL HISTORY: Significant for hypertension, morbid obesity, hyperlipidemia, diabetes, congestive heart failure, status post pacemaker placement, sleep apnea. MEDICATIONS: Reviewed in the chart. FAMILY HISTORY: Noncontributory. SOCIAL HISTORY: Patient lives at home. PHYSICAL EXAMINATION: GENERAL: He is morbidly obese. HEENT: Normocephalic, atraumatic. NECK: Supple. CARDIOVASCULAR: Regular rate and rhythm. ABDOMEN: Soft and distended. Patient is very obese. GENITOURINARY: Aaron catheter has moderate amount of hematuria. Clear urine in the tubing. ASSESSMENT AND PLAN: Patient's hematuria is improving. We will continue following him with you and I do not consider any interventions at this point. his renal ultrasound showed nonvisualization of the left kidney, right kidney, some increased echogenicity with medical renal disease. No evidence of tumors or stones. So, we will follow this patient with you conservatively. Continue hydration. Rohith Corona M.D. DR: MARLY JOB#: [id number] CC:
[2020-05-25] MEDS: Dyna-Hex 2% Top Sol 2oz TOPIC SCH (20:32)
[2020-05-25] MEDS: Epoetin Alfa-EPBX(ESRD on dialysis)10,000 unit/ml vial SUBQ SCH (20:33)
--- NOTE | 2020-05-25 21:31 | General Progress Note ---
Subjective ROS Limited/Unobtainable: Yes Allergies: Coded Allergies: [place] (Verified Allergy, Mild, Rash, 10/29/14) per patient PENICILLINS (Unverified Allergy, Unknown, 11/28/13) Objective Last 24 Hour Vital Signs Date Time Temp Pulse Resp B/P (MAP) Pulse Ox O2 Delivery O2 Flow Rate FiO2 05/25/20 19:46 Bi-Pap 05/25/20 19:42 92 39 86 100 05/25/20 16:00 100 05/25/20 16:00 102 05/25/20 16:00 98.1 110 22 122/73 (89) 84 05/25/20 16:00 Bi-pap 05/25/20 14:55 112 31 85 100 05/25/20 13:47 100 151/63 05/25/20 12:00 100 05/25/20 12:00 Bi-pap 05/25/20 12:00 100 05/25/20 12:00 97.9 103 22 151/63 (92) 84 05/25/20 11:00 100 05/25/20 10:40 89 29 82 100 05/25/20 09:17 109 05/25/20 09:16 109 154/81 05/25/20 08:00 96.8 109 22 154/81 (105) 85 05/25/20 08:00 102 05/25/20 08:00 Bi-pap 05/25/20 08:00 100 05/25/20 07:00 99 24 85 100 05/25/20 07:00 85 Bi-Pap 100 05/25/20 05:39 113 125/77 05/25/20 05:03 113 25 85 100 05/25/20 04:45 108 21 87 100 05/25/20 04:00 100 05/25/20 04:00 96.9 111 25 125/77 (93) 87 05/25/20 04:00 Bi-pap 05/25/20 04:00 116 05/25/20 03:10 100 22 88 100 05/25/20 01:15 104 20 87 100 05/25/20 00:00 108 05/25/20 00:00 100 05/25/20 00:00 Bi-pap 05/25/20 00:00 96.1 117 24 123/84 (97) 89 05/24/20 23:14 101 20 90 100 05/24/20 22:00 119 117/56 Intake and Output 05/24/20 05/25/20 19:00 07:00 Intake Total 120 ml 3000 ml Output Total 150 ml 50 ml Balance -30 ml 2950 ml Intake Oral 120 ml Hemodialysis 3000 ml Output Urine Total 150 ml 50 ml Laboratory Tests 05/25/20 04:27: White Blood Count 8.1, Red Blood Count 3.40L, Hemoglobin 9.1L, Hematocrit 32.5L, Mean Corpuscular Volume 96, Mean Corpuscular Hemoglobin 26.7L, Mean Corpuscular Hemoglobin Concent 27.9L, Red Cell Distribution Width 16.1H, Platelet Count 201, Mean Platelet Volume 8.3, Neutrophils (%) (Auto) 84.6H, Lymphocytes (%) (Auto) 4.8L, Monocytes (%) (Auto) 9.2, Eosinophils (%) (Auto) 0.1, Basophils (%) (Auto) 1.2, Prothrombin Time 12.7H, Prothromb Time International Ratio 1.2H, Sodium Level 136, Potassium Level 5.2H, Chloride Level 100, Carbon Dioxide Level 29, Anion Gap 7, Blood Urea Nitrogen 74H, Creatinine 7.0H, Estimat Glomerular Filtration Rate 9.8, Glucose Level 134H, Calcium Level 9.1, Phosphorus Level 7.8H, Total Bilirubin 0.5, Aspartate Amino Transf (AST/SGOT) 25, Alanine Aminotransferase (ALT/SGPT) 22, Alkaline Phosphatase 78, C-Reactive Protein, Quantitative 31.5H, Pro-B-Type Natriuretic Peptide 04867Y, Total Protein 8.7H, Albumin 1.9L, Globulin 6.8, Albumin/Globulin Ratio 0.3L, Digoxin Level 1.5 05/25/20 10:10: Arterial Blood pH 7.200*L, Arterial Blood Partial Pressure CO2 69.1*H, Arterial Blood Partial Pressure O2 46.2*L, Arterial Blood HCO3 26.4H, Arterial Blood Oxygen Saturation 76.5*L, Arterial Blood Base Excess -2.4L, Dany Test Positive Height (Feet): 5 Height (Inches): 11.00 Weight (Pounds): 415 Assessment/Plan Problem List: (1) Hyperkalemia ICD Codes: E87.5 - Hyperkalemia SNOMED: 90542207 (2) Acidosis ICD Codes: E87.2 - Acidosis SNOMED: 00478830 (3) Hyperglycemia ICD Codes: R73.9 - Hyperglycemia, unspecified SNOMED: 32197443 (4) Acute kidney failure ICD Codes: N17.9 - Acute kidney failure, unspecified SNOMED: 33016576 (5) Sepsis ICD Codes: A41.9 - Sepsis SNOMED: 74167138 (6) UTI (urinary tract infection) ICD Codes: N39.0 - Urinary tract infection, site not specified SNOMED: 09957852 (7) Chronic systolic heart failure ICD Codes: I50.9 - Chronic systolic heart failure SNOMED: 389598564 (8) Morbid obesity ICD Codes: E66.01 - Morbid (severe) obesity due to excess calories SNOMED: 890601410 (9) Pacemaker ICD Codes: Z95.0 - Pacemaker SNOMED: 531162932 (10) DM circ dis type I, uncontrolled ICD Codes: E10.59 - DM circ dis type I, uncontrolled SNOMED: 18872440 (11) Atrial flutter ICD Codes: I48.92 - Atrial flutter SNOMED: 3845936 (12) Abdominal distention ICD Codes: R14.0 - Abdominal distension (gaseous) SNOMED: 14024291 (13) Renal failure (ARF), acute on chronic ICD Codes: N17.9 - Acute kidney failure, unspecified; N18.9 - Chronic kidney disease, unspecified SNOMED: 545564674 Assessment/Plan: need more fluid out informed renal dr arrythmia getting HD anemia of renal failure chf pacer resp insuff lyte abnormality htn weak s/p bipap Montserrat Fan MD May 25, 2020 21:31
[2020-05-26] VITALS: BP 137/55
[2020-05-26 01:07] LABS: APPEARANCE,URINE CLOUDY; BILIRUBIN, URINE NEGATIVE (NEGATIVE); GLUCOSE, URINE (UA) 1+ (NEGATIVE); KETONES,URINE 1+ (NEGATIVE); LEUKOCYTE ESTERASE ,URINE 1+ (NEGATIVE); NITRITE,URINE POSITIVE (NEGATIVE); PH,URINE 6 (4.5-8.0); PROTEIN,URINE 4+ (NEGATIVE); UROBILINOGEN,URINE NORMAL MG/DL (0.0-1.0)
[2020-05-26 01:08] LABS: COLOR,URINE YELLOW
[2020-05-26 04:00] VITALS: BP 143/62
[2020-05-26] MEDS: dilTIAZem HCl 30mg tab ORAL SCH (05:07)
[2020-05-26] MEDS: NovoLOG Insulin Flexpen SUBQ SCH (05:41)
[2020-05-26 05:43] LABS: INR 1.6 (0.9-1.1)
[2020-05-26 06:03] LABS: ALBUMIN 1.8 G/DL (3.4-5.0); ALBUMIN/GLOBULIN RATIO 0.3 (1.0-2.7); BILIRUBIN,TOTAL 0.5 MG/DL (0.2-1.0); CALCIUM 8.5 MG/DL (8.5-10.1); CREATININE 6.4 MG/DL (0.55-1.30); PHOSPHORUS 4.9 MG/DL (2.5-4.9); POTASSIUM 4.1 MMOL/L (3.5-5.1)
[2020-05-26] MEDS ORDERED: sitaGLIPtin 25mg tab ORAL SCH (06:30)
--- NOTE | 2020-05-26 06:32 | General Progress Note ---
Subjective Allergies: Coded Allergies: [place] (Verified Allergy, Mild, Rash, 10/29/14) per patient PENICILLINS (Unverified Allergy, Unknown, 11/28/13) All Systems: reviewed and negative except above Subjective events noted interval notes reviewed glucose values are stable doing poorly Item Value Date Time Bedside Blood Glucose 132 mg/dl H 05/26/20 0541 Bedside Blood Glucose 122 mg/dl H 05/25/20 2100 Bedside Blood Glucose 145 mg/dl H 05/25/20 1630 Bedside Blood Glucose 126 mg/dl H 05/25/20 1130 Bedside Blood Glucose 140 mg/dl H 05/25/20 0630 Objective Last 24 Hour Vital Signs Date Time Temp Pulse Resp B/P (MAP) Pulse Ox O2 Delivery O2 Flow Rate FiO2 05/26/20 05:07 117 143/62 05/26/20 04:00 117 05/26/20 04:00 Bi-pap 05/26/20 04:00 100 05/26/20 04:00 98.5 109 32 143/62 (89) 90 05/26/20 03:30 102 29 87 100 05/26/20 00:00 Bi-pap 05/26/20 00:00 118 05/26/20 00:00 98.5 117 31 137/55 (82) 88 05/25/20 23:21 103 31 88 100 05/25/20 22:38 126 133/54 05/25/20 20:00 126 05/25/20 20:00 Bi-pap 05/25/20 20:00 98.1 116 30 133/54 (80) 87 05/25/20 20:00 100 05/25/20 19:46 Bi-Pap 05/25/20 19:42 92 39 86 100 05/25/20 16:00 100 05/25/20 16:00 102 05/25/20 16:00 98.1 110 22 122/73 (89) 84 05/25/20 16:00 Bi-pap 05/25/20 14:55 112 31 85 100 05/25/20 13:47 100 151/63 05/25/20 12:00 100 05/25/20 12:00 Bi-pap 05/25/20 12:00 100 05/25/20 12:00 97.9 103 22 151/63 (92) 84 05/25/20 11:00 100 05/25/20 10:40 89 29 82 100 05/25/20 09:17 109 05/25/20 09:16 109 154/81 05/25/20 08:00 96.8 109 22 154/81 (105) 85 05/25/20 08:00 102 05/25/20 08:00 Bi-pap 05/25/20 08:00 100 05/25/20 07:00 99 24 85 100 05/25/20 07:00 85 Bi-Pap 100 Intake and Output 05/25/20 05/26/20 19:00 07:00 Intake Total 150 ml 60 ml Output Total 50 ml 200 ml Balance 100 ml -140 ml Intake Oral 150 ml 60 ml Output Urine Total 50 ml 200 ml Laboratory Tests 05/25/20 10:10: Arterial Blood pH 7.200*L, Arterial Blood Partial Pressure CO2 69.1*H, Arterial Blood Partial Pressure O2 46.2*L, Arterial Blood HCO3 26.4H, Arterial Blood Oxygen Saturation 76.5*L, Arterial Blood Base Excess -2.4L, Dany Test Positive 05/26/20 00:30: Urine Color Yellow, Urine Appearance Cloudy, Urine pH 6, Urine Specific [place] 1.015, Urine Protein 4+H, Urine Glucose (UA) 1+H, Urine Ketones 1+H, Urine Blood 5+H, Urine Nitrite PositiveH, Urine Bilirubin Negative, Urine Urobilinogen Normal, Urine Leukocyte Esterase 1+H, Urine RBC TntcH, Urine WBC 0-2, Urine Squamous Epithelial Cells None, Urine Bacteria Few 05/26/20 04:40: Prothrombin Time 16.8H, Prothromb Time International Ratio 1.6H, Sodium Level 139, Potassium Level 4.1, Chloride Level 102, Carbon Dioxide Level 27, Anion Gap 10, Blood Urea Nitrogen 68H, Creatinine 6.4H, Estimat Glomerular Filtration Rate 10.9, Glucose Level 131H, Uric Acid 5.0, Calcium Level 8.5, Phosphorus Level 4.9, Magnesium Level 2.1, Total Bilirubin 0.5, Aspartate Amino Transf (AST/SGOT) 22, Alanine Aminotransferase (ALT/SGPT) 17, Alkaline Phosphatase 70, C-Reactive Protein, Quantitative [Pending], Pro-B-Type Natriuretic Peptide 45582F, Total Protein 7.8, Albumin 1.8L, Globulin 6.0, Albumin/Globulin Ratio 0.3L, Digoxin Level 1.3 Height (Feet): 5 Height (Inches): 11.00 Weight (Pounds): 415 General Appearance: moderate distress Neck: normal alignment Cardiovascular: tachycardia Respiratory/Chest: decreased breath sounds Abdomen: normal bowel sounds Objective Current Medications Medications (Trade) Dose Ordered Sig/Albert Route PRN Reason Start Time Stop Time Status Last Admin Dose Admin Acetaminophen (Tylenol) 500 mg Q4H PRN ORAL Severe Pain (Pain Scale 7-10) 05/20/20 18:45 06/19/20 18:44 05/21/20 09:49 Cefepime HCl 500 mg/Dextrose 55 ml @ 110 mls/hr Q24H IV 05/19/20 13:00 05/26/20 12:59 05/25/20 13:53 Chlorhexidine Gluconate (Isamar-Hex 2%) 1 applic DAILY@2000 TOPIC 05/17/20 20:00 08/15/20 19:59 05/25/20 20:32 Dextrose (Dextrose 50%) 25 ml Q30M PRN IV Hypoglycemia 05/22/20 13:15 08/20/20 13:14 Dextrose (Dextrose 50%) 50 ml Q30M PRN IV Hypoglycemia 05/22/20 13:15 08/20/20 13:14 Digoxin (Lanoxin) 0.125 mg DAILY ORAL 05/23/20 12:30 08/18/20 10:59 05/25/20 09:17 Diltiazem HCl (Cardizem Tab) 90 mg Q8HR ORAL 05/25/20 23:00 06/24/20 22:59 05/26/20 05:07 Docusate Sodium (Colace) 100 mg THREE TIMES A DAY ORAL 05/19/20 13:00 06/18/20 12:59 05/25/20 13:47 Epoetin Vivek (Epoetin Vivek(ESRD on dialysis)) 10,000 unit MON-MON-MON SUBQ 05/20/20 21:00 08/18/20 20:59 05/25/20 20:33 Folic Acid (Folate) 5 mg DAILY ORAL 05/17/20 14:00 06/16/20 13:59 05/25/20 09:17 Heparin Sodium/ Sodium Chloride (Heparin 1000 units/500ml Premix) 1,000 unit ONCE PRN INJ radiology procedure 05/25/20 10:00 05/27/20 09:59 Insulin Aspart (NovoLOG) BEFORE MEALS AND HS SUBQ 05/22/20 16:30 08/20/20 16:29 05/25/20 05:41 Lidocaine HCl (Xylocaine 1% 30ml) 30 ml ONCE PRN INJ radiology procedure 05/25/20 10:00 05/27/20 09:59 Metoprolol Tartrate (Lopressor) 12.5 mg Q12HR ORAL 05/21/20 21:00 08/19/20 20:59 05/25/20 09:16 Pantoprazole (Protonix) 40 mg EVERY 12 HOURS ORAL 05/19/20 21:00 06/18/20 20:59 05/25/20 09:16 Sevelamer Carbonate (Renvela) 1,600 mg THREE TIMES A DAY ORAL 05/23/20 13:00 08/19/20 17:59 05/25/20 13:47 Sitagliptin Phosphate (Januvia) 25 mg ACBREAKFAST ORAL 05/26/20 06:30 06/25/20 06:29 05/26/20 05:41 Vitamin D (Vitamin D) 5,000 unit DAILY ORAL 05/24/20 09:00 06/23/20 08:59 05/25/20 09:20 Warfarin Sodium (Coumadin per pharmacy) 1 ea DAILY PRN MISC rx protocol 05/23/20 09:00 06/22/20 08:59 Assessment/Plan Problem List: (1) Morbid obesity ICD Codes: E66.01 - Morbid (severe) obesity due to excess calories SNOMED: 391353804 (2) Pacemaker ICD Codes: Z95.0 - Pacemaker SNOMED: 934104897 (3) Poorly controlled diabetes mellitus ICD Codes: E11.65 - Type 2 diabetesmellitus with hyperglycemia SNOMED: 073767184 (4) Renal failure (ARF), acute on chronic ICD Codes: N17.9 - Acute kidney failure, unspecified; N18.9 - Chronic kidney disease, unspecified SNOMED: 126879833 Assessment/Plan: continue Januvia 25 mg daily continue Novolog sliding scale ac hs Cb Yeh MD May 26, 2020 06:32
--- NOTE | 2020-05-26 06:33 | Hematology/Onc Progress Note ---
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, has been getting hd, as per renal -> hgb 9-->7.9-->8-->8.3->9.5 --> anemia panel has been noted --> epogen has been started --> have started on iv iron # Hypercoagulable disorder with afib/also COVID19 in iCU --> will start low dose lovenox given elevated ddimer per ISABELLA guidelines --> no evidence of bleeding currently --> trend ddimer as needed, to see if risk of emboli # Thrombocytopenia likely due to infection --> plt 130-->150-->198 --> hep and hiv neg --> smear is reviewed # MICHEAL on ckd --> per renal # Morbid obesity --> rec weight loss # Acidosis --> off bipap --> on fm # Hyperkalemia # Pacemaker # UTI (urinary tract infection --> cefepime # Dvt ppx lovenox Appreciate consultation and goyo Rn Subjective Constitutional: Denies: no symptoms, chills, fever, malaise, weakness, other HEENT: Denies: no symptoms, eye pain, blurred vision, tearing, double vision, ear pain, ear discharge, nose pain, nose congestion, throat pain, throat swelling, mouth pain, mouth swelling, other Cardiovascular: Denies: no symptoms, chest pain, edema, irregular heart rate, lightheadedness, palpitations, syncope, other Respiratory: Denies: no symptoms, cough, shortness of breath, SOB with excertion, SOB at rest, sputum, wheezing, other Gastrointestinal/Abdominal: Denies: no symptoms, abdomen distended, abdominal pain, black stools, tarry stools, blood in stool, constipated, diarrhea, difficulty swallowing, nausea, poor appetite, poor fluid intake, rectal bleeding, vomiting, other Genitourinary: Denies: no symptoms, burning, discharge, frequency, flank pain, hematuria, incontinence, pain, urgency, other Neurologic/Psychiatric: Denies: no symptoms, anxiety, depressed, emotional problems, headache, numbness, paresthesia, pre-existing deficit, seizure, tingling, tremors, weakness, other Endocrine: Denies: no symptoms, excessive sweating, flushing, intolerance to cold, intolerance to heat, increased hunger, increased thirst, increased urine, unexplained weight gain, unexplained weight loss, other Allergies: Coded Allergies: [place] (Verified Allergy, Mild, Rash, 10/29/14) per patient PENICILLINS (Unverified Allergy, Unknown, 11/28/13) Subjective 05/20 transferred out of icu, doing better, hgb 8, plt 130, smear is reviewed 05/21 hgb 8, plt 123, meds reviewed, with right chest permacath 05/22 meds noted, no bleeding, cbc is pending this am 05/24 labs are pending, has refused kayxelate, meds noted 05/25 on bipap and wants to be dnr at this time, meds noted 05/26 tachypneic, seen by pulm, labs noted, meds reviewed Objective Objective Current Medications Medications (Trade) Dose Ordered Sig/Albert Route PRN Reason Start Time Stop Time Status Last Admin Dose Admin Acetaminophen (Tylenol) 500 mg Q4H PRN ORAL Severe Pain (Pain Scale 7-10) 05/20/20 18:45 06/19/20 18:44 05/21/20 09:49 Cefepime HCl 500 mg/Dextrose 55 ml @ 110 mls/hr Q24H IV 05/19/20 13:00 05/26/20 12:59 05/25/20 13:53 Chlorhexidine Gluconate (Isamar-Hex 2%) 1 applic DAILY@2000 TOPIC 05/17/20 20:00 08/15/20 19:59 05/25/20 20:32 Dextrose (Dextrose 50%) 25 ml Q30M PRN IV Hypoglycemia 05/22/20 13:15 08/20/20 13:14 Dextrose (Dextrose 50%) 50 ml Q30M PRN IV Hypoglycemia 05/22/20 13:15 08/20/20 13:14 Digoxin (Lanoxin) 0.125 mg DAILY ORAL 05/23/20 12:30 08/18/20 10:59 05/25/20 09:17 Diltiazem HCl (Cardizem Tab) 90 mg Q8HR ORAL 05/25/20 23:00 06/24/20 22:59 05/26/20 05:07 Docusate Sodium (Colace) 100 mg THREE TIMES A DAY ORAL 05/19/20 13:00 06/18/20 12:59 05/25/20 13:47 Epoetin Vivek (Epoetin Vivek(ESRD on dialysis)) 10,000 unit MON-MON-MON SUBQ 05/20/20 21:00 08/18/20 20:59 05/25/20 20:33 Folic Acid (Folate) 5 mg DAILY ORAL 05/17/20 14:00 06/16/20 13:59 05/25/20 09:17 Heparin Sodium/ Sodium Chloride (Heparin 1000 units/500ml Premix) 1,000 unit ONCE PRN INJ radiology procedure 05/25/20 10:00 05/27/20 09:59 Insulin Aspart (NovoLOG) BEFORE MEALS AND HS SUBQ 05/22/20 16:30 08/20/20 16:29 05/25/20 05:41 Lidocaine HCl (Xylocaine 1% 30ml) 30 ml ONCE PRN INJ radiology procedure 05/25/20 10:00 05/27/20 09:59 Metoprolol Tartrate (Lopressor) 12.5 mg Q12HR ORAL 05/21/20 21:00 08/19/20 20:59 05/25/20 09:16 Pantoprazole (Protonix) 40 mg EVERY 12 HOURS ORAL 05/19/20 21:00 06/18/20 20:59 05/25/20 09:16 Sevelamer Carbonate (Renvela) 1,600 mg THREE TIMES A DAY ORAL 05/23/20 13:00 08/19/20 17:59 05/25/20 13:47 Sitagliptin Phosphate (Januvia) 25 mg ACBREAKFAST ORAL 05/26/20 06:30 06/25/20 06:29 05/26/20 05:41 Vitamin D (Vitamin D) 5,000 unit DAILY ORAL 05/24/20 09:00 06/23/20 08:59 05/25/20 09:20 Warfarin Sodium (Coumadin per pharmacy) 1 ea DAILY PRN MISC rx protocol 05/23/20 09:00 06/22/20 08:59 Last 24 Hour Vital Signs Date Time Temp Pulse Resp B/P (MAP) Pulse Ox O2 Delivery O2 Flow Rate FiO2 05/26/20 05:07 117 143/62 05/26/20 04:00 117 05/26/20 04:00 Bi-pap 05/26/20 04:00 100 05/26/20 04:00 98.5 109 32 143/62 (89) 90 05/26/20 03:30 102 29 87 100 05/26/20 00:00 Bi-pap 05/26/20 00:00 118 05/26/20 00:00 98.5 117 31 137/55 (82) 88 05/25/20 23:21 103 31 88 100 05/25/20 22:38 126 133/54 05/25/20 20:00 126 05/25/20 20:00 Bi-pap 05/25/20 20:00 98.1 116 30 133/54 (80) 87 05/25/20 20:00 100 05/25/20 19:46 Bi-Pap 05/25/20 19:42 92 39 86 100 05/25/20 16:00 100 05/25/20 16:00 102 05/25/20 16:00 98.1 110 22 122/73 (89) 84 05/25/20 16:00 Bi-pap 05/25/20 14:55 112 31 85 100 05/25/20 13:47 100 151/63 05/25/20 12:00 100 05/25/20 12:00 Bi-pap 05/25/20 12:00 100 05/25/20 12:00 97.9 103 22 151/63 (92) 84 05/25/20 11:00 100 05/25/20 10:40 89 29 82 100 05/25/20 09:17 109 05/25/20 09:16 109 154/81 05/25/20 08:00 96.8 109 22 154/81 (105) 85 05/25/20 08:00 102 05/25/20 08:00 Bi-pap 05/25/20 08:00 100 05/25/20 07:00 99 24 85 100 05/25/20 07:00 85 Bi-Pap 100 05/25/20 05:39 113 125/77 05/25/20 05:03 113 25 85 100 05/25/20 04:45 108 21 87 100 05/25/20 04:00 100 05/25/20 04:00 96.9 111 25 125/77 (93) 87 05/25/20 04:00 Bi-pap 05/25/20 04:00 116 05/25/20 03:10 100 22 88 100 05/25/20 01:15 104 20 87 100 05/25/20 00:00 108 05/25/20 00:00 100 05/25/20 00:00 Bi-pap 05/25/20 00:00 96.1 117 24 123/84 (97) 89 05/24/20 23:14 101 20 90 100 05/24/20 22:00 119 117/56 05/24/20 20:54 94 21 88 100 05/24/20 20:35 122 118/68 05/24/20 20:00 Bi-pap 05/24/20 20:00 60 05/24/20 20:00 124 05/24/20 20:00 97.7 122 22 116/68 (84) 89 05/24/20 19:16 107 23 89 100 05/24/20 19:15 88 Bi-Pap 100 05/24/20 16:00 60 05/24/20 16:00 97.5 116 19 104/60 (75) 90 05/24/20 16:00 Bi-pap 05/24/20 15:29 113 19 88 100 05/24/20 15:13 109 05/24/20 14:00 115 106/62 05/24/20 12:00 Bi-pap 05/24/20 12:00 60 05/24/20 12:00 97.2 115 20 106/62 (77) 90 05/24/20 11:43 105 05/24/20 10:37 119 24 88 100 05/24/20 10:11 114 25 84 15.0 100 05/24/20 08:45 108 133/68 05/24/20 08:44 108 05/24/20 08:00 Bi-pap 05/24/20 08:00 98.2 108 18 133/68 (89) 92 05/24/20 08:00 60 05/24/20 07:52 106 05/24/20 07:50 104 24 91 100 05/24/20 07:10 100 22 87 100 05/24/20 07:09 92 Bi-Pap 100 05/24/20 07:09 103 25 92 100 Intake and Output 05/25/20 05/26/20 19:00 07:00 Intake Total 150 ml 60 ml Output Total 50 ml 200 ml Balance 100 ml -140 ml Intake Oral 150 ml 60 ml Output Urine Total 50 ml 200 ml Labs Test 05/23/20 07:15 05/23/20 10:05 05/23/20 20:43 05/24/20 06:05 Sodium Level 138 MMOL/L (136-145) Potassium Level 5.4 MMOL/L (3.5-5.1) Chloride Level 104 MMOL/L (98-107) Carbon Dioxide Level 26 MMOL/L (21-32) Anion Gap 8 mmol/L (5-15) Blood Urea Nitrogen 66 mg/dL (7-18) Creatinine 6.4 MG/DL (0.55-1.30) Estimat Glomerular Filtration Rate 10.9 mL/min (>60) Glucose Level 143 MG/DL (74-106) Calcium Level 8.4 MG/DL (8.5-10.1) Phosphorus Level 6.5 MG/DL (2.5-4.9) Magnesium Level 2.1 MG/DL (1.8-2.4) Total Bilirubin 0.3 MG/DL (0.2-1.0) Direct Bilirubin 0.1 MG/DL (0.0-0.3) Aspartate Amino Transf (AST/SGOT) 30 U/L (15-37) Alanine Aminotransferase (ALT/SGPT) 21 U/L (12-78) Alkaline Phosphatase 78 U/L (46-116) Total Protein 7.9 G/DL (6.4-8.2) Albumin 2.0 G/DL (3.4-5.0) White Blood Count 8.2 K/UL (4.8-10.8) Red Blood Count 3.07 M/UL (4.70-6.10) Hemoglobin 8.3 G/DL (14.2-18.0) Hematocrit 28.9 % (42.0-52.0) Mean Corpuscular Volume 94 FL (80-99) Mean Corpuscular Hemoglobin 27.1 PG (27.0-31.0) Mean Corpuscular Hemoglobin Concent 28.8 G/DL (32.0-36.0) Red Cell Distribution Width 16.1 % (11.6-14.8) Platelet Count 150 K/UL (150-450) Mean Platelet Volume 8.9 FL (6.5-10.1) Neutrophils (%) (Auto) 78.6 % (45.0-75.0) Lymphocytes (%) (Auto) 5.7 % (20.0-45.0) Monocytes (%) (Auto) 12.5 % (1.0-10.0) Eosinophils (%) (Auto) 1.2 % (0.0-3.0) Basophils (%) (Auto) 2.1 % (0.0-2.0) Prothrombin Time 12.0 SEC (9.30-11.50) Prothromb Time International Ratio 1.1 (0.9-1.1) POC Whole Blood Glucose 148 MG/DL (74-106) 107 MG/DL (74-106) Test 05/24/20 16:42 05/24/20 16:43 05/24/20 20:28 05/25/20 04:27 White Blood Count 9.2 K/UL (4.8-10.8) 8.1 K/UL (4.8-10.8) Red Blood Count 3.52 M/UL (4.70-6.10) 3.40 M/UL (4.70-6.10) Hemoglobin 9.5 G/DL (14.2-18.0) 9.1 G/DL (14.2-18.0) Hematocrit 33.7 % (42.0-52.0) 32.5 % (42.0-52.0) Mean Corpuscular Volume 96 FL (80-99) 96 FL (80-99) Mean Corpuscular Hemoglobin 27.0 PG (27.0-31.0) 26.7 PG (27.0-31.0) Mean Corpuscular Hemoglobin Concent 28.3 G/DL (32.0-36.0) 27.9 G/DL (32.0-36.0) Red Cell Distribution Width 16.1 % (11.6-14.8) 16.1 % (11.6-14.8) Platelet Count 198 K/UL (150-450) 201 K/UL (150-450) Mean Platelet Volume 8.2 FL (6.5-10.1) 8.3 FL (6.5-10.1) Neutrophils (%) (Auto) 83.7 % (45.0-75.0) 84.6 % (45.0-75.0) Lymphocytes (%) (Auto) 3.1 % (20.0-45.0) 4.8 % (20.0-45.0) Monocytes (%) (Auto) 10.6 % (1.0-10.0) 9.2 % (1.0-10.0) Eosinophils (%) (Auto) 0.3 % (0.0-3.0) 0.1 % (0.0-3.0) Basophils (%) (Auto) 2.3 % (0.0-2.0) 1.2 % (0.0-2.0) Prothrombin Time 12.0 SEC (9.30-11.50) 12.7 SEC (9.30-11.50) Prothromb Time International Ratio 1.1 (0.9-1.1) 1.2 (0.9-1.1) Sodium Level 137 MMOL/L (136-145) 136 MMOL/L (136-145) Potassium Level 5.6 MMOL/L (3.5-5.1) 5.2 MMOL/L (3.5-5.1) Chloride Level 102 MMOL/L (98-107) 100 MMOL/L (98-107) Carbon Dioxide Level 27 MMOL/L (21-32) 29 MMOL/L (21-32) Anion Gap 8 mmol/L (5-15) 7 mmol/L (5-15) Blood Urea Nitrogen 84 mg/dL (7-18) 74 mg/dL (7-18) Creatinine 7.8 MG/DL (0.55-1.30) 7.0 MG/DL (0.55-1.30) Estimat Glomerular Filtration Rate 8.7 mL/min (>60) 9.8 mL/min (>60) Glucose Level 139 MG/DL (74-106) 134 MG/DL (74-106) Calcium Level 8.9 MG/DL (8.5-10.1) 9.1 MG/DL (8.5-10.1) Total Bilirubin 0.5 MG/DL (0.2-1.0) 0.5 MG/DL (0.2-1.0) Aspartate Amino Transf (AST/SGOT) 24 U/L (15-37) 25 U/L (15-37) Alanine Aminotransferase (ALT/SGPT) 19 U/L (12-78) 22 U/L (12-78) Alkaline Phosphatase 78 U/L (46-116) 78 U/L (46-116) Total Protein 8.5 G/DL (6.4-8.2) 8.7 G/DL (6.4-8.2) Albumin 1.9 G/DL (3.4-5.0) 1.9 G/DL (3.4-5.0) Globulin 6.6 g/dL 6.8 g/dL Albumin/Globulin Ratio 0.3 (1.0-2.7) 0.3 (1.0-2.7) Uric Acid 5.5 MG/DL (2.6-7.2) Phosphorus Level 8.6 MG/DL (2.5-4.9) 7.8 MG/DL (2.5-4.9) Magnesium Level 2.3 MG/DL (1.8-2.4) Gamma Glutamyl Transpeptidase 35 U/L (5-85) C-Reactive Protein, Quantitative 21.4 mg/dL (0.00-0.90) 31.5 mg/dL (0.00-0.90) Folate 18.4 NG/ML (8.6-58.9) Digoxin Level 1.5 NG/ML (0.5-2.0) 1.5 NG/ML (0.5-2.0) Pro-B-Type Natriuretic Peptide 59704 pg/mL (0-125) Test 05/25/20 10:10 05/26/20 00:30 05/26/20 04:40 Arterial Blood pH 7.200 (7.350-7.450) Arterial Blood Partial Pressure CO2 69.1 mmHg (35.0-45.0) Arterial Blood Partial Pressure O2 46.2 mmHg (75.0-100.0) Arterial Blood HCO3 26.4 mmol/L (22.0-26.0) Arterial Blood Oxygen Saturation 76.5 % (95-100) Arterial Blood Base Excess -2.4 (-2-2) Dany Test Positive Urine Color Yellow Urine Appearance Cloudy Urine pH 6 (4.5-8.0) Urine Specific [place] 1.015 (1.005-1.035) Urine Protein 4+ (NEGATIVE) Urine Glucose (UA) 1+ (NEGATIVE) Urine Ketones 1+ (NEGATIVE) Urine Blood 5+ (NEGATIVE) Urine Nitrite Positive (NEGATIVE) Urine Bilirubin Negative (NEGATIVE) Urine Urobilinogen Normal MG/DL (0.0-1.0) Urine Leukocyte Esterase 1+ (NEGATIVE) Urine RBC Tntc /HPF (0 - 0) Urine WBC 0-2 /HPF (0 - 0) Urine Squamous Epithelial Cells None /LPF (NONE/OCC) Urine Bacteria Few /HPF (NONE) Prothrombin Time 16.8 SEC (9.30-11.50) Prothromb Time International Ratio 1.6 (0.9-1.1) Sodium Level 139 MMOL/L (136-145) Potassium Level 4.1 MMOL/L (3.5-5.1) Chloride Level 102 MMOL/L (98-107) Carbon Dioxide Level 27 MMOL/L (21-32) Anion Gap 10 mmol/L (5-15) Blood Urea Nitrogen 68 mg/dL (7-18) Creatinine 6.4 MG/DL (0.55-1.30) Estimat Glomerular Filtration Rate 10.9 mL/min (>60) Glucose Level 131 MG/DL (74-106) Uric Acid 5.0 MG/DL (2.6-7.2) Calcium Level 8.5 MG/DL (8.5-10.1) Phosphorus Level 4.9 MG/DL (2.5-4.9) Magnesium Level 2.1 MG/DL (1.8-2.4) Total Bilirubin 0.5 MG/DL (0.2-1.0) Aspartate Amino Transf (AST/SGOT) 22 U/L (15-37) Alanine Aminotransferase (ALT/SGPT) 17 U/L (12-78) Alkaline Phosphatase 70 U/L (46-116) Pro-B-Type Natriuretic Peptide 56882 pg/mL (0-125) Total Protein 7.8 G/DL (6.4-8.2) Albumin 1.8 G/DL (3.4-5.0) Globulin 6.0 g/dL Albumin/Globulin Ratio 0.3 (1.0-2.7) Digoxin Level 1.3 NG/ML (0.5-2.0) Height (Feet): 5 Height (Inches): 11.00 Weight (Pounds): 415 Objective Physical Exam General: Somnolent, falling asleep during exam. alert HEENT: NC/AT. EOMI. Cardiovascular: RRR. S1 and S2 normal. No murmur appreciated Resp: 4 L nasal cannula. + right chest permacath Abdomen: Abdomen is morbidly obese. Skin: Intact. Venous stasis changes lower extremities MSK: Normal tone and bulk. Moving all extremities. No obvious deformity. Neuro: Somnolent. Confused. Moving all extremities. Mio Ashton MD May 26, 2020 06:33
[2020-05-26 08:00] VITALS: BP 138/74
--- NOTE | 2020-05-26 08:39 | General Progress Note ---
Subjective Date patient seen: May 26, 2020 Time patient seen: 08:00 - am Allergies: Coded Allergies: [place] (Verified Allergy, Mild, Rash, 10/29/14) per patient PENICILLINS (Unverified Allergy, Unknown, 11/28/13) Subjective HISTORY OF PRESENT ILLNESS: This is a 60-year-old male who is being seen on the stepdown unit of [facility]. Patient is still on Bipap, no signs of pain at this time REVIEW OF SYSTEMS: Unable to obtain due to patients condition. Objective Last 24 Hour Vital Signs Date Time Temp Pulse Resp B/P (MAP) Pulse Ox O2 Delivery O2 Flow Rate FiO2 05/26/20 05:07 117 143/62 05/26/20 04:00 117 05/26/20 04:00 Bi-pap 05/26/20 04:00 100 05/26/20 04:00 98.5 109 32 143/62 (89) 90 05/26/20 03:30 102 29 87 100 05/26/20 00:00 Bi-pap 05/26/20 00:00 118 05/26/20 00:00 98.5 117 31 137/55 (82) 88 05/25/20 23:21 103 31 88 100 05/25/20 22:38 126 133/54 05/25/20 20:00 126 05/25/20 20:00 Bi-pap 05/25/20 20:00 98.1 116 30 133/54 (80) 87 05/25/20 20:00 100 05/25/20 19:46 Bi-Pap 05/25/20 19:42 92 39 86 100 05/25/20 16:00 100 05/25/20 16:00 102 05/25/20 16:00 98.1 110 22 122/73 (89) 84 05/25/20 16:00 Bi-pap 05/25/20 14:55 112 31 85 100 05/25/20 13:47 100 151/63 05/25/20 12:00 100 05/25/20 12:00 Bi-pap 05/25/20 12:00 100 05/25/20 12:00 97.9 103 22 151/63 (92) 84 05/25/20 11:00 100 05/25/20 10:40 89 29 82 100 05/25/20 09:17 109 05/25/20 09:16 109 154/81 Intake and Output 05/25/20 05/26/20 19:00 07:00 Intake Total 150 ml 60 ml Output Total 50 ml 200 ml Balance 100 ml -140 ml Intake Oral 150 ml 60 ml Output Urine Total 50 ml 200 ml Laboratory Tests 05/25/20 10:10: Arterial Blood pH 7.200*L, Arterial Blood Partial Pressure CO2 69.1*H, Arterial Blood Partial Pressure O2 46.2*L, Arterial Blood HCO3 26.4H, Arterial Blood Oxygen Saturation 76.5*L, Arterial Blood Base Excess -2.4L, Dany Test Positive 05/26/20 00:30: Urine Color Yellow, Urine Appearance Cloudy, Urine pH 6, Urine Specific [place] 1.015, Urine Protein 4+H, Urine Glucose (UA) 1+H, Urine Ketones 1+H, Urine Blood 5+H, Urine Nitrite PositiveH, Urine Bilirubin Negative, Urine Urobilinogen Normal, Urine Leukocyte Esterase 1+H, Urine RBC TntcH, Urine WBC 0-2, Urine Squamous Epithelial Cells None, Urine Bacteria Few 05/26/20 04:40: Prothrombin Time 16.8H, Prothromb Time International Ratio 1.6H, Sodium Level 139, Potassium Level 4.1, Chloride Level 102, Carbon Dioxide Level 27, Anion Gap 10, Blood Urea Nitrogen 68H, Creatinine 6.4H, Estimat Glomerular Filtration Rate 10.9, Glucose Level 131H, Uric Acid 5.0, Calcium Level 8.5, Phosphorus Level 4.9, Magnesium Level 2.1, Total Bilirubin 0.5, Aspartate Amino Transf (AST/SGOT) 22, Alanine Aminotransferase (ALT/SGPT) 17, Alkaline Phosphatase 70, C-Reactive Protein, Quantitative 36.8H, Pro-B-Type Natriuretic Peptide 50338N, Total Protein 7.8, Albumin 1.8L, Globulin 6.0, Albumin/Globulin Ratio 0.3L, Digoxin Level 1.3 Height (Feet): 5 Height (Inches): 11.00 Weight (Pounds): 415 Objective PHYSICAL EXAMINATION: LUNGS: Decreased breath sounds bilaterally. HEART: S1 and S2, regular. ABDOMEN: Obese. EXTREMITIES: No cyanosis. No clubbing. NEURO: No changes. Assessment/Plan Assessment/Plan: (1) Neck pain s/p tunnel cath placement (2) Morbid obesity (3) Degenerative joint disease Patient to be continued on Tylenol D/w Dr. Choi and he concurred. Bassem Hickey May 26, 2020 08:39
[2020-05-26 09:00] VITALS: BP 138/74
[2020-05-26] MEDS: Docusate 100mg cap ORAL SCH (09:00)
[2020-05-26] MEDS: Digoxin 0.125mg tab ORAL SCH (09:00)
[2020-05-26] MEDS: Vitamin D 1000 units Tab ORAL SCH (09:00)
--- NOTE | 2020-05-26 10:45 | Nephrology Progress Note ---
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 Patient still has fluid in the lungs. Removed 3 L daily for the past 2 days during dialysis. Will attempt to dialyze again today with the maximum ultrafiltration. Will order blood pressure support with dopamine. If needed the patient need to be transferred to ICU. Continue to monitor renal parameters and adjust pulmonary status. Per orders. Labs reviewed. INR 1.6 today. Digoxin level within normal range. May 25: Dialyzed yesterday. Aim to dialyze tomorrow, however it appears that the patient can benefit from more ultrafiltration today. Cardizem dose adjusted. Digoxin level is being monitored. Continue per consultants. May 24: Due for dialysis today. Due for ultrafiltration of 3 L minimum today. Today's labs still pending. Continue per consultants. May 23: Dialyzed yesterday. Due for dialysis tomorrow. Medications adjusted with regard to dosage he is off Cardizem and digoxin. Vitamin D orally initiated. Continue to monitor renal parameters electrolytes. Kayexalate for high potassium given. May 22: Currently on dialysis. Tolerating it well. Additional digoxin p.o. given. Continue per current treatment plan. May 21: Dialyzed yesterday. Due for dialysis tomorrow. Low-dose Lopressor added. Check digoxin level tomorrow. Phosphorus binders ordered. Continue as is. May 20: Downgraded to stepdown. Due for dialysis today. Blood pressure somewhat low. Will decrease Cardizem dose. Continue to monitor renal parameters and dialyze as needed. Per orders. May 19: Seen in ICU. Awake alert responsive. Last dialyzed yesterday. Next dialysis tomorrow. Medication list reviewed. Hepatitis panel ordered. Patient requires long-term dialysis. Epogen added for anemia May 18: Patient seen in ICU. Currently on dialysis. Dialysis orders yesterday was not carried out apparently due to lack of personal. Patient clinically doing better. Breathing easier. Continue per consultants. Medication list reviewed. Off pressors. Continue to dialyze as needed. May 17: Patient seen in ICU. Full code. On BiPAP. Discussed with DANIEL Ponce. Labs reviewed. Renal parameters improved after patient was dialyzed yesterday. Patient off pressors. Will attempt dialysis again today for hyperkalemia. Continue per consultants. Oral folic acid ordered. Protonix IV ordered. Previously: Stat ABG, stat kidney ultrasound: Results noted IV bicarb NG tube, Kayexalate Urgent dialysis Discussed with DANIEL Oliva Patient cannot give consent for insertion of dialysis catheter. Dialysis at this point is a lifesaving procedure in my opinion. Subjective ROS Limited/Unobtainable: Yes Objective Objective Last 24 Hour Vital Signs Date Time Temp Pulse Resp B/P (MAP) Pulse Ox O2 Delivery O2 Flow Rate FiO2 05/26/20 09:00 96 05/26/20 09:00 96 138/74 05/26/20 08:00 100 05/26/20 08:00 95 05/26/20 08:00 Bi-pap 05/26/20 08:00 98.2 96 22 138/74 (95) 87 05/26/20 07:12 100 28 88 100 05/26/20 07:12 88 Bi-Pap 100 05/26/20 05:07 117 143/62 05/26/20 04:00 117 05/26/20 04:00 Bi-pap 05/26/20 04:00 100 05/26/20 04:00 98.5 109 32 143/62 (89) 90 05/26/20 03:30 102 29 87 100 05/26/20 00:00 Bi-pap 05/26/20 00:00 118 05/26/20 00:00 98.5 117 31 137/55 (82) 88 05/25/20 23:21 103 31 88 100 05/25/20 22:38 126 133/54 05/25/20 20:00 126 05/25/20 20:00 Bi-pap 05/25/20 20:00 98.1 116 30 133/54 (80) 87 05/25/20 20:00 100 05/25/20 19:46 Bi-Pap 05/25/20 19:42 92 39 86 100 05/25/20 16:00 100 05/25/20 16:00 102 05/25/20 16:00 98.1 110 22 122/73 (89) 84 05/25/20 16:00 Bi-pap 05/25/20 14:55 112 31 85 100 05/25/20 13:47 100 151/63 05/25/20 12:00 100 05/25/20 12:00 Bi-pap 05/25/20 12:00 100 05/25/20 12:00 97.9 103 22 151/63 (92) 84 05/25/20 11:00 100 Intake and Output 05/25/20 05/26/20 19:00 07:00 Intake Total 150 ml 60 ml Output Total 50 ml 200 ml Balance 100 ml -140 ml Intake Oral 150 ml 60 ml Output Urine Total 50 ml 200 ml Laboratory Tests 05/26/20 00:30: Urine Color Yellow, Urine Appearance Cloudy, Urine pH 6, Urine Specific [place] 1.015, Urine Protein 4+H, Urine Glucose (UA) 1+H, Urine Ketones 1+H, Urine Blood 5+H, Urine Nitrite PositiveH, Urine Bilirubin Negative, Urine Urobilinogen Normal, Urine Leukocyte Esterase 1+H, Urine RBC TntcH, Urine WBC 0-2, Urine Squamous Epithelial Cells None, Urine Bacteria Few 05/26/20 04:40: Prothrombin Time 16.8H, Prothromb Time International Ratio 1.6H, Sodium Level 139, Potassium Level 4.1, Chloride Level 102, Carbon Dioxide Level 27, Anion Gap 10, Blood Urea Nitrogen 68H, Creatinine 6.4H, Estimat Glomerular Filtration Rate 10.9, Glucose Level 131H, Uric Acid 5.0, Calcium Level 8.5, Phosphorus Level 4.9, Magnesium Level 2.1, Total Bilirubin 0.5, Aspartate Amino Transf (AST/SGOT) 22, Alanine Aminotransferase (ALT/SGPT) 17, Alkaline Phosphatase 70, C-Reactive Protein, Quantitative 36.8H, Pro-B-Type Natriuretic Peptide [id number], Total Protein 7.8, Albumin 1.8L, Globulin 6.0, Albumin/Globulin Ratio 0.3L, Digoxin Level 1.3 Height (Feet): 5 Height (Inches): 11.00 Weight (Pounds): 415 General Appearance: mild distress EENT: other - On BiPAP Cardiovascular: tachycardia, arrhythmia Respiratory/Chest: decreased breath sounds Abdomen: distended Adria Gautam MD May 26, 2020 10:45
--- NOTE | 2020-05-26 11:39 | Infectious Diseases Prog Note ---
Assessment/Plan Assessment/Plan A; 1. Possible pneumonia. 2. Hypertension. 3. Diabetes. 4. Congestive heart failure. 5. Morbid Obesity. 6. Respiratory failure, 7. Acute renal failure, ESRD 8. Anemia 9. Atrial fibrillation 10 Thrombosis of R brachial vein 11. Hematuria PLAN: 1. Discontinue cefepime 2. Will f/u Urine culture 3. Discontinue Aaron catheter 4. case was D/W patient's mother Subjective ROS Limited/Unobtainable: Yes Constitutional: Reports: other - dosen't feel good Respiratory: Reports: shortness of breath Gastrointestinal/Abdominal: Reports: no symptoms Genitourinary: Reports: no symptoms Allergies: Coded Allergies: [place] (Verified Allergy, Mild, Rash, 10/29/14) per patient PENICILLINS (Unverified Allergy, Unknown, 11/28/13) Objective Last 24 Hour Vital Signs Date Time Temp Pulse Resp B/P (MAP) Pulse Ox O2 Delivery O2 Flow Rate FiO2 05/26/20 09:00 96 05/26/20 09:00 96 138/74 05/26/20 08:00 100 05/26/20 08:00 95 05/26/20 08:00 Bi-pap 05/26/20 08:00 98.2 96 22 138/74 (95) 87 05/26/20 07:12 100 28 88 100 05/26/20 07:12 88 Bi-Pap 100 05/26/20 05:07 117 143/62 05/26/20 04:00 117 05/26/20 04:00 Bi-pap 05/26/20 04:00 100 05/26/20 04:00 98.5 109 32 143/62 (89) 90 05/26/20 03:30 102 29 87 100 05/26/20 00:00 Bi-pap 05/26/20 00:00 118 05/26/20 00:00 98.5 117 31 137/55 (82) 88 05/25/20 23:21 103 31 88 100 05/25/20 22:38 126 133/54 05/25/20 20:00 126 05/25/20 20:00 Bi-pap 05/25/20 20:00 98.1 116 30 133/54 (80) 87 05/25/20 20:00 100 05/25/20 19:46 Bi-Pap 05/25/20 19:42 92 39 86 100 05/25/20 16:00 100 05/25/20 16:00 102 05/25/20 16:00 98.1 110 22 122/73 (89) 84 05/25/20 16:00 Bi-pap 05/25/20 14:55 112 31 85 100 05/25/20 13:47 100 151/63 05/25/20 12:00 100 05/25/20 12:00 Bi-pap 05/25/20 12:00 100 05/25/20 12:00 97.9 103 22 151/63 (92) 84 Height (Feet): 5 Height (Inches): 11.00 Weight (Pounds): 415 HEENT: mucous membranes moist Respiratory/Chest: decreased breath sounds, other - on BIPAP Cardiovascular: normal rate, other - PICC line, HD line Abdomen: soft, non tender Extremities: other - generalized edema Neurologic/Psychiatric: alert, responsive Laboratory Tests Test 05/26/20 00:30 05/26/20 04:40 Urine Color Yellow Urine Appearance Cloudy Urine pH 6 (4.5-8.0) Urine Specific [place] 1.015 (1.005-1.035) Urine Protein 4+ (NEGATIVE) H Urine Glucose (UA) 1+ (NEGATIVE) H Urine Ketones 1+ (NEGATIVE) H Urine Blood 5+ (NEGATIVE) H Urine Nitrite Positive (NEGATIVE) H Urine Bilirubin Negative (NEGATIVE) Urine Urobilinogen Normal MG/DL (0.0-1.0) Urine Leukocyte Esterase 1+ (NEGATIVE) H Urine RBC Tntc /HPF (0 - 0) H Urine WBC 0-2 /HPF (0 - 0) Urine Squamous Epithelial Cells None /LPF (NONE/OCC) Urine Bacteria Few /HPF (NONE) Prothrombin Time 16.8 SEC (9.30-11.50) H Prothromb Time International Ratio 1.6 (0.9-1.1) H Sodium Level 139 MMOL/L (136-145) Potassium Level 4.1 MMOL/L (3.5-5.1) Chloride Level 102 MMOL/L (98-107) Carbon Dioxide Level 27 MMOL/L (21-32) Anion Gap 10 mmol/L (5-15) Blood Urea Nitrogen 68 mg/dL (7-18) H Creatinine 6.4 MG/DL (0.55-1.30) H Estimat Glomerular Filtration Rate 10.9 mL/min (>60) Glucose Level 131 MG/DL (74-106) H Uric Acid 5.0 MG/DL (2.6-7.2) Calcium Level 8.5 MG/DL (8.5-10.1) Phosphorus Level 4.9 MG/DL (2.5-4.9) Magnesium Level 2.1 MG/DL (1.8-2.4) Total Bilirubin 0.5 MG/DL (0.2-1.0) Aspartate Amino Transf (AST/SGOT) 22 U/L (15-37) Alanine Aminotransferase (ALT/SGPT) 17 U/L (12-78) Alkaline Phosphatase 70 U/L (46-116) C-Reactive Protein, Quantitative 36.8 mg/dL (0.00-0.90) H Pro-B-Type Natriuretic Peptide 48943 pg/mL (0-125) H Total Protein 7.8 G/DL (6.4-8.2) Albumin 1.8 G/DL (3.4-5.0) L Globulin 6.0 g/dL Albumin/Globulin Ratio 0.3 (1.0-2.7) L Digoxin Level 1.3 NG/ML (0.5-2.0) Current Medications Medications (Trade) Dose Ordered Sig/Albert Route PRN Reason Start Time Stop Time Status Last Admin Dose Admin Acetaminophen (Tylenol) 500 mg Q4H PRN ORAL Severe Pain (Pain Scale 7-10) 05/20/20 18:45 06/19/20 18:44 05/21/20 09:49 Cefepime HCl 500 mg/Dextrose 55 ml @ 110 mls/hr Q24H IV 05/19/20 13:00 05/26/20 12:59 05/25/20 13:53 Chlorhexidine Gluconate (Isamar-Hex 2%) 1 applic DAILY@2000 TOPIC 05/17/20 20:00 08/15/20 19:59 05/25/20 20:32 Dextrose (Dextrose 50%) 25 ml Q30M PRN IV Hypoglycemia 05/22/20 13:15 08/20/20 13:14 Dextrose (Dextrose 50%) 50 ml Q30M PRN IV Hypoglycemia 05/22/20 13:15 08/20/20 13:14 Digoxin (Lanoxin) 0.125 mg DAILY ORAL 05/23/20 12:30 08/18/20 10:59 05/26/20 09:00 Diltiazem HCl (Cardizem Tab) 90 mg Q8HR ORAL 05/25/20 23:00 06/24/20 22:59 05/26/20 05:07 Docusate Sodium (Colace) 100 mg THREE TIMES A DAY ORAL 05/19/20 13:00 06/18/20 12:59 05/26/20 09:00 Epoetin Vivek (Epoetin Vivek(ESRD on dialysis)) 10,000 unit MON-MON-MON SUBQ 05/20/20 21:00 08/18/20 20:59 05/25/20 20:33 Folic Acid (Folate) 5 mg DAILY ORAL 05/17/20 14:00 06/16/20 13:59 05/26/20 09:00 Heparin Sodium/ Sodium Chloride (Heparin 1000 units/500ml Premix) 1,000 unit ONCE PRN INJ radiology procedure 05/25/20 10:00 05/27/20 09:59 Insulin Aspart (NovoLOG) BEFORE MEALS AND HS SUBQ 05/22/20 16:30 08/20/20 16:29 05/25/20 05:41 Lidocaine HCl (Xylocaine 1% 30ml) 30 ml ONCE PRN INJ radiology procedure 05/25/20 10:00 05/27/20 09:59 Metoprolol Tartrate (Lopressor) 12.5 mg Q12HR ORAL 05/21/20 21:00 08/19/20 20:59 05/26/20 09:00 Pantoprazole (Protonix) 40 mg EVERY 12 HOURS ORAL 05/19/20 21:00 06/18/20 20:59 05/26/20 09:00 Sevelamer Carbonate (Renvela) 1,600 mg THREE TIMES A DAY ORAL 05/23/20 13:00 08/19/20 17:59 05/26/20 09:00 Sitagliptin Phosphate (Januvia) 25 mg ACBREAKFAST ORAL 05/26/20 06:30 06/25/20 06:29 05/26/20 05:41 Vitamin D (Vitamin D) 5,000 unit DAILY ORAL 05/24/20 09:00 06/23/20 08:59 05/26/20 09:00 Warfarin Sodium (Coumadin per pharmacy) 1 ea DAILY PRN MISC rx protocol 05/23/20 09:00 06/22/20 08:59 Warfarin Sodium (Coumadin) 7.5 mg COUMADIN ORAL 05/26/20 17:00 05/26/20 17:01 Oswaldo Toro MD May 26, 2020 11:39
--- NOTE | 2020-05-26 12:02 | Cardiac Electrophysiology PN ---
Assessment/Plan Assessment/Plan 1. Elevated troponin due to renal failure and respiratory failure His echocardiogram showed ejection fraction of 60%. EKG showed atrial fibrillation with rapid ventricular response and nonspecific ST-T wave abnormalities. 2. Atrial fibrillation with rapid ventricular response with heart rate in 130s. On Cardizem 60 po q 8hr, Digoxin 0.125 po daily, Lopressor 12.5 bid and Coumadin per pharmacy Dig level 1.3 today. INR 1.6 today 3. S/P left-sided St Zhang pacemaker. Interrogated and showed Nl fx but frequent atrial fib with RVR 4. Hyperkalemia due to renal failure. On dialysis by Dr. Gautam. 5. Morbid obesity. 6. Diabetes. 7. Respiratory failure, currently on BIPAP but likely will need intubation 8. Anemia, S/P PRBC 05/19 9. Positive for right brachial venous thrombosis.On Coumadin for atrial fib anyway DW RN DW RN and Dr Mccray Subjective Subjective Atrial fib rate is controlled on Cardizem 60 po q 8hr, Digoxin 0.125 po daily and Lopressor 12.5 bid On Coumadin per pharmacy On BIPAP but saturating 70s %. Intubation pending per Dr. Amador and RN Ruled out for Covid Objective Last 24 Hour Vital Signs Date Time Temp Pulse Resp B/P (MAP) Pulse Ox O2 Delivery O2 Flow Rate FiO2 05/26/20 11:42 98 28 78 100 05/26/20 09:00 96 05/26/20 09:00 96 138/74 05/26/20 08:00 100 05/26/20 08:00 95 05/26/20 08:00 Bi-pap 05/26/20 08:00 98.2 96 22 138/74 (95) 87 05/26/20 07:12 100 28 88 100 05/26/20 07:12 88 Bi-Pap 100 05/26/20 05:07 117 143/62 05/26/20 04:00 117 05/26/20 04:00 Bi-pap 05/26/20 04:00 100 05/26/20 04:00 98.5 109 32 143/62 (89) 90 05/26/20 03:30 102 29 87 100 05/26/20 00:00 Bi-pap 05/26/20 00:00 118 05/26/20 00:00 98.5 117 31 137/55 (82) 88 05/25/20 23:21 103 31 88 100 05/25/20 22:38 126 133/54 05/25/20 20:00 126 05/25/20 20:00 Bi-pap 05/25/20 20:00 98.1 116 30 133/54 (80) 87 05/25/20 20:00 100 05/25/20 19:46 Bi-Pap 05/25/20 19:42 92 39 86 100 05/25/20 16:00 100 05/25/20 16:00 102 05/25/20 16:00 98.1 110 22 122/73 (89) 84 05/25/20 16:00 Bi-pap 05/25/20 14:55 112 31 85 100 05/25/20 13:47 100 151/63 05/25/20 12:00 100 05/25/20 12:00 Bi-pap 05/25/20 12:00 100 05/25/20 12:00 97.9 103 22 151/63 (92) 84 Intake and Output 05/25/20 05/26/20 19:00 07:00 Intake Total 150 ml 60 ml Output Total 50 ml 200 ml Balance 100 ml -140 ml Intake Oral 150 ml 60 ml Output Urine Total 50 ml 200 ml Laboratory Tests Test 05/26/20 00:30 05/26/20 04:40 Urine Color Yellow Urine Appearance Cloudy Urine pH 6 (4.5-8.0) Urine Specific [place] 1.015 (1.005-1.035) Urine Protein 4+ (NEGATIVE) H Urine Glucose (UA) 1+ (NEGATIVE) H Urine Ketones 1+ (NEGATIVE) H Urine Blood 5+ (NEGATIVE) H Urine Nitrite Positive (NEGATIVE) H Urine Bilirubin Negative (NEGATIVE) Urine Urobilinogen Normal MG/DL (0.0-1.0) Urine Leukocyte Esterase 1+ (NEGATIVE) H Urine RBC Tntc /HPF (0 - 0) H Urine WBC 0-2 /HPF (0 - 0) Urine Squamous Epithelial Cells None /LPF (NONE/OCC) Urine Bacteria Few /HPF (NONE) Prothrombin Time 16.8 SEC (9.30-11.50) H Prothromb Time International Ratio 1.6 (0.9-1.1) H Sodium Level 139 MMOL/L (136-145) Potassium Level 4.1 MMOL/L (3.5-5.1) Chloride Level 102 MMOL/L (98-107) Carbon Dioxide Level 27 MMOL/L (21-32) Anion Gap 10 mmol/L (5-15) Blood Urea Nitrogen 68 mg/dL (7-18) H Creatinine 6.4 MG/DL (0.55-1.30) H Estimat Glomerular Filtration Rate 10.9 mL/min (>60) Glucose Level 131 MG/DL (74-106) H Uric Acid 5.0 MG/DL (2.6-7.2) Calcium Level 8.5 MG/DL (8.5-10.1) Phosphorus Level 4.9 MG/DL (2.5-4.9) Magnesium Level 2.1 MG/DL (1.8-2.4) Total Bilirubin 0.5 MG/DL (0.2-1.0) Aspartate Amino Transf (AST/SGOT) 22 U/L (15-37) Alanine Aminotransferase (ALT/SGPT) 17 U/L (12-78) Alkaline Phosphatase 70 U/L (46-116) C-Reactive Protein, Quantitative 36.8 mg/dL (0.00-0.90) H Pro-B-Type Natriuretic Peptide 72006 pg/mL (0-125) H Total Protein 7.8 G/DL (6.4-8.2) Albumin 1.8 G/DL (3.4-5.0) L Globulin 6.0 g/dL Albumin/Globulin Ratio 0.3 (1.0-2.7) L Digoxin Level 1.3 NG/ML (0.5-2.0) Objective HEAD AND NECK: Positive JVD. On BIPAP LUNGS: Decreased breath sounds. CARDIOVASCULAR: Irregularly irregular S1 and S2. No G/R/M ABDOMEN: Soft and morbidly obese. EXTREMITIES: 2+ pitting edema. Shai Champion MD May 26, 2020 12:02
--- NOTE | 2020-05-26 12:10 | Pulmonology Progress Note ---
Subjective ROS Limited/Unobtainable: Yes Interval Events: seen in SDU; On BiPAP Constitutional: Reports: other - dosen't feel good HEENT: Repors: no symptoms Respiratory: Reports: shortness of breath Cardiovascular: Reports: no symptoms Gastrointestinal/Abdominal: Reports: no symptoms Allergies: Coded Allergies: [place] (Verified Allergy, Mild, Rash, 10/29/14) per patient PENICILLINS (Unverified Allergy, Unknown, 11/28/13) All Systems: reviewed and negative except above Objective Last 24 Hour Vital Signs Date Time Temp Pulse Resp B/P (MAP) Pulse Ox O2 Delivery O2 Flow Rate FiO2 05/26/20 11:42 98 28 78 100 05/26/20 09:00 96 05/26/20 09:00 96 138/74 05/26/20 08:00 100 05/26/20 08:00 95 05/26/20 08:00 Bi-pap 05/26/20 08:00 98.2 96 22 138/74 (95) 87 05/26/20 07:12 100 28 88 100 05/26/20 07:12 88 Bi-Pap 100 05/26/20 05:07 117 143/62 05/26/20 04:00 117 05/26/20 04:00 Bi-pap 05/26/20 04:00 100 05/26/20 04:00 98.5 109 32 143/62 (89) 90 05/26/20 03:30 102 29 87 100 05/26/20 00:00 Bi-pap 05/26/20 00:00 118 05/26/20 00:00 98.5 117 31 137/55 (82) 88 05/25/20 23:21 103 31 88 100 05/25/20 22:38 126 133/54 05/25/20 20:00 126 05/25/20 20:00 Bi-pap 05/25/20 20:00 98.1 116 30 133/54 (80) 87 05/25/20 20:00 100 05/25/20 19:46 Bi-Pap 05/25/20 19:42 92 39 86 100 05/25/20 16:00 100 05/25/20 16:00 102 05/25/20 16:00 98.1 110 22 122/73 (89) 84 05/25/20 16:00 Bi-pap 05/25/20 14:55 112 31 85 100 05/25/20 13:47 100 151/63 Intake and Output 05/25/20 05/26/20 19:00 07:00 Intake Total 150 ml 60 ml Output Total 50 ml 200 ml Balance 100 ml -140 ml Intake Oral 150 ml 60 ml Output Urine Total 50 ml 200 ml General Appearance: no acute distress Respiratory: chest wall non-tender, normal breath sounds Cardiovascular: normal rate, regular rhythm Abdomen: other - morbid obesity Laboratory Tests 05/26/20 00:30: Urine Color Yellow, Urine Appearance Cloudy, Urine pH 6, Urine Specific [place] 1.015, Urine Protein 4+H, Urine Glucose (UA) 1+H, Urine Ketones 1+H, Urine Blood 5+H, Urine Nitrite PositiveH, Urine Bilirubin Negative, Urine Urobilinogen Norm al, Urine Leukocyte Esterase 1+H, Urine RBC TntcH, Urine WBC 0-2, Urine Squamous Epithelial Cells None, Urine Bacteria Few 05/26/20 04:40: Prothrombin Time 16.8H, Prothromb Time International Ratio 1.6H, Sodium Level 139, Potassium Level 4.1, Chloride Level 102, Carbon Dioxide Level 27, Anion Gap 10, Blood Urea Nitrogen 68H, Creatinine 6.4H, Estimat Glomerular Filtration Rate 10.9, Glucose Level 131H, Uric Acid 5.0, Calcium Level 8.5, Phosphorus Level 4.9, Magnesium Level 2.1, Total Bilirubin 0.5, Aspartate Amino Transf (AST/SGOT) 22, Alanine Aminotransferase (ALT/SGPT) 17, Alkaline Phosphatase 70, C-Reactive Protein, Quantitative 36.8H, Pro-B-Type Natriuretic Peptide 68560F, Total Protein 7.8, Albumin 1.8L, Globulin 6.0, Albumin/Globulin Ratio 0.3L, Digoxin Level 1.3 Current Medications Medications (Trade) Dose Ordered Sig/Albert Route PRN Reason Start Time Stop Time Status Last Admin Dose Admin Acetaminophen (Tylenol) 500 mg Q4H PRN ORAL Severe Pain (Pain Scale 7-10) 05/20/20 18:45 06/19/20 18:44 05/21/20 09:49 Cefepime HCl 500 mg/Dextrose 55 ml @ 110 mls/hr Q24H IV 05/19/20 13:00 05/26/20 12:59 05/25/20 13:53 Chlorhexidine Gluconate (Isamar-Hex 2%) 1 applic DAILY@2000 TOPIC 05/17/20 20:00 08/15/20 19:59 05/25/20 20:32 Dextrose (Dextrose 50%) 25 ml Q30M PRN IV Hypoglycemia 05/22/20 13:15 08/20/20 13:14 Dextrose (Dextrose 50%) 50 ml Q30M PRN IV Hypoglycemia 05/22/20 13:15 08/20/20 13:14 Digoxin (Lanoxin) 0.125 mg DAILY ORAL 05/23/20 12:30 08/18/20 10:59 05/26/20 09:00 Diltiazem HCl (Cardizem Tab) 90 mg Q8HR ORAL 05/25/20 23:00 06/24/20 22:59 05/26/20 05:07 Docusate Sodium (Colace) 100 mg THREE TIMES A DAY ORAL 05/19/20 13:00 06/18/20 12:59 05/26/20 09:00 Epoetin Vivek (Epoetin Vivek(ESRD on dialysis)) 10,000 unit MON-MON-MON SUBQ 05/20/20 21:00 08/18/20 20:59 05/25/20 20:33 Folic Acid (Folate) 5 mg DAILY ORAL 05/17/20 14:00 06/16/20 13:59 05/26/20 09:00 Heparin Sodium/ Sodium Chloride (Heparin 1000 units/500ml Premix) 1,000 unit ONCE PRN INJ radiology procedure 05/25/20 10:00 05/27/20 09:59 Insulin Aspart (NovoLOG) BEFORE MEALS AND HS SUBQ 05/22/20 16:30 08/20/20 16:29 05/25/20 05:41 Lidocaine HCl (Xylocaine 1% 30ml) 30 ml ONCE PRN INJ radiology procedure 05/25/20 10:00 05/27/20 09:59 Metoprolol Tartrate (Lopressor) 12.5 mg Q12HR ORAL 05/21/20 21:00 08/19/20 20:59 05/26/20 09:00 Pantoprazole (Protonix) 40 mg EVERY 12 HOURS ORAL 05/19/20 21:00 06/18/20 20:59 05/26/20 09:00 Sevelamer Carbonate (Renvela) 1,600 mg THREE TIMES A DAY ORAL 05/23/20 13:00 08/19/20 17:59 05/26/20 09:00 Sitagliptin Phosphate (Januvia) 25 mg ACBREAKFAST ORAL 05/26/20 06:30 06/25/20 06:29 05/26/20 05:41 Vitamin D (Vitamin D) 5,000 unit DAILY ORAL 05/24/20 09:00 06/23/20 08:59 05/26/20 09:00 Warfarin Sodium (Coumadin per pharmacy) 1 ea DAILY PRN MISC rx protocol 05/23/20 09:00 06/22/20 08:59 Warfarin Sodium (Coumadin) 7.5 mg COUMADIN ORAL 05/26/20 17:00 05/26/20 17:01 Assessment/Plan Assessment/Plan 1. Hx Sleep apnea - Currently not on CPAP - Started on BiPAP 2. Acute on chronic renal failure; hyperkalemia - s/p Kayexalate - on HD 3. Bacteriuria - s/p Rocephin in ER - f/u UCx negative 4. Hypoxemic respiratory distress; worsening -Continue supplemental O2; On BiPAP 20/03, 100% FiO2 -> increased to 20/12 -> desaturated in the 70s this AM -> awaiting transfer to ICU and intubation - needs aggressive HD/UF -> Discussed with renal 5. Elevated inflammatory markers -Venous duplex ultrasound of lower extremities negative for DVT -On SCD for DVT prophylaxis 6. pneumonia -Chest x-ray shows interstitial opacities bilaterally -COVID-19 PCR negative - on cefepime per ID 7. A-fib with rvr - seen by cardio - s/p cardizem drip 8. Right upper extremity DVT (05/22) - already on Coumadin for A-fib - monitoring INR The care for this patient was discussed with my supervising physician. Time spent for this case was approximately 31 minutes. Juan Dunlap May 26, 2020 12:10
[2020-05-26] MEDS ORDERED: fentaNYL 2500mcg/NS 250ml 250 ML IV PRN (13:30)
[2020-05-26] MEDS ORDERED: Norepinephrine 4mg/NS Premix 250 ML ONE (13:48)
--- NOTE | 2020-05-26 13:55 | Diagnostic Imaging Report ---
Procedure: XRAY Chest 1v Reason for study: Reason For Exam: SOB Comparison films: 05/15/2020. FINDINGS: Radiograph is underexposed. There is a new right central venous catheter with the tip at the cavoatrial junction. No pneumothorax noted. Cardiac pacer remains in place. Extensive bilateral alveolar densities are slightly increased likely worsening of infiltrates or edema. Cardiomegaly and bilateral small effusions noted. The bony thorax appear unremarkable. IMPRESSION: New right central venous catheter with the tip at the cavoatrial junction. No pneumothorax. Interval worsening of bilateral related disease, increase of infiltrates and/or edema.
[2020-05-26] MEDS ORDERED: Norepinephrine 4mg/NS Premix 250 ML IV PRN (13:58)
--- NOTE | 2020-05-26 14:14 | Diagnostic Imaging Report ---
Procedure: XRAY Chest 1v Reason for study: Shortness of breath. Comparison films: 05/26/2020. FINDINGS: Radiograph is severely underpenetrated. There is a new endotracheal tube in satisfactory position. Right central intravenous catheter and ICD again noted. There appears to be interval worsening of bilateral alveolar densities although this may be exaggerated by underpenetrated technique. Cardiac and mediastinal silhouette are within normal limits. There are likely small effusions. The bony thorax appear unremarkable. IMPRESSION: New endotracheal tube in satisfactory position. Apparent slight worsening of bilateral alveolar densities although this may be exaggerated by underpenetrated technique.
--- NOTE | 2020-05-26 15:01 | Emergency Room Report ---
History of Present Illness General Chief Complaint: Generalized Weakness Source: Patient, Medical Record, PMD Present Illness Allergies: Coded Allergies: [place] (Verified Allergy, Mild, Rash, 10/29/14) per patient PENICILLINS (Unverified Allergy, Unknown, 11/28/13) COVID-19 Screening Contact w/high risk pt: Yes Experienced COVID-19 symptoms?: Yes COVID-19 Testing performed SEARCH ENGINE MARKETING SPECIALIST: No Nursing Documentation-PMH Past Medical History Deferred: Pt Cognitively Impaired Past Medical History: No History, Except For Hx Cardiac Problems: Yes Hx Hypertension: Yes Hx Pacemaker: Yes Hx COPD: Yes Hx Diabetes: Yes Hx Cancer: No Hx Gastrointestinal Problems: No Hx Neurological Problems: Yes Hx Numbness: Yes Hx Weakness: Yes Hx Fatigue: Yes Physical Exam Vital Signs Date Time Temp Pulse Resp B/P (MAP) Pulse Ox O2 Delivery O2 Flow Rate FiO2 05/22/20 08:00 104 05/22/20 08:00 Venturi Mask 12.0 05/22/20 08:00 99.5 18 129/73 (91) 87 05/22/20 08:00 50 Procedures Intubation Intubation : Consent: Emergent Intubation Method: orotracheal Tube Size (cm): 7.5 Medications: Etomidate, Succinylcholine Breath Sounds after Intubation: equal Intubation Complications: no complications Post Intubation Xray: Yes Progress/Xray Impression: Appropriate tube placement Attempts: One Patient Tolerated: Well Complications: None Medical Decision Making Diagnostic Impression: Primary Impression: Respiratory failure ER Course I was called by the ICU charge nurse. This patient had been on BiPAP and was failing BiPAP with worsening hypoxemia with saturations in the 70s. It was requested that I come to the ICU to intubate this patient. I have no prior knowledge of this patient. When I arrived the patient was being bagged and the oxygen saturation was in the 60s and the patient was nonresponsive. Patient is morbidly obese. I entered the fitted the patient by rapid sequence innovation on the first attempt without complication or incident. There was immediate color change on the color meter and the patient's oxygen saturation was 100% and breath sounds were equal bilaterally. Chest x-ray showed appropriate endotracheal tube placement. The patient's care for any further management is per the inpatient physician and ICU physician. Please see my procedure note. Last Vital Signs Date Time Temp Pulse Resp B/P (MAP) Pulse Ox O2 Delivery O2 Flow Rate FiO2 2/23/21 11:42 98 28 78 100 05/26/20 09:00 138/74 05/26/20 08:00 Bi-pap 05/26/20 08:00 98.2 05/24/20 10:11 15.0 Disposition: ADMITTED INPATIENT Condition: Critical Referrals: NOT CHOSEN IPA/,REFERRING (PCP) Silvina Todd DO May 26, 2020 15:01
--- NOTE | 2020-05-26 15:09 | Emergency Room Report ---
History of Present Illness General Chief Complaint: Generalized Weakness Source: Patient, Medical Record, PMD Present Illness Allergies: Coded Allergies: [place] (Verified Allergy, Mild, Rash, 10/29/14) per patient P[place] (Unverified Allergy, Unknown, 11/28/13) COVID-19 Screening Contact w/high risk pt: Yes Experienced COVID-19 symptoms?: Yes COVID-19 Testing performed TELECOM MANAGER: No Nursing Documentation-PMH Past Medical History Deferred: Pt Cognitively Impaired Past Medical History: No History, Except For Hx Cardiac Problems: Yes Hx Hypertension: Yes Hx Pacemaker: Yes Hx COPD: Yes Hx Diabetes: Yes Hx Cancer: No Hx Gastrointestinal Problems: No Hx Neurological Problems: Yes Hx Numbness: Yes Hx Weakness: Yes Hx Fatigue: Yes Physical Exam Vital Signs Date Time Temp Pulse Resp B/P (MAP) Pulse Ox O2 Delivery O2 Flow Rate FiO2 05/22/20 08:00 104 05/22/20 08:00 Venturi Mask 12.0 05/22/20 08:00 99.5 18 129/73 (91) 87 05/22/20 08:00 50 Medical Decision Making Diagnostic Impression: Primary Impression: Respiratory failure Additional Impression: Cardiac arrest ER Course I was alerted to CODE BLUE in the ICU for patient with cardiac arrest. Per bedside nurse patient went into asystole and a CODE BLUE was called. Patient was admitted for respiratory failure and was intubated earlier in the day. Per ICU nurses patient had signed a POLST earlier in the morning making himself a DNR but it had not been signed by his primary care physician. Please refer to CODE BLUE note for exact timing of medications being administered. When arrived to the room CPR was in progress patient was being bagged by respiratory therapy throughout the code patient was given a total of 3 epis. Patient remained in asystole. Patient was pronounced at 2:28 PM. Last Vital Signs Date Time Temp Pulse Resp B/P (MAP) Pulse Ox O2 Delivery O2 Flow Rate FiO2 05/26/20 11:42 98 28 78 100 05/26/20 09:00 138/74 05/26/20 08:00 Bi-pap 05/26/20 08:00 98.2 05/24/20 10:11 15.0 Disposition: ADMITTED INPATIENT Condition: Referrals: NOT CHOSEN IPA/,REFERRING (PCP) Corine Fletcher M.D. May 26, 2020 15:09
[2020-05-26] MEDS ORDERED: Warfarin Sod 5 MG, Warfarin Sod 2.5 MG ORAL SCH ×2 (17:00)
--- NOTE | 2020-05-26 19:32 | Surgery Progress Note ---
Surgery Progress Note Subjective Procedure Performed Right femoral temporary hemodialysis catheter insertion Additional Comments This is a late entry as patient was seen earlier this morning. He was on BiPAP. Ill-appearing. Continuing to have respiratory decline. As of the time of this note patient has coded and . Objective Last 24 Hour Vital Signs Date Time Temp Pulse Resp B/P (MAP) Pulse Ox O2 Delivery O2 Flow Rate FiO2 05/26/20 13:39 67 18 100 05/26/20 11:42 98 28 78 100 05/26/20 09:00 96 05/26/20 09:00 96 138/74 05/26/20 08:00 100 05/26/20 08:00 95 05/26/20 08:00 Bi-pap 05/26/20 08:00 98.2 96 22 138/74 (95) 87 05/26/20 07:12 100 28 88 100 05/26/20 07:12 88 Bi-Pap 100 05/26/20 05:07 117 143/62 05/26/20 04:00 117 05/26/20 04:00 Bi-pap 05/26/20 04:00 100 05/26/20 04:00 98.5 109 32 143/62 (89) 90 05/26/20 03:30 102 29 87 100 05/26/20 00:00 Bi-pap 05/26/20 00:00 118 05/26/20 00:00 98.5 117 31 137/55 (82) 88 05/25/20 23:21 103 31 88 100 05/25/20 22:38 126 133/54 05/25/20 20:00 126 05/25/20 20:00 Bi-pap 05/25/20 20:00 98.1 116 30 133/54 (80) 87 05/25/20 20:00 100 05/25/20 19:46 Bi-Pap 05/25/20 19:42 92 39 86 100 I&O Intake and Output 05/25/20 05/26/20 19:00 07:00 Intake Total 150 ml 60 ml Output Total 50 ml 200 ml Balance 100 ml -140 ml Intake Oral 150 ml 60 ml Output Urine Total 50 ml 200 ml Dressing: other Wound: other Cardiovascular: RSR Respiratory: decreased breath sounds Abdomen: soft, distended, non-tender, decreased bowel sounds Extremities: edema, no tenderness, no cyanosis Laboratory Tests Test 05/26/20 00:30 05/26/20 04:40 05/26/20 12:22 Urine Color Yellow Urine Appearance Cloudy Urine pH 6 (4.5-8.0) Urine Specific [place] 1.015 (1.005-1.035) Urine Protein 4+ (NEGATIVE) H Urine Glucose (UA) 1+ (NEGATIVE) H Urine Ketones 1+ (NEGATIVE) H Urine Blood 5+ (NEGATIVE) H Urine Nitrite Positive (NEGATIVE) H Urine Bilirubin Negative (NEGATIVE) Urine Urobilinogen Normal MG/DL (0.0-1.0) Urine Leukocyte Esterase 1+ (NEGATIVE) H Urine RBC Tntc /HPF (0 - 0) H Urine WBC 0-2 /HPF (0 - 0) Urine Squamous Epithelial Cells None /LPF (NONE/OCC) Urine Bacteria Few /HPF (NONE) Prothrombin Time 16.8 SEC (9.30-11.50) H Prothromb Time International Ratio 1.6 (0.9-1.1) H Sodium Level 139 MMOL/L (136-145) Potassium Level 4.1 MMOL/L (3.5-5.1) Chloride Level 102 MMOL/L (98-107) Carbon Dioxide Level 27 MMOL/L (21-32) Anion Gap 10 mmol/L (5-15) Blood Urea Nitrogen 68 mg/dL (7-18) H Creatinine 6.4 MG/DL (0.55-1.30) H Estimat Glomerular Filtration Rate 10.9 mL/min (>60) Glucose Level 131 MG/DL (74-106) H Uric Acid 5.0 MG/DL (2.6-7.2) Calcium Level 8.5 MG/DL (8.5-10.1) Phosphorus Level 4.9 MG/DL (2.5-4.9) Magnesium Level 2.1 MG/DL (1.8-2.4) Total Bilirubin 0.5 MG/DL (0.2-1.0) Aspartate Amino Transf (AST/SGOT) 22 U/L (15-37) Alanine Aminotransferase (ALT/SGPT) 17 U/L (12-78) Alkaline Phosphatase 70 U/L (46-116) C-Reactive Protein, Quantitative 36.8 mg/dL (0.00-0.90) H Pro-B-Type Natriuretic Peptide 59411 pg/mL (0-125) H Total Protein 7.8 G/DL (6.4-8.2) Albumin 1.8 G/DL (3.4-5.0) L Globulin 6.0 g/dL Albumin/Globulin Ratio 0.3 (1.0-2.7) L Digoxin Level 1.3 NG/ML (0.5-2.0) Arterial Blood pH 7.233 (7.350-7.450) Arterial Blood Partial Pressure CO2 63.7 mmHg (35.0-45.0) *H Arterial Blood Partial Pressure O2 47.8 mmHg (75.0-100.0) Arterial Blood HCO3 26.3 mmol/L (22.0-26.0) H Arterial Blood Oxygen Saturation 75.5 % (95-100) *L Arterial Blood Base Excess -1.8 (-2-2) Dany Test Positive Plan Problems: (1) Morbid obesity (2) Pacemaker (3) 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 Temporary use. Line functional. Recent dialysis noted. 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 His abdominal distention is his baseline large pannus. Skin folds and abnormalities in pannus identified from chronic distention. His KUB noted bowel gas pattern unremarkable. NG tube has been her removed since. No nausea vomiting fever chills. Labs noted. Improving with dialysis. Hyperkalemia improved. Mentation improved. Abdominal exam is fairly benign and consistent with what would be anticipated with the patient with a BMI of 57 with chronic condition. No acute abdominal source or etiology identified. Hypotension likely relative to patient's treatment renal and will monitor with dialysis. Okay for diet once stabilized but currently keep n.p.o. given his high BiPAP requirement. Thank you for letting participate patient's care will follow with recommendations diet as tolerated Abhay Mccray May 26, 2020 19:32
--- NOTE | 2020-05-27 09:59 | Consultation ---
DATE OF CONSULTATION: 05/23/2020 ENDOCRINOLOGY CONSULTATION CONSULTING PHYSICIAN: Suhail Ariza M.D. REFERRING PHYSICIAN: Montserrat Fan M.D. REASON FOR CONSULTATION: I was asked to see this 60-year-old male by Dr. Montserrat Fan in Endocrinology consultation for management of type 2 diabetes mellitus, out of control. The patient has a history of chronic renal insufficiency on dialysis, last one on 05/15/2020 . He denies polyuria or polydipsia. FAMILY HISTORY: Unremarkable. PERSONAL HISTORY: Unremarkable. REVIEW OF SYSTEMS: Unremarkable. PHYSICAL EXAMINATION: GENERAL: The patient is in no acute distress. VITAL SIGNS: Blood pressure is 112/57, pulse 114, respirations , and temperature . HEAD AND NECK: . LUNGS: Decreased breath sounds. HEART: Heart sounds are distant. ABDOMEN: . EXTREMITIES: No edema. NEUROLOGICAL: Cranial nerves II through XII are grossly intact. Toes are downgoing to plantar stimulation. LABORATORY DATA: Glucose 140 . On 05/23/2020, BMP showed sodium 138, potassium CO2 26, creatinine 6.4, glucose was 143. ASSESSMENT: 1. Diabetes mellitus, type 2, fairly controlled. 2. End-stage renal disease, on dialysis. DISCUSSION: Hemoglobin A1c 5% renal insufficiency as a patient. I recommend 15 mg p.o. q.a.m. . Suhail Ariza M.D. DR: ANTONIO JOB#: [id number] CC:
--- NOTE | 2020-05-27 15:12 | Discharge Summary ---
Discharge Summary Discharge Summary _ Date of admission: 05/15/2020 Date of expiration: 05/26/2020 History of Present Illness and Brief Hospital Course Mr. Ponce was a 60-year-old male with past medical history of morbid obesity, hypertension, hyperlipidemia, diabetes mellitus, and CHF, who presented to the ED for evaluation of generalized weakness. Patient was hypoxic on room air in the mid 90s and was placed on BiPAP. EKG on arrival showed atrial fibrillation. CT of head did not show any acute injury. Initial laboratory studies were remarkable for significantly elevated BUN and creatinine. Patient was acidotic on blood gas with retaining CO2. Patient was admitted to the hospital for further management. Patient received right femoral temporary hemodialysis catheter for urgent hemodialysis. Patient could not give consent for insertion of dialysis catheter but dialysis was a lifesaving procedure for the patient. Patient was dialyzed at regular intervals throughout his hospitalization. Right permacath was placed. Patient also had elevated troponin which was likely due to renal failure. His echocardiogram revealed ejection fraction of 60%. Given the EKG finding of atrial fibrillation with RVR, he was started on Cardizem drip. Patient was receiving Lovenox for DVT prophylaxis. However, patient was found to have right upper extremity edema. The venous duplex of upper extremity revealed DVT in the right brachial vein. Patient was switched to Coumadin. His INR was monitored daily. His chest x-ray revealed interstitial opacities in the mid to lower lobes bilaterally along with cardiomegaly. Given possibility of pneumonia, patient was started on antibiotic. Follow-up blood cultures were negative for growth. Patient tested negative for COVID-19. Patient was found to have hematuria. Renal ultrasound revealed increased echogenicity of the right kidney consistent with medical renal disease. Urine culture was negative for growth. Patient was found to be anemic and was transfused. Patient continued to have worsening hypoxemic respiratory failure. He was eventually intubated and was transferred to ICU. Right after removing BiPAP in preparation for intubation, patient lost consciousness. Patient was intubated. Soon after intubation, patient coded. Patient was still full code at the time. Multiple rounds of chest compressions were delivered without successful ROSC. Patient remained in asystole. Unfortunately, patient was pronounced at 1428. Cause of : Cardiopulmonary arrest Consultants: Cardiology Dr. Champion Endocrinology Dr. Ariza Urology Dr. Corona Pain management MELLO Herrera hematology oncology Dr. Ashton Infectious disease Dr. Rees Gastroenterology Dr. Garzahaslettjoaquim Surgery Dr. Mccray Pulmonology Dr. Amador Nephrology Dr. Samano Final diagnoses Elevated troponin Atrial fibrillation with RVR Hyperkalemia Morbid obesity Diabetes mellitus with hyperglycemia Respiratory failure Anemia due to kidney disease Right brachial venous thrombosis Hypercoagulable disorder Thrombocytopenia Acute on chronic kidney disease Metabolic acidosis s/p pacemaker UTI Pneumonia CHF Hematuria Degenerative joint disease History of sleep apnea Dental abscess Hyponatremia Proteinuria Sepsis Cellulitis of left leg I have been assigned to dictate discharge summary for this account. Juan Dunlap May 27, 2020 15:12
== END 2020-05-26 14:29 | disposition expired | DRG 193 ==
LOC: EDBD 22:19 → EDUNIT# 22:19 → EMR 22:40 → 2W 23:24 → EDBEDREQSVC 23:51 → EDBEDREQ 05-16 00:35 → ICU 05-16 19:24 → 2W 05-19 23:24 → ICU 05-26 13:30
PROC: 5A09557 Assistance with Respiratory Ventilation, Greater than 96 Consecutive Hours, Continuous Positive Airway Pressure (ICD-10-PCS; 2020-05-15)
PROC: 30233N1 Transfusion of Nonautologous Red Blood Cells into Peripheral Vein, Percutaneous Approach (ICD-10-PCS; 2020-05-19)
PROC: 02H633Z Insertion of Infusion Device into Right Atrium, Percutaneous Approach (ICD-10-PCS; 2020-05-20)
PROC: 0JH63XZ Insertion of Tunneled Vascular Access Device into Chest Subcutaneous Tissue and Fascia, Percutaneous Approach (ICD-10-PCS; 2020-05-20)
PROC: 05H433Z Insertion of Infusion Device into Left Innominate Vein, Percutaneous Approach (ICD-10-PCS; 2020-05-25)
PROC: 5A1D70Z Performance of Urinary Filtration, Intermittent, Less than 6 Hours Per Day (ICD-10-PCS; principal; 2020-05-26)
PROC: 5A12012 Performance of Cardiac Output, Single, Manual (ICD-10-PCS; 2020-05-26)
PROC: 0BH17EZ Insertion of Endotracheal Airway into Trachea, Via Natural or Artificial Opening (ICD-10-PCS; 2020-05-26)
DX: J18.9 Pneumonia, unspecified organism (principal); J96.90 Respiratory failure, unspecified, unspecified whether with hypoxia or hypercapnia; J96.91 Respiratory failure, unspecified with hypoxia; A41.9 Sepsis, unspecified organism; I13.0 Hypertensive heart and chronic kidney disease with heart failure and stage 1 through stage 4 chronic kidney disease, or unspecified chronic kidney disease; N39.0 Urinary tract infection, site not specified; E87.2 Acidosis; N17.9 Acute kidney failure, unspecified; Z68.43 Body mass index [BMI] 50.0-59.9, adult; I50.22 Chronic systolic (congestive) heart failure; I82.621 Acute embolism and thrombosis of deep veins of right upper extremity; E87.1 Hypo-osmolality and hyponatremia; L03.116 Cellulitis of left lower limb; I48.92 Unspecified atrial flutter; E66.01 Morbid (severe) obesity due to excess calories; N18.9 Chronic kidney disease, unspecified; Z88.0 Allergy status to penicillin; E87.5 Hyperkalemia; F19.11 Other psychoactive substance abuse, in remission; F17.200 Nicotine dependence, unspecified, uncomplicated; I48.91 Unspecified atrial fibrillation; D63.1 Anemia in chronic kidney disease; E10.65 Type 1 diabetes mellitus with hyperglycemia; E10.22 Type 1 diabetes mellitus with diabetic chronic kidney disease; Z95.0 Presence of cardiac pacemaker; M19.90 Unspecified osteoarthritis, unspecified site; K04.7 Periapical abscess without sinus; Z79.01 Long term (current) use of anticoagulants; Z79.4 Long term (current) use of insulin; G47.33 Obstructive sleep apnea (adult) (pediatric); R31.0 Gross hematuria; R14.0 Abdominal distension (gaseous); D64.9 Anemia, unspecified; D69.6 Thrombocytopenia, unspecified; I34.0 Nonrheumatic mitral (valve) insufficiency; I35.1 Nonrheumatic aortic (valve) insufficiency; I36.1 Nonrheumatic tricuspid (valve) insufficiency
CPT/HCPCS: 36415; 36558; 36569; 70450; 71045; 74018; 76000; 76705; 76770; 76937; 80048; 80053; 80061; 80076; 80162; 81003; 82009; 82140; 82306; 82436; 82550; 82553; 82607; 82728; 82746; 82803; 82962; 82977; 83036; 83540; 83550; 83605; 83615; 83690; 83735; 83880; 84100; 84133; 84300; 84439; 84443; 84484; 84550; 85007; 85025; 85379; 85610; 85730; 86140; 86706; 86707; 86803; 86850; 86900; 86901; 86920; 87040; 87086; 92950; 93005; 93306; 93970; 93971; 94002; 94660; 96361; 96365; 96375; 99291; J0171; J1815